=== PATIENT | female | born 1945 | race African-American/Black ===

== ENCOUNTER 2019-09-27 11:10 | Outpatient (CLI) | payer MEDICARE, OTHER, SELFPAY ==
[2019-09-27 11:45] LABS: Hematocrit 33.9 % (37.0-47.0); Hemoglobin 10.9 g/dL (12.0-15.0); Mean Corpuscular HGB Conc 32.2 g/dl (32-36); Mean Corpuscular Hemoglobin 29.7 pg (26-34); Mean Corpuscular Volume 92.4 fl (80-100); Mean Platelet Volume 11.2 fl (7.4-10.4); Platelet Count Result 202 k/mm3 (150-375); Red Blood Count 3.67 M/mm3 (4.2-5.4); Red Cell Distribution Width 12.9 % (11.5-14.5)
[2019-09-27 12:03] LABS: Alanine Aminotransferase 11 U/L (4-35); Albumin Level 4.3 g/dL (3.5-5.1); Alkaline Phosphatase 77 U/L (38-126); Aspartate Amino Transferase 23 U/L (14-36); Bilirubin,Total 0.5 mg/dL (0.2-1.3); Blood Urea Nitrogen 16 mg/dL (7-17); Calcium 9.1 mg/dL (8.4-10.2); Carbon Dioxide 29 mmol/L (22-30); Chloride 105 mmol/L (98-107); Cholesterol 196 mg/dL (0-200); Estimated Glomerular Filt Rate > 60; Glucose 103 mg/dL (65-105); HDL Direct 52 mg/dL; Sodium 135 mmol/L (137-145); Triglycerides 40 mg/dL (<150)
[2019-09-27 12:14] LABS: LDL Cholesterol Direct 96 mg/dL
== END 2019-09-27 11:11 | disposition home or self-care (01) ==
PROVIDERS: PCP Family Medicine; Visit Provider Nurse Practitioner
DX: E03.9 Hypothyroidism, unspecified (principal); I10 Essential (primary) hypertension; E78.5 Hyperlipidemia, unspecified
CPT/HCPCS: 36415; 80053; 80061; 84443; 85027

== ENCOUNTER 2020-02-12 00:12 | Outpatient (CLI) | payer MEDICARE, OTHER, SELFPAY ==
[2020-02-12 19:58] LABS: SARS-CoV-2 RNA PCR Negative
== END 2020-02-12 00:13 | disposition home or self-care (01) ==
LOC: ANHCOVIDDT 00:13
PROVIDERS: PCP Family Medicine; Visit Provider Internal Medicine Gastroenterology
DX: Z01.812 Encounter for preprocedural laboratory examination (principal); Z20.828 Contact with and (suspected) exposure to other viral communicable diseases
CPT/HCPCS: 87635; C9803; U0003

== ENCOUNTER 2020-02-14 03:00 | Day surgery (SDC) | payer MEDICARE, OTHER, SELFPAY ==
[2020-02-09 10:27] VITALS: BMI 43.8
[2020-02-14 10:27] VITALS: BP 115/81; PULSE 43; RESP 16; TEMP 36.4; O2SAT 100
[2020-02-14] MEDS: LACTATED RINGERS 1,000 ML 150 ML IV CONT (10:39)
--- NOTE | 2020-02-14 10:39 | WPDANESEPPF ---
Anes - Initial Pre Proc Eval Procedure: Operation Date: 02/14/20 11:30 Proposed Procedures p Screening Colonoscopy - Flaco Hollingsworth DO Date/Time: 02/14/20 10:39 Surgeon: Flaco Hollingsworth DO Pre Op Diagnosis: family hx colon CA Patient Data Age: 74 Gender: F Height: 5 ft 7 in Weight: 126 kg Last Vital Signs Temp 36.4 C L 02/14/20 10:27 Pulse 43 L 02/14/20 10:27 Resp 16 02/14/20 10:27 BP 115/81 02/14/20 10:27 Pulse Ox 100 02/14/20 10:27 Allergies Allergy/AdvReac Type Severity Reaction Status Date / Time No Known Allergies Allergy Verified 02/09/20 10:31 Home Medications Medication Instructions Recorded Confirmed Type Lactobac. acidophilus-Bifido. 1 tablet PO DAILY #30 tablet 03/31/19 02/09/20 Rx animalis 10 billion cell chewable tablet cholecalciferol (vitamin D3) 25 25 mcg PO DAILY #30 cap 03/31/19 02/09/20 Rx mcg (1,000 unit) capsule prasterone (dhea) 25 mg capsule 25 mg PO DAILY #30 cap 03/31/19 02/09/20 Rx fluticasone propionate 50 1 spray NASAL BID #9.9 ml 05/19/19 02/09/20 Rx mcg/actuation nasal spray,suspension levothyroxine 25 mcg tablet See Rx Instructions .ROUTE 09/27/19 02/09/20 Rx .COMPLEX #90 each lovastatin 20 mg tablet 20 mg PO DAILY #90 tablet 09/27/19 02/09/20 Rx omeprazole 40 mg capsule,delayed 40 mg PO DAILY #90 cap 09/27/19 02/09/20 Rx release lisinopril 10 See Rx Instructions .ROUTE 01/18/20 02/09/20 Rx mg-hydrochlorothiazide 12.5 mg .COMPLEX #90 tablet tablet Patient hx anesthesia problems: none Family hx anesthesia problems: none PMFSH Past Medical History Medical History Adult hypothyroidism Essential (primary) hypertension GERD with esophagitis Other hyperlipidemia Seasonal affective disorder Family History Family History Other Family history of colonic diverticulitis Family history of glaucoma Family history of type 2 diabetes mellitus Social History Social History Years smoked: 5 Smoking status: Former smoker Tobacco type: cigarettes Second hand tobacco smoke exposure: No Smoking end date: 04/12/87 Alcohol intake: never Substance use: never Substance use type: does not use Living arrangements: with family Spiritual care concerns: No Anes - Eval Final PreProcedure Day of Procedure 02/14/20 10:39 Patient weight: morbidly obese Heart: regular rate and rhythm Lungs: clear to auscultation Airway: Mallampati scale class II Neurological: alert and oriented Last oral intake: >/= 8 hours ASA classification: III Emergent: no Anesthetic plan: proceed Anesthesia type and monitoring: general GIVS and standard monitoring Informed Consent: The patient's anesthetic plan and its attendant risks and benefits were discussed with the patient/family/POA. Questions were solicited and answers provided to the satisfaction of the patient/family/POA.
--- NOTE | 2020-02-14 12:15 | PM.IMHP ---
H&P: HPI History of Present Illness Date/Time: 02/14/20 12:15 Chief complaint: family hx colon CA Narrative: Reason for visit colonoscopy. This very pleasant lady seen in consultation at the request of the primary physician. Impression: Patient is here for screening colonoscopy. She has a family history of colon cancer. GERD controlled with medication. HTN. HLD. Hypothyroidism. Recommendation: Colonoscopy. History: this very pleasant lady's being evaluated for family history colon cancer. Her GI review of systems unremarkable at this time. She has a history of reflux disease with takes omeprazole to control her symptoms. The patient is previous had a colonoscopy. She is unsure whether she has had polyps. She has been complaining of sinus drainage. Physical examination: General: very pleasant patient in no acute distress. HEENT: Head was normocephalic sclerae is clear mouth without masses neck was supple. Heart: Rate rhythm regular without S3 or S4. Lungs: CTA. Abdomen: Soft with no guarding or rigidity. Bowel sounds were active. Neurologic: Cranial nerves 2 through 12 intact. No focal defects. No clonus. Musculoskeletal system: Revealed no joint tenderness or swelling no muscle atrophy. Extremities: Reveal no significant edema. Skin: Warm and dry with normal turgor. Mental status: intact. Patient is alert and oriented. Review of Systems Review of Systems: All systems reviewed & are unremarkable except as noted in HPI and below PMFSH Past Medical History Medical History Adult hypothyroidism Essential (primary) hypertension GERD with esophagitis Other hyperlipidemia Seasonal affective disorder Family History Family History Other Family history of colonic diverticulitis Family history of glaucoma Family history of type 2 diabetes mellitus Social History Social History Years smoked: 5 Smoking status: Former smoker Tobacco type: cigarettes Second hand tobacco smoke exposure: No Smoking end date: 04/12/87 Alcohol intake: never Substance use: never Substance use type: does not use Living arrangements: with family Spiritual care concerns: No Meds Home Medications and Allergies Home Medications Medication Instructions Recorded Confirmed Type Lactobac. acidophilus-Bifido. 1 tablet PO DAILY #30 tablet 03/31/19 02/09/20 Rx animalis 10 billion cell chewable tablet cholecalciferol (vitamin D3) 25 25 mcg PO DAILY #30 cap 03/31/19 02/09/20 Rx mcg (1,000 unit) capsule prasterone (dhea) 25 mg capsule 25 mg PO DAILY #30 cap 03/31/19 02/09/20 Rx fluticasone propionate 50 1 spray NASAL BID #9.9 ml 05/19/19 02/09/20 Rx mcg/actuation nasal spray,suspension levothyroxine 25 mcg tablet See Rx Instructions .ROUTE 09/27/19 02/09/20 Rx .COMPLEX #90 each lovastatin 20 mg tablet 20 mg PO DAILY #90 tablet 09/27/19 02/09/20 Rx omeprazole 40 mg capsule,delayed 40 mg PO DAILY #90 cap 09/27/19 02/09/20 Rx release lisinopril 10 See Rx Instructions .ROUTE 01/18/20 02/09/20 Rx mg-hydrochlorothiazide 12.5 mg .COMPLEX #90 tablet tablet Allergies Allergy/AdvReac Type Severity Reaction Status Date / Time No Known Allergies Allergy Verified 02/09/20 10:31 Vital Signs Vital Signs - 24 hr 02/14/20 10:27 Temperature 36.4 C L Pulse Rate 43 L Respiratory Rate 16 Blood Pressure 115/81 Pulse Oximetry 100
[2020-02-14 12:32] VITALS: BP 105/60; PULSE 88; RESP 24; O2SAT 98
[2020-02-14 12:42] VITALS: BP 101/37; PULSE 77; RESP 25; O2SAT 98
[2020-02-14 12:52] VITALS: BP 113/61; PULSE 80; RESP 18; O2SAT 100
== END 2020-02-14 13:08 | disposition home or self-care (01) ==
PROVIDERS: Visit Provider Internal Medicine Gastroenterology
PROC: 0DJD8ZZ Inspection of Lower Intestinal Tract, Via Natural or Artificial Opening Endoscopic (ICD-10-PCS; CPT 45378; principal; 2020-02-14 11:30)
DX: Z12.11 Encounter for screening for malignant neoplasm of colon (principal); K57.30 Diverticulosis of large intestine without perforation or abscess without bleeding; K64.8 Other hemorrhoids; K64.4 Residual hemorrhoidal skin tags; Z80.0 Family history of malignant neoplasm of digestive organs; I10 Essential (primary) hypertension; E03.9 Hypothyroidism, unspecified; E78.5 Hyperlipidemia, unspecified; K21.00 Gastro-esophageal reflux disease with esophagitis, without bleeding; F39 Unspecified mood [affective] disorder; Z87.891 Personal history of nicotine dependence; E66.01 Morbid (severe) obesity due to excess calories; Z68.41 Body mass index [BMI] 40.0-44.9, adult
CPT/HCPCS: G0105; J2704; J7120

== ENCOUNTER 2020-04-17 11:15 | Outpatient (CLI) | payer MEDICARE, OTHER, SELFPAY ==
[2020-04-17 11:50] LABS: Basophils Percent Auto 0.3 % (0.2-1.2); Eosinophils Absolute Auto 0.1 K/mm3 (0-0.3); Eosinophils Percent Auto 1.5 % (0-4.4); Hemoglobin 10.6 g/dL (12.0-15.0); Immature Granulocyte Absolute 0.04 K/mm3 (0.00-0.031); Immature Granulocyte Percent A 0.5 % (0-0.5); Lymphocytes Percent Auto 23.2 % (18.3-44.2); Mean Corpuscular HGB Conc 32.1 g/dl (32-36); Mean Corpuscular Hemoglobin 29.9 pg (26-34); Mean Platelet Volume 10.6 fl (7.4-10.4); Monocytes Absolute Auto 0.5 K/mm3 (0.1-0.6); Monocytes Percent Auto 6.3 % (2.6-8.5); Neutrophils Percent Auto 68.2 % (45.5-73.1); Platelet Count Result 213 k/mm3 (150-375); Red Blood Count 3.55 M/mm3 (4.2-5.4); Red Cell Distribution Width 12.9 % (11.5-14.5); White Blood Count 7.3 K/mm3 (4.5-10.0)
[2020-04-17 12:03] LABS: Alanine Aminotransferase 12 U/L (4-35); Alkaline Phosphatase 76 U/L (38-126); Anion Gap 5 mmol/L (8-16); Aspartate Amino Transferase 24 U/L (14-36); Bilirubin,Total 0.7 mg/dL (0.2-1.3); Blood Urea Nitrogen 14 mg/dL (7-17); Calcium 9.3 mg/dL (8.4-10.2); Carbon Dioxide 30 mmol/L (22-30); Chloride 104 mmol/L (98-107); Cholesterol 194 mg/dL (0-200); Estimated Glomerular Filt Rate > 60; Glucose 102 mg/dL (65-105); HDL Direct 51 mg/dL; Sodium 139 mmol/L (137-145); Triglycerides 44 mg/dL (<150)
[2020-04-17 12:14] LABS: LDL Cholesterol Direct 96 mg/dL
[2020-04-17 12:33] LABS: Total Triiodothyronine (T3) 0.82 NG/ML (0.97-1.69)
[2020-04-17 12:50] LABS: Creatinine Urine 72.4 mg/dL
[2020-04-17 12:54] LABS: MALB Creatinine Ratio 12.3 mg/g (0-30); Microalbumin Urine Random 8.9 mg/L (0-16.7)
[2020-04-17 13:37] LABS: Free T4 Free Thyroxine 1.07 ng/mL (0.78-2.19); Vitamin D 25 Hydroxy 41.4 ng/mL
== END 2020-04-17 11:16 | disposition home or self-care (01) ==
LOC: ANHLAB 11:19
PROVIDERS: PCP Family Medicine; Visit Provider Nurse Practitioner
DX: E03.9 Hypothyroidism, unspecified (principal); I10 Essential (primary) hypertension; E55.9 Vitamin D deficiency, unspecified; R80.9 Proteinuria, unspecified; Z13.6 Encounter for screening for cardiovascular disorders; Z13.0 Encounter for screening for diseases of the blood and blood-forming organs and certain disorders involving the immune mechanism; Z13.220 Encounter for screening for lipoid disorders; Z13.29 Encounter for screening for other suspected endocrine disorder
CPT/HCPCS: 36415; 80053; 80061; 82043; 82306; 84439; 84443; 84480; 85025

== ENCOUNTER 2020-04-23 10:48 | Outpatient (CLI) | payer MEDICARE, OTHER, SELFPAY ==
--- NOTE | ~2020-04-23 | MM_ITS ---
EXAMINATION: MM screening [facility] BI w tiera HISTORY: Screening TECHNIQUE: Craniocaudal and mediolateral oblique 3-D tomosynthesis images were obtained and synthetic 2-D images were generated. CAD analysis was submitted and interpreted. COMPARISON: Comparison to multiple prior studies sequentially, with oldest reviewed study dated 12/2013. BREAST PARENCHYMAL COMPOSITION: There are scattered areas of fibroglandular density. FINDINGS: There are developing indeterminate clustered calcifications in the lower central left breas t in the subareolar location. The right breast is stable without evidence for malignancy. IMPRESSION: 1. Developing clustered indeterminate left breast calcifications. 2. Magnification views are recommended. BI-RADS Category 0: Incomplete: Needs additional imaging evaluation. Reviewed, dictated and finalized at location A. ER SORTING MACHINE OPERATOR
== END 2020-04-23 10:49 | disposition home or self-care (01) ==
LOC: ANHIMG 10:51
PROVIDERS: PCP Family Medicine; Visit Provider Family Medicine
DX: Z12.31 Encounter for screening mammogram for malignant neoplasm of breast (principal); R92.8 Other abnormal and inconclusive findings on diagnostic imaging of breast
CPT/HCPCS: 77063; 77067

== ENCOUNTER 2020-04-26 10:19 | Outpatient (CLI) | payer MEDICARE, OTHER, SELFPAY ==
[2020-04-26 10:52] LABS: Immature Reticulocyte Fraction 14.6 % (3.0-15.9); Reticulocyte Hemoglobin Conten 34.9 pg (28.2-35.7); Reticulocyte Percent 1.44 % (0.7-4.3); Reticulocytes Absolute 0.05 B/L (32.2-175.7)
[2020-04-26 11:12] LABS: Lactate Dehydrogenase 427 U/L (313-618)
[2020-04-26 11:20] LABS: Transferrin 213 mg/dL (206-381)
[2020-04-26 11:31] LABS: Iron 106 ug/dL (37-170)
[2020-04-26 11:35] LABS: Basophils Percent Auto 0.3 % (0.2-1.2); Eosinophils Absolute Auto 0.1 K/mm3 (0-0.3); Eosinophils Percent Auto 1.9 % (0-4.4); Hemoglobin 11.1 g/dL (12.0-15.0); Immature Granulocyte Absolute 0.02 K/mm3 (0.00-0.031); Immature Granulocyte Percent A 0.3 % (0-0.5); Lymphocytes Absolute Auto 2.05 K/mm3 (0.9-3.2); Lymphocytes Percent Auto 30.2 % (18.3-44.2); Mean Corpuscular HGB Conc 31.7 g/dl (32-36); Mean Corpuscular Volume 94.6 fl (80-100); Mean Platelet Volume 11.1 fl (7.4-10.4); Monocytes Absolute Auto 0.4 K/mm3 (0.1-0.6); Neutrophils Absolute Auto 4.2 K/mm3 (1.3-6.7); Neutrophils Percent Auto 61.3 % (45.5-73.1); Platelet Count Result 219 k/mm3 (150-375); Red Cell Distribution Width 12.9 % (11.5-14.5); White Blood Count 6.8 K/mm3 (4.5-10.0)
[2020-04-26 11:39] LABS: Percent Iron Saturation 36 % (20-50)
[2020-04-26 12:18] LABS: Folic Acid 13.2 ng/mL (2.76->20)
== END 2020-04-26 10:20 | disposition home or self-care (01) ==
PROVIDERS: PCP Family Medicine; Visit Provider Nurse Practitioner
DX: D64.9 Anemia, unspecified (principal)
CPT/HCPCS: 36415; 82607; 82728; 82746; 83540; 83550; 83615; 84466; 85025; 85046

== ENCOUNTER 2020-05-31 11:56 | Outpatient (CLI) | payer MEDICARE, OTHER, SELFPAY ==
--- NOTE | ~2020-05-31 | MM_ITS ---
EXAMINATION: MM diagnostic mammo unilat LT HISTORY: Follow-up left breast calcifications TECHNIQUE: Additional 3-D tomosynthesis images of the left breast were performed and synthetic 2-D im ages were generated. CAD analysis was submitted and interpreted. COMPARISON: Comparison to multiple prior studies sequentially, with oldest reviewed study dated 12/2013. BREAST PARENCHYMAL COMPOSITION: Breast composed of scattered areas of fibroglandular density. FINDINGS: There is a developing cluster of indeterminate calcifications lower central aspect of the l eft breast anteriorly. There are no suspicious masses or architectural distortion. IMPRESSION: 1. Clustered indeterminate left breast calcifications, lower central aspect of the left breast. 2. Stereotactic left breast biopsy. BI-RADS category 4, suspicious findings. Reviewed, dictated and finalized at location A. UTATIONAL SCIENTIST
== END 2020-05-31 11:57 | disposition home or self-care (01) ==
PROVIDERS: PCP Family Medicine; Visit Provider Nurse Practitioner
DX: R92.8 Other abnormal and inconclusive findings on diagnostic imaging of breast (principal)
CPT/HCPCS: 77065

== ENCOUNTER 2020-06-11 10:16 | Outpatient (CLI) | payer MEDICARE, OTHER, SELFPAY ==
--- NOTE | ~2020-06-11 | MM_ITS ---
MM stereotactic specimen LT, MM post biopsy diagnostic LT, MM stereotactic bx LT EXAMINATION: MM ster eotactic specimen LT, MM post biopsy diagnostic LT, MM stereotactic bx LT INDICATION: Abnormal calcifications in the left breast. Stereotactic core biopsy is requested evalua te for malignancy.] TECHNIQUE AND FINDINGS: The risks and potential benefits of the procedure were discussed with the patient and written informe d consent was obtained. The patient was placed in the prone position clustered at the table with the left breast in medial lateral compression, and the area of interest was localized and targeted utili zing digital imaging with stereotaxis. After sterile preparation of the skin, 1% lidocaine was utilized for local anesthesia at the skin pun cture site and 1% lidocaine with epinephrine was utilized for deeper local anesthesia/is about the bi opsy site. A 9G AnSyn vacuum assisted biopsy needle was advanced to the level of the calcification o f interest from a lateral approach utilizing stereotactic guidance and a total of 6 tissue core biops ies were obtained. A specimen radiograph demonstrates that the calcifications of interest are included within the tissue cores. A tissue marker clip was then placed at the biopsy site. The needle was removed and hemosta sis was achieved. The patient tolerated the procedure well and there is no evidence of significant i mmediate complication. The patient was given verbal as well as written postprocedural instructions p rior to discharge from the department. Tissue cores were submitted to surgical pathology for histolo gic analysis. A 2-view left unilateral digital mammogram was obtained post procedure and this demonstrates that the tissue marker clip is in expected position. IMPRESSION: 1. Successful stereotactic biopsy of calcifications in the subareolar aspect of the left breast, fol lowed by tissue marker clip placement. Please refer to pathology report for histologic analysis. Reviewed, dictated and finalized at location A. [employer] IMPRESSION: 1. Successful stereotactic biopsy of calcifications in the subareolar aspect o f the left breast, followed by tissue marker clip placement. Please refer to p athology report for histologic analysis. IMPRESSION: 1. Successful stereotactic biopsy of calcifications in the subareolar aspect o f the left breast, followed by tissue marker clip placement. Please refer to p athology report for histologic analysis.
== END 2020-06-11 10:17 | disposition home or self-care (01) ==
PROVIDERS: PCP Family Medicine; Visit Provider Nurse Practitioner
DX: C50.912 Malignant neoplasm of unspecified site of left female breast (principal)
CPT/HCPCS: 19081; 77065; 88305; 88342; A4648

== ENCOUNTER 2020-06-14 13:17 | Outpatient (CLI) | payer MEDICARE, OTHER, SELFPAY | END 2020-06-14 13:18 | disposition home or self-care (01) | LOC: ANHCOVIDVC 13:17 | PROVIDERS: PCP Family Medicine | DX: Z23 Encounter for immunization (principal) | CPT/HCPCS: 0001A; 91300 ==

== ENCOUNTER 2020-07-05 13:16 | Outpatient (CLI) | payer MEDICARE, OTHER, SELFPAY | END 2020-07-05 13:17 | disposition home or self-care (01) | LOC: ANHCOVIDVC 13:16 | PROVIDERS: PCP Family Medicine | DX: Z23 Encounter for immunization (principal) | CPT/HCPCS: 0002A; 91300 ==

== ENCOUNTER → 2020-07-22 03:02 | Outpatient (CLI) | payer MEDICARE, OTHER, SELFPAY ==
[2020-07-22 19:42] LABS: SARS-CoV-2 RNA PCR Negative
== END ==
PROVIDERS: PCP Family Medicine; Visit Provider Surgery
DX: Z01.812 Encounter for preprocedural laboratory examination (principal); Z20.822 Contact with and (suspected) exposure to COVID-19
CPT/HCPCS: C9803; U0003; U0005

== ENCOUNTER 2020-07-22 08:49 | Outpatient (CLI) | payer MEDICARE, OTHER, SELFPAY ==
[2020-07-22 09:31] LABS: Hematocrit 33.9 % (37.0-47.0); Hemoglobin 10.9 g/dL (12.0-15.0)
[2020-07-22 10:00] LABS: Anion Gap 4 mmol/L (8-16); Blood Urea Nitrogen 17 mg/dL (7-17); Calcium 9.3 mg/dL (8.4-10.2); Carbon Dioxide 31 mmol/L (22-30); Chloride 108 mmol/L (98-107); Estimated Glomerular Filt Rate 59; Glucose 104 mg/dL (65-105); Potassium 3.9 mmol/L (3.4-5.0); Sodium 143 mmol/L (137-145)
--- NOTE | 2020-07-22 13:45 | ECG_ITS ---
Measurements Intervals [place] Rate: 85 P: 64 KS: 189 QRS: -6 QRSD: 119 T: 79 QT: 392 QTc: 468 Interpretive Statements SINUS RHYTHM LEFT ATRIAL ENLARGEMENT INCOMPLETE RIGHT BUNDLE BRANCH BLOCK DELAYED PRECORDIAL R/S TRANSITION LEFT VENTRICULAR HYPERTROPHY WITH ST-T CHANGE BASELINE WANDER- V6 BORDERLINE ECG Electronically Signed On 07-22-2020 9:36:57 CDT by Jericho Cueva D.O.
== END 2020-07-22 08:50 | disposition home or self-care (01) ==
LOC: ANHSURGERY 08:54
PROVIDERS: Anesthesiology; PCP Family Medicine; Visit Provider Surgery
DX: D64.9 Anemia, unspecified (principal); I10 Essential (primary) hypertension; Z01.818 Encounter for other preprocedural examination; I45.10 Unspecified right bundle-branch block
CPT/HCPCS: 36415; 80048; 85014; 85018; 93005; C9803; U0003; U0005

== ENCOUNTER 2020-07-25 01:13 | Day surgery (SDC) | payer MEDICARE, OTHER, SELFPAY ==
[2020-07-18 09:18] VITALS: BMI 43.1
[2020-07-25] VITALS (12 sets, daily range): BP systolic 125–147; BP diastolic 63–90; PULSE 85–93; RESP 12–20; TEMP 36.2–36.6; O2SAT 94–100
--- NOTE | ~2020-07-25 | MM_ITS ---
EXAMINATION: MM needle loc LT, MM surgical specimen LT MAMMOGRAPHY SPECIMEN DATE: 07/25/2020 15:55 CDT INDICATION: Left breast DCIS. TECHNIQUE: The procedure for a mammography-guided needle localization was discussed with the patient' s. Risks and benefits were detailed, including risks of bleeding, infection, pain, and nondiagnostic specimen. The patient verbalized understanding and agreed to proceed. The time out was performed to verify the patient's name, date of , and site of procedure. The p atient was placed in left breast compression, and the skin overlying the left breast was prepped in u sual fashion. Utilizing mammography guidance, a needle was advanced into the left breast. Two confi rmatory films were obtained. The patient tolerated procedure without immediate complication. A specimen radiograph was performed. FINDINGS: Two view confirmatory films of the left breast demonstrate a the wire adjacent to the tissu e marker. The tissue marker is contained within the surgical specimen. IMPRESSION: 1. Successful mammography-guided left breast needle localization. Reviewed, dictated and finalized at location A. IMPRESSION: 1. Successful mammography-guided left breast needle localization.
--- NOTE | ~2020-07-25 | NM_ITS ---
NM sentinel node inject only 07/25/2020 15:53 CDT INDICATION: Left breast DCIS TECHNIQUE: 1.05 Millicuries Tc 99m filtered sulfur colloid was injected and 4 aliquots in the anterio r upper outer quadrant of the breast near the areola. No images were obtained. IMPRESSION: 1: Status post left breast sentinel lymph node radiopharmaceutical injection. Reviewed, dictated and finalized at location A.
--- NOTE | 2020-07-25 07:00 | WPDHPUPDATE1 ---
History and Physical Update Update Date/Time: 07/25/20 07:00 History and Physical has been reviewed, including an updated exam of the patient. There are NO changes in the patient's condition. Risks, benefits, and alternatives have been discussed and questions answered. Patient agrees to proceed with procedure.
--- NOTE | 2020-07-25 12:48 | SUR.PREOP ---
1215-PER W/C TO MAMMOGRAPH.
[2020-07-25] MEDS: LACTATED RINGERS 1,000 ML 30 ML IV CONT (13:20)
--- NOTE | 2020-07-25 13:52 | SUR.PREOP ---
1300-RETURNED FROM RADIOLOGY DEPARTMENT.
--- NOTE | 2020-07-25 14:06 | P.PNAN_ITS ---
Anes - Eval Pre Procedure Procedure: Operation Date: 07/25/20 14:00 Proposed Procedures p Left Breast Lumpectomy with Axillary [place] Lymph Node Biopsy, - Roger Clark MD s Left Breast Biopsy with Ultrasound and/or Mammogram Guided Needle Localization - Roger Clark MD Date/Time: 07/25/20 14:06 Pre Op Diagnosis: DCIS left breast Patient Data Age: 74 Gender: F Height: 1.7 m Weight: 125.2 kg Last Vital Signs Temp 36.6 C 07/25/20 11:21 Pulse 85 07/25/20 11:21 Resp 20 07/25/20 11:21 BP 143/74 H 07/25/20 11:21 Pulse Ox 94 07/25/20 11:21 Allergies Allergy/AdvReac Type Severity Reaction Status Date / Time No Known Allergies Allergy Verified 07/25/20 11:19 Home Medications Medication Instructions Recorded Confirmed Type Lactobac. acidophilus-Bifido. 1 tablet PO DAILY #30 tablet 03/31/19 07/25/20 Rx animalis 10 billion cell chewable tablet cholecalciferol (vitamin D3) 25 25 mcg PO DAILY #30 cap 03/31/19 07/25/20 Rx mcg (1,000 unit) capsule prasterone (dhea) 25 mg capsule 25 mg PO DAILY #30 cap 03/31/19 07/25/20 Rx lovastatin 20 mg tablet 20 mg PO DAILY #90 tablet 09/27/19 07/25/20 Rx omeprazole 40 mg capsule,delayed 40 mg PO DAILY #90 cap 09/27/19 07/25/20 Rx release ferrous sulfate 325 mg PO DAILY 07/18/20 07/25/20 History fluticasone propionate [Allergy 1 spray NASAL BID PRN 07/18/20 07/25/20 History Relief (fluticasone)] levothyroxine 25 mcg PO QAM 07/18/20 07/25/20 History lisinopril-hydrochlorothiazide 1 tablet PO QAM 07/18/20 07/25/20 History Patient hx anesthesia problems: none Family hx anesthesia problems: none PMFSH Past Medical History Medical History Adult hypothyroidism Essential (primary) hypertension GERD with esophagitis Other hyperlipidemia Seasonal affective disorder Surgical History Surgical History H/O breast biopsy H/O tubal ligation Family History Family History Mother Diabetes mellitus Sibling Malignant neoplasm of prostate Sibling Heart disease Carcinoma of colon Other Family history of colonic diverticulitis Family history of glaucoma Family history of type 2 diabetes mellitus Social History Social History Smoking packs per day: 0.5 Smoking cigarettes per day: 10.0 Years smoked: 7 Smoking pack-years: 3.50 Smoking status: Former smoker Tobacco type: cigarettes Second hand tobacco smoke exposure: No Smoking end date: 10/10/84 Alcohol intake: former Alcohol use details: FORMER SOCIAL DRINKER Substance use: never Substance use type: does not use Living arrangements: with family Additional living arrangements comments: SISTER Spiritual care concerns: No Exam Day of Procedure 07/25/20 14:06
--- NOTE | 2020-07-25 14:18 | WPDANESEPPF ---
Anes - Initial Pre Proc Eval Procedure: Operation Date: 07/25/20 14:00 Proposed Procedures p Left Breast Lumpectomy with Axillary [place] Lymph Node Biopsy, - Roger Clark MD s Left Breast Biopsy with Ultrasound and/or Mammogram Guided Needle Localization - Roger Clark MD Date/Time: 07/25/20 14:18 Surgeon: Roger Clark MD Pre Op Diagnosis: DCIS left breast Patient Data Age: 74 Gender: F Height: 5 ft 7 in Weight: 125.2 kg Last Vital Signs Temp 97.8 F 07/25/20 11:21 Pulse 85 07/25/20 11:21 Resp 20 07/25/20 11:21 BP 143/74 H 07/25/20 11:21 Pulse Ox 94 07/25/20 11:21 Allergies Allergy/AdvReac Type Severity Reaction Status Date / Time No Known Allergies Allergy Verified 07/25/20 11:19 Home Medications Medication Instructions Recorded Confirmed Type Lactobac. acidophilus-Bifido. 1 tablet PO DAILY #30 tablet 03/31/19 07/25/20 Rx animalis 10 billion cell chewable tablet cholecalciferol (vitamin D3) 25 25 mcg PO DAILY #30 cap 03/31/19 07/25/20 Rx mcg (1,000 unit) capsule prasterone (dhea) 25 mg capsule 25 mg PO DAILY #30 cap 03/31/19 07/25/20 Rx lovastatin 20 mg tablet 20 mg PO DAILY #90 tablet 09/27/19 07/25/20 Rx omeprazole 40 mg capsule,delayed 40 mg PO DAILY #90 cap 09/27/19 07/25/20 Rx release ferrous sulfate 325 mg PO DAILY 07/18/20 07/25/20 History fluticasone propionate [Allergy 1 spray NASAL BID PRN 07/18/20 07/25/20 History Relief (fluticasone)] levothyroxine 25 mcg PO QAM 07/18/20 07/25/20 History lisinopril-hydrochlorothiazide 1 tablet PO QAM 07/18/20 07/25/20 History Patient hx anesthesia problems: none Family hx anesthesia problems: none PMFSH Past Medical History Medical History Adult hypothyroidism Essential (primary) hypertension GERD with esophagitis Other hyperlipidemia Seasonal affective disorder Surgical History Surgical History H/O breast biopsy H/O tubal ligation Family History Family History Mother Diabetes mellitus Sibling Malignant neoplasm of prostate Sibling Heart disease Carcinoma of colon Other Family history of colonic diverticulitis Family history of glaucoma Family history of type 2 diabetes mellitus Social History Social History Smoking packs per day: 0.5 Smoking cigarettes per day: 10.0 Years smoked: 7 Smoking pack-years: 3.50 Smoking status: Former smoker Tobacco type: cigarettes Second hand tobacco smoke exposure: No Smoking end date: 10/10/84 Alcohol intake: former Alcohol use details: FORMER SOCIAL DRINKER Substance use: never Substance use type: does not use Living arrangements: with family Additional living arrangements comments: SISTER Spiritual care concerns: No Anes - Eval Final PreProcedure Day of Procedure 07/25/20 14:18 Patient weight: obese Heart: regular rate and rhythm Lungs: clear to auscultation Airway: Mallampati scale class II Neurological: alert and oriented Last oral intake: >/= 8 hours ASA classification: III Emergent: no Anesthetic plan: proceed Anesthesia type and monitoring: general ETT and standard monitoring Informed Consent: The patient's anesthetic plan and its attendant risks and benefits were discussed with the patient/family/POA. Questions were solicited and answers provided to the satisfaction of the patient/family/POA.
[2020-07-25] MEDS: ceFAZolin 3 GM/D5W 100 ML 100 ML IVPB (14:22)
[2020-07-25] MEDS: BUPIVACAINE/EPINEPHRINE 0.5% 30 ML VIAL INFILTRATE (15:13)
[2020-07-25] MEDS: ISOSULFAN BLUE 1% INJ 5 ML VIAL SUB-Q (15:13)
--- NOTE | 2020-07-25 16:36 | PM.PROC ---
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 Wire localization of the inferior midline DCIS was performed. Also radioisotope injection under the left nipple was performed. She was taken back to the preoperative area. I reviewed her films. She was then taken to the operating room and induced into general anesthesia. The left breast as well as the left axilla was prepped and draped. The left arm was also prepped and draped so that it was sterile and mobile in the operating field. I injected Isosulfan Blue dye under the left nipple. Gentle breast massage was carried out for about 2 minutes. The navigator was used and areas of high isotope emission in the left axilla that would be compatible with location of sentinel nodes was marked on the skin. A hairline axillary incision was also marked on the skin. Incision was made and dissection was carried down through the subcutaneous tissue. Once we dissected into the axillary fat, the navigator was again used and an area of high isotope emission identified. Careful dissection with the cautery as well as blunt dissection was carried out. Clips were used for lymphatic stasis and vascular stasis. Eventually we encountered a dye stained left axillary node that had high isotope emission. As I dissected down onto this area, it was apparent this was actually a clump of lymph nodes, very close together. They were not particularly enlarged but clearly giving off high isotope emission and at least 1 of the known had dye staining. Using blunt and sharp dissection, I dissected these nodes free from the rest of the axillary contents. I placed them on a Ray-Gabrielle sponge and began dissecting the nodes from 1 another. There was actually 5 lymph nodes all together. Three of them had no dye staining and no isotope emission. One had a lot of dye staining but a little isotope emission. Another had little dye staining but high isotope emission. The high isotope emitting node was sent as left axillary sentinel node 1. The dye stained node was sent as left axillary sentinel node 2. The rest of the nodes were sent as additional left axillary nodes. These were sent fresh to pathology. Then using palpation, exploration, and the navigator, I searched for additional left axillary sentinel nodes. No suitable candidates were noted. The wound was then made hemostatic. It was closed in layers with 3 0 Monocryl subcutaneous and subcuticular interrupted suture. This area was quarantined with towels and we turned our attention to the left breast. The proposed incision, which was in the lower outer quadrant just below the nipple, was drawn on the skin. Local anesthetic was infiltrated into the skin and the deeper breast tissues. Incision was made and dissection was carried down through about a cm and a half of breast tissue. I then exposed the wire and pulled the wire through the skin and out the wound. From there dissection was carried down to and around the area where the tumor was judged to reside. A generous lumpectomy was performed around the distal end of the wire. The specimen was kept oriented as it was removed with the wire in place. Different colored sutures were placed on the different margins of the specimen and labeled appropriately for pathology. The specimen was placed on the grid and sent to mammographies. Mammographies of the specimen showed the localizing clip to be in the center of the specimen. The specimen was then sent to the pathologist fresh. The breast wound was then made meticulously hemostatic with the cautery. The wound was closed in layers with interrupted 3 0 Monocryl suture. A running 4 0 Monocryl subcuticular skin suture wa
[2020-07-25] MEDS: ONDANSETRON INJ 4 MG/2 ML VIAL IV PUSH (16:41)
== END 2020-07-25 18:44 | disposition home or self-care (01) ==
PROVIDERS: PCP Family Medicine; Visit Provider Surgery
PROC: (CPT 38525; principal; 2020-07-25 14:00)
PROC: (CPT 19301; 2020-07-25 14:00)
DX: D05.12 Intraductal carcinoma in situ of left breast (principal); I10 Essential (primary) hypertension; E78.5 Hyperlipidemia, unspecified; E03.9 Hypothyroidism, unspecified; K21.9 Gastro-esophageal reflux disease without esophagitis; Z87.891 Personal history of nicotine dependence
CPT/HCPCS: 19301; 38525; 19281; 38792; 76098; 88305; 88307; A9270; A9520; C1713; C1769; J0690; J1100; J2405; J2704; J3010; J7120

== ENCOUNTER 2020-10-03 08:53 | Outpatient (CLI) | payer MEDICARE, OTHER, SELFPAY ==
[2020-10-03 09:13] LABS: Basophils Percent Auto 0.2 % (0.2-1.2); Eosinophils Absolute Auto 0.1 K/mm3 (0-0.3); Eosinophils Percent Auto 1.6 % (0-4.4); Hematocrit 32.7 % (37.0-47.0); Hemoglobin 10.6 g/dL (12.0-15.0); Immature Granulocyte Absolute 0.01 K/mm3 (0.00-0.031); Immature Granulocyte Percent A 0.2 % (0-0.5); Lymphocytes Percent Auto 24.4 % (18.3-44.2); Mean Corpuscular HGB Conc 32.4 g/dl (32-36); Mean Corpuscular Volume 92.6 fl (80-100); Mean Platelet Volume 10.6 fl (7.4-10.4); Monocytes Absolute Auto 0.4 K/mm3 (0.1-0.6); Monocytes Percent Auto 8.8 % (2.6-8.5); Neutrophils Absolute Auto 3.2 K/mm3 (1.3-6.7); Neutrophils Percent Auto 64.8 % (45.5-73.1); Platelet Count Result 176 k/mm3 (150-375); Red Blood Count 3.53 M/mm3 (4.2-5.4); Red Cell Distribution Width 13.1 % (11.5-14.5); White Blood Count 4.9 K/mm3 (4.5-10.0)
[2020-10-03 09:16] LABS: Blood Urea Nitrogen 16 mg/dL (8-26); Carbon Dioxide 25 mmol/L (22-30); Chloride 104 mmol/L (98-109); Estimated Glomerular Filt Rate > 60; Glucose 100 mg/dL (70-105); Potassium 3.9 mmol/L (3.5-4.9); Sodium 142 mmol/L (138-146)
[2020-10-03 11:48] LABS: Alanine Aminotransferase 10 U/L (4-35); Albumin Level 4.1 g/dL (3.5-5.1); Alkaline Phosphatase 71 U/L (38-126); Anion Gap 9 mmol/L (8-16); Aspartate Amino Transferase 22 U/L (14-36); Bilirubin,Total 0.5 mg/dL (0.2-1.3); Blood Urea Nitrogen 17 mg/dL (7-17); Calcium 9.3 mg/dL (8.4-10.2); Carbon Dioxide 25 mmol/L (22-30); Chloride 107 mmol/L (98-107); Estimated Glomerular Filt Rate > 60; Glucose 98 mg/dL (65-105); Sodium 141 mmol/L (137-145)
[2020-10-03 12:06] LABS: Iron 65 ug/dL (37-170)
[2020-10-03 12:16] LABS: Percent Iron Saturation 23 % (20-50)
== END 2020-10-03 08:54 | disposition home or self-care (01) ==
PROVIDERS: PCP Family Medicine; Visit Provider Internal Medicine Hematology & Oncology
DX: D05.12 Intraductal carcinoma in situ of left breast (principal)
CPT/HCPCS: 36415; 80048; 80053; 82607; 82728; 83540; 83550; 85025

== ENCOUNTER 2020-12-20 10:39 | Outpatient (CLI) | payer MEDICARE, OTHER, SELFPAY ==
[2020-12-20 11:13] LABS: Basophils Percent Auto 0.2 % (0.2-1.2); Eosinophils Absolute Auto 0.1 K/mm3 (0-0.3); Eosinophils Percent Auto 1.6 % (0-4.4); Hematocrit 32.6 % (37.0-47.0); Hemoglobin 10.4 g/dL (12.0-15.0); Immature Granulocyte Absolute 0.01 K/mm3 (0.00-0.031); Immature Granulocyte Percent A 0.2 % (0-0.5); Lymphocytes Absolute Auto 1.39 K/mm3 (0.9-3.2); Lymphocytes Percent Auto 27.5 % (18.3-44.2); Mean Corpuscular HGB Conc 31.9 g/dl (32-36); Mean Corpuscular Volume 93.9 fl (80-100); Mean Platelet Volume 11.1 fl (7.4-10.4); Monocytes Absolute Auto 0.3 K/mm3 (0.1-0.6); Monocytes Percent Auto 5.9 % (2.6-8.5); Neutrophils Absolute Auto 3.3 K/mm3 (1.3-6.7); Neutrophils Percent Auto 64.6 % (45.5-73.1); Platelet Count Result 209 k/mm3 (150-375); Red Blood Count 3.47 M/mm3 (4.2-5.4); White Blood Count 5.1 K/mm3 (4.5-10.0)
[2020-12-20 12:26] LABS: Alanine Aminotransferase 14 U/L (4-35); Albumin Level 4.3 g/dL (3.5-5.1); Alkaline Phosphatase 85 U/L (38-126); Anion Gap 5 mmol/L (8-16); Aspartate Amino Transferase 40 U/L (14-36); Bilirubin,Total 0.7 mg/dL (0.2-1.3); Blood Urea Nitrogen 19 mg/dL (7-17); Calcium 9.6 mg/dL (8.4-10.2); Carbon Dioxide 28 mmol/L (22-30); Chloride 108 mmol/L (98-107); Cholesterol 206 mg/dL (0-200); Estimated Glomerular Filt Rate > 60; Glucose 97 mg/dL (65-110); HDL Direct 64 mg/dL; Potassium 3.9 mmol/L (3.4-5.0); Sodium 141 mmol/L (137-145); Triglycerides 45 mg/dL (<150)
[2020-12-20 12:37] LABS: LDL Cholesterol Direct 88 mg/dL
[2020-12-20 13:56] LABS: Creatinine Urine 151.2 mg/dL
[2020-12-20 14:00] LABS: MALB Creatinine Ratio 8.9 mg/g (0-30); Microalbumin Urine Random 13.5 mg/L (0-16.7)
[2020-12-20 15:08] LABS: Free T4 Free Thyroxine 1.21 ng/mL (0.78-2.19); Vitamin D 25 Hydroxy 48.4 ng/mL
[2020-12-23 11:31] LABS: Total Triiodothyronine (T3) 0.91 NG/ML (0.97-1.69)
== END 2020-12-20 10:40 | disposition home or self-care (01) ==
PROVIDERS: PCP Family Medicine; Visit Provider Internal Medicine Hematology & Oncology
DX: K21.9 Gastro-esophageal reflux disease without esophagitis (principal); I10 Essential (primary) hypertension; D64.9 Anemia, unspecified; Z00.00 Encounter for general adult medical examination without abnormal findings; Z51.81 Encounter for therapeutic drug level monitoring; Z79.899 Other long term (current) drug therapy
CPT/HCPCS: 36415; 80053; 80061; 82043; 82306; 84439; 84443; 84480; 85025

== ENCOUNTER 2021-04-14 11:58 | Outpatient (CLI) | payer MEDICARE, OTHER, SELFPAY ==
[2021-04-14 12:22] LABS: Basophils Percent Auto 0.2 % (0.2-1.2); Eosinophils Absolute Auto 0.2 K/mm3 (0-0.3); Eosinophils Percent Auto 2.6 % (0-4.4); Hematocrit 33.9 % (37.0-47.0); Hemoglobin 10.3 g/dL (12.0-15.0); Immature Granulocyte Absolute 0.02 K/mm3 (0.00-0.031); Immature Granulocyte Percent A 0.3 % (0-0.5); Lymphocytes Absolute Auto 1.37 K/mm3 (0.9-3.2); Mean Corpuscular HGB Conc 30.4 g/dl (32-36); Mean Corpuscular Volume 98.8 fl (80-100); Mean Platelet Volume 10.3 fl (7.4-10.4); Monocytes Absolute Auto 0.4 K/mm3 (0.1-0.6); Monocytes Percent Auto 6.6 % (2.6-8.5); Neutrophils Absolute Auto 3.8 K/mm3 (1.3-6.7); Neutrophils Percent Auto 66.3 % (45.5-73.1); Platelet Count Result 226 k/mm3 (150-375); Red Blood Count 3.43 M/mm3 (4.2-5.4); Red Cell Distribution Width 13.3 % (11.5-14.5); White Blood Count 5.7 K/mm3 (4.5-10.0)
[2021-04-14 15:09] LABS: Iron 74 ug/dL (37-170)
[2021-04-14 15:15] LABS: Alanine Aminotransferase 15 U/L (4-35); Albumin Level 4.7 g/dL (3.5-5.1); Alkaline Phosphatase 80 U/L (38-126); Anion Gap 11 mmol/L (8-16); Aspartate Amino Transferase 40 U/L (14-36); Bilirubin,Total 0.6 mg/dL (0.2-1.3); Blood Urea Nitrogen 17 mg/dL (7-17); Calcium 9.6 mg/dL (8.4-10.2); Carbon Dioxide 25 mmol/L (22-30); Chloride 105 mmol/L (98-107); Estimated Glomerular Filt Rate 59; Glucose 116 mg/dL (65-110); Potassium 3.9 mmol/L (3.4-5.0); Sodium 141 mmol/L (137-145)
[2021-04-14 15:19] LABS: Percent Iron Saturation 24 % (20-50)
[2021-04-14 16:18] LABS: Folic Acid 12.4 ng/mL (2.76->20)
== END 2021-04-14 11:59 | disposition home or self-care (01) ==
PROVIDERS: PCP Family Medicine; Visit Provider Internal Medicine Hematology & Oncology
DX: D64.9 Anemia, unspecified (principal)
CPT/HCPCS: 36415; 77062; 77066; 80053; 82607; 82728; 82746; 83540; 83550; 85025; G0279

== ENCOUNTER 2021-04-14 12:26 | Outpatient (CLI) | payer MEDICARE, OTHER, SELFPAY ==
--- NOTE | ~2021-04-14 | MM_ITS ---
EXAMINATION: MM diagnostic [place] BI w tiera HISTORY: Ductal carcinoma in situ of the left breast TECHNIQUE: Craniocaudal, mediolateral, and mediolateral oblique 3-D tomosynthesis images of the breas ts were performed and synthetic 2-D images were generated. CAD analysis was submitted and interpreted . COMPARISON: 05/31/2020, 04/23/2020, 09/23/2017, 06/19/2016 BREAST PARENCHYMAL COMPOSITION: There are scattered areas of fibroglandular density. FINDINGS: Lumpectomy changes are noted in the left breast. There is no evidence of suspicious mass, c alcification, or architectural distortion in either breast to suggest malignancy. There has been no suspicious interval change. IMPRESSION: 1. No mammographic evidence of malignancy. 2. Recommend routine screening mammography in one year. BI-RADS Category 2: Benign finding(s). Reviewed, dictated and finalized at location A. H TANK OPERATOR
== END 2021-04-14 12:27 | disposition home or self-care (01) ==
LOC: ANHIMG 12:27
PROVIDERS: PCP Family Medicine; Visit Provider Internal Medicine Hematology & Oncology
DX: D05.12 Intraductal carcinoma in situ of left breast (principal)
CPT/HCPCS: 77062; 77066; G0279

== ENCOUNTER 2021-05-23 10:47 | Outpatient (CLI) | payer MEDICARE, OTHER, SELFPAY ==
[2021-05-23 12:01] LABS: Eosinophils Absolute Auto 0.1 K/mm3 (0-0.3); Eosinophils Percent Auto 1.3 % (0-4.4); Hematocrit 32.8 % (37.0-47.0); Hemoglobin 10.4 g/dL (12.0-15.0); Immature Granulocyte Absolute 0.01 K/mm3 (0.00-0.031); Immature Granulocyte Percent A 0.2 % (0-0.5); Lymphocytes Absolute Auto 1.16 K/mm3 (0.9-3.2); Mean Corpuscular HGB Conc 31.7 g/dl (32-36); Mean Corpuscular Hemoglobin 30.6 pg (26-34); Mean Corpuscular Volume 96.5 fl (80-100); Mean Platelet Volume 11.7 fl (7.4-10.4); Monocytes Absolute Auto 0.3 K/mm3 (0.1-0.6); Monocytes Percent Auto 5.2 % (2.6-8.5); Neutrophils Percent Auto 72.3 % (45.5-73.1); Platelet Count Result 206 k/mm3 (150-375); Red Cell Distribution Width 13.4 % (11.5-14.5); White Blood Count 5.5 K/mm3 (4.5-10.0)
[2021-05-23 12:13] LABS: Alanine Aminotransferase 15 U/L (4-35); Albumin Level 4.3 g/dL (3.5-5.1); Alkaline Phosphatase 78 U/L (38-126); Anion Gap 6 mmol/L (8-16); Aspartate Amino Transferase 26 U/L (14-36); Bilirubin,Total 0.9 mg/dL (0.2-1.3); Blood Urea Nitrogen 17 mg/dL (7-17); Calcium 9.4 mg/dL (8.4-10.2); Carbon Dioxide 24 mmol/L (22-30); Chloride 109 mmol/L (98-107); Cholesterol 197 mg/dL (0-200); Estimated Glomerular Filt Rate 59; Glucose 105 mg/dL (65-110); HDL Direct 50 mg/dL; Potassium 3.8 mmol/L (3.4-5.0); Sodium 139 mmol/L (137-145); Triglycerides 42 mg/dL (<150)
[2021-05-23 12:28] LABS: LDL Cholesterol Direct 93 mg/dL
[2021-05-23 12:35] LABS: Free T4 Free Thyroxine 1.31 ng/mL (0.78-2.19); Vitamin D 25 Hydroxy 54.3 ng/mL
[2021-05-23 13:37] LABS: Total Triiodothyronine (T3) 0.86 NG/ML (0.97-1.69)
== END 2021-05-23 10:48 | disposition home or self-care (01) ==
PROVIDERS: PCP Family Medicine
DX: D64.9 Anemia, unspecified (principal); I10 Essential (primary) hypertension; E55.9 Vitamin D deficiency, unspecified
CPT/HCPCS: 36415; 80053; 80061; 82306; 84439; 84443; 84480; 85025

== ENCOUNTER 2021-06-02 09:59 | Outpatient (CLI) | payer MEDICARE, OTHER, SELFPAY ==
[2021-06-02 10:31] LABS: Hematocrit 31.3 % (37.0-47.0); Hemoglobin 9.9 g/dL (12.0-15.0); Immature Reticulocyte Fraction 13.3 % (3.0-15.9); Mean Corpuscular HGB Conc 31.6 g/dl (32-36); Mean Corpuscular Hemoglobin 30.6 pg (26-34); Mean Corpuscular Volume 96.6 fl (80-100); Mean Platelet Volume 11.7 fl (7.4-10.4); Platelet Count Result 208 k/mm3 (150-375); Red Blood Count 3.24 M/mm3 (4.2-5.4); Red Cell Distribution Width 13.4 % (11.5-14.5); Reticulocyte Hemoglobin Conten 34.5 pg (28.2-35.7); Reticulocyte Percent 1.68 % (0.7-4.3); Reticulocytes Absolute 0.05 B/L (32.2-175.7); White Blood Count 5.4 K/mm3 (4.5-10.0)
[2021-06-02 10:46] LABS: Lactate Dehydrogenase 544 U/L (313-618)
[2021-06-02 10:54] LABS: Transferrin 237 mg/dL (206-381)
[2021-06-02 10:55] LABS: Iron 65 ug/dL (37-170)
[2021-06-02 11:03] LABS: Band Neutrophils Percent 2 % (0-6); Eosinophils Absolute Manual 0.05 K/mm3 (0.02-0.5); Eosinophils Percent Manual 1 % (0-4); Lymphocytes Absolute Manual 1.08 K/mm3 (1.1-4.5); Neutrophils Absolute Manual 4.26 K/mm3 (1.7-7.2); Neutrophils Percent Manual 77 % (46-73); Platelet Estimate Adequate (Adequate); Total Cells Counted 100
[2021-06-02 11:04] LABS: Hypochromasia 1+ (NORMAL)
[2021-06-02 11:05] LABS: Percent Iron Saturation 22 % (20-50)
[2021-06-02 11:54] LABS: Folic Acid 17.8 ng/mL (2.76->20)
== END 2021-06-02 10:00 | disposition home or self-care (01) ==
PROVIDERS: PCP Family Medicine; Visit Provider Family Medicine
DX: D64.9 Anemia, unspecified (principal); I10 Essential (primary) hypertension; R79.89 Other specified abnormal findings of blood chemistry
CPT/HCPCS: 36415; 82607; 82728; 82746; 83540; 83550; 83615; 84466; 85025; 85046

== ENCOUNTER 2021-06-25 10:57 | Outpatient (CLI) | payer MEDICARE, OTHER, SELFPAY ==
[2021-06-25 11:33] LABS: Hematocrit 30.9 % (37.0-47.0); Immature Reticulocyte Fraction 14.8 % (3.0-15.9); Mean Corpuscular HGB Conc 32.4 g/dl (32-36); Mean Corpuscular Hemoglobin 30.6 pg (26-34); Mean Corpuscular Volume 94.5 fl (80-100); Mean Platelet Volume 11.1 fl (7.4-10.4); Platelet Count Result 199 k/mm3 (150-375); Red Blood Count 3.27 M/mm3 (4.2-5.4); Red Cell Distribution Width 13.2 % (11.5-14.5); Reticulocyte Hemoglobin Conten 33.9 pg (28.2-35.7); Reticulocyte Percent 1.41 % (0.7-4.3); Reticulocytes Absolute 0.05 B/L (32.2-175.7); White Blood Count 5.9 K/mm3 (4.5-10.0)
[2021-06-25 12:11] LABS: Iron 62 ug/dL (37-170)
[2021-06-25 12:20] LABS: Percent Iron Saturation 22 % (20-50); Transferrin 203 mg/dL (206-381)
[2021-06-25 13:17] LABS: Folic Acid 19.4 ng/mL (2.76->20)
== END 2021-06-25 10:58 | disposition home or self-care (01) ==
LOC: ANHLAB 11:05
PROVIDERS: PCP Family Medicine; Visit Provider Family Medicine
DX: D64.9 Anemia, unspecified (principal); R79.9 Abnormal finding of blood chemistry, unspecified; R79.89 Other specified abnormal findings of blood chemistry
CPT/HCPCS: 36415; 82607; 82728; 82746; 83540; 83550; 84466; 85027; 85046

== ENCOUNTER 2021-08-01 14:05 | Outpatient (CLI) | payer MEDICARE, OTHER, SELFPAY ==
--- NOTE | ~2021-08-01 | XR_ITS ---
EXAMINATION: XR chest 2V DATE: 08/01/2021 14:21 INDICATION: Chronic pulmonary edema. TECHNIQUE: Frontal and lateral views of the chest were obtained. COMPARISON: None. FINDINGS: There is no pneumonia, pleural effusion, or pneumothorax. Cardiomegaly is noted. There are surgical clips in left chest wall. IMPRESSION: 1. Cardiomegaly. Reviewed, dictated and finalized at location B. IMPRESSION: 1. Cardiomegaly.
== END 2021-08-01 14:06 | disposition home or self-care (01) ==
LOC: ANHIMG 14:07
PROVIDERS: PCP Family Medicine; Visit Provider Nurse Practitioner Adult Health
DX: J81.1 Chronic pulmonary edema (principal); I51.7 Cardiomegaly
CPT/HCPCS: 71046

== ENCOUNTER 2021-08-11 09:32 | Outpatient (CLI) | payer MEDICARE, OTHER, SELFPAY ==
[2021-08-11 09:47] LABS: Basophils Percent Auto 0.3 % (0.2-1.2); Eosinophils Absolute Auto 0.1 K/mm3 (0-0.3); Eosinophils Percent Auto 1.9 % (0-4.4); Hematocrit 33.3 % (37.0-47.0); Immature Granulocyte Absolute 0.03 K/mm3 (0.00-0.031); Immature Granulocyte Percent A 0.4 % (0-0.5); Lymphocytes Absolute Auto 1.28 K/mm3 (0.9-3.2); Lymphocytes Percent Auto 17.3 % (18.3-44.2); Mean Corpuscular Hemoglobin 29.9 pg (26-34); Mean Corpuscular Volume 99.4 fl (80-100); Mean Platelet Volume 10.8 fl (7.4-10.4); Monocytes Absolute Auto 0.5 K/mm3 (0.1-0.6); Monocytes Percent Auto 6.1 % (2.6-8.5); Neutrophils Absolute Auto 5.5 K/mm3 (1.3-6.7); Platelet Count Result 229 k/mm3 (150-375); Red Blood Count 3.35 M/mm3 (4.2-5.4); Red Cell Distribution Width 14.1 % (11.5-14.5); White Blood Count 7.4 K/mm3 (4.5-10.0)
[2021-08-11 11:08] LABS: Iron 57 ug/dL (37-170)
[2021-08-11 11:14] LABS: Alanine Aminotransferase 16 U/L (4-35); Albumin Level 4.2 g/dL (3.5-5.1); Alkaline Phosphatase 78 U/L (38-126); Anion Gap 8 mmol/L (8-16); Aspartate Amino Transferase 24 U/L (14-36); Bilirubin,Total 0.8 mg/dL (0.2-1.3); Blood Urea Nitrogen 16 mg/dL (7-17); Carbon Dioxide 24 mmol/L (22-30); Chloride 105 mmol/L (98-107); Estimated Glomerular Filt Rate > 60; Glucose 114 mg/dL (65-110); Potassium 3.8 mmol/L (3.4-5.0); Sodium 137 mmol/L (137-145)
[2021-08-11 11:18] LABS: Percent Iron Saturation 19 % (20-50)
[2021-08-11 12:15] LABS: Folic Acid 17.7 ng/mL (2.76->20)
== END 2021-08-11 09:33 | disposition home or self-care (01) ==
LOC: ANHLAB 09:34
PROVIDERS: PCP Family Medicine; Visit Provider Internal Medicine Hematology & Oncology
DX: D64.9 Anemia, unspecified (principal)
CPT/HCPCS: 36415; 80053; 82607; 82728; 82746; 83540; 83550; 85025

== ENCOUNTER 2021-10-07 14:05 | Inpatient (IN) | payer MEDICARE, OTHER, SELFPAY ==
[2021-10-07] VITALS (16 sets, daily range): BP systolic 119–149; BP diastolic 62–109; PULSE 75–89; RESP 17–32; TEMP 36.2–36.9; O2SAT 89–99; BMI 41.5
--- NOTE | ~2021-10-07 | US_ITS ---
EXAMINATION: US renal BI DATE: 10/09/2021 15:43 INDICATION: Acute kidney injury TECHNIQUE: Multiple grayscale and Doppler ultrasound images of the kidneys were obtained. COMPARISON: None. FINDINGS: The right kidney measures 11.0 x 3.5 x 4.9 cm. The left kidney measures 10.0 x 3.7 x 5.6 cm . The kidneys demonstrate normal parenchymal echogenicity. There is no hydronephrosis. The bladder is empty. IMPRESSION: 1. Normal kidneys without hydronephrosis. Reviewed, dictated and finalized at location F.
--- NOTE | ~2021-10-07 | US_ITS ---
EXAMINATION: US venous doppler [facility] DATE: 10/08/2021 11:58 INDICATION: Left lower limb swelling TECHNIQUE: Grayscale ultrasound images without and with compression and Doppler ultrasound images of the left lower extremity veins were obtained. COMPARISON: None. FINDINGS: The visualized portions of left common femoral vein, profunda (deep) femoral vein, femoral vein, popl iteal vein, peroneal veins, posterior tibial veins and greater saphenous vein outflow are patent. IMPRESSION: 1. No deep venous thrombosis in the left lower limb. Reviewed, dictated and finalized at location A.
--- NOTE | ~2021-10-07 | XR_ITS ---
XR chest 2V DATE: 10/07/2021 15:10 INDICATION: Shortness of breath, weakness, hypertension TECHNIQUE: AP and lateral views COMPARISON: 08/01/2021 2 view chest FINDINGS: There is cardiomegaly. Is aortic calcification and mild unfolding. There is pulmonary vascular congestion and redistribution. There are small pleural effusions. Mild pr ominence of the greater fissures suggests subpleural edema. There is mild central and lower lung zone haziness/infiltrate suggesting pulmonary edema. IMPRESSION: Congestive heart failure and pulmonary edema, small pleural effusions Reviewed, dictated and finalized at location B. IMPRESSION: Congestive heart failure and pulmonary edema, small pleural effusio ns
--- NOTE | ~2021-10-07 | CT_ITS ---
EXAMINATION: CTA chest PE protocol DATE: 10/07/2021 16:55 INDICATION: Shortness of breath and cough TECHNIQUE: Computed tomography angiography (CTA) of the chest was performed with 100 mL Omnipaque-350 intravenous contrast timed to evaluate the pulmonary arteries. Coronal maximum intensity projection 3D-reconstructions were created by the technologist. The dose-length product (DLP) was 525.49 mGy-cm. Automated exposure control and iterative reconstruction technique were employed. COMPARISON: None. FINDINGS: There is moderate opacification of the pulmonary arteries. No pulmonary embolus is identifi ed. Cardiomegaly is noted. There is a moderate amount of reflux of contrast into the intrahepatic inf erior vena cava cava. Small pleural effusions are present. There is no pneumothorax. There our patchy airspace opacities throughout the lungs. There is mild thoracic spondylosis. IMPRESSION: 1. Cardiomegaly with mild pulmonary edema. No pulmonary embolus identified. 2. Small pleural effusions. Reviewed, dictated and finalized at location A.
--- NOTE | ~2021-10-07 | US_ITS ---
EXAMINATION: US venous doppler [facility] DATE: 10/07/2021 15:44 INDICATION: Right lower limb pain and swelling TECHNIQUE: Tirado scale images without and with compression and Doppler images of the right lower extre mity veins were obtained. COMPARISON: None FINDINGS: There is thrombosis in the distal popliteal vein as well as the lesser saphenous vein. The posterior tibial and peroneal veins are not well demonstrated. The right common femoral vein, profund a femoral vein, femoral vein, peroneal trunk are patent. IMPRESSION: 1. Venous thrombosis in the distal popliteal vein and lesser saphenous vein. These findings were discussed with Dr. Shanelle Manning MD in the Emergency Department at 1558 hour s on 10/07/2021. Reviewed, dictated and finalized at location A. IMPRESSION: 1. Venous thrombosis in the distal popliteal vein and lesser saphenous vein. These findings were discussed with Dr. Shanelle Manning MD in the Emergency D epartment at 1558 hours on 10/07/2021.
--- NOTE | ~2021-10-07 | US_ITS ---
EXAMINATION: US right upper quadrant DATE: 10/09/2021 15:43 INDICATION: Epigastric pain TECHNIQUE: Multiple grayscale and Doppler ultrasound images of the abdomen were obtained. COMPARISON: None available FINDINGS: The visualized portions of the pancreas are unremarkable. The liver is normal with normal e chogenicity and echotexture. No surface nodularity. Normal hepatopetal flow in the main portal vein. Stones are present in the nondistended gallbladder. No pericholecystic fluid or gallbladder wall thic kening. The normal common bile duct measures 3 mm. There was no sonographic Hatfield sign. IMPRESSION: 1. Cholelithiasis without additional findings of cholecystitis. Reviewed, dictated and finalized at location F.
--- NOTE | 2021-10-07 14:27 | ECG_ITS ---
Measurements Intervals [place] Rate: 84 P: 64 AK: 187 QRS: -4 QRSD: 112 T: 102 QT: 416 QTc: 492 Interpretive Statements SINUS RHYTHM POSSIBLE LEFT ATRIAL ENLARGEMENT [-0.1mV P WAVE IN V1/V2] FREQUENT PVCS IN A PATTERN OF BIGEMINY COMPARED TO THE PRIOR TRACING, THE PVCS ARE NEW. Electronically Signed On 10-07-2021 19:37:16 CDT by Mariaa Berrios M.D.
--- NOTE | 2021-10-07 14:30 | ED.SOB ---
HPI - SOB/Dyspnea General Chief Complaint: Shortness of Breath/Dyspnea Stated Complaint: sob Time Seen by Provider: 10/07/21 14:21 History of Present Illness HPI Narrative: pt here with sob says ok this am and started around 1300 but says has been dealing with sinus infection since august 13 abx and noticed sinus pressure today with this no f/other uri/new n/v/d-has chronic bile stomach issues vomiting chronically at times no new chagnes with this today no other new cp/urine chagnes/travel or sick contacts says noted 3 changes in inhalers since the sinus issues b/c of sob and last one albuterol she doens't like thinks making her legs swell more and has noticed right leg/calf pain for last few weeks hasn't told her doc, no h/o dvt or family history no neuro chagnes/loc Related Data Home Medications Medication Instructions Recorded Confirmed ferrous sulfate 325 mg (65 mg 325 mg PO DAILY 07/18/20 10/07/21 iron) tablet fluticasone propionate 50 1 spray intranasal BID PRN 07/18/20 10/07/21 mcg/actuation nasal Congestion spray,suspension (Allergy Relief (fluticasone)) levothyroxine 25 mcg tablet 25 mcg PO QAM 07/18/20 10/07/21 lisinopril 10 1 tablet PO QAM 07/18/20 10/07/21 mg-hydrochlorothiazide 12.5 mg tablet anastrozole 1 mg tablet 1 mg PO DAILY 11/08/20 10/07/21 Allergies Allergy/AdvReac Type Severity Reaction Status Date / Time No Known Allergies Allergy Verified 10/07/21 10:24 Review of Systems Constitutional: Comments: CONSTITUTIONAL: Denies fever, chills, or sweats. EYES: Denies visual changes, redness, or discharge. ENT: Denies rhinorrhea, congestion, sore throat, or otalgia. CARDIOVASCULAR: Denies chest pain, palpitations, or edema. RESPIRATORY: Denies cough but has sob and leg swelling GASTROINTESTINAL: Denies abdominal pain, nausea, vomiting, or diarrhea. GENITOURINARY: Denies dysuria or hematuria. SKIN: Denies rash or itching. MUSCULOSKELETAL: Denies back pain, joint pain, or myalgia. but right calf pain for last 3 weeks or so NEUROLOGIC: Denies headache, numbness, or weakness. PSYCHIATRIC: Denies anxiety or depression. [facility] Past Medical History Medical History (Updated 10/07/21 @ 16:08 by Shanelle Manning MD) Adult hypothyroidism Epigastric abdominal pain Essential (primary) hypertension GERD with esophagitis Other hyperlipidemia Seasonal affective disorder Surgical History Surgical History H/O breast biopsy H/O tubal ligation Family History Family History Mother Diabetes mellitus Sibling Malignant neoplasm of prostate Sibling Heart disease Carcinoma of colon Other Family history of colonic diverticulitis Family history of glaucoma Family history of type 2 diabetes mellitus Social History Social History Smoking packs per day: 0.5 Smoking cigarettes per day: 10.0 Years smoked: 7 Smoking pack-years: 3.50 Smoking status: Never smoker Tobacco type: cigarettes Second hand tobacco smoke exposure: No Smoking end date: 10/10/84 Alcohol intake: former Alcohol use details: FORMER SOCIAL DRINKER Substance use: never Substance use type: does not use Additional living arrangements comments: SISTER Spiritual care concerns: No Exam Const: Other: APPEARANCE: Well appearing, no pain in distress, well-nourished. Head normocephalic atraumtaic. EYES: PERRLA/EOMI, conjunctivae very clear. NOSE: Normal no drainage EARS:TMS clear Daria Tirado, with good light reflex. THROAT: Pharynx clear, no exudate. NECK: Supple. No adenopathy, no masses. RESPIRATORY: Airway patent, repsirations nonlabored. Clear to auscultation bilaterally, no rales, rhonchi, wheezing but tachypnea noted. CARDIOVASCULAR: Regular rate and rhythm without murmurs rubs or gallops. ABDOMINAL: Soft, nontender, nondis
[2021-10-07] MEDS: IPRATROPIUM BR 0.02% INH SOLN 0.5 MG/2.5 ML VIAL INHALATION (14:46)
[2021-10-07 14:56] LABS: Alveolar/Arterial O2 Gradient 42.4 mmHg; Device ROOM AIR; Fractional Inspired Oxygen 21 %; HCO3 ABG 19.1 mEq/l (22.0-26.0); Modified Allen's Test Pass; Oxygen Content ABG 14.2 %vol (16.0-22.0); Oxygen Saturation ABG 95.5 % (95.0-100.0); Oxyhemoglobin 92.9 % THb (90.0-100.0); PCO2 ABG 28.5 mmHg (35.0-45.0); PO2 ABG 73.2 mmHg (80.0-100.0); PO2 FiO2 Ratio Arterial Blood 3.49 %; Site Drawn RIGHT RADIAL; Total Hemoglobin 10.8 g/dL (12.0-18.0); pH ABG 7.444 (7.350-7.450)
[2021-10-07 14:57] LABS: Basophils Percent Auto 0.1 % (0.2-1.2); Eosinophils Absolute Auto 0.1 K/mm3 (0-0.3); Eosinophils Percent Auto 0.7 % (0-4.4); Hematocrit 31.5 % (37.0-47.0); Hemoglobin 9.7 g/dL (12.0-15.0); Immature Granulocyte Absolute 0.01 K/mm3 (0.00-0.031); Immature Granulocyte Percent A 0.1 % (0-0.5); Lymphocytes Absolute Auto 1.56 K/mm3 (0.9-3.2); Mean Corpuscular HGB Conc 30.8 g/dl (32-36); Mean Corpuscular Hemoglobin 29.9 pg (26-34); Mean Corpuscular Volume 97.2 fl (80-100); Mean Platelet Volume 12.1 fl (7.4-10.4); Monocytes Absolute Auto 0.3 K/mm3 (0.1-0.6); Monocytes Percent Auto 4.7 % (2.6-8.5); Neutrophils Absolute Auto 4.8 K/mm3 (1.3-6.7); Neutrophils Percent Auto 71.4 % (45.5-73.1); Platelet Count Result 200 k/mm3 (150-375); Red Blood Count 3.24 M/mm3 (4.2-5.4); Red Cell Distribution Width 15.6 % (11.5-14.5); White Blood Count 6.8 K/mm3 (4.5-10.0)
[2021-10-07 15:06] LABS: Lactic Acid Reflex 2.2 mmol/L (0.7-2.0)
[2021-10-07 15:10] LABS: INR 1.5; Prothrombin Time 17.7 Seconds (11.1-14.7)
[2021-10-07 15:11] LABS: Alanine Aminotransferase 34 U/L (6-35); Albumin Level 4.1 g/dL (3.5-5.1); Alkaline Phosphatase 98 U/L (38-126); Anion Gap 10 mmol/L (8-16); Aspartate Amino Transferase 43 U/L (14-36); Bilirubin,Total 1.8 mg/dL (0.2-1.3); Blood Urea Nitrogen 29 mg/dL (7-17); CRP 1.7 mg/dL (<1.0); Calcium 8.7 mg/dL (8.4-10.2); Carbon Dioxide 20 mmol/L (22-30); Chloride 108 mmol/L (98-107); Estimated CRCL calculation 47 ml/min; Estimated Glomerular Filt Rate 49; Glucose 159 mg/dL (65-110); Potassium 3.7 mmol/L (3.4-5.0); Sodium 138 mmol/L (137-145)
[2021-10-07 15:16] LABS: NT Pro B Type Natriuretic Pept 15300 pg/mL (5-100)
[2021-10-07 15:25] LABS: Troponin I 0.061 ng/mL (0.000-0.034)
[2021-10-07 15:50] LABS: D Dimer 11.56 ug/mL (<0.48)
[2021-10-07] MEDS: DEXAMETHASONE SOD PHOS INJ 4 MG/ML VIAL IV PUSH (15:50)
[2021-10-07] MEDS: NITROGLYCERIN OINTMENT 1 INCH DOSE TRANSDERM (15:50)
[2021-10-07] MEDS: ASPIRIN 81 MG CHEWABLE TABLET 324 MG PO (15:50)
[2021-10-07] MEDS: ONDANSETRON INJ 4 MG/2 ML VIAL IV PUSH (15:51)
[2021-10-07] MEDS: FUROSEMIDE INJ 100 MG/10 ML VIAL 80 MG IV PUSH (15:51)
[2021-10-07] MEDS: ENOXAPARIN 60 MG/0.6 ML SYRINGE 120 MG SUB-Q (16:04)
[2021-10-07 16:21] LABS: Influenza A QL RT-PCR Negative (Negative); Influenza B QL RT-PCR Negative (Negative); SARS-CoV-2 RNA PCR Negative
[2021-10-07 16:44] LABS: Appearance Urine Clear (Clear); Bilirubin Urine Negative (Negative); Blood Urine Negative (Negative); Color Urine Yellow (Yellow); Glucose Urine UA Negative (Negative); Ketones Urine Negative (Negative); Leukocyte Esterase Ur 1+ LEU/UL (Negative); Nitrate Urine Negative (Negative); Protein Urine 1+ mg/dL (Negative); Urobilinogen Urine 0.2 mg/dL (<2.0); pH Urine 5.5 (5.0-9.0)
[2021-10-07 16:53] LABS: Bacteria Urine Trace /hpf; Mucus Urine Rare /lpf; RBC Urine 0-2 /hpf (0-2); Squamous Epithelial Cell Urine Rare /hpf (Few); WBC Urine 0-3 /hpf
[2021-10-07 16:54] LABS: Add Urine Microscopic? YES
[2021-10-07 17:54] LABS: Reflex Lactic Acid Yes or No Add Lactic
--- NOTE | 2021-10-07 18:28 | ADMGEN ---
This patient, Carlie Bales, was admitted to IMU Room 231-01. Patient/family oriented to hospital policies and general routines including ID bracelet, bed and alarms, visiting hours, pain management, procedures, bathroom and other care routines, personal items, smoking policy, room service/diet, and visiting hours. Information on how to activate the Rapid Response Team has been discussed. Patient/Family are encouraged to report perceived risks to care and to ask questions if they do not understand what they are told or what they should do.
[2021-10-07 19:16] LABS: Lactic Acid 1.1 mmol/L (0.7-2.0)
[2021-10-07 19:35] LABS: Troponin I 0.067 ng/mL (0.000-0.034)
[2021-10-08] VITALS (15 sets, daily range): BP systolic 90–129; BP diastolic 53–70; PULSE 66–82; RESP 16–20; TEMP 36.1–36.7; O2SAT 96–100; BMI 41.5
--- NOTE | 2021-10-08 | ECHO_ITS ---
Patient Info Name: Carlie Bales Age: 75 years : 1945 Gender: Female Ht: 67 in Wt: 265 lbs BSA: 2.44 m2 HR: 78 bpm BP: 121 / 69 mmHg Heart Rhythm: Sinus Rhythm Technical Quality: Good Exam Date: 10/08/2021 10:53 AM Exam Location: [facility] Pulmonary Exam Room: 231 Patient Status: Inpatient Admit Date: 10/07/2021 Staff Ordering Physician: Florentin Mg MD Hydrometeorology Teacher: Lucille Bess RDCS Attending Provider: Comfort Bedoya DO Exam Type: CA echo doppler color flow Study Info Indications - chf htn hx/o breast ca radiation Complete two-dimensional, color flow and Doppler transthoracic echocardiogram is performed. Summary 1. Complete two-dimensional, color flow and Doppler transthoracic echocardiogram is performed. 2. The left ventricle is moderately enlarged with normal wall thickness. There was severe global hypokinesis with akinesis of the inferoseptal wall. Estimated ejection fraction visually is 15-20%, measured 22%. Diastolic dysfunction is present. 3. Global longitudinal strain was significantly abnormal at -9%, consistent with systolic dysfunction. There was sparing of the apex, pattern that can occur with cardiac amyloidosis. 4. Left atrial chamber dimension is severely enlarged. 5. Right atrial chamber dimension is moderately enlarged. 6. There is moderate mitral valve regurgitation. 7. There is mild tricuspid valve regurgitation. 8. Moderate pulmonary hypertension, estimated pulmonary arterial systolic pressure is 57 mmHg. 9. Dilated inferior vena cava with <50% collapse upon inspiration consistent with significantly elevated right atrial pressure, 20 mmHg. 10. Normal sinus rhythm. Left Ventricle Left ventricular chamber dimension is moderately enlarged. Left ventricular systolic function is normal, estimated at 15-20%. There is no increased left ventricular wall thickness. Left ventricular septal wall motion is normal. The left ventricular diastolic function is grade II diastolic dysfunction. Right Ventricle Right ventricular chamber dimension is normal. Right ventricular systolic function is normal. Left Atria Left atrial chamber dimension is severely enlarged. Right Atria Right atrial chamber dimension is moderately enlarged. Aortic Valve The aortic valve is trileaflet. There is moderate aortic valve sclerosis. There is no aortic valve stenosis. There is trace aortic valve regurgitation. Pulmonic Valve The pulmonic valve is normal. There is no pulmonic valve stenosis. There is no pulmonic regurgitation. Mitral Valve The mitral valve has thickened leaflets. There is no mitral valve stenosis. There is moderate mitral valve regurgitation. Tricuspid Valve The tricuspid valve leaflets are normal. There is no significant tricuspid valve stenosis. There is mild tricuspid valve regurgitation. Moderate pulmonary hypertension, estimated pulmonary arterial systolic pressure is 57 mmHg. Pericardium/Pleural The pericardium appears normal. There is no pericardial effusion. Inferior Vena Cava Dilated inferior vena cava with <50% collapse upon inspiration consistent with significantly elevated right atrial pressure, 20 mmHg. Aorta The aortic root size at the sinus of Valsalva is normal. The prox ascending aorta size is normal. Left Ventricular Outflow Tract Name Value Normal
[2021-10-08] MEDS: ENOXAPARIN 120 MG/0.8 ML SYRINGE SUB-Q (07:17)
--- NOTE | 2021-10-08 08:35 | PM.IMHP ---
H&P: HPI History of Present Illness Date/Time: 10/08/21 08:35 Chief Complaint: Shortness of breath Narrative: 75yo female with hx of HTN and breast CA here for shortness of breath. Patient has chronic allergy symptoms but worsened over the past month. She was diagnosed with a sinus infection and was given 4 different antibiotic regimens. No fever or chills but did have facial pressure and postnasal drainage. She also was wheezing and states that she was diagnosed with asthma. She was given inhaler, Flonase p.r.n. and prednisone for few days. She was having cough productive yellow sputum but that improved and now just a dry cough. She did have some taste changes but was tested negative for COVID. She has received her COVID vaccine x2 and booster x2 with the last vaccine a few weeks ago. She has been having nausea but this is more chronic. She is on omeprazole chronically but was given Pepcid in June. She stop the Pepcid 2 weeks ago because of the nausea was worsening and this has helped. She denies any diarrhea but only has a bowel movement 1 to 2 times a week. No melena or hematochezia. Last colonoscopy in February 2020 showing internal hemoorhoids. Appetite is usually worse in the morning but does improve throughout the day. She has lost about 40 lb over few years. She has been watching her oral intake. She has been having dysphagia symptoms with liquids. She has a history of left grade 2 ductal breast carcinoma insight to that was ER/WV positive. Negative sentinel lymph node biopsy. She underwent lumpectomy and breast radiation in August and September of 2020. More recently over the past 1-2 weeks patient has noted increasing leg edema. She does have chronic lymphedema. She has had lack of energy. She has had increasing shortness of breath. She does have an adjustable bed and noted that she has had to increase the head of the bed. She denies any partial nocturnal dyspnea. She felt worse yesterday and presented to the emergency room for evaluation. In the emergency room, her vital signs were stable. She was 96% on room air. Chest x-ray showed cardiomegaly, pulmonary edema and small pleural effusions. Lactic acid was 2.2 but normal on repeat. ABG 7.4 08/07/2072 on room air. Creatinine 1.3. D-dimer was 11.5. CTA of the chest was negative for PE but again showed cardiomegaly with mild pulmonary edema and small pleural effusions. Right Lower extremity venous Doppler showed venous thrombosis in the distal popliteal vein and lesser saphenous vein. COVID and flu swabs were negative. She was given dexamethasone, neb treatments, aspirin, Lasix IV, nitropaste and therapeutic Lovenox. She was admitted further care to the IMU on Lovenox. She feels better today. 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 s/p lumpectomy with close but negative margins (closest 0.1 cm from superior margin). Had a negative sentinel lymph node biopsy. Completed a course of adjuvant left breast irradiation b/w 09/04/2020 and 10/02/2020 Essential (primary) hypertension GERD with esophagitis And hiatal hernia Lymphedema Other hyperlipidemia Seasonal affective disorder Seasonal allergies Surgical History Surgical History H/O breast biopsy H/O tubal ligation Family History Family History Mother Diabetes mellitus Sibling Malignant neoplasm of prostate Sibling Heart disease Carcinoma of colon Other Family history of colonic diverticulitis Family hist
[2021-10-08 10:10] LABS: Basophils Percent Auto 0.1 % (0.2-1.2); Hematocrit 29.1 % (37.0-47.0); Hemoglobin 8.9 g/dL (12.0-15.0); Immature Granulocyte Absolute 0.03 K/mm3 (0.00-0.031); Immature Granulocyte Percent A 0.4 % (0-0.5); Lymphocytes Absolute Auto 1.09 K/mm3 (0.9-3.2); Lymphocytes Percent Auto 15.9 % (18.3-44.2); Mean Corpuscular HGB Conc 30.6 g/dl (32-36); Mean Corpuscular Hemoglobin 30.2 pg (26-34); Mean Corpuscular Volume 98.6 fl (80-100); Mean Platelet Volume 11.5 fl (7.4-10.4); Monocytes Absolute Auto 0.4 K/mm3 (0.1-0.6); Monocytes Percent Auto 5.5 % (2.6-8.5); Neutrophils Absolute Auto 5.4 K/mm3 (1.3-6.7); Neutrophils Percent Auto 78.1 % (45.5-73.1); Platelet Count Result 191 k/mm3 (150-375); Red Blood Count 2.95 M/mm3 (4.2-5.4); Red Cell Distribution Width 15.7 % (11.5-14.5); White Blood Count 6.9 K/mm3 (4.5-10.0)
[2021-10-08] MEDS: LEVOTHYROXINE SODIUM 25 MCG TABLET PO (10:14)
[2021-10-08] MEDS: PANTOPRAZOLE 40 MG TABLET PO ×2 (10:14→20:52)
[2021-10-08] MEDS: CHOLECALCIFEROL 1,000 UNITS TABLET 1000 UNITS PO (10:15)
[2021-10-08 10:23] LABS: Creatine Kinase 71 U/L (30-135); Lipase 84 U/L (23-300)
[2021-10-08 10:25] LABS: Alanine Aminotransferase 35 U/L (6-35); Albumin Level 3.9 g/dL (3.5-5.1); Alkaline Phosphatase 92 U/L (38-126); Anion Gap 12 mmol/L (8-16); Aspartate Amino Transferase 35 U/L (14-36); Bilirubin Indirect 0.8 mg/dL (0-1.1); Bilirubin,Total 0.8 mg/dL (0.2-1.3); Blood Urea Nitrogen 33 mg/dL (7-17); Calcium 8.5 mg/dL (8.4-10.2); Carbon Dioxide 22 mmol/L (22-30); Chloride 105 mmol/L (98-107); Estimated CRCL calculation 38 ml/min; Estimated Glomerular Filt Rate 38; Glucose 124 mg/dL (65-110); Magnesium 1.9 mg/dL (1.6-2.3); Potassium 3.9 mmol/L (3.4-5.0); Sodium 139 mmol/L (137-145)
[2021-10-08 10:37] LABS: Troponin I 0.053 ng/mL (0.000-0.034)
--- NOTE | 2021-10-08 11:31 | PM.CNCAR ---
Assessment and Plan Assessment and plan (1) Acute combined systolic and diastolic congestive heart failure: Code(s): I50.41 - Acute combined systolic (congestive) and diastolic (congestive) heart failure Status: Acute Assessment and Plan: Patient found to have new onset of systolic and diastolic heart failure. Cardiomyopathy with ejection fraction of about 20% Etiology unclear, probably a dilated cardiomyopathy. Perhaps related to radiation therapy. Consider amyloidosis. Rule out underlying CAD, although unlikely. Further evaluation as an outpatient. Add beta-cecilia, spironolactone When renal function is stable, add Entresto and Jardiance/Farxiga Will discuss Life Vest tomorrow If renal function continues to decline, we can start dobutamine and try to diurese further. (2) Elevated troponin: Code(s): R77.8 - Other specified abnormalities of plasma proteins Status: Acute Assessment and Plan: Elevated troponin but flat curve, secondary to CHF. No evidence of non-STEMI or ACS. (3) Essential (primary) hypertension: Code(s): I10 - Essential (primary) hypertension Status: Chronic Assessment and Plan: Blood pressure has been well controlled (4) Acute kidney injury: Code(s): N17.9 - Acute kidney failure, unspecified Status: Acute Assessment and Plan: Renal function has declined with IV diuretics; Lasix on hold now. (5) DVT (deep venous thrombosis): Code(s): I82.409 - Acute embolism and thrombosis of unspecified deep veins of unspecified lower extremity Status: Acute Assessment and Plan: Right lower extremity DVT, on Xarelto now. (6) Chronic acquired lymphedema: Code(s): I89.0 - Lymphedema, not elsewhere classified Status: Acute Assessment and Plan: Chronic problem (7) History of breast cancer: Code(s): Z85.3 - Personal history of malignant neoplasm of breast Status: Acute Assessment and Plan: Treated with lumpectomy and radiation therapy. History of Present Illness History of Present Illness Consult date/time: 10/08/21 11:31 Reason For Visit: NSTEMI,CHF NEW ONSET,RIGHT DVT Narrative: Carlie Bales is a 75 year old female whom I was asked to see at the request of Dr. Sheela Manning for my advice and opinion regarding her elevated troponins and new onset CHF, in consultation. The patient had noted increasing wheezing and shortness of breath as well as cough over the last few weeks. She had increasing edema superimposed on her chronic lymphedema. Some orthopnea. No chest pain or palpitations. The patient came to the emergency room and was diagnosed with new onset of CHF. Her troponins were: 0.061, [id number]. Her proBNP was 15,000. Chest x-ray showed CHF. She has been started on IV and is feeling better, though she states her lower extremity swelling is still worse than usual. The patient had left-sided breast cancer treated in 2020 with lumpectomy and radiation therapy. Blood pressure has generally been well controlled. No history of any heart disease. Review of Systems Constitutional: Constitutional: Denies fever(s) Comments: Has lost about 30 lb over the last few years ENT: Denies epistaxis Cardiovascular: Cardiovascular: Denies chest pain, Reports pedal edema, Reports leg edema, Denies lightheadedness, Denies palpitations and Reports dyspnea Respiratory: Respiratory: Reports chest congestion, Reports cough, Reports dyspnea, Reports dyspnea on exertion and Reports wheezing Gastrointestinal: Gastrointestinal: Denies abdominal pain, Denies hematochezia and Reports heartburn Musculoskeletal: Musculoskeletal: Reports no additional musculoskeletal complaints Integumentary/Breasts: Skin/Breast: Reports system reviewed and no additional complaints, except as docu Neurologic: Reports system reviewed and no additional complaints, except as documented, Denies beh
[2021-10-08] MEDS: LOVASTATIN 20 MG TABLET PO (18:04)
[2021-10-08] MEDS: APIXABAN 5 MG TABLET 10 MG PO (20:52)
[2021-10-08] MEDS: carvediloL 3.125 MG TABLET PO (20:54)
[2021-10-09] VITALS (16 sets, daily range): BP systolic 94–116; BP diastolic 54–61; PULSE 58–136; RESP 16–20; TEMP 36–36.6; O2SAT 96–100
[2021-10-09 06:30] LABS: Hematocrit 29.2 % (37.0-47.0); Hemoglobin 8.9 g/dL (12.0-15.0); Mean Corpuscular HGB Conc 30.5 g/dl (32-36); Mean Corpuscular Hemoglobin 30.3 pg (26-34); Mean Corpuscular Volume 99.3 fl (80-100); Mean Platelet Volume 11.8 fl (7.4-10.4); Platelet Count Result 185 k/mm3 (150-375); Red Blood Count 2.94 M/mm3 (4.2-5.4); Red Cell Distribution Width 15.6 % (11.5-14.5); White Blood Count 5.5 K/mm3 (4.5-10.0)
[2021-10-09 06:37] LABS: Albumin Level 3.7 g/dL (3.5-5.1); Anion Gap 8 mmol/L (8-16); Blood Urea Nitrogen 32 mg/dL (7-17); Calcium 8.2 mg/dL (8.4-10.2); Carbon Dioxide 24 mmol/L (22-30); Chloride 105 mmol/L (98-107); Estimated CRCL calculation 43 ml/min; Estimated Glomerular Filt Rate 45; Glucose 98 mg/dL (65-110); Magnesium 2.1 mg/dL (1.6-2.3); Potassium 3.5 mmol/L (3.4-5.0); Sodium 137 mmol/L (137-145)
[2021-10-09] MEDS: FERROUS SULFATE 324 MG TABLET PO (08:55)
[2021-10-09] MEDS: carvediloL 3.125 MG TABLET PO ×2 (08:55→20:33)
[2021-10-09] MEDS: APIXABAN 5 MG TABLET 10 MG PO ×2 (08:55→20:32)
[2021-10-09] MEDS: LEVOTHYROXINE SODIUM 25 MCG TABLET PO (08:55)
[2021-10-09] MEDS: SPIRONOLACTONE 25 MG TABLET PO (08:55)
[2021-10-09] MEDS: CHOLECALCIFEROL 1,000 UNITS TABLET 1000 UNITS PO (08:55)
[2021-10-09] MEDS: PANTOPRAZOLE 40 MG TABLET PO ×2 (09:24→20:32)
[2021-10-09] MEDS: ACIDOPHILUS/BULGARICUS CHEWABLE TABLET 1 TABLET PO (09:24)
--- NOTE | 2021-10-09 10:33 | PM.PNCARD ---
Progress Note: A&P Assessment and Plan (1) Acute combined systolic and diastolic congestive heart failure: Code(s): I50.41 - Acute combined systolic (congestive) and diastolic (congestive) heart failure <ASHLEE Castellano - Last Filed: 10/09/21 16:13> Status: Acute <ASHLEE Castellano - Last Filed: 10/09/21 16:13> Assessment and Plan: Patient found to have new onset of systolic and diastolic heart failure. Cardiomyopathy with ejection fraction of about 20% Etiology unclear, probably a dilated cardiomyopathy. Perhaps related to radiation therapy. Consider amyloidosis. Rule out underlying CAD, although unlikely. Further evaluation as an outpatient. Guideline directed therapy with coreg, spironolactone Will add Entresto and SGLT2 inhibitor when renal function stabilizes LifeVest <ASHLEE Castellano - Last Filed: 10/09/21 16:13> (2) Elevated troponin: Code(s): R77.8 - Other specified abnormalities of plasma proteins <ASHLEE Castellano - Last Filed: 10/09/21 16:13> Status: Acute <ASHLEE Castellano - Last Filed: 10/09/21 16:13> Assessment and Plan: Elevated troponin but flat curve, secondary to CHF. No evidence of non-STEMI or ACS. <ASHLEE Castellano - Last Filed: 10/09/21 16:13> (3) Essential (primary) hypertension: Code(s): I10 - Essential (primary) hypertension <ASHLEE Castellano - Last Filed: 10/09/21 16:13> Status: Chronic <ASHLEE Castellano - Last Filed: 10/09/21 16:13> Assessment and Plan: Blood pressure has been well controlled <ASHLEE Castellano - Last Filed: 10/09/21 16:13> (4) Acute kidney injury: Code(s): N17.9 - Acute kidney failure, unspecified <ASHLEE Castellano - Last Filed: 10/09/21 16:13> Status: Acute <ASHLEE Castellano - Last Filed: 10/09/21 16:13> Assessment and Plan: Renal function has declined with IV diuretics; Lasix on hold now. <ASHLEE Castellano - Last Filed: 10/09/21 16:13> (5) DVT (deep venous thrombosis): Code(s): I82.409 - Acute embolism and thrombosis of unspecified deep veins of unspecified lower extremity <ASHLEE Castellano - Last Filed: 10/09/21 16:13> Status: Acute <ASHLEE Castellano - Last Filed: 10/09/21 16:13> Assessment and Plan: Right lower extremity DVT, on Xarelto now. <ASHLEE Castellano - Last Filed: 10/09/21 16:13> (6) Chronic acquired lymphedema: Code(s): I89.0 - Lymphedema, not elsewhere classified <ASHLEE Castellano - Last Filed: 10/09/21 16:13> Status: Acute <ASHLEE Castellano - Last Filed: 10/09/21 16:13> Assessment and Plan: Chronic problem <ASHLEE Castellano - Last Filed: 10/09/21 16:13> (7) History of breast cancer: Code(s): Z85.3 - Personal history of malignant neoplasm of breast <ASHLEE Castellano - Last Filed: 10/09/21 16:13> Status: Acute <ASHLEE Castellano - Last Filed: 10/09/21 16:13> Assessment and Plan: Treated with lumpectomy and radiation therapy. <ASHLEE Castellano - Last Filed: 10/09/21 16:13> Assessment and Plan: 10/09/2021 addendum: Agree with Maria Luz Chow's, ANP, assessment and plan. Patient admitted with new onset of heart failure, new cardiomyopathy, and DVT. She was found to have AFib RVR today. She is minimally symptomatic but occasionally feels some fluttering at home. We had planned a cardioversion today, and she converted to sinus rhythm prior to starting the amiodarone drip. Still has some CRESPO. While she always has lymphedema, normally she does not have any pedal edema which is persistent. I's and O's yesterday were: 1500 in, 2400 out Physical exam: Vital signs: O2 sat 99%, systolic BP 90-116 mmHg, heart rate 59-63 General: Sitting in bed, no distress SHEENT: Extraocular muscles intact Cardiac: Regular rate and rhythm, no murmurs or ga
--- NOTE | 2021-10-09 10:55 | PCSTNOTE ---
Please refer to the Bedside Swallow Evaluation in the EMR. Please note, silent aspiration cannot be ruled out at bedside.
--- NOTE | 2021-10-09 11:05 | PM.IMPN ---
Progress Note: A&P Assessment and Plan (1) Paroxysmal atrial fibrillation: Code(s): I48.0 - Paroxysmal atrial fibrillation Status: Acute Assessment and Plan: Patient developed AFib with RVR this morning. Cardiology made aware and she was started on amiodarone. Will check TSH. Echocardiogram as mentioned below. By history, sounds as if she is in an out of atrial fibrillation in the past but not verified. Currently on Eliquis which will continue. She is on Coreg at low dose. Consider advancing this. He has converted to normal sinus rhythm. Continue to monitor on telemetry. Continue amiodarone (2) Acute exacerbation of CHF (congestive heart failure): Code(s): I50.9 - Heart failure, unspecified Status: Acute Assessment and Plan: Patient presents with increasing shortness of breath and orthopnea. She is also having increasing pedal edema overlying her chronic lymphedema. Chest x-ray showing pulmonary edema with cardiomegaly. BNP 15K. Signs and symptoms consistent with acute CHF. Improvement with 1 dose of Lasix. We held Lasix given the elevated Creatinine. Echo showing severe global HK with AK of the inferoseptal wall and EF 15-20%. Diastolic dysfunction grade II present. [place] is spared so consider amyloidosis. She has biatrial enlargement, moderate MR and moderated pulmonary HTN. Consider also ischemic disease and/or intermittent uncontrolled AFib causing her LV dysfunction. Cardiology consulted and appreciate their input. CHF teaching. Daily weights. Continue intermittent Lasix dosing. Continue Coreg, Aldactone. Lisinopril on hold so consider adding Entresto. Add Jardiance. (3) Renal insufficiency: Code(s): N28.9 - Disorder of kidney and ureter, unspecified Status: Acute Assessment and Plan: Baseline creatinine is 0.9-1.1. Creatinine on admission was 1.3. She received Lasix IV 80 mg in the ED. Creatinine did climb to 1.6 felt to be acute kidney injury. This could be related to poor cardiac contractility leading to poor renal perfusion related to decreased fluid volume. She was on lisinopril/HCTZ but this has been held. Lasix was not repeated. Echo shows concerns for possibly amyloidosis which can affect the kidney as well. Clinical exam is improved. Creatinine has trended downward. Will check renal ultrasound. Nephrology consult. (4) DVT (deep venous thrombosis): Code(s): I82.409 - Acute embolism and thrombosis of unspecified deep veins of unspecified lower extremity Status: Acute Assessment and Plan: Patient right lower extremity venous Doppler showing below the knee DVT. D-dimer was markedly elevated at 11.5. CTA of the chest did not reveal any PE. DVT possibly related to anastrozole. Left lower extremity venous Doppler negative for DVT. No radiographic evidence of recurrence of her breast cancer. Continue Eliquis. (5) Elevated troponin: Code(s): R77.8 - Other specified abnormalities of plasma proteins Status: Acute Assessment and Plan: Troponin elevated on admission. EKG showing bigeminy with lateral ST changes but appears to be similar to EKG from July 2020. Most likely related CHF. Doubt ACS. (6) Lymphedema: Code(s): I89.0 - Lymphedema, not elsewhere classified Status: Acute Assessment and Plan: Patient with chronic lymphedema. She was treated with lasix IV 80mg once in the ED. We held Lasix yesterday due to bump in Cr. Continue Lasix intermittently as BP and renal function tolerate. Defer to primary care doctor for further treatment such as lymphedema clinic. (7) Essential (primary) hypertension: Code(s): I10 - Essential (primary) hypertension Status: Chronic Assessment and Plan: Patient's blood pressures has been well controlled since admission and even soft at times. Given her mildly elevated renal function, we have held her lisinopril/HCTZ at this time. Contin
[2021-10-09] MEDS: AMIODARONE 150 MG/D5W 100 ML 150 MG/100 ML BAG 600 MG IV CONT (11:23)
[2021-10-09] MEDS: AMIODARONE 360 MG/D5W 200 ML 360 MG/200 ML BAG 33.33 MG IV CONT (11:24)
--- NOTE | 2021-10-09 12:59 | PM.CNNEP ---
Assessment and Plan Assessment and plan (1) Acute kidney injury: Code(s): N17.9 - Acute kidney failure, unspecified Status: Acute Assessment and Plan: presumably secondary to IV diuresis however, suspect she probably has an element of cardiorenal syndrome (chronic prerenal azotemia due to depressed EF worsened by need for diuretics) recent issues with Afib may be partly to blame as well assess for proteinuria and check SPEP and UPEP (given concerns for possible amyloid) check renal ultrasound follow repeat labs and UOP (2) Acute combined systolic and diastolic congestive heart failure: Code(s): I50.41 - Acute combined systolic (congestive) and diastolic (congestive) heart failure Status: Acute Assessment and Plan: noted new onset systolic and diastolic heart failure EF of 20% etiology not clear Cardiology following and recommendations noted (3) Essential (primary) hypertension: Code(s): I10 - Essential (primary) hypertension Status: Chronic Assessment and Plan: reasonable control at this time follow trend of hemodynamics (4) Chronic acquired lymphedema: Code(s): I89.0 - Lymphedema, not elsewhere classified Status: Acute Assessment and Plan: chronic problem/issues apparently worsened by CHF Will continue to follow History of Present Illness Reason for Consult Consult date: 10/09/21 Reason for consult: acute renal failure Requesting physician: Florentin Mg MD Chief Complaint Chief complaint: NSTEMI,CHF NEW ONSET,RIGHT DVT History of Present Illness Narrative: The patient is a 75-year-old female with a past medical history as outlined below who presented to [facility] Emergency room with complaints of shortness of breath. The patient reports that last few weeks she has been having issues and problems with increasing sinus drainage, postnasal drainage, and facial pressure. She apparently was diagnosed with a sinus infection and has been described at least 4 different antibiotic regimens without any significant resolution in her symptoms. She also reports some on and off wheezing and was subsequently diagnosed with asthma and given inhaler as well as Flonase and a short course of steroids as well. However, more recently, in the last 1-2 weeks, she has noted increasing lower extremity edema. She of course has chronic lymphedema at baseline but this appears to be worse than usual. Associated symptoms included fatigue and lack of energy, increasing shortness of breath both at rest as well as with activity, and orthopnea. Given the persistence of the symptoms in general, she presented the ER for further evaluation Workup and evaluation emergency room demonstrated the patient to be hemodynamically stable and despite her shortness of breath, she had oxygen saturations of 96% on room air. Routine blood test demonstrated an elevated D-dimer, mild renal insufficiency with a creatinine of 1.3, and mild lactic acidosis with a reading of 2.2 but then normalized on repeat testing. Her chest x-ray showed cardiomegaly, pulmonary edema, and small pleural effusions. Subsequently, a CT of her chest was done which was negative for pulmonary embolism but once again confirmed the mild pulmonary edema, small pleural effusions, and cardiomegaly COVID swabs were negative. She was given a combination of dexamethasone, nebulizer treatment, aspirin, and IV Lasix on the presumption of a CHF exacerbation and she was subsequent admitted the hospital for further evaluation. Since her admission, she has been seen by Cardiology and an echocardiogram demonstrates quite severe evidence of both systolic as well as diastolic dysfunction. It was recommended that she be started on more aggressive IV diuretic therapy and if she fails to diurese with just diuretics alone, there was recommendation for possible use of IV dobutamine in conjunction with diur
[2021-10-09] MEDS: AMIODARONE 360 MG/D5W 200 ML 360 MG/200 ML BAG 16.67 MG IV CONT (16:48)
[2021-10-09] MEDS: LOVASTATIN 20 MG TABLET PO (16:49)
[2021-10-09] MEDS: PROMETHAZINE HCL 25 MG TABLET BY MOUTH (16:50)
[2021-10-09 21:12] LABS: Creatinine Urine 320.3 mg/dL; Total Protein Urine Random 26 mg/dL; Ur Ttl Prot Creatinine Ratio 0.08 mg/mg (0-0.20)
[2021-10-10] VITALS (17 sets, daily range): BP systolic 91–123; BP diastolic 43–69; PULSE 56–69; RESP 16–24; TEMP 36–36.8; O2SAT 95–100
[2021-10-10 00:20] LABS: Eosinophil Urine None Seen % (None Seen)
[2021-10-10 05:07] LABS: Hematocrit 29.3 % (37.0-47.0); Hemoglobin 8.9 g/dL (12.0-15.0); Mean Corpuscular HGB Conc 30.4 g/dl (32-36); Mean Corpuscular Hemoglobin 30.1 pg (26-34); Platelet Count Result 171 k/mm3 (150-375); Red Blood Count 2.96 M/mm3 (4.2-5.4); Red Cell Distribution Width 15.8 % (11.5-14.5); White Blood Count 5.7 K/mm3 (4.5-10.0)
[2021-10-10 05:16] LABS: Albumin Level 3.5 g/dL (3.5-5.1); Anion Gap 8 mmol/L (8-16); Blood Urea Nitrogen 36 mg/dL (7-17); Calcium 8.3 mg/dL (8.4-10.2); Carbon Dioxide 23 mmol/L (22-30); Chloride 105 mmol/L (98-107); Creatine Kinase 49 U/L (30-135); Estimated CRCL calculation 34 ml/min; Estimated Glomerular Filt Rate 33; Glucose 100 mg/dL (65-110); Phosphorus 4.3 mg/dL (2.5-4.5); Potassium 3.5 mmol/L (3.4-5.0); Sodium 136 mmol/L (137-145)
[2021-10-10 07:54] LABS: Free T4 Free Thyroxine Reflex 1.78 ng/dL (0.78-2.19)
[2021-10-10 08:26] LABS: Total Triiodothyronine (T3) 0.77 NG/ML (0.97-1.69)
[2021-10-10] MEDS: CHOLECALCIFEROL 1,000 UNITS TABLET 1000 UNITS PO (08:42)
[2021-10-10] MEDS: PANTOPRAZOLE 40 MG TABLET PO ×2 (08:42→20:19)
[2021-10-10] MEDS: FERROUS SULFATE 324 MG TABLET PO (08:42)
[2021-10-10] MEDS: EMPAGLIFLOZIN 10 MG TABLET PO (08:42)
[2021-10-10] MEDS: LEVOTHYROXINE SODIUM 25 MCG TABLET PO (08:42)
[2021-10-10] MEDS: carvediloL 3.125 MG TABLET PO (08:42)
[2021-10-10] MEDS: ACIDOPHILUS/BULGARICUS CHEWABLE TABLET 1 TABLET PO (08:42)
[2021-10-10] MEDS: APIXABAN 5 MG TABLET 10 MG PO ×2 (08:43→20:20)
--- NOTE | 2021-10-10 08:57 | PM.PNCARD ---
Progress Note: A&P Assessment and Plan (1) Acute combined systolic and diastolic congestive heart failure: Code(s): I50.41 - Acute combined systolic (congestive) and diastolic (congestive) heart failure Status: Acute Assessment and Plan: Patient found to have new onset of systolic and diastolic heart failure. Cardiomyopathy with ejection fraction of about 20% Etiology unclear, probably a dilated cardiomyopathy. Perhaps related to radiation therapy. Consider amyloidosis. Rule out underlying CAD, although unlikely. Further evaluation as an outpatient. Guideline directed therapy as able with BP and renal function. Spironolactone has been held because of worsening renal function. Continue coreg, increase dose to 6.25mg b.i.d (has had some AF with RVR and currently having frequent PVC's). Will add Entresto and SGLT2 inhibitor when renal function stabilizes LifeVest has been ordered. (2) Elevated troponin: Code(s): R77.8 - Other specified abnormalities of plasma proteins Status: Acute Assessment and Plan: Elevated troponin but flat curve, secondary to CHF. No evidence of non-STEMI or ACS. (3) Essential (primary) hypertension: Code(s): I10 - Essential (primary) hypertension Status: Chronic Assessment and Plan: Blood pressure has been well controlled (4) Acute kidney injury: Code(s): N17.9 - Acute kidney failure, unspecified Status: Acute Assessment and Plan: Renal function has declined with IV diuretics; Lasix on hold now. (5) DVT (deep venous thrombosis): Code(s): I82.409 - Acute embolism and thrombosis of unspecified deep veins of unspecified lower extremity Status: Acute Assessment and Plan: Right lower extremity DVT, on Eliquis now. (6) Chronic acquired lymphedema: Code(s): I89.0 - Lymphedema, not elsewhere classified Status: Acute Assessment and Plan: Chronic problem. PT c/s for outpatient lymphedema wraps placed. (7) History of breast cancer: Code(s): Z85.3 - Personal history of malignant neoplasm of breast Status: Acute Assessment and Plan: Treated with lumpectomy and radiation therapy. Plan 10/09/2021 addendum: Agree with Maria Luz Chow's, ANP, assessment and plan. Patient admitted with new onset of heart failure, new cardiomyopathy, and DVT. She was found to have AFib RVR today. She is minimally symptomatic but occasionally feels some fluttering at home. We had planned a cardioversion today, and she converted to sinus rhythm prior to starting the amiodarone drip. Still has some CRESPO. While she always has lymphedema, normally she does not have any pedal edema which is persistent. I's and O's yesterday were: 1500 in, 2400 out Physical exam: Vital signs: O2 sat 99%, systolic BP 90-116 mmHg, heart rate 59-63 General: Sitting in bed, no distress SHEENT: Extraocular muscles intact Cardiac: Regular rate and rhythm, no murmurs or gallops Lungs: Clear to auscultation, no respiratory distress Abdomen: Soft and nontender Extremities: Significant lymphedema with mild to moderate pedal edema. Skin: No lesions noted. Musculoskeletal: No chest wall tenderness Neurologic: Alert and oriented, moved all extremities Psychiatric: Normal affect Labs reviewed Impression: Acute systolic/diastolic heart failure/new cardiomyopathy of unclear etiology. Diuresed some yesterday but for diuretic is now on hold. Tolerating carvedilol and spironolactone. Hope to resume diuretics tomorrow Paroxysmal atrial fibrillation, anticoagulated with Eliquis and now on IV amiodarone. Probably change to p.o. amiodarone tomorrow. Acute kidney injury: Improving, followed by Dr. Regis Berrios MD Subjective Date/time seen: 10/10/21 08:57 Cardiology follow up for CHF, PAF Feeling better today. Difficult to tell if swelling is any better because of her lymphedema. She's still reporti
--- NOTE | 2021-10-10 11:20 | PM.PNNEP ---
Progress Note: A&P Assessment and Plan (1) Acute kidney injury: Code(s): N17.9 - Acute kidney failure, unspecified Status: Acute Assessment and Plan: presumably secondary to IV diuresis however, suspect she probably has an element of cardiorenal syndrome (chronic prerenal azotemia due to depressed EF worsened by need for diuretics) recent issues with Afib may be partly to blame as well evaluation to date: minimal proteinuria renal ultrasound without any acute issues CPK okay urine eosinophils pending SPEP/UPEP pending (given concerns for possible amyloid) follow repeat labs and UOP (2) Acute combined systolic and diastolic congestive heart failure: Code(s): I50.41 - Acute combined systolic (congestive) and diastolic (congestive) heart failure Status: Acute Assessment and Plan: noted new onset systolic and diastolic heart failure EF of 20% etiology not clear Cardiology following and recommendations noted benefit to use of dobutamine to improve renal function and facilitate further diuresis(?) -- will defer this decision to Cardiology (3) Essential (primary) hypertension: Code(s): I10 - Essential (primary) hypertension Status: Chronic Assessment and Plan: reasonable control at this time follow trend of hemodynamics (4) Chronic acquired lymphedema: Code(s): I89.0 - Lymphedema, not elsewhere classified Status: Acute Assessment and Plan: chronic problem/issues apparently worsened by CHF Will continue to follow Subjective Date/time seen: 10/10/21 11:20 She states that she seems to be feeling a bit better today but still reports some mild SUJIT; renal function a bit worse in spite of holding diuretic therapy but reasonably urine output; no other acute issues/events overnight or earlier this morning. Exam Narrative: General: WD/WN male/female in NAD Heart: normal S1 and S2; no rub Lungs: clear to auscultation; decreased at bases Abdomen: soft, nontender, nondistended, positive bowel sounds Extremities: no cyanosis or clubbing; 2 - 3+ edema (chronic lymphedema) Skin: warm and dry Objective Data Vital Signs Vital Signs: Vital Signs Temp Pulse Resp BP Pulse Ox O2 Del Method 10/10/21 10:00 60 10/10/21 08:00 60 10/10/21 08:00 Room Air 10/10/21 08:00 36.3 C L 62 18 119/65 100 10/10/21 05:51 60 10/10/21 04:00 Room Air 10/10/21 04:00 36.5 C 60 24 H 98/67 L 100 10/10/21 04:00 56 L 10/10/21 02:00 56 L 10/10/21 00:00 59 L 10/10/21 00:32 58 L 10/10/21 00:00 Room Air 10/10/21 00:00 36.8 C 57 L 24 H 91/43 L 95 10/09/21 22:15 97 Room Air 10/09/21 21:48 63 10/09/21 20:00 70 10/09/21 20:00 36.6 C 61 18 106/60 100 10/09/21 20:00 Room Air 10/09/21 20:33 66 10/09/21 18:00 64 Intake/Output Intake/Output: Intake & Output 10/07/21 10/08/21 10/09/21 10/10/21 23:59 23:59 23:59 23:59 Intake Total 240 1470 1380 240 Output Total 300 2400 950 325 Balance -60 -930 430 -85 Meds/Results Medications: Active Medications Generic Name Dose Route Start Last Admin Trade Name Skinnyq PRN Reason Stop Dose Admin Apixaban 10 mg 10/08/21 21:00 10/10/21 08:43 Apixaban 5 Mg Tablet PO 10/15/21 09:01 10 mg Q12HR LISSY Administration Apixaban 5 mg 10/15/21 21:00 Apixaban 5 Mg Tablet PO Q12HR LISSY Carvedilol 6.25 mg 10/10/21 21:00 Carvedilol 6.25 Mg Tablet PO Q12HR LISSY Ferrous Sulfate 324 mg 10/09/21 09:00 10/10/21 08:42 Ferrous Sulfate 324 Mg Tablet PO 324 mg DAILY LISSY Administration Lactobacillus Acidophilus 1 tablet 10/09/21 09:00 10/10/21 08:42 Acidophilus/Bulgaricus Chewable Tablet PO 11/08/21 08:59 1 tablet DAILY LISSY Administration Levothyroxine Sodium 25 mcg 10/08/21 09:20 10/10/21 08:42 Levothyroxine Sodium 25 Mcg Table
--- NOTE | 2021-10-10 11:33 | PM.IMPN ---
Progress Note: A&P Assessment and Plan (1) Paroxysmal atrial fibrillation: Code(s): I48.0 - Paroxysmal atrial fibrillation Status: Acute Assessment and Plan: Patient developed AFib with RVR on the morning of 10/09/2021. Cardiology made aware and she was started on amiodarone; she converted to normal sinus rhythm. TSH 6.9 but free T4 is normal. Echo as mentioned below. By history, sounds as if she has paroxysmal atrial fibrillation. [id number] score 4. Currently on Eliquis which will continue. She is on Coreg at low dose and dose advanced. She has converted to normal sinus rhythm. Continue to monitor on telemetry. Amiodarone stopped (2) Acute exacerbation of CHF (congestive heart failure): Code(s): I50.9 - Heart failure, unspecified Status: Acute Assessment and Plan: Patient presents with increasing shortness of breath and orthopnea. She is also having increasing pedal edema overlying her chronic lymphedema. Chest x-ray showing pulmonary edema with cardiomegaly. BNP 15K. Signs and symptoms consistent with acute systolic and diastolic CHF. Improvement with 1 dose of Lasix. We held Lasix given the elevated Creatinine. Echo showing severe global HK with AK of the inferoseptal wall and EF 15-20%. Diastolic dysfunction grade II present. [place] is spared so consider amyloidosis. She has biatrial enlargement, moderate MR and moderated pulmonary HTN. Consider also ischemic disease and/or intermittent uncontrolled AFib causing her LV dysfunction. Cardiology consulted and appreciate their input. CHF teaching. Daily weights. Continue intermittent Lasix dosing. Continue Coreg but hold Aldactone, Lisinopril and Jardiance due to rising Cr. (3) Renal insufficiency: Code(s): N28.9 - Disorder of kidney and ureter, unspecified Status: Acute Assessment and Plan: Baseline creatinine is 0.9-1.1. Creatinine on admission was 1.3. She received Lasix IV 80 mg in the ED. Creatinine did climb to 1.8 felt to be acute kidney injury. This could be related to poor cardiac contractility leading to poor renal perfusion from decreased fluid volume. She was on lisinopril/HCTZ but this has been held. Lasix was not repeated. Echo shows concerns for possibly amyloidosis which can affect the kidney as well. Clinical exam is improved. Creatinine worse today. Possibly related to soft blood pressures yesterday. Renal US normal. Nephrology following appreciate their input. (4) DVT (deep venous thrombosis): Code(s): I82.409 - Acute embolism and thrombosis of unspecified deep veins of unspecified lower extremity Status: Acute Assessment and Plan: Patient right lower extremity venous Doppler showing below the knee DVT. D-dimer was markedly elevated at 11.5. CTA of the chest did not reveal any PE. DVT possibly related to anastrozole. Left lower extremity venous Doppler negative for DVT. No radiographic evidence of recurrence of her breast cancer. Continue Eliquis. (5) Elevated troponin: Code(s): R77.8 - Other specified abnormalities of plasma proteins Status: Acute Assessment and Plan: Troponin elevated on admission. EKG showing bigeminy with lateral ST changes but appears to be similar to EKG from July 2020. Most likely related CHF. Doubt ACS. (6) Lymphedema: Code(s): I89.0 - Lymphedema, not elsewhere classified Status: Acute Assessment and Plan: Patient with chronic lymphedema. She was treated with lasix IV 80mg once in the ED. We held Lasix due to increase in Cr. Continue Lasix intermittently as BP and renal function tolerate. Defer to primary care doctor for further treatment such as lymphedema clinic. (7) Essential (primary) hypertension: Code(s): I10 - Essential (primary) hypertension Status: Chronic Assessment and Plan: Patient's blood pressures has been well controlled since admission and even soft at times.
--- NOTE | 2021-10-10 11:38 | PCRCNOTE ---
HOME CPAP UNIT SET UP WITH [facility]. PHONE NUMBER [phone].
[2021-10-10] MEDS: LOVASTATIN 20 MG TABLET PO (17:09)
[2021-10-10] MEDS: carvediloL 6.25 MG TABLET PO (20:19)
[2021-10-11] VITALS (17 sets, daily range): BP systolic 90–115; BP diastolic 45–79; PULSE 50–100; RESP 12–20; TEMP 36.2–36.9; O2SAT 95–100
--- NOTE | 2021-10-11 01:05 | PCRCNOTE ---
Patient refused use of hospital cpap unit. Patient states she partially breathes through her mouth at night, but is too claustrophobic to use a full face mask. Oximetry study not accomplished due to patient refusing pap unit.
[2021-10-11 05:56] LABS: Hematocrit 27.7 % (37.0-47.0); Hemoglobin 8.6 g/dL (12.0-15.0); Mean Corpuscular Hemoglobin 30.2 pg (26-34); Mean Corpuscular Volume 97.2 fl (80-100); Mean Platelet Volume 11.6 fl (7.4-10.4); Platelet Count Result 173 k/mm3 (150-375); Red Blood Count 2.85 M/mm3 (4.2-5.4); Red Cell Distribution Width 15.7 % (11.5-14.5); White Blood Count 4.8 K/mm3 (4.5-10.0)
[2021-10-11 06:07] LABS: Albumin Level 3.5 g/dL (3.5-5.1); Anion Gap 5 mmol/L (8-16); Blood Urea Nitrogen 35 mg/dL (7-17); Calcium 8.3 mg/dL (8.4-10.2); Carbon Dioxide 25 mmol/L (22-30); Chloride 107 mmol/L (98-107); Estimated CRCL calculation 41 ml/min; Estimated Glomerular Filt Rate 41; Glucose 94 mg/dL (65-110); Phosphorus 4.5 mg/dL (2.5-4.5); Potassium 3.6 mmol/L (3.4-5.0); Sodium 137 mmol/L (137-145)
[2021-10-11] MEDS: PANTOPRAZOLE 40 MG TABLET PO ×2 (08:38→20:46)
[2021-10-11] MEDS: ACIDOPHILUS/BULGARICUS CHEWABLE TABLET 1 TABLET PO (08:39)
[2021-10-11] MEDS: APIXABAN 5 MG TABLET 10 MG PO ×2 (08:39→20:45)
[2021-10-11] MEDS: CHOLECALCIFEROL 1,000 UNITS TABLET 1000 UNITS PO (08:39)
[2021-10-11] MEDS: LEVOTHYROXINE SODIUM 25 MCG TABLET PO (08:39)
[2021-10-11] MEDS: FERROUS SULFATE 324 MG TABLET PO (08:39)
[2021-10-11] MEDS: carvediloL 6.25 MG TABLET PO ×2 (08:39→20:46)
--- NOTE | 2021-10-11 10:15 | PM.PNNEP ---
Progress Note: A&P Assessment and Plan (1) Acute kidney injury: Code(s): N17.9 - Acute kidney failure, unspecified Status: Acute Assessment and Plan: presumably secondary to IV diuresis however, suspect she probably has an element of cardiorenal syndrome (chronic prerenal azotemia due to depressed EF worsened by need for diuretics) recent issues with Afib may be partly to blame as well evaluation to date: minimal proteinuria renal ultrasound without any acute issues CPK okay urine eosinophils negative SPEP/UPEP pending (given concerns for possible amyloid) follow repeat labs and UOP (2) Acute combined systolic and diastolic congestive heart failure: Code(s): I50.41 - Acute combined systolic (congestive) and diastolic (congestive) heart failure Status: Acute Assessment and Plan: noted new onset systolic and diastolic heart failure EF of 20% etiology not clear Cardiology following and recommendations noted benefit to use of dobutamine to improve renal function and facilitate further diuresis(?) -- will defer this decision to Cardiology (3) Essential (primary) hypertension: Code(s): I10 - Essential (primary) hypertension Status: Chronic Assessment and Plan: reasonable control at this time follow trend of hemodynamics (4) Chronic acquired lymphedema: Code(s): I89.0 - Lymphedema, not elsewhere classified Status: Acute Assessment and Plan: chronic problem/issues apparently worsened by CHF Will continue to follow Subjective Date/time seen: 10/11/21 10:15 Reports improvement in shortness of breath as well as some improvement in lower extremity edema; no apparent distress at this time; sitting up on couch watching TV at the time of my visit; reasonable urine output and improvement in renal function with holding diuretics; no issues/events overnight or earlier this AM. Exam Narrative: General: WD/WN AA female in NAD Heart: normal S1 and S2; no rub Lungs: clear to auscultation; decreased at bases Abdomen: soft, nontender, nondistended, positive bowel sounds Extremities: no cyanosis or clubbing; 2 - 3+ edema (chronic lymphedema) Skin: warm and intact Objective Data Vital Signs Vital Signs: Vital Signs Temp Pulse Resp BP Pulse Ox O2 Del Method 10/11/21 10:00 64 10/11/21 08:00 Room Air 10/11/21 08:00 60 10/11/21 08:00 36.3 C L 65 20 110/76 100 10/11/21 05:50 60 10/11/21 04:00 Room Air 10/11/21 04:00 36.2 C L 70 18 115/52 L 99 10/11/21 04:00 60 10/11/21 02:00 61 10/10/21 23:45 66 96 Room Air 10/11/21 00:00 65 10/11/21 00:00 Room Air 10/10/21 23:42 36.6 C 65 20 103/62 96 10/10/21 22:00 69 10/10/21 20:00 64 10/10/21 20:00 Room Air 10/10/21 20:19 65 10/10/21 19:12 36.1 C L 66 20 104/63 100 10/10/21 18:00 66 10/10/21 16:00 68 10/10/21 16:00 36.2 C L 64 16 123/69 100 10/10/21 16:00 Room Air 10/10/21 14:00 62 Intake/Output Intake/Output: Intake & Output 10/08/21 10/09/21 10/10/21 10/11/21 23:59 23:59 23:59 23:59 Intake Total 1470 1380 1380 920 Output Total 2400 950 2825 2350 Balance -930 430 -6222 -6840 Meds/Results Medications: Active Medications Generic Name Dose Route Start Last Admin Trade Name Tosha PRN Reason Stop Dose Admin Apixaban 10 mg 10/08/21 21:00 10/11/21 08:39 Apixaban 5 Mg Tablet PO 10/15/21 09:01 10 mg Q12HR LISSY Administration Apixaban 5 mg 10/15/21 21:00 Apixaban 5 Mg Tablet PO Q12HR LISSY Carvedilol 6.25 mg 10/10/21 21:00 10/11/21 08:39 Carvedilol 6.25 Mg Tablet PO 6.25 mg Q12HR LISSY Administration Ferrous Sulfate 324 mg 10/09/21 09:00 10/11/21 08:39 Ferrous Sulfate 324 Mg Tablet PO 324 mg DAILY LISSY Administration Furosemide 40 mg 10/11/21 17:00 Furosemide In
--- NOTE | 2021-10-11 10:15 | P.PNNP_ITS ---
Progress Note: A&P Assessment and Plan (1) Acute kidney injury: Code(s): N17.9 - Acute kidney failure, unspecified Status: Acute Assessment and Plan: * presumably secondary to IV diuresis * however, suspect she probably has an element of cardiorenal syndrome (chronic prerenal azotemia due to depressed EF worsened by need for diuretics) * recent issues with Afib may be partly to blame as well * evaluation to date: * minimal proteinuria * renal ultrasound without any acute issues * CPK okay * urine eosinophils negative * SPEP/UPEP pending (given concerns for possible amyloid) * follow repeat labs and UOP (2) Acute combined systolic and diastolic congestive heart failure: Code(s): I50.41 - Acute combined systolic (congestive) and diastolic (congestive) heart failure Status: Acute Assessment and Plan: * noted new onset systolic and diastolic heart failure * EF of 20% * etiology not clear * Cardiology following and recommendations noted * benefit to use of dobutamine to improve renal function and facilitate further diuresis(?) -- will defer this decision to Cardiology (3) Essential (primary) hypertension: Code(s): I10 - Essential (primary) hypertension Status: Chronic Assessment and Plan: * reasonable control at this time * follow trend of hemodynamics (4) Chronic acquired lymphedema: Code(s): I89.0 - Lymphedema, not elsewhere classified Status: Acute Assessment and Plan: * chronic problem/issues * apparently worsened by CHF Will continue to follow Subjective Date/time seen: 10/11/21 10:15 Reports improvement in shortness of breath as well as some improvement in lower extremity edema; no apparent distress at this time; sitting up on couch watching TV at the time of my visit; reasonable urine output and improvement in renal function with holding diuretics; no issues/events overnight or earlier this AM. Exam Narrative: General: WD/WN AA female in NAD Heart: normal S1 and S2; no rub Lungs: clear to auscultation; decreased at bases Abdomen: soft, nontender, nondistended, positive bowel sounds Extremities: no cyanosis or clubbing; 2 - 3+ edema (chronic lymphedema) Skin: warm and intact Objective Data Vital Signs Vital Signs: Vital Signs Temp Pulse Resp BP Pulse Ox O2 Del Method 10/11/21 10:00 64 10/11/21 08:00 Room Air 10/11/21 08:00 60 10/11/21 08:00 36.3 C L 65 20 110/76 100 10/11/21 05:50 60 10/11/21 04:00 Room Air 10/11/21 04:00 36.2 C L 70 18 115/52 L 99 10/11/21 04:00 60 10/11/21 02:00 61 10/10/21 23:45 66 96 Room Air 10/11/21 00:00 65 10/11/21 00:00 Room Air 10/10/21 23:42 36.6 C 65 20 103/62 96 10/10/21 22:00 69 10/10/21 20:00 64 10/10/21 20:00 Room Air 10/10/21 20:19 65 10/10/21 19:12 36.1 C L 66 20 104/63 100 10/10/21 18:00 66 10/10/21 16:00 68 10/10/21 16:00 36.2 C L 64 16 123/69 100 10/10/21 16:00 Room Air 10/10/21 14:00 62 Intake/Output Intake/Output:
--- NOTE | 2021-10-11 11:33 | PM.PNCARD ---
Progress Note: A&P Assessment and Plan (1) Acute combined systolic and diastolic congestive heart failure: Code(s): I50.41 - Acute combined systolic (congestive) and diastolic (congestive) heart failure Status: Acute Assessment and Plan: noted new onset systolic and diastolic heart failure EF of 20% etiology not clear lasix 40 mg IV BID (2) Acute kidney injury: Code(s): N17.9 - Acute kidney failure, unspecified Status: Acute Assessment and Plan: presumably secondary to IV diuresis however, suspect she probably has an element of cardiorenal syndrome (chronic prerenal azotemia due to depressed EF worsened by need for diuretics) Stable creatinine Restart diuretic and f/u renal function (3) Essential (primary) hypertension: Code(s): I10 - Essential (primary) hypertension Status: Chronic Assessment and Plan: reasonable control at this time follow trend of hemodynamics (4) Chronic acquired lymphedema: Code(s): I89.0 - Lymphedema, not elsewhere classified Status: Acute Assessment and Plan: chronic problem/issues apparently worsened by CHF Will continue to follow Subjective Date/time seen: 10/11/21 11:33 No acute events SOB is improving Tele: SR with PVC and NSVT Review of Systems Review of Systems: negative except for stated above in subjective findings Exam Narrative: General: WD/WN male/female in NAD Heart: normal S1 and S2; no rub Lungs: clear to auscultation; decreased at bases Abdomen: soft, nontender, nondistended, positive bowel sounds Extremities: no cyanosis or clubbing; 2 - 3+ edema (chronic lymphedema) Skin: warm and dry neck: +ve JVD Objective Data Vital Signs Vital Signs: Vital Signs - 24 hr 10/10/21 12:00 10/10/21 12:00 10/10/21 12:00 Temperature 36.0 C L Pulse Rate 58 L 61 Respiratory Rate 16 Blood Pressure 104/66 Pulse Oximetry 100 Oxygen Delivery Room Air 10/10/21 14:00 10/10/21 16:00 10/10/21 16:00 Temperature 36.2 C L Pulse Rate 62 64 Respiratory Rate 16 Blood Pressure 123/69 Pulse Oximetry 100 Oxygen Delivery Room Air 10/10/21 16:00 10/10/21 18:00 10/10/21 19:12 Temperature 36.1 C L Pulse Rate 68 66 66 Respiratory Rate 20 Blood Pressure 104/63 Pulse Oximetry 100 Oxygen Delivery 10/10/21 20:19 10/10/21 20:00 10/10/21 20:00 Temperature Pulse Rate 65 64 Respiratory Rate Blood Pressure Pulse Oximetry Oxygen Delivery Room Air 10/10/21 22:00 10/10/21 23:42 10/11/21 00:00 Temperature 36.6 C Pulse Rate 69 65 Respiratory Rate 20 Blood Pressure 103/62 Pulse Oximetry 96 Oxygen Delivery Room Air 10/11/21 00:00 10/10/21 23:45 10/11/21 02:00 Temperature Pulse Rate 65 66 61 Respiratory Rate Blood Pressure Pulse Oximetry 96 Oxygen Delivery Room Air 10/11/21 04:00 10/11/21 04:00 10/11/21 04:00 Temperature 36.2 C L Pulse Rate 60 70 Respiratory Rate 18 Blood Pressure 115/52 L Pulse Oximetry 99 Oxygen Delivery Room Air 10/11/21 05:50 10/11/21 08:00 10/11/21 08:00 Temperature 36.3 C L Pulse Rate 60 65 60 Respiratory Rate 20 Blood Pressure 110/76 Pulse Oximetry 100 Oxygen Delivery 10/11/21 08:00 10/11/21 10:00 Temperature Pulse Rate 64 Respiratory Rate Blood Pressure Pulse Oximetry Oxygen Delivery Room Air Intake/Output Intake/Output: Intake & Output 10/08/21 10/09/21 10/10/21 10/11/21 23:59 23:59 23:59 23:59 Intake Total 1470 1380 1380 800 Output Total 2400 950 2825 1900 Balance -930 430 -2275 -1100 Meds/Results Medications: Active Medications Generic Name Dose Route Start Last Admin Trade Name Tosha PRN Reason Stop Dose Admin Apixaban 10 mg 10/08/21 21:00 10/11/21 08:39 Apixaban 5 Mg Tablet PO 10/15/21 09:01 10 mg Q12HR LISSY Administration Apixaban 5 mg 10/15/21 21:00 Apixaban 5 Mg Tablet
--- NOTE | 2021-10-11 13:03 | PCPTNOTE ---
RN made aware of doctor needing to write an outpatient order for lymphedema therapy vs acute care PT evaluation.
[2021-10-11] MEDS: FUROSEMIDE INJ 40 MG/4 ML VIAL IV PUSH (17:31)
[2021-10-11] MEDS: LOVASTATIN 20 MG TABLET PO (17:31)
--- NOTE | 2021-10-11 18:10 | PM.IMPN ---
Progress Note: A&P Assessment and Plan (1) Paroxysmal atrial fibrillation: Code(s): I48.0 - Paroxysmal atrial fibrillation Status: Acute Assessment and Plan: Patient developed AFib with RVR on the morning of 10/09/2021. Cardiology made aware and she was started on amiodarone; she converted to normal sinus rhythm. TSH 6.9 but free T4 is normal. CTA chest 10/07 was negative for DVT. Echo as mentioned below. By history, sounds as if she has paroxysmal atrial fibrillation. [id number] score 4. Currently on Eliquis for DVT which will continue. She is on Coreg. She has converted to normal sinus rhythm. Continue to monitor on telemetry. (2) Acute exacerbation of CHF (congestive heart failure): Code(s): I50.9 - Heart failure, unspecified Status: Acute Assessment and Plan: Patient presents with increasing shortness of breath and orthopnea. She is also having increasing pedal edema overlying her chronic lymphedema. Chest x-ray showing pulmonary edema with cardiomegaly. BNP 15K. Signs and symptoms consistent with acute systolic and diastolic CHF. Improvement with 1 dose of Lasix. We held Lasix given the elevated Creatinine. Echo showing severe global HK with AK of the inferoseptal wall and EF 15-20%. Diastolic dysfunction grade II present. [place] is spared so consider amyloidosis. She has biatrial enlargement, moderate MR and moderated pulmonary HTN. Consider also ischemic disease and/or intermittent uncontrolled AFib causing her LV dysfunction. Cardiology consulted and appreciate their input. CHF teaching. Daily weights. Cr better so IV Lasix resumed. Continue Coreg. Will continue to hold Aldactone, Lisinopril and Jardiance for now. (3) Renal insufficiency: Code(s): N28.9 - Disorder of kidney and ureter, unspecified Status: Acute Assessment and Plan: Baseline creatinine is 0.9-1.1. Creatinine on admission was 1.3. She received Lasix IV 80 mg in the ED. Creatinine did climb to 1.8 felt to be acute kidney injury. This could be related to poor cardiac contractility leading to poor renal perfusion from decreased fluid volume. She was on lisinopril/HCTZ but this has been stopped. Echo shows concerns for possibly amyloidosis which can affect the kidney as well. Clinical exam is improved. Creatinine better today. Renal US normal. Nephrology following appreciate their input. Lasix IV resumed so monitor closely. (4) DVT (deep venous thrombosis): Code(s): I82.409 - Acute embolism and thrombosis of unspecified deep veins of unspecified lower extremity Status: Acute Assessment and Plan: Patient right lower extremity venous Doppler showing right popliteal and lesser saphenous DVT. D-dimer was markedly elevated at 11.5. CTA of the chest did not reveal any PE. DVT possibly related to anastrozole. Left lower extremity venous Doppler negative for DVT. No radiographic evidence of recurrence of her breast cancer. Continue Eliquis. (5) Elevated troponin: Code(s): R77.8 - Other specified abnormalities of plasma proteins Status: Acute Assessment and Plan: Troponin elevated on admission. EKG showing bigeminy with lateral ST changes but appears to be similar to EKG from July 2020. Most likely related CHF. Doubt ACS. Cardiology following (6) Lymphedema: Code(s): I89.0 - Lymphedema, not elsewhere classified Status: Acute Assessment and Plan: Patient with chronic lymphedema. She was treated with lasix IV 80mg once in the ED. We held Lasix due to increase in Cr. Lasix IV resumed. Defer to primary care doctor for further treatment such as lymphedema clinic. (7) Essential (primary) hypertension: Code(s): I10 - Essential (primary) hypertension Status: Chronic Assessment and Plan: Patient's blood pressures has been well controlled since admission and even soft at times. Continue to monitor. Adjust medications as above.
[2021-10-12] VITALS (16 sets, daily range): BP systolic 96–127; BP diastolic 48–64; PULSE 61–95; RESP 18–20; TEMP 36.3–36.8; O2SAT 95–100
[2021-10-12 05:09] LABS: Hematocrit 28.3 % (37.0-47.0); Hemoglobin 8.8 g/dL (12.0-15.0); Mean Corpuscular HGB Conc 31.1 g/dl (32-36); Mean Corpuscular Hemoglobin 30.3 pg (26-34); Mean Corpuscular Volume 97.6 fl (80-100); Mean Platelet Volume 11.5 fl (7.4-10.4); Platelet Count Result 183 k/mm3 (150-375); Red Cell Distribution Width 15.7 % (11.5-14.5); White Blood Count 5.3 K/mm3 (4.5-10.0)
[2021-10-12 05:18] LABS: Albumin Level 3.4 g/dL (3.5-5.1); Anion Gap 5 mmol/L (8-16); Blood Urea Nitrogen 33 mg/dL (7-17); Calcium 8.2 mg/dL (8.4-10.2); Carbon Dioxide 26 mmol/L (22-30); Chloride 105 mmol/L (98-107); Estimated CRCL calculation 44 ml/min; Estimated Glomerular Filt Rate 45; Glucose 103 mg/dL (65-110); Magnesium 2.2 mg/dL (1.6-2.3); Phosphorus 4.4 mg/dL (2.5-4.5); Potassium 3.7 mmol/L (3.4-5.0); Sodium 136 mmol/L (137-145)
[2021-10-12] MEDS: APIXABAN 5 MG TABLET 10 MG PO ×2 (08:33→21:03)
[2021-10-12] MEDS: PANTOPRAZOLE 40 MG TABLET PO ×2 (08:33→21:04)
[2021-10-12] MEDS: ACIDOPHILUS/BULGARICUS CHEWABLE TABLET 1 TABLET PO (08:33)
[2021-10-12] MEDS: carvediloL 6.25 MG TABLET PO ×2 (08:33→21:04)
[2021-10-12] MEDS: FUROSEMIDE INJ 40 MG/4 ML VIAL IV PUSH ×2 (08:33→16:39)
[2021-10-12] MEDS: LEVOTHYROXINE SODIUM 25 MCG TABLET PO (08:34)
[2021-10-12] MEDS: FERROUS SULFATE 324 MG TABLET PO (08:34)
[2021-10-12] MEDS: CHOLECALCIFEROL 1,000 UNITS TABLET 1000 UNITS PO (08:34)
--- NOTE | 2021-10-12 10:49 | PM.IMPN ---
Progress Note: A&P Assessment and Plan (1) Paroxysmal atrial fibrillation: Code(s): I48.0 - Paroxysmal atrial fibrillation Status: Acute Assessment and Plan: Patient developed AFib with RVR on the morning of 10/09/2021. Cardiology made aware and she was started on amiodarone; she converted to normal sinus rhythm. TSH 6.9 but free T4 is normal. CTA chest 10/07 was negative for PE. Echo as mentioned below. By history, sounds as if she has paroxysmal atrial fibrillation. [id number] score 4. Currently on Eliquis for DVT which will continue. She is on Coreg. She has converted to normal sinus rhythm and maintaining this. 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 Mag level 2.2 but potassium 3.7. Continue to monitor on telemetry. Replace potassium. (2) Acute exacerbation of CHF (congestive heart failure): Code(s): I50.9 - Heart failure, unspecified Status: Acute Assessment and Plan: Patient presents with increasing shortness of breath and orthopnea. She is also having increasing pedal edema overlying her chronic lymphedema. Chest x-ray showing pulmonary edema with cardiomegaly. BNP 15K. Signs and symptoms consistent with acute systolic and diastolic CHF. Improvement with 1 dose of Lasix. We initially held Lasix given the elevated Creatinine. Echo showing severe global HK with AK of the inferoseptal wall and EF 15-20%. Diastolic dysfunction grade II present. [place] is spared so consider amyloidosis. She has biatrial enlargement, moderate MR and moderated pulmonary HTN. Consider ischemic disease and/or intermittent uncontrolled AFib causing her LV dysfunction. Cardiology consulted and appreciate their input. CHF teaching. Daily weights. Cr better so IV Lasix resumed yesterday with excellent UOP. Creatinine remaining stable. Continue Coreg. Will continue to hold Aldactone, Lisinopril and Jardiance for now. (3) Renal insufficiency: Code(s): N28.9 - Disorder of kidney and ureter, unspecified Status: Acute Assessment and Plan: Baseline creatinine is 0.9-1.1. Creatinine on admission was 1.3. She received Lasix IV 80 mg in the ED. Creatinine did climb to 1.8 felt to be acute kidney injury. This could be related to poor cardiac contractility leading to poor renal perfusion from decreased fluid volume. She was on lisinopril/HCTZ but this has been stopped. Echo shows concerns for possibly amyloidosis which can affect the kidney as well. Renal US normal. Nephrology following appreciate their input. Creatinine better so Lasix IV resumed. Creatinine remaining stable; continue to monitor closely. (4) DVT (deep venous thrombosis): Code(s): I82.409 - Acute embolism and thrombosis of unspecified deep veins of unspecified lower extremity Status: Acute Assessment and Plan: Patient right lower extremity venous Doppler showing right popliteal and lesser saphenous DVT. D-dimer was markedly elevated at 11.5. CTA of the chest did not reveal any PE. DVT possibly related to anastrozole. Left lower extremity venous Doppler negative for DVT. No radiographic evidence of recurrence of her breast cancer. Continue Eliquis. (5) Elevated troponin: Code(s): R77.8 - Other specified abnormalities of plasma proteins Status: Acute Assessment and Plan: Troponin elevated on admission. EKG showing bigeminy with lateral ST changes but appears to be similar to EKG from July 2020. Most likely elevated Trop related CHF. Doubt ACS. Cardiology following (6) Lymphedema: Code(s): I89.0 - Lymphedema, not elsewhere classified Status: Acute Assessment and Plan: Patient with chronic lymphedema. She was treated with lasix IV 80mg once in the ED. We held Lasix due to increase in Cr but able to resume IV Lasix now. Defer to primary care doctor for further treatment such as lymphedema clinic. This was discussed and encouraged patient to discuss with her doctor. (
--- NOTE | 2021-10-12 11:16 | P.PNNP_ITS ---
Progress Note: A&P Assessment and Plan (1) Acute kidney injury: Code(s): N17.9 - Acute kidney failure, unspecified Status: Acute Assessment and Plan: * presumably secondary to IV diuresis * however, suspect she probably has an element of cardiorenal syndrome (chronic prerenal azotemia due to depressed EF worsened by need for diuretics) * recent issues with Afib may be partly to blame as well * evaluation to date: * minimal proteinuria * renal ultrasound without any acute issues * CPK okay * urine eosinophils negative * SPEP/UPEP pending (given concerns for possible amyloid) * follow repeat labs and UOP (2) Acute combined systolic and diastolic congestive heart failure: Code(s): I50.41 - Acute combined systolic (congestive) and diastolic (congestive) heart failure Status: Acute Assessment and Plan: * noted new onset systolic and diastolic heart failure * EF of 20% * etiology not clear * Cardiology following and recommendations noted * benefit to use of dobutamine to improve renal function and facilitate further diuresis(?) -- will defer this decision to Cardiology (3) Essential (primary) hypertension: Code(s): I10 - Essential (primary) hypertension Status: Chronic Assessment and Plan: * reasonable control at this time * follow trend of hemodynamics (4) Chronic acquired lymphedema: Code(s): I89.0 - Lymphedema, not elsewhere classified Status: Acute Assessment and Plan: * chronic problem/issues * apparently worsened by CHF Will continue to follow Subjective Date/time seen: 10/12/21 11:16 Resumed on IV lasix yesterday with better urine output in the last 24 hours; overall, breathing is better but she still notes some exertional shortness of breath; furthermore, she still does not feel like her usual self as of yet; no events overnight or earlier this AM. Exam Narrative: General: WD/WN AA female in NAD Heart: normal S1 and S2; no rub Lungs: clear to auscultation; decreased at bases Abdomen: soft, nontender, nondistended, positive bowel sounds Extremities: no cyanosis or clubbing; 2+ edema (chronic lymphedema) Skin: no rash Objective Data Vital Signs Vital Signs: Vital Signs Temp Pulse Resp BP Pulse Ox O2 Del Method O2 Flow Rate 10/12/21 10:00 65 10/12/21 08:00 62 10/12/21 08:33 61 10/12/21 08:00 Room Air 10/12/21 08:00 36.8 C 95 18 127/63 98 10/12/21 06:00 61 10/11/21 22:20 97 Room Air 10/12/21 04:00 62 10/12/21 02:00 62 10/12/21 05:00 36.3 C L 61 20 109/48 L 98 10/12/21 04:00 98 Nasal Cannula 2 10/12/21 00:00 63 10/11/21 22:00 62 10/11/21 20:00 73 10/11/21 22:36 100 Nasal Cannula 2 10/11/21 22:33 36.3 C L 66 18 96/79 L 100 10/11/21 20:00 Room Air 10/11/21 20:00 36.9 C 100 18 113/63 97 10/11/21 20:46 69 10/11/21 18:00 69 Intake/Output Intake/Output: Intake & Output 10/09/21 10/10/21 10/11/21 10/12/21 23:59 23:59 23:59 23:59 Intake Total 1380 1380
--- NOTE | 2021-10-12 11:16 | PM.PNNEP ---
Progress Note: A&P Assessment and Plan (1) Acute kidney injury: Code(s): N17.9 - Acute kidney failure, unspecified Status: Acute Assessment and Plan: presumably secondary to IV diuresis however, suspect she probably has an element of cardiorenal syndrome (chronic prerenal azotemia due to depressed EF worsened by need for diuretics) recent issues with Afib may be partly to blame as well evaluation to date: minimal proteinuria renal ultrasound without any acute issues CPK okay urine eosinophils negative SPEP/UPEP pending (given concerns for possible amyloid) follow repeat labs and UOP (2) Acute combined systolic and diastolic congestive heart failure: Code(s): I50.41 - Acute combined systolic (congestive) and diastolic (congestive) heart failure Status: Acute Assessment and Plan: noted new onset systolic and diastolic heart failure EF of 20% etiology not clear Cardiology following and recommendations noted benefit to use of dobutamine to improve renal function and facilitate further diuresis(?) -- will defer this decision to Cardiology (3) Essential (primary) hypertension: Code(s): I10 - Essential (primary) hypertension Status: Chronic Assessment and Plan: reasonable control at this time follow trend of hemodynamics (4) Chronic acquired lymphedema: Code(s): I89.0 - Lymphedema, not elsewhere classified Status: Acute Assessment and Plan: chronic problem/issues apparently worsened by CHF Will continue to follow Subjective Date/time seen: 10/12/21 11:16 Resumed on IV lasix yesterday with better urine output in the last 24 hours; overall, breathing is better but she still notes some exertional shortness of breath; furthermore, she still does not feel like her usual self as of yet; no events overnight or earlier this AM. Exam Narrative: General: WD/WN AA female in NAD Heart: normal S1 and S2; no rub Lungs: clear to auscultation; decreased at bases Abdomen: soft, nontender, nondistended, positive bowel sounds Extremities: no cyanosis or clubbing; 2+ edema (chronic lymphedema) Skin: no rash Objective Data Vital Signs Vital Signs: Vital Signs Temp Pulse Resp BP Pulse Ox O2 Del Method O2 Flow Rate 10/12/21 10:00 65 10/12/21 08:00 62 10/12/21 08:33 61 10/12/21 08:00 Room Air 10/12/21 08:00 36.8 C 95 18 127/63 98 10/12/21 06:00 61 10/11/21 22:20 97 Room Air 10/12/21 04:00 62 10/12/21 02:00 62 10/12/21 05:00 36.3 C L 61 20 109/48 L 98 10/12/21 04:00 98 Nasal Cannula 2 10/12/21 00:00 63 10/11/21 22:00 62 10/11/21 20:00 73 10/11/21 22:36 100 Nasal Cannula 2 10/11/21 22:33 36.3 C L 66 18 96/79 L 100 10/11/21 20:00 Room Air 10/11/21 20:00 36.9 C 100 18 113/63 97 10/11/21 20:46 69 10/11/21 18:00 69 Intake/Output Intake/Output: Intake & Output 10/09/21 10/10/21 10/11/21 10/12/21 23:59 23:59 23:59 23:59 Intake Total 1380 1380 1550 830 Output Total 950 2825 5050 3450 Balance 172 -7641 -6060 -2436 Meds/Results Medications: Active Medications Generic Name Dose Route Start Last Admin Trade Name Tosha PRN Reason Stop Dose Admin Anastrozole 1 mg 10/12/21 09:00 Anastrozole (*Chemo) 1 Mg Tablet PO 11/11/21 08:59 DAILY LISSY Apixaban 10 mg 10/08/21 21:00 10/12/21 08:33 Apixaban 5 Mg Tablet PO 10/15/21 09:01 10 mg Q12HR LISSY Administration Apixaban 5 mg 10/15/21 21:00 Apixaban 5 Mg Tablet PO Q12HR ILSSY Carvedilol 6.25 mg 10/10/21 21:00 10/12/21 08:33 Carvedilol 6.25 Mg Tablet PO 6.25 mg Q12HR LISSY Administration Ferrous Sulfate 324 mg 10/09/21 09:00 10/12/21 08:34 Ferrous Sulfate 324 Mg Tablet PO 324 mg DAILY LISSY Administration Furosemide 40 mg 10/11/21 17:00 10/12/21 08:33 Fur
--- NOTE | 2021-10-12 12:05 | PM.PNCARD ---
Progress Note: A&P Assessment and Plan (1) Acute combined systolic and diastolic congestive heart failure: Code(s): I50.41 - Acute combined systolic (congestive) and diastolic (congestive) heart failure Status: Acute Assessment and Plan: noted new onset systolic and diastolic heart failure EF of 20% etiology not clear Cont Lasix 40 mg IV BID (2) Acute kidney injury: Code(s): N17.9 - Acute kidney failure, unspecified Status: Acute Assessment and Plan: presumably secondary to IV diuresis however, suspect she probably has an element of cardiorenal syndrome (chronic prerenal azotemia due to depressed EF worsened by need for diuretics) Stable creatinine Cont diuretic and f/u renal function (3) Essential (primary) hypertension: Code(s): I10 - Essential (primary) hypertension Status: Chronic Assessment and Plan: reasonable control at this time follow trend of hemodynamics (4) Chronic acquired lymphedema: Code(s): I89.0 - Lymphedema, not elsewhere classified Status: Acute Assessment and Plan: chronic problem/issues apparently worsened by CHF Will continue to follow Subjective Date/time seen: 10/12/21 12:05 no acute events overnight Tele: SR Review of Systems Review of Systems: Review of system is negative except for stated in subjective Exam Const: General: comfortable and no acute distress Other: Able to lie flat HENMT: General nose exam: Normal nares present and no epistaxis Mouth: Yes moist mucous membranes Eyes: Sclera: sclerae normal Pupils: Equal, round and reactive pupils present Neck: Neck: supple and no JVD Carotids: no bruits Resp: Auscultation: clear to auscultation bilaterally and lung sounds not diminished Other: No chest wall tenderness Cardio: Rate: regular rate Rhythm: regular rhythm Heart sounds: no gallops, no murmurs and no rubs GI: GI Palp: Yes Soft to palpation and No Tenderness to palpation present (GI) Auscultation: normal bowel sounds Skin: General skin exam: normal color, rashes and/or lesions noted and no erythema Other: Warm Neuro: Cranial nerves: Yes Equal, round and reactive pupils present Speech: normal speech Other: No obvious focal deficit or facial asymmetry Extrem: General: edema (Bilateral +ve) Other: Normal capillary refills Intact distal pulses. Objective Data Vital Signs Vital Signs: Vital Signs - 24 hr 10/11/21 14:00 10/11/21 16:00 10/11/21 16:00 Temperature 36.8 C Pulse Rate 64 76 64 Respiratory Rate 12 Blood Pressure 107/59 L Pulse Oximetry 95 Oxygen Delivery Oxygen Flow Rate 10/11/21 18:00 10/11/21 16:00 10/11/21 20:46 Temperature Pulse Rate 69 69 Respiratory Rate Blood Pressure Pulse Oximetry Oxygen Delivery Room Air Oxygen Flow Rate 10/11/21 20:00 10/11/21 20:00 10/11/21 22:33 Temperature 36.9 C 36.3 C L Pulse Rate 100 66 Respiratory Rate 18 18 Blood Pressure 113/63 96/79 L Pulse Oximetry 97 100 Oxygen Delivery Room Air Oxygen Flow Rate 10/11/21 22:36 10/11/21 20:00 10/11/21 22:00 Temperature Pulse Rate 73 62 Respiratory Rate Blood Pressure Pulse Oximetry 100 Oxygen Delivery Nasal Cannula Oxygen Flow Rate 2 10/12/21 00:00 10/12/21 04:00 10/12/21 05:00 Temperature 36.3 C L Pulse Rate 63 61 Respiratory Rate 20 Blood Pressure 109/48 L Pulse Oximetry 98 98 Oxygen Delivery Nasal Cannula Oxygen Flow Rate 2 10/12/21 02:00 10/12/21 04:00 10/11/21 22:20 Temperature Pulse Rate 62 62 Respiratory Rate Blood Pressure Pulse Oximetry 97 Oxygen Delivery Room Air Oxygen Flow Rate 10/12/21 06:00 10/12/21 08:00 10/12/21 08:00 Temperature 36.8 C Pulse Rate 61 95 Respiratory Rate 18 Blood Pressure 127/63 Pulse Oximetry 98 Oxygen Delivery Room Air Oxygen Flow Rate 10/12/21 08:33 10/12/21 08:00
[2021-10-12] MEDS: POTASSIUM CHLORIDE 20 MEQ TABLET 40 MEQ PO (14:17)
[2021-10-12] MEDS: LOVASTATIN 20 MG TABLET PO (16:39)
[2021-10-13] VITALS (19 sets, daily range): BP systolic 92–125; BP diastolic 44–62; PULSE 57–82; RESP 16–20; TEMP 36.4–36.9; O2SAT 95–100
[2021-10-13 06:25] LABS: Anion Gap 5 mmol/L (8-16); Blood Urea Nitrogen 29 mg/dL (7-17); Calcium 8.1 mg/dL (8.4-10.2); Carbon Dioxide 29 mmol/L (22-30); Chloride 105 mmol/L (98-107); Estimated CRCL calculation 48 ml/min; Estimated Glomerular Filt Rate 49; Glucose 92 mg/dL (65-110); Potassium 3.6 mmol/L (3.4-5.0); Sodium 139 mmol/L (137-145)
[2021-10-13] MEDS: POTASSIUM CHLORIDE 20 MEQ TABLET 40 MEQ PO (09:40)
[2021-10-13] MEDS: PANTOPRAZOLE 40 MG TABLET PO ×2 (09:41→20:31)
[2021-10-13] MEDS: ACIDOPHILUS/BULGARICUS CHEWABLE TABLET 1 TABLET PO (09:41)
[2021-10-13] MEDS: FUROSEMIDE INJ 40 MG/4 ML VIAL IV PUSH ×2 (09:41→16:15)
[2021-10-13] MEDS: LEVOTHYROXINE SODIUM 25 MCG TABLET PO (09:41)
[2021-10-13] MEDS: FERROUS SULFATE 324 MG TABLET PO (09:41)
[2021-10-13] MEDS: APIXABAN 5 MG TABLET 10 MG PO ×2 (09:41→20:31)
[2021-10-13] MEDS: CHOLECALCIFEROL 1,000 UNITS TABLET 1000 UNITS PO (09:41)
[2021-10-13] MEDS: carvediloL 6.25 MG TABLET PO ×2 (09:41→20:32)
--- NOTE | 2021-10-13 11:21 | P.PNNP_ITS ---
Progress Note: A&P Assessment and Plan (1) Acute kidney injury: Code(s): N17.9 - Acute kidney failure, unspecified Status: Acute Assessment and Plan: * Acute kidney injury. * evaluation to date: * minimal proteinuria * renal ultrasound without any acute issues * CPK okay * urine eosinophils negative * SPEP/UPEP pending (given concerns for possible amyloid) * Most likely due to pre renal azotemia due to diuretics. * This improved off diuretics. * Now she is back on the and creatinine level is stable. * Discharge is up to Cardiology and hospitalists. (2) Acute combined systolic and diastolic congestive heart failure: Code(s): I50.41 - Acute combined systolic (congestive) and diastolic (congestive) heart failure Status: Acute Assessment and Plan: * noted new onset systolic and diastolic heart failure * EF of 20% * etiology not clear * Cardiology following and recommendations noted * Creatinine improved without the use of dobutamine. (3) Essential (primary) hypertension: Code(s): I10 - Essential (primary) hypertension Status: Chronic Assessment and Plan: * Systolic running 96-112. * She is on carvedilol mostly for the heart, which happens to be controlling the blood pressure. (4) Chronic acquired lymphedema: Code(s): I89.0 - Lymphedema, not elsewhere classified Status: Acute Assessment and Plan: * chronic problem/issues * apparently worsened by CHF * This seems to be improved. * Subjective Date/time seen: 10/13/21 11:21 Interval history: Carlie is feeling better. Swelling is about gone and breathing is fine. Sitting up at the side of the bed. Exam Narrative: General: WD/WN AA female in NAD Heart: normal S1 and S2; no rub or gallop Lungs: clear to auscultation; decreased at bases Abdomen: soft, nontender, nondistended, positive bowel sounds Extremities: no cyanosis or clubbing; 1-2+ edema (chronic lymphedema) Skin: no rash or subQ nodules Objective Data Vital Signs Vital Signs: Vital Signs - 24 hr 10/12/21 12:00 10/12/21 12:00 10/12/21 12:00 Temperature 36.7 C Pulse Rate 61 61 62 Respiratory Rate 18 18 Blood Pressure 111/64 Pulse Oximetry 95 95 Oxygen Delivery Room Air 10/12/21 14:00 10/12/21 14:00 10/12/21 16:00 Temperature 36.3 C L Pulse Rate 65 62 Respiratory Rate 20 Blood Pressure 108/54 L Pulse Oximetry 99 99 Oxygen Delivery Room Air 10/12/21 16:00 10/12/21 16:00 10/12/21 18:00 Temperature Pulse Rate 62 64 64 Respiratory Rate 20 Blood Pressure Pulse Oximetry 99 Oxygen Delivery Room Air 10/12/21 20:00 10/12/21 20:00 10/12/21 21:02 Temperature 36.7 C Pulse Rate 68 Respiratory Rate 18 Blood Pressure 96/57 L 113/64 Pulse Oximetry 100 Oxygen Delivery Room Air 10/12/21 21:04 10/12/21 20:00 10/12/21 21:56 Temperature Pulse Rate 70 69 74 Respiratory Rate Blood Pressure Pulse Oximetry Oxygen Delivery
--- NOTE | 2021-10-13 11:21 | PM.PNNEP ---
Progress Note: A&P Assessment and Plan (1) Acute kidney injury: Code(s): N17.9 - Acute kidney failure, unspecified Status: Acute Assessment and Plan: Acute kidney injury. evaluation to date: minimal proteinuria renal ultrasound without any acute issues CPK okay urine eosinophils negative SPEP/UPEP pending (given concerns for possible amyloid) Most likely due to pre renal azotemia due to diuretics. This improved off diuretics. Now she is back on the and creatinine level is stable. Discharge is up to Cardiology and hospitalists. (2) Acute combined systolic and diastolic congestive heart failure: Code(s): I50.41 - Acute combined systolic (congestive) and diastolic (congestive) heart failure Status: Acute Assessment and Plan: noted new onset systolic and diastolic heart failure EF of 20% etiology not clear Cardiology following and recommendations noted Creatinine improved without the use of dobutamine. (3) Essential (primary) hypertension: Code(s): I10 - Essential (primary) hypertension Status: Chronic Assessment and Plan: Systolic running 96-112. She is on carvedilol mostly for the heart, which happens to be controlling the blood pressure. (4) Chronic acquired lymphedema: Code(s): I89.0 - Lymphedema, not elsewhere classified Status: Acute Assessment and Plan: chronic problem/issues apparently worsened by CHF This seems to be improved. Subjective Date/time seen: 10/13/21 11:21 Interval history: Carlie is feeling better. Swelling is about gone and breathing is fine. Sitting up at the side of the bed. Exam Narrative: General: WD/WN AA female in NAD Heart: normal S1 and S2; no rub or gallop Lungs: clear to auscultation; decreased at bases Abdomen: soft, nontender, nondistended, positive bowel sounds Extremities: no cyanosis or clubbing; 1-2+ edema (chronic lymphedema) Skin: no rash or subQ nodules Objective Data Vital Signs Vital Signs: Vital Signs - 24 hr 10/12/21 12:00 10/12/21 12:00 10/12/21 12:00 Temperature 36.7 C Pulse Rate 61 61 62 Respiratory Rate 18 18 Blood Pressure 111/64 Pulse Oximetry 95 95 Oxygen Delivery Room Air 10/12/21 14:00 10/12/21 14:00 10/12/21 16:00 Temperature 36.3 C L Pulse Rate 65 62 Respiratory Rate 20 Blood Pressure 108/54 L Pulse Oximetry 99 99 Oxygen Delivery Room Air 10/12/21 16:00 10/12/21 16:00 10/12/21 18:00 Temperature Pulse Rate 62 64 64 Respiratory Rate 20 Blood Pressure Pulse Oximetry 99 Oxygen Delivery Room Air 10/12/21 20:00 10/12/21 20:00 10/12/21 21:02 Temperature 36.7 C Pulse Rate 68 Respiratory Rate 18 Blood Pressure 96/57 L 113/64 Pulse Oximetry 100 Oxygen Delivery Room Air 10/12/21 21:04 10/12/21 20:00 10/12/21 21:56 Temperature Pulse Rate 70 69 74 Respiratory Rate Blood Pressure Pulse Oximetry Oxygen Delivery 10/12/21 23:53 10/13/21 00:00 10/13/21 00:00 Temperature 36.8 C Pulse Rate 67 67 Respiratory Rate 18 Blood Pressure 111/53 L Pulse Oximetry 100 Oxygen Delivery Room Air 10/13/21 02:00 10/13/21 04:00 10/13/21 04:00 Temperature 36.8 C Pulse Rate 62 70 Respiratory Rate 16 Blood Pressure 102/48 L Pulse Oximetry 100 Oxygen Delivery Room Air 10/13/21 04:00 10/13/21 06:00 10/13/21 08:00 Temperature 36.9 C Pulse Rate 63 66 62 Respiratory Rate 18 Blood Pressure 112/53 L Pulse Oximetry 98 Oxygen Delivery 10/13/21 09:41 10/13/21 08:00 10/13/21 08:00 Temperature Pulse Rate 68 66 Respiratory Rate Blood Pressure Pulse Oximetry Oxygen Delivery Room Air 10/13/21 10:00 Temperature Pulse Rate 64 Respiratory Rate Blood Pressure Pulse Oximetry Oxygen Delivery Intake/Output Intake/Output: Intake & Output 10/10/21 10/11/21 10/12/21 10/13/21 23:59 23:59 23:59 23:5
--- NOTE | 2021-10-13 15:10 | PM.IMPN ---
Progress Note: A&P Assessment and Plan (1) Paroxysmal atrial fibrillation: Code(s): I48.0 - Paroxysmal atrial fibrillation Status: Acute Assessment and Plan: Patient developed AFib with RVR on the morning of 10/09/2021. Cardiology made aware and she was started on amiodarone; she converted to normal sinus rhythm. TSH 6.9 but free T4 is normal. CTA chest 10/07 was negative for PE. Echo as mentioned below. By history, sounds as if she has paroxysmal atrial fibrillation. [id number] score 4. Currently on Eliquis for DVT which will continue. She is on Coreg. She is maintaining NSR. 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 Mag level 2.0 but potassium 3.6. Extra potassium today. Continue to monitor on telemetry. (2) Acute exacerbation of CHF (congestive heart failure): Code(s): I50.9 - Heart failure, unspecified Status: Acute Assessment and Plan: Patient presents with increasing shortness of breath and orthopnea. She is also having increasing pedal edema overlying her chronic lymphedema. Chest x-ray showing pulmonary edema with cardiomegaly. BNP 15K. Signs and symptoms consistent with acute systolic and diastolic CHF. Improvement with 1 dose of Lasix. We initially held Lasix given the elevated Creatinine. Echo showing severe global HK with AK of the inferoseptal wall and EF 15-20%. Diastolic dysfunction grade II present. [place] is spared so consider amyloidosis. She has biatrial enlargement, moderate MR and moderate pulmonary HTN. Consider ischemic disease and/or intermittent uncontrolled AFib causing her LV dysfunction. Cardiology consulted and appreciate their input. CHF teaching. Daily weights. Cr better so IV Lasix resumed with excellent UOP. Cumulative I/O -9.7L. Creatinine remaining stable with diuresis. Continue Coreg. Will continue to hold Aldactone, Lisinopril and Jardiance for now. She has been fitted with LifeVest. Change to oral Lasix in the morning with plans for discharge tomorrow. (3) Renal insufficiency: Code(s): N28.9 - Disorder of kidney and ureter, unspecified Status: Acute Assessment and Plan: Baseline creatinine is 0.9-1.1. Creatinine on admission was 1.3. She received Lasix IV 80 mg in the ED. Creatinine did climb to 1.8 consistent with acute kidney injury. This could be cardiorenal related to poor cardiac contractility leading to poor renal perfusion from decreased fluid volume or from the contrast from the CTA. She was on lisinopril/HCTZ but this has been stopped. Echo shows concerns for possibly amyloidosis which can affect the kidney as well. Renal US normal. Nephrology following and appreciate their input. Creatinine better so Lasix IV resumed. Creatinine remaining stable; continue to monitor closely. (4) DVT (deep venous thrombosis): Code(s): I82.409 - Acute embolism and thrombosis of unspecified deep veins of unspecified lower extremity Status: Acute Assessment and Plan: Patient right lower extremity venous Doppler showing right popliteal and lesser saphenous DVT. D-dimer was markedly elevated at 11.5. CTA of the chest did not reveal any PE. DVT possibly related to anastrozole. Left lower extremity venous Doppler negative for DVT. No radiographic evidence of recurrence of her breast cancer. Continue Eliquis. (5) Elevated troponin: Code(s): R77.8 - Other specified abnormalities of plasma proteins Status: Acute Assessment and Plan: Troponin elevated on admission. EKG showing bigeminy with lateral ST changes but appears to be similar to EKG from July 2020. Most likely elevated Trop related CHF. Doubt ACS. Cardiology following (6) Lymphedema: Code(s): I89.0 - Lymphedema, not elsewhere classified Status: Acute Assessment and Plan: Patient with chronic lymphedema. She was treated with Lasix with good results. Defer to primary care doctor for further treatment such as lymphedema clinic.
--- NOTE | 2021-10-13 15:52 | PM.PNCARD ---
Progress Note: A&P Assessment and Plan (1) Acute combined systolic and diastolic congestive heart failure: Code(s): I50.41 - Acute combined systolic (congestive) and diastolic (congestive) heart failure Status: Acute Plan Acute on chronic systolic heart failure Paroxysmal AF HTN controlled Lymphedema DVT Plan: Cont lasix 40 mg IV BID F/U renal panel I/O Cont coreg Cont Apixaban Resume ACEI Subjective Date/time seen: 10/13/21 15:52 Feels better with no chest pain or SOB Tele: SR and PVCs Review of Systems Review of Systems: All systems reviewed & are unremarkable except as noted in HPI and below Exam Const: General: comfortable and no acute distress Other: Able to lie flat Neck: Neck: supple and no JVD Carotids: no bruits Resp: Auscultation: clear to auscultation bilaterally and lung sounds not diminished Other: No chest wall tenderness Cardio: Rate: regular rate Rhythm: regular rhythm Heart sounds: no gallops, no murmurs and no rubs GI: GI Palp: Yes Soft to palpation and No Tenderness to palpation present (GI) Auscultation: normal bowel sounds Extrem: General: edema (Bilateral +ve) Other: Normal capillary refills Intact distal pulses. Objective Data Vital Signs Vital Signs: Vital Signs - 24 hr 10/12/21 16:00 10/12/21 16:00 10/12/21 16:00 Temperature 36.3 C L Pulse Rate 62 62 64 Respiratory Rate 20 20 Blood Pressure 108/54 L Pulse Oximetry 99 99 Oxygen Delivery Room Air 10/12/21 18:00 10/12/21 20:00 10/12/21 20:00 Temperature 36.7 C Pulse Rate 64 68 Respiratory Rate 18 Blood Pressure 96/57 L Pulse Oximetry 100 Oxygen Delivery Room Air 10/12/21 21:02 10/12/21 21:04 10/12/21 20:00 Temperature Pulse Rate 70 69 Respiratory Rate Blood Pressure 113/64 Pulse Oximetry Oxygen Delivery 10/12/21 21:56 10/12/21 23:53 10/13/21 00:00 Temperature Pulse Rate 74 67 Respiratory Rate Blood Pressure Pulse Oximetry Oxygen Delivery Room Air 10/13/21 00:00 10/13/21 02:00 10/13/21 04:00 Temperature 36.8 C 36.8 C Pulse Rate 67 62 70 Respiratory Rate 18 16 Blood Pressure 111/53 L 102/48 L Pulse Oximetry 100 100 Oxygen Delivery 10/13/21 04:00 10/13/21 04:00 10/13/21 06:00 Temperature Pulse Rate 63 66 Respiratory Rate Blood Pressure Pulse Oximetry Oxygen Delivery Room Air 10/13/21 08:00 10/13/21 09:41 10/13/21 08:00 Temperature 36.9 C Pulse Rate 62 68 66 Respiratory Rate 18 Blood Pressure 112/53 L Pulse Oximetry 98 Oxygen Delivery 10/13/21 08:00 10/13/21 10:00 10/13/21 11:47 Temperature 36.4 C L Pulse Rate 64 57 L Respiratory Rate 16 Blood Pressure 92/46 L Pulse Oximetry 96 Oxygen Delivery Room Air 10/13/21 12:00 10/13/21 12:00 10/13/21 14:00 Temperature Pulse Rate 57 L 63 67 Respiratory Rate 16 Blood Pressure Pulse Oximetry 96 Oxygen Delivery Room Air 10/13/21 11:43 Temperature Pulse Rate Respiratory Rate Blood Pressure Pulse Oximetry 95 Oxygen Delivery Room Air Intake/Output Intake/Output: Intake & Output 10/10/21 10/11/21 10/12/21 10/13/21 23:59 23:59 23:59 23:59 Intake Total 1380 1550 1180 880 Output Total [address] [place] [id number] [phone] -3070 -1120 Meds/Results Medications: Active Medications Generic Name Dose Route Start Last Admin Trade Name Tosha PRN Reason Stop Dose Admin Apixaban 10 mg 10/08/21 21:00 10/13/21 09:41 Apixaban 5 Mg Tablet PO 10/15/21 09:01 10 mg Q12HR LISSY Administration Apixaban 5 mg 10/15/21 21:00 Apixaban 5 Mg Tablet PO Q12HR LISSY Carvedilol 6.25 mg 10/10/21 21:00 10/13/21 09:41 Carvedilol 6.25 Mg Tablet PO 6.25 mg Q12HR LISSY Administration Ferrous Sulfate 324 mg 10/09/21 09:00 10/13/21 09:41 Ferrous Sulfate 324 Mg Tablet PO 324 mg DAILY LISSY Administration Furosemide 40 mg 10/11/21 17:00 10/13/21
[2021-10-13] MEDS: LOVASTATIN 20 MG TABLET PO (16:15)
[2021-10-14] VITALS (19 sets, daily range): BP systolic 98–132; BP diastolic 47–65; PULSE 61–75; RESP 16–20; TEMP 36.2–36.6; O2SAT 95–100
[2021-10-14 05:42] LABS: Albumin Level 3.4 g/dL (3.5-5.1); Anion Gap 4 mmol/L (8-16); Blood Urea Nitrogen 27 mg/dL (7-17); Calcium 8.3 mg/dL (8.4-10.2); Carbon Dioxide 30 mmol/L (22-30); Chloride 104 mmol/L (98-107); Estimated CRCL calculation 52 ml/min; Estimated Glomerular Filt Rate 53; Glucose 96 mg/dL (65-110); Potassium 3.8 mmol/L (3.4-5.0); Sodium 138 mmol/L (137-145)
[2021-10-14] MEDS: FUROSEMIDE INJ 40 MG/4 ML VIAL IV PUSH (08:45)
[2021-10-14] MEDS: ACIDOPHILUS/BULGARICUS CHEWABLE TABLET 1 TABLET PO (08:46)
[2021-10-14] MEDS: PANTOPRAZOLE 40 MG TABLET PO ×2 (08:46→20:26)
[2021-10-14] MEDS: APIXABAN 5 MG TABLET 10 MG PO ×2 (08:46→20:25)
[2021-10-14] MEDS: CHOLECALCIFEROL 1,000 UNITS TABLET 1000 UNITS PO (08:46)
[2021-10-14] MEDS: FERROUS SULFATE 324 MG TABLET PO (08:46)
[2021-10-14] MEDS: carvediloL 6.25 MG TABLET PO ×2 (08:46→20:26)
[2021-10-14] MEDS: LEVOTHYROXINE SODIUM 25 MCG TABLET PO (08:46)
--- NOTE | 2021-10-14 09:31 | PM.PNCARD ---
Progress Note: A&P Assessment and Plan (1) Acute combined systolic and diastolic congestive heart failure: Code(s): I50.41 - Acute combined systolic (congestive) and diastolic (congestive) heart failure Status: Acute Assessment and Plan: Patient found to have new onset of systolic and diastolic heart failure. Cardiomyopathy with ejection fraction of about 20% Etiology unclear, probably a dilated cardiomyopathy. Perhaps related to radiation therapy. Consider amyloidosis. Rule out underlying CAD, although unlikely. Further evaluation as an outpatient. Guideline directed therapy as able with BP and renal function. Restart spironolactone Continue coreg Will add Entresto and SGLT2 inhibitor today LifeVest in place From a cardiac standpoint she would be okay for discharge tomorrow if BP remains stable after introducing new HF meds. (2) Elevated troponin: Code(s): R77.8 - Other specified abnormalities of plasma proteins Status: Acute Assessment and Plan: Elevated troponin but flat curve, secondary to CHF. No evidence of non-STEMI or ACS. (3) Essential (primary) hypertension: Code(s): I10 - Essential (primary) hypertension Status: Chronic Assessment and Plan: Blood pressure has been well controlled (4) Acute kidney injury: Code(s): N17.9 - Acute kidney failure, unspecified Status: Acute Assessment and Plan: Renal function declined with IV diuresis. On p.o. furosemide now. (5) DVT (deep venous thrombosis): Code(s): I82.409 - Acute embolism and thrombosis of unspecified deep veins of unspecified lower extremity Status: Acute Assessment and Plan: Right lower extremity DVT, on Eliquis now. (6) Chronic acquired lymphedema: Code(s): I89.0 - Lymphedema, not elsewhere classified Status: Acute Assessment and Plan: Chronic problem. PT c/s for outpatient lymphedema wraps placed. (7) History of breast cancer: Code(s): Z85.3 - Personal history of malignant neoplasm of breast Status: Acute Assessment and Plan: Treated with lumpectomy and radiation therapy. Subjective Date/time seen: 10/14/21 09:31 Feels well today. Wondering when she can go home. Denies any shortness of breath, palpitations, chest pain. Review of Systems Review of Systems: All systems reviewed & are unremarkable except as noted in HPI and below Constitutional: Constitutional: Denies fever(s) ENT: Denies epistaxis Cardiovascular: Cardiovascular: Denies chest pain, Reports pedal edema, Reports leg edema, Denies lightheadedness, Denies palpitations, Reports dyspnea and Reports dyspnea on exertion Respiratory: Respiratory: Reports chest congestion, Reports cough, Reports dyspnea, Reports dyspnea on exertion and Reports wheezing Gastrointestinal: Gastrointestinal: Denies abdominal pain, Denies hematochezia and Reports heartburn Musculoskeletal: Musculoskeletal: Reports no additional musculoskeletal complaints Integumentary/Breasts: Skin/Breast: Reports system reviewed and no additional complaints, except as docu Neurologic: Reports system reviewed and no additional complaints, except as documented, Denies behavioral changes and Denies confusion Psychiatric: Psychiatric: Denies behavioral changes and Denies confusion Endocrine: Endocrine: Denies palpitations Allergic/Immunologic: Allergic/Immunologic: Reports wheezing Exam Const: General: cooperative, healthy appearing and comfortable; No confusion Orientation/consciousness: oriented to person, patient oriented x3 and No confusion HENMT: Mouth: Yes moist mucous membranes Eyes: EOM: EOMs intact bilaterally Neck: Neck: no JVD Thyroid: thyroid normal Carotids: no bruits Resp: Effort & Inspection: normal respiratory effort Auscultation: clear to auscultation bilaterally and crackles Cardio: Rate: regular rate Rhythm: regular rhythm Heart
[2021-10-14 09:49] LABS: Magnesium 1.9 mg/dL (1.6-2.3)
--- NOTE | 2021-10-14 11:47 | P.PNNP_ITS ---
Progress Note: A&P Assessment and Plan (1) Acute kidney injury: Code(s): N17.9 - Acute kidney failure, unspecified Status: Acute Assessment and Plan: * Acute kidney injury. * evaluation to date: * minimal proteinuria * renal ultrasound without any acute issues * CPK okay * urine eosinophils negative * SPEP/UPEP pending (given concerns for possible amyloid) * Most likely due to pre renal azotemia due to diuretics. * she is back on diuretics and her creatinine seems to be stable. She made a lot of urine yesterday. (2) Acute combined systolic and diastolic congestive heart failure: Code(s): I50.41 - Acute combined systolic (congestive) and diastolic (congestive) heart failure Status: Acute Assessment and Plan: * noted new onset systolic and diastolic heart failure * EF of 20% * Cardiology on the case. * Continue diuretics as tolerated by her creatinine. (3) Essential (primary) hypertension: Code(s): I10 - Essential (primary) hypertension Status: Chronic Assessment and Plan: * Systolic running 92-125. * She is on carvedilol mostly for the heart, which happens to be controlling the blood pressure. (4) Chronic acquired lymphedema: Code(s): I89.0 - Lymphedema, not elsewhere classified Status: Acute Assessment and Plan: * chronic problem/issues * apparently worsened by CHF * This seems to be improved. * Subjective Date/time seen: 10/14/21 11:47 Interval history: Carlie is feeling better. No shortness of breath. Edema is present but almost gone Sitting up in a couch beside her bed. Exam Narrative: General: WD/WN AA female in NAD Heart: normal S1 and S2; no rub Lungs: clear to auscultation; decreased at bases Abdomen: soft, nontender, nondistended, positive bowel sounds Extremities: no cyanosis or clubbing; 1+ edema (chronic lymphedema) Skin: no rash Objective Data Vital Signs Vital Signs: Vital Signs - 24 hr 10/13/21 12:00 10/13/21 12:00 10/13/21 14:00 Temperature Pulse Rate 57 L 63 67 Respiratory Rate 16 Blood Pressure Pulse Oximetry 96 Oxygen Delivery Room Air 10/13/21 16:00 10/13/21 16:12 10/13/21 16:00 Temperature 36.6 C Pulse Rate 82 82 68 Respiratory Rate 18 18 Blood Pressure 96/44 L Pulse Oximetry 100 100 Oxygen Delivery Room Air 10/13/21 18:00 10/13/21 20:32 10/13/21 20:00 Temperature 36.6 C Pulse Rate 71 69 70 Respiratory Rate 20 Blood Pressure 125/52 L Pulse Oximetry 100 Oxygen Delivery 10/13/21 20:00 10/13/21 20:00 10/13/21 22:00 Temperature Pulse Rate 69 70 67 Respiratory Rate 20 Blood Pressure Pulse Oximetry 100 Oxygen Delivery Room Air 10/13/21 23:08 10/13/21 23:05 10/14/21 00:00 Temperature 36.6 C Pulse Rate 78 68 Respiratory Rate 18 Blood Pressure 113/62 Pulse Oximetry 99 95 Oxygen Delivery Room Air 10/14/21 00:00 10/14/21 02:00
--- NOTE | 2021-10-14 11:47 | PM.PNNEP ---
Progress Note: A&P Assessment and Plan (1) Acute kidney injury: Code(s): N17.9 - Acute kidney failure, unspecified Status: Acute Assessment and Plan: Acute kidney injury. evaluation to date: minimal proteinuria renal ultrasound without any acute issues CPK okay urine eosinophils negative SPEP/UPEP pending (given concerns for possible amyloid) Most likely due to pre renal azotemia due to diuretics. she is back on diuretics and her creatinine seems to be stable. She made a lot of urine yesterday. (2) Acute combined systolic and diastolic congestive heart failure: Code(s): I50.41 - Acute combined systolic (congestive) and diastolic (congestive) heart failure Status: Acute Assessment and Plan: noted new onset systolic and diastolic heart failure EF of 20% Cardiology on the case. Continue diuretics as tolerated by her creatinine. (3) Essential (primary) hypertension: Code(s): I10 - Essential (primary) hypertension Status: Chronic Assessment and Plan: Systolic running 92-125. She is on carvedilol mostly for the heart, which happens to be controlling the blood pressure. (4) Chronic acquired lymphedema: Code(s): I89.0 - Lymphedema, not elsewhere classified Status: Acute Assessment and Plan: chronic problem/issues apparently worsened by CHF This seems to be improved. Subjective Date/time seen: 10/14/21 11:47 Interval history: Carlie is feeling better. No shortness of breath. Edema is present but almost gone Sitting up in a couch beside her bed. Exam Narrative: General: WD/WN AA female in NAD Heart: normal S1 and S2; no rub Lungs: clear to auscultation; decreased at bases Abdomen: soft, nontender, nondistended, positive bowel sounds Extremities: no cyanosis or clubbing; 1+ edema (chronic lymphedema) Skin: no rash Objective Data Vital Signs Vital Signs: Vital Signs - 24 hr 10/13/21 12:00 10/13/21 12:00 10/13/21 14:00 Temperature Pulse Rate 57 L 63 67 Respiratory Rate 16 Blood Pressure Pulse Oximetry 96 Oxygen Delivery Room Air 10/13/21 16:00 10/13/21 16:12 10/13/21 16:00 Temperature 36.6 C Pulse Rate 82 82 68 Respiratory Rate 18 18 Blood Pressure 96/44 L Pulse Oximetry 100 100 Oxygen Delivery Room Air 10/13/21 18:00 10/13/21 20:32 10/13/21 20:00 Temperature 36.6 C Pulse Rate 71 69 70 Respiratory Rate 20 Blood Pressure 125/52 L Pulse Oximetry 100 Oxygen Delivery 10/13/21 20:00 10/13/21 20:00 10/13/21 22:00 Temperature Pulse Rate 69 70 67 Respiratory Rate 20 Blood Pressure Pulse Oximetry 100 Oxygen Delivery Room Air 10/13/21 23:08 10/13/21 23:05 10/14/21 00:00 Temperature 36.6 C Pulse Rate 78 68 Respiratory Rate 18 Blood Pressure 113/62 Pulse Oximetry 99 95 Oxygen Delivery Room Air 10/14/21 00:00 10/14/21 02:00 10/14/21 03:46 Temperature 36.6 C Pulse Rate 68 63 67 Respiratory Rate 18 18 Blood Pressure 109/47 L Pulse Oximetry 99 99 Oxygen Delivery Room Air 10/14/21 04:00 10/14/21 04:00 10/14/21 06:00 Temperature Pulse Rate 66 66 73 Respiratory Rate 18 Blood Pressure Pulse Oximetry 99 Oxygen Delivery Room Air 10/14/21 08:00 10/14/21 08:46 10/14/21 08:00 Temperature 36.3 C L Pulse Rate 65 66 67 Respiratory Rate 16 Blood Pressure 103/57 L Pulse Oximetry 100 Oxygen Delivery 10/14/21 10:00 10/14/21 08:45 Temperature Pulse Rate 73 Respiratory Rate Blood Pressure Pulse Oximetry Oxygen Delivery Room Air Intake/Output Intake/Output: Intake & Output 10/11/21 10/12/21 10/13/21 10/14/21 23:59 23:59 23:59 23:59 Intake Total 1550 1180 1630 250 Output Total 5050 4250 2900 [facility]3500 -3070 -1270 250 Meds/Results Medications: Active Medications Generic Name Dose Route Start Last Admin Trade Name Freq PRN Laly
[2021-10-14 14:42] LABS: Kappa\\Lambda Light Chains 8.62 (0.26-1.65); Lambda Light Chain 15.1 mg/L (5.7-26.3)
[2021-10-14 14:57] LABS: Chloride Rand Ur <20 mmol/L (32-290); Creatinine Random Urine 266 mg/dL (20-275)
--- NOTE | 2021-10-14 16:22 | PM.IMPN ---
Progress Note: A&P Assessment and Plan (1) Paroxysmal atrial fibrillation: Code(s): I48.0 - Paroxysmal atrial fibrillation Status: Acute Assessment and Plan: Patient developed AFib with RVR on the morning of 10/09/2021. Cardiology made aware and she was started on amiodarone; she converted to normal sinus rhythm. TSH 6.9 but free T4 is normal. CTA chest 10/07 was negative for PE. Echo as mentioned below. By history, sounds as if she has paroxysmal atrial fibrillation. [id number] score 4. Currently on Eliquis for DVT which will continue. She is on Coreg. She is maintaining NSR. 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 Mag level 2.0 but potassium 3.6. Extra potassium today. Continue to monitor on telemetry. 10/14: Appreciate cardiology consultation, continue Eliquis and Coreg, remains in normal sinus rhythm, started on Jardiance and spironolactone (2) Acute exacerbation of CHF (congestive heart failure): Code(s): I50.9 - Heart failure, unspecified Status: Acute Assessment and Plan: Patient presents with increasing shortness of breath and orthopnea. She is also having increasing pedal edema overlying her chronic lymphedema. Chest x-ray showing pulmonary edema with cardiomegaly. BNP 15K. Signs and symptoms consistent with acute systolic and diastolic CHF. Improvement with 1 dose of Lasix. We initially held Lasix given the elevated Creatinine. Echo showing severe global HK with AK of the inferoseptal wall and EF 15-20%. Diastolic dysfunction grade II present. [place] is spared so consider amyloidosis. She has biatrial enlargement, moderate MR and moderate pulmonary HTN. Consider ischemic disease and/or intermittent uncontrolled AFib causing her LV dysfunction. Cardiology consulted and appreciate their input. CHF teaching. Daily weights. Cr better so IV Lasix resumed with excellent UOP. Cumulative I/O -9.7L. Creatinine remaining stable with diuresis. Continue Coreg. Will continue to hold Aldactone, Lisinopril and Jardiance for now. She has been fitted with LifeVest. Change to oral Lasix in the morning with plans for discharge tomorrow. 10/14: Cardiology would like to monitor patient 1 more day to confirm blood pressure stabilization on new heart medications, anticipate discharge tomorrow on oral Lasix (3) Renal insufficiency: Code(s): N28.9 - Disorder of kidney and ureter, unspecified Status: Acute Assessment and Plan: Baseline creatinine is 0.9-1.1. Creatinine on admission was 1.3. She received Lasix IV 80 mg in the ED. Creatinine did climb to 1.8 consistent with acute kidney injury. This could be cardiorenal related to poor cardiac contractility leading to poor renal perfusion from decreased fluid volume or from the contrast from the CTA. She was on lisinopril/HCTZ but this has been stopped. Echo shows concerns for possibly amyloidosis which can affect the kidney as well. Renal US normal. Nephrology following and appreciate their input. Creatinine better so Lasix IV resumed. Creatinine remaining stable; continue to monitor closely. 10/14: SPEP/UPEP pending, creatinine stable on diuresis, further workup for amyloidosis to be done outpatient (4) DVT (deep venous thrombosis): Code(s): I82.409 - Acute embolism and thrombosis of unspecified deep veins of unspecified lower extremity Status: Acute Assessment and Plan: Patient right lower extremity venous Doppler showing right popliteal and lesser saphenous DVT. D-dimer was markedly elevated at 11.5. CTA of the chest did not reveal any PE. DVT possibly related to anastrozole. Left lower extremity venous Doppler negative for DVT. No radiographic evidence of recurrence of her breast cancer. Continue Eliquis. (5) Elevated troponin: Code(s): R77.8 - Other specified abnormalities of plasma proteins Status: Acute Assessment and Plan: Troponin elevated on admission. EKG showing bigeminy with later
[2021-10-14] MEDS: FUROSEMIDE 40 MG TABLET PO (17:03)
[2021-10-14] MEDS: LOVASTATIN 20 MG TABLET PO (17:03)
[2021-10-14 17:50] LABS: Hematocrit 31.6 % (37.0-47.0); Hemoglobin 9.9 g/dL (12.0-15.0); Mean Corpuscular HGB Conc 31.3 g/dl (32-36); Mean Corpuscular Hemoglobin 30.8 pg (26-34); Mean Corpuscular Volume 98.4 fl (80-100); Mean Platelet Volume 11.1 fl (7.4-10.4); Platelet Count Result 220 k/mm3 (150-375); Red Blood Count 3.21 M/mm3 (4.2-5.4); Red Cell Distribution Width 15.4 % (11.5-14.5); White Blood Count 5.6 K/mm3 (4.5-10.0)
[2021-10-14 18:05] LABS: Anion Gap 5 mmol/L (8-16); Blood Urea Nitrogen 26 mg/dL (7-17); Calcium 8.6 mg/dL (8.4-10.2); Carbon Dioxide 31 mmol/L (22-30); Chloride 100 mmol/L (98-107); Estimated CRCL calculation 48 ml/min; Estimated Glomerular Filt Rate 49; Glucose 104 mg/dL (65-110); Potassium 3.9 mmol/L (3.4-5.0); Sodium 136 mmol/L (137-145)
[2021-10-15] VITALS (10 sets, daily range): BP systolic 109–114; BP diastolic 43–59; PULSE 60–71; RESP 16–20; TEMP 36.2–36.6; O2SAT 99–100
[2021-10-15 05:45] LABS: Hematocrit 31.5 % (37.0-47.0); Hemoglobin 9.9 g/dL (12.0-15.0); Mean Corpuscular HGB Conc 31.4 g/dl (32-36); Mean Corpuscular Hemoglobin 30.5 pg (26-34); Mean Corpuscular Volume 96.9 fl (80-100); Mean Platelet Volume 10.2 fl (7.4-10.4); Platelet Count Result 207 k/mm3 (150-375); Red Blood Count 3.25 M/mm3 (4.2-5.4); Red Cell Distribution Width 15.2 % (11.5-14.5); White Blood Count 5.4 K/mm3 (4.5-10.0)
[2021-10-15 05:50] LABS: Albumin Level 3.8 g/dL (3.5-5.1); Anion Gap 5 mmol/L (8-16); Blood Urea Nitrogen 26 mg/dL (7-17); Calcium 8.7 mg/dL (8.4-10.2); Carbon Dioxide 31 mmol/L (22-30); Chloride 102 mmol/L (98-107); Estimated CRCL calculation 52 ml/min; Estimated Glomerular Filt Rate 53; Glucose 108 mg/dL (65-110); Phosphorus 4.2 mg/dL (2.5-4.5); Potassium 3.8 mmol/L (3.4-5.0); Sodium 138 mmol/L (137-145)
[2021-10-15 09:53] LABS: Albumin 3.5 g/dL (3.8-4.8); Alpha 1 Globulin 0.3 g/dL (0.2-0.3); Alpha 2 Globulin 0.6 g/dL (0.5-0.9); Beta 1 Globulin 0.4 g/dL (0.4-0.6); Gamma Globulin 1.7 g/dL (0.8-1.7); Protein, Total 6.7 g/dL (6.1-8.1)
[2021-10-15] MEDS: EMPAGLIFLOZIN 10 MG TABLET PO (09:55)
[2021-10-15] MEDS: CHOLECALCIFEROL 1,000 UNITS TABLET 1000 UNITS PO (09:55)
[2021-10-15] MEDS: ACIDOPHILUS/BULGARICUS CHEWABLE TABLET 1 TABLET PO (09:55)
[2021-10-15] MEDS: FERROUS SULFATE 324 MG TABLET PO (09:55)
[2021-10-15] MEDS: PANTOPRAZOLE 40 MG TABLET PO (09:55)
[2021-10-15] MEDS: APIXABAN 5 MG TABLET 10 MG PO (09:55)
[2021-10-15] MEDS: FUROSEMIDE 40 MG TABLET PO ×2 (09:56→16:56)
[2021-10-15] MEDS: lisinopriL 5 MG TABLET PO (09:56)
[2021-10-15] MEDS: LEVOTHYROXINE SODIUM 25 MCG TABLET PO (09:56)
[2021-10-15] MEDS: SPIRONOLACTONE 25 MG TABLET PO (09:56)
[2021-10-15] MEDS: carvediloL 6.25 MG TABLET PO (09:57)
--- NOTE | 2021-10-15 14:06 | PM.DS ---
DS: Admitting Diagnosis Discharge Date 10/15/21 Admitting Diagnosis Shortness of breath DS: Discharge Diagnosis Discharge Diagnosis (1) Paroxysmal atrial fibrillation: Code(s): I48.0 - Paroxysmal atrial fibrillation Status: Acute Assessment and Plan: Patient developed AFib with RVR on the morning of 10/09/2021. Cardiology made aware and she was started on amiodarone; she converted to normal sinus rhythm. TSH 6.9 but free T4 is normal. CTA chest 10/07 was negative for PE. Echo as mentioned below. By history, sounds as if she has paroxysmal atrial fibrillation. [id number] score 4. Currently on Eliquis for DVT which will continue. She is on Coreg. She is maintaining NSR. 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 Appreciate cardiology consultation. (2) Acute exacerbation of CHF (congestive heart failure): Code(s): I50.9 - Heart failure, unspecified Status: Acute Assessment and Plan: Patient presents with increasing shortness of breath and orthopnea. She is also having increasing pedal edema overlying her chronic lymphedema. Chest x-ray showing pulmonary edema with cardiomegaly. BNP 15K. Signs and symptoms consistent with acute systolic and diastolic CHF. Improvement with 1 dose of Lasix. We initially held Lasix given the elevated Creatinine. Echo showing severe global HK with AK of the inferoseptal wall and EF 15-20%. Diastolic dysfunction grade II present. [place] is spared so consider amyloidosis. She has biatrial enlargement, moderate MR and moderate pulmonary HTN. Consider ischemic disease and/or intermittent uncontrolled AFib causing her LV dysfunction. Cardiology consulted and appreciate their input. CHF teaching. Daily weights. She was fitted for a LigeVest. Cr better so IV Lasix resumed with excellent UOP. Cumulative I/O -9.5L. Creatinine remaining stable with diuresis. Medications adjusted. Home with LifeVest. (3) Renal insufficiency: Code(s): N28.9 - Disorder of kidney and ureter, unspecified Status: Acute Assessment and Plan: Baseline creatinine is 0.9-1.1. Creatinine on admission was 1.3. She received Lasix IV 80 mg in the ED. Creatinine did climb to 1.8 consistent with acute kidney injury. This could be cardiorenal related to poor cardiac contractility leading to poor renal perfusion from decreased fluid volume or from the contrast from the CTA. She was on lisinopril/HCTZ but this has been stopped. Echo shows concerns for possibly amyloidosis which can affect the kidney as well. Renal US normal. Nephrology following and appreciate their input. Creatinine better so Lasix IV resumed. Creatinine remaining stable. Free kappa level elevated. Small M spike noted. Appreciate Nephrology input. (4) DVT (deep venous thrombosis): Code(s): I82.409 - Acute embolism and thrombosis of unspecified deep veins of unspecified lower extremity Status: Acute Assessment and Plan: Patient right lower extremity venous Doppler showing right popliteal and lesser saphenous DVT. D-dimer was markedly elevated at 11.5. CTA of the chest did not reveal any PE. DVT possibly related to anastrozole. Left lower extremity venous Doppler negative for DVT. No radiographic evidence of recurrence of her breast cancer. Treated with Eliquis. (5) Elevated troponin: Code(s): R77.8 - Other specified abnormalities of plasma proteins Status: Acute Assessment and Plan: Troponin elevated on admission. EKG showing bigeminy with lateral ST changes but appears to be similar to EKG from July 2020. Most likely elevated Trop related CHF. Doubt ACS. Cardiology following (6) Lymphedema: Code(s): I89.0 - Lymphedema, not elsewhere classified Status: Acute Assessment and Plan: Patient with chronic lymphedema. She was treated with Lasix with good results. Defer to primary care doctor for further treatment such as lymphedema clinic. This was discuss
--- NOTE | 2021-10-15 15:11 | PCRCNOTE ---
WILL ARRANGE NOCTURNAL O2 WITH [facility], SHE CURRENTLY HAS A CPAP UNIT WITH THEM.
--- NOTE | 2021-10-15 16:32 | PM.PNNEP ---
Subjective Date/time seen: 10/15/21 16:32 Objective Data Vital Signs Vital Signs: Vital Signs - 24 hr 10/14/21 18:00 10/14/21 19:16 10/14/21 20:26 Temperature 36.4 C Pulse Rate 71 69 75 Respiratory Rate 20 Blood Pressure 132/57 L Pulse Oximetry 100 Oxygen Delivery 10/14/21 20:00 10/14/21 20:00 10/14/21 22:46 Temperature Pulse Rate 75 72 Respiratory Rate 20 Blood Pressure Pulse Oximetry 100 96 Oxygen Delivery Room Air Room Air 10/14/21 22:52 10/14/21 22:00 10/15/21 00:00 Temperature 36.6 C Pulse Rate 75 73 68 Respiratory Rate 20 Blood Pressure 127/61 Pulse Oximetry 99 Oxygen Delivery 10/15/21 00:00 10/15/21 02:00 10/15/21 04:00 Temperature Pulse Rate 68 66 66 Respiratory Rate 20 Blood Pressure Pulse Oximetry 99 Oxygen Delivery Room Air 10/15/21 04:00 10/15/21 04:00 10/15/21 06:00 Temperature 36.6 C Pulse Rate 66 66 67 Respiratory Rate 20 18 Blood Pressure 112/55 L Pulse Oximetry 99 99 Oxygen Delivery Room Air 10/15/21 08:00 10/15/21 08:00 10/15/21 09:57 Temperature 36.2 C L Pulse Rate 64 60 71 Respiratory Rate 16 Blood Pressure 114/59 L Pulse Oximetry 99 Oxygen Delivery 10/15/21 08:00 10/15/21 10:00 10/15/21 11:59 Temperature 36.2 C L Pulse Rate 71 67 68 Respiratory Rate 16 18 Blood Pressure 109/43 L Pulse Oximetry 99 100 Oxygen Delivery Room Air 10/15/21 12:00 10/15/21 12:00 10/15/21 14:00 Temperature Pulse Rate 70 68 67 Respiratory Rate 16 Blood Pressure Pulse Oximetry 100 Oxygen Delivery Room Air Intake/Output Intake/Output: Intake & Output 10/12/21 10/13/21 10/14/21 10/15/21 23:59 23:59 23:59 23:59 Intake Total 1180 1630 1330 960 Output Total 4250 2900 1400 1000 Balance -3070 -1270 -70 -40 Meds/Results Medications: Active Medications Generic Name Dose Route Start Last Admin Trade Name Freq PRN Reason Stop Dose Admin Apixaban 5 mg 10/15/21 21:00 Apixaban 5 Mg Tablet PO Q12HR LISSY Carvedilol 6.25 mg 10/10/21 21:00 10/15/21 09:57 Carvedilol 6.25 Mg Tablet PO 6.25 mg Q12HR LISSY Administration Empagliflozin 10 mg 10/15/21 09:00 10/15/21 09:55 Empagliflozin 10 Mg Tablet PO 10 mg DAILY LISSY Administration Ferrous Sulfate 324 mg 10/09/21 09:00 10/15/21 09:55 Ferrous Sulfate 324 Mg Tablet PO 324 mg DAILY LISSY Administration Furosemide 40 mg 10/14/21 17:00 10/15/21 09:56 Furosemide 40 Mg Tablet PO 40 mg BID LISSY Administration Lactobacillus Acidophilus 1 tablet 10/09/21 09:00 10/15/21 09:55 Acidophilus/Bulgaricus Chewable Tablet PO 11/08/21 08:59 1 tablet DAILY LISSY Administration Levothyroxine Sodium 25 mcg 10/08/21 09:20 10/15/21 09:56 Levothyroxine Sodium 25 Mcg Tablet PO 25 mcg QAM LISSY Administration Lisinopril 5 mg 10/15/21 09:00 10/15/21 09:56 Lisinopril 5 Mg Tablet PO 5 mg QAM LISSY Administration Lovastatin 20 mg 10/08/21 18:00 10/14/21 17:03 Lovastatin 20 Mg Tablet PO 20 mg QPM LISSY Administration Magnesium Hydroxide 30 ml 10/12/21 16:13 Magnesium Hydroxide Susp 30 Ml Udc PO DAILY PRN Constipation Pantoprazole Sodium 40 mg 10/08/21 09:30 10/15/21 09:55 Pantoprazole 40 Mg Tablet PO 40 mg Q12HR LISSY Administration Perflutren Lipid Microsphere 0 ml 10/08/21 09:09 Perflutren Lipid Microspheres 1.5 Ml Vial Diluted To 10 Ml Total Volume IV PUSH ONCE PRN adequate visualization Protocol Promethazine HCl 25 mg 10/09/21 15:40 10/09/21 16:50 Promethazine Hcl 25 Mg Tablet BY MOUTH 25 mg Q6HR PRN Administration Nausea Spironolactone 25 mg 10/15/21 09:00 10/15/21 09:56 Spironolactone 25 Mg Tablet PO 25 mg QAM [facility] Administration Vitamin D 1,000 units 10/08/21 10:00 10/15/21 09:55 Cholecalciferol 1,000 Units Tablet PO 1,000 units DAILY LISSY Administration Radiology Results:
[2021-10-15] MEDS: LOVASTATIN 20 MG TABLET PO (16:56)
[2021-10-16 02:47] LABS: Total Protein/Creatinine Ratio 169 mg/g creat (21-161)
--- NOTE | 2021-10-18 07:37 | PC.NURSE ---
SIF- M spike os too small to quantitate. [facility] has no abn. peaks. Dr. Mg aware of findings.
--- NOTE | 2021-10-28 10:17 | PC.NURSE ---
SIF shows no abn bands. Dr. Haritha luciano.
== END 2021-10-15 17:24 | disposition home or self-care (01) | DRG 291 ==
LOC: ANHED 15:46 → ANHIMU 19:05
PROVIDERS: Internal Medicine Nephrology; Nurse Practitioner; Admitting Provider Student in an Organized Health Care Education/Training Program; Emergency Provider Emergency Medicine; PCP Family Medicine; Visit Provider Internal Medicine
DX: I13.0 Hypertensive heart and chronic kidney disease with heart failure and stage 1 through stage 4 chronic kidney disease, or unspecified chronic kidney disease (principal); I50.41 Acute combined systolic (congestive) and diastolic (congestive) heart failure; I82.431 Acute embolism and thrombosis of right popliteal vein; I82.811 Embolism and thrombosis of superficial veins of right lower extremity; N17.9 Acute kidney failure, unspecified; Z68.41 Body mass index [BMI] 40.0-44.9, adult; T50.2X5A Adverse effect of carbonic-anhydrase inhibitors, benzothiadiazides and other diuretics, initial encounter; I42.0 Dilated cardiomyopathy; N18.9 Chronic kidney disease, unspecified; D63.1 Anemia in chronic kidney disease; I48.0 Paroxysmal atrial fibrillation; R13.10 Dysphagia, unspecified; J45.909 Unspecified asthma, uncomplicated; I89.0 Lymphedema, not elsewhere classified; E78.49 Other hyperlipidemia; R10.13 Epigastric pain; E66.9 Obesity, unspecified; Z20.822 Contact with and (suspected) exposure to COVID-19; Z85.3 Personal history of malignant neoplasm of breast; Z87.891 Personal history of nicotine dependence
CPT/HCPCS: 36415; 36600; 71046; 71275; 76705; 76775; 80048; 80053; 80069; 81001; 82436; 82550; 82570; 82805; 83605; 83690; 83735; 83880; 83883; 84155; 84156; 84165; 84166; 84439; 84443; 84480; 84484; 85025; 85027; 85380; 85610; 85730; 85999; 86140; 86334; 87040; 87502; 92610; 93005; 93306; 93971; 94640; 94762; 96372; 96374; 96375; 99291; A9270; C9803; J0282; J1100; J1650; J1940; J2405; Q9967; U0003; U0005

== ENCOUNTER 2021-10-21 10:09 | Outpatient (CLI) | payer MEDICARE, OTHER, SELFPAY ==
[2021-10-21 10:24] LABS: Hematocrit 31.6 % (37.0-47.0); Hemoglobin 10.1 g/dL (12.0-15.0); Mean Corpuscular Hemoglobin 31.1 pg (26-34); Mean Corpuscular Volume 97.2 fl (80-100); Mean Platelet Volume 10.5 fl (7.4-10.4); Platelet Count Result 211 k/mm3 (150-375); Red Blood Count 3.25 M/mm3 (4.2-5.4); Red Cell Distribution Width 14.4 % (11.5-14.5); White Blood Count 6.1 K/mm3 (4.5-10.0)
[2021-10-21 10:36] LABS: Alanine Aminotransferase 16 U/L (6-35); Albumin Level 4.2 g/dL (3.5-5.1); Alkaline Phosphatase 62 U/L (38-126); Amylase 62 U/L (30-110); Anion Gap 5 mmol/L (8-16); Aspartate Amino Transferase 25 U/L (14-36); Bilirubin,Total 0.5 mg/dL (0.2-1.3); Blood Urea Nitrogen 21 mg/dL (7-17); Calcium 8.9 mg/dL (8.4-10.2); Carbon Dioxide 30 mmol/L (22-30); Chloride 103 mmol/L (98-107); Estimated Glomerular Filt Rate 53; Glucose 119 mg/dL (65-110); Lipase 59 U/L (23-300); Potassium 3.8 mmol/L (3.4-5.0); Sodium 138 mmol/L (137-145)
== END 2021-10-21 10:10 | disposition home or self-care (01) ==
PROVIDERS: PCP Family Medicine; Referring Provider Internal Medicine; Visit Provider Nurse Practitioner Family
DX: R10.13 Epigastric pain (principal); R19.7 Diarrhea, unspecified
CPT/HCPCS: 36415; 80053; 82150; 83690; 85027

== ENCOUNTER 2021-12-16 11:45 | Outpatient (CLI) | payer MEDICARE, OTHER, SELFPAY ==
[2021-12-16 12:35] LABS: Albumin Level 4.6 g/dL (3.5-5.1); Anion Gap 15 mmol/L (8-16); Blood Urea Nitrogen 35 mg/dL (7-17); Calcium 9.5 mg/dL (8.4-10.2); Carbon Dioxide 28 mmol/L (22-30); Chloride 97 mmol/L (98-107); Estimated Glomerular Filt Rate 41; Glucose 107 mg/dL (65-110); Phosphorus 4.8 mg/dL (2.5-4.5); Potassium 4.4 mmol/L (3.4-5.0); Sodium 140 mmol/L (137-145)
== END 2021-12-16 11:46 | disposition home or self-care (01) ==
LOC: ANHLAB 11:59
PROVIDERS: PCP Family Medicine; Visit Provider Internal Medicine Nephrology
DX: N18.31 Chronic kidney disease, stage 3a (principal)
CPT/HCPCS: 36415; 80069

== ENCOUNTER 2021-12-31 12:35 | Outpatient (CLI) | payer MEDICARE, OTHER, SELFPAY ==
[2021-12-31 13:41] LABS: Albumin Level 4.5 g/dL (3.5-5.1); Anion Gap 13 mmol/L (8-16); Blood Urea Nitrogen 43 mg/dL (7-17); Calcium 9.4 mg/dL (8.4-10.2); Carbon Dioxide 27 mmol/L (22-30); Chloride 101 mmol/L (98-107); Estimated Glomerular Filt Rate 38; Glucose 95 mg/dL (65-110); Phosphorus 5.4 mg/dL (2.5-4.5); Potassium 4.4 mmol/L (3.4-5.0); Sodium 141 mmol/L (137-145)
[2021-12-31 13:53] LABS: Parathyroid Intact 63.6 pg/mL (7.5-53.5)
[2021-12-31 14:04] LABS: Creatinine Urine 42.3 mg/dL; Total Protein Urine Random 8 mg/dL; Ur Ttl Prot Creatinine Ratio 0.19 mg/mg (0-0.20)
[2021-12-31 14:32] LABS: Vitamin D 25 Hydroxy 74.5 ng/mL
== END 2021-12-31 12:36 | disposition home or self-care (01) ==
PROVIDERS: PCP Family Medicine; Visit Provider Internal Medicine Nephrology
DX: N18.31 Chronic kidney disease, stage 3a (principal); E55.9 Vitamin D deficiency, unspecified; N25.81 Secondary hyperparathyroidism of renal origin
CPT/HCPCS: 36415; 80069; 82306; 82570; 83970; 84156

== ENCOUNTER 2022-01-14 13:37 | Outpatient (CLI) | payer MEDICARE, OTHER, SELFPAY ==
--- NOTE | ~2022-01-14 | DEXA_ITS ---
Bone Density Report Name: ADAMS GALLO Age: 76 Sex: Female Ethnicity: Black Date of : 1945 Indication: postmenopausal; screening for osteoporosis; height loss; cancer; Referring Provider: SALENA JORDAN Study: Bone densitometry was performed. Exam Date: January 14, 2022 Accession number: [id number] Bone Density: Region BMD T-score Z-score Classification AP Spine(L1-L4) 1.126 0.7 2.4 Normal Femoral Neck (Left) 1.039 1.7 2.2 Normal Total Hip (Left) 1.140 1.6 1.9 Normal Femoral Neck (Right) 0.971 1.1 1.7 Normal Total Hip (Right) 1.096 1.3 1.7 Normal Total Hip Mean 1.118 1.5 1.8 Normal World Health Organization criteria for BMD impression classify patients as: Normal (T-score at or above -1.0), Osteopenia (T-score between -1.0 and -2.5), or Osteoporosis (T-score at or below -2.5). 10-year Fracture Risk: FRAX not reported because: All T-scores for Spine Total, Hip Total, Femoral Neck at or above -1.0 Previous Exams: Region Exam Age BMD T-score BMD Change BMD Change Date g/cm2 vs Baseline vs Previous Total Hip(Left) 01/14/2022 76 1.140 1.6 -0.007 (-0.6%) -0.007 (-0.6%) 07/03/2014 68 1.147 1.7 Total Hip(Right) 01/14/2022 76 1.096 1.3 -0.051 (-4.5%) -0.051 (-4.5%) 07/03/2014 68 1.148 1.7 *Denotes significance at 95% confidence level, LSC for Total Hip = 0.027 g/cm2 Clinical Information Provided by Patient: Has used the following medications: Vitamin D Has the following medical conditions: Cancer Patient maximum height was 67 Menopause Age: 55 Onset of menses at age 14 Number of children 0 Impression: The patient has normal bone mass. The BMD for the Total Hip(Right) decreased, changing by -4.5% since the last DXA exam. Discussion: LOW RISK OF FRACTURE; BONE DENSITY IS WELL ABOVE THE MINIMUM DESIRABLE LEVEL AND ABOVE AVERAGE FOR AGE AND SEX AT ALL SKELETAL SITES TESTED. This person's bone density is above expected limits for age and sex. This is rarely clinically significant, but should be pursued if there are significant musculoskeletal complaints. The patient should follow a healthful lifestyle (good nutrition with adequate calcium and vitamin D, and appropriate weight-bearing exercise). Follow-Up: Consider repeating this study in 3 to 4 years to reassess this patient's status, or sooner if there is some new clinical indication. Reported by: [facility] on 01/15/2022 3:43:00 PM. Reviewe
== END 2022-01-14 13:38 | disposition home or self-care (01) ==
PROVIDERS: PCP Family Medicine; Visit Provider Internal Medicine Hematology & Oncology
DX: Z78.0 Asymptomatic menopausal state (principal); M85.89 Other specified disorders of bone density and structure, multiple sites
CPT/HCPCS: 77080

== ENCOUNTER 2022-01-19 12:15 | Outpatient (CLI) | payer MEDICARE, OTHER, SELFPAY ==
[2022-01-19 12:43] LABS: Basophils Percent Auto 0.2 % (0.2-1.2); Eosinophils Absolute Auto 0.1 K/mm3 (0-0.3); Eosinophils Percent Auto 1.7 % (0-4.4); Hematocrit 33.8 % (37.0-47.0); Hemoglobin 10.6 g/dL (12.0-15.0); Immature Granulocyte Absolute 0.01 K/mm3 (0.00-0.031); Immature Granulocyte Percent A 0.2 % (0-0.5); Lymphocytes Absolute Auto 1.13 K/mm3 (0.9-3.2); Lymphocytes Percent Auto 20.9 % (18.3-44.2); Mean Corpuscular HGB Conc 31.4 g/dl (32-36); Mean Corpuscular Hemoglobin 30.1 pg (26-34); Mean Platelet Volume 10.8 fl (7.4-10.4); Monocytes Absolute Auto 0.3 K/mm3 (0.1-0.6); Monocytes Percent Auto 6.3 % (2.6-8.5); Neutrophils Absolute Auto 3.8 K/mm3 (1.3-6.7); Neutrophils Percent Auto 70.7 % (45.5-73.1); Platelet Count Result 199 k/mm3 (150-375); Red Blood Count 3.52 M/mm3 (4.2-5.4); Red Cell Distribution Width 13.2 % (11.5-14.5); White Blood Count 5.4 K/mm3 (4.5-10.0)
[2022-01-19 15:21] LABS: Iron 104 ug/dL (37-170)
[2022-01-19 15:23] LABS: Alanine Aminotransferase 20 U/L (6-35); Albumin Level 4.7 g/dL (3.5-5.1); Alkaline Phosphatase 86 U/L (38-126); Anion Gap 11 mmol/L (8-16); Aspartate Amino Transferase 31 U/L (14-36); Bilirubin,Total 0.6 mg/dL (0.2-1.3); Blood Urea Nitrogen 39 mg/dL (7-17); Calcium 9.6 mg/dL (8.4-10.2); Carbon Dioxide 27 mmol/L (22-30); Chloride 103 mmol/L (98-107); Estimated Glomerular Filt Rate 36; Glucose 88 mg/dL (65-110); Potassium 4.4 mmol/L (3.4-5.0); Sodium 141 mmol/L (137-145)
[2022-01-19 15:30] LABS: Percent Iron Saturation 36 % (20-50)
[2022-01-19 16:33] LABS: Folic Acid > 20.0 ng/mL (2.76->20)
== END 2022-01-19 12:16 | disposition home or self-care (01) ==
LOC: ANHLAB 12:19
PROVIDERS: PCP Family Medicine; Visit Provider Internal Medicine Hematology & Oncology
DX: D64.9 Anemia, unspecified (principal)
CPT/HCPCS: 36415; 80053; 82607; 82728; 82746; 83540; 83550; 84443; 85025

== ENCOUNTER 2022-01-26 12:34 | Outpatient (CLI) | payer MEDICARE, OTHER, SELFPAY ==
--- NOTE | ~2022-01-26 | US_ITS ---
EXAMINATION: US venous doppler LE RT DATE: 01/26/2022 13:06 INDICATION: Acute deep venous anastomosis in the right lower limb. Patient currently anticoagulated. TECHNIQUE: Grayscale ultrasound images without and with compression and Doppler ultrasound images of the right lower extremity veins were obtained. COMPARISON: 10/07/2021 FINDINGS: The visualized portions of right common femoral vein, profunda (deep) femoral vein, femoral vein, pop liteal vein, peroneal trunk, posterior tibial veins, peroneal veins, gastrocnemius vein, lesser saphe nous vein and greater saphenous vein outflow are patent. No residual thrombus appreciated in the righ t popliteal and lesser saphenous veins. IMPRESSION: 1. No deep venous thrombosis in the right lower limb. Reviewed, dictated and finalized at location A.
== END 2022-01-26 12:35 | disposition home or self-care (01) ==
PROVIDERS: PCP Family Medicine; Visit Provider Internal Medicine Hematology & Oncology
DX: I82.4Y1 Acute embolism and thrombosis of unspecified deep veins of right proximal lower extremity (principal)
CPT/HCPCS: 93971

== ENCOUNTER 2022-02-10 07:54 | Outpatient (CLI) | payer MEDICARE, OTHER, SELFPAY ==
--- NOTE | 2022-03-13 10:06 | WPDSLEEPSTUD ---
Sleep Study Date of Study: 02/10/22 Ordering Provider: Richie Desai, MANAGER SITE Interpreting Physician: Ivonne Harkins MD Sleep Study Type: Split Polysomnogram Height: 1.7 m Weight: 114.759 kg Body Mass Index: 39.6 Neck Circumference (inches): 13 Girard: 6 Reason for Sleep Study Loud snoring, heart failure * 10/08/2021 echo: Left ventricle is moderately enlarged with normal wall thickness. There was severe global hypokinesis with akinesis of the inferoseptal wall. Estimated ejection fraction visually is 15-20%, measured 22%.? Diastolic dysfunction is present. Sleep History Carlie Bales is a 76-year-old woman with a history of frequent loud snoring. She has paroxysmal atrial fibrillation, hypertension, shortness of breath and GERD. She was admitted to [facility] October 07 for atrial fibrillation with rapid ventricular response. She wakes during the night to use the bathroom. There is a family history of sleep issues, her sister has difficulty with sleep. The patient occasionally awakens from sleep feeling short of breath. She occasionally awakens at night with heartburn, belching or coughing. She has difficulty sleeping with a cold. She occasionally wakes up gasping for breath at night. She does not sweat excessively at night. She occasionally notices her heart pounding or beating irregularly at night. She occasionally falls asleep during the day, never involuntarily or while driving. She does not have loss of muscle tone with strong emotion. She does not have daytime difficulties due to excessive sleepiness. She does not feel paralyzed on waking or falling asleep. She does not have vivid dreamlike scenes upon awakening or falling asleep. She does not feel afraid to go to sleep. She does not have nightmares. She rarely remembers her dreams. She occasionally has racing thoughts. She rarely feels sad, depressed or anxious. She occasionally has muscular tension. She does not notice parts of her body jerking and she does not kick at night. She occasionally has crawling and aching feelings in her legs. She occasionally has leg pain during the night. She denies morning jaw pain. She does not grind her teeth during sleep. She occasionally is bothered by pain during the day. She rarely is awakened by pain at night. She occasionally wakes up feeling stiff in the morning with sore achy muscles and pain in the neck and spine. She has fatigue and palpitations. Normal bedtime is 10:00 p.m., falling asleep within 30 minutes, waking 1-2 times at night to urinate. She is usually able to return to sleep within 30 minutes but sometimes it takes longer. She sometimes reads while she is awake at night. Her normal wake time is 8:00 a.m.. On the weekends, bedtime is 11:00 p.m. and wake time is 9:00 a.m.. She estimates getting 6-8 hours of sleep at night. She sometimes takes naps in the afternoon or evening. A short nap lasting 10 or 15 minutes is not refreshing. She usually awakens feeling refreshed. She feels better in the morning compared to other times of the day. Habits: Former smoker. No caffeine, alcohol or recreational drugs. 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 s/p lumpectomy with close but negative margins (closest 0.1 cm from superior margin). Had a negative sentinel lymph node biopsy. Completed a course of adjuvant left breast irradiation b/w 09/04/2020 and 10/02/2020 Cholelithiases Essential (primary) hypertension GERD with esophagitis And hiatal hernia Lymphedema Other hyperlipidemia Seasonal affective disorder Seasonal allergies Surgical History Surgical History H/O breast
[2022-03-13 12:18] VITALS: BMI 39.6
== END 2022-02-11 06:29 | disposition home or self-care (01) ==
LOC: ANHCSM 07:58
PROVIDERS: PCP Family Medicine; Visit Provider Nurse Practitioner Adult Health
DX: G47.30 Sleep apnea, unspecified (principal); G47.33 Obstructive sleep apnea (adult) (pediatric)
CPT/HCPCS: 95811

== ENCOUNTER 2022-02-15 09:52 | Emergency (ER) | payer MEDICARE, OTHER, SELFPAY ==
--- NOTE | 2022-02-15 09:55 | ED.URI ---
HPI - URI/Sore Throat General Chief Complaint: Upper Respiratory Infection Stated Complaint: + COVID/SNEEZING/COLD Time Seen by Provider: 02/15/22 09:55 Source: patient and RN notes reviewed History of Present Illness HPI Narrative: Patient is a 76-year-old female who presents to urgent care with complaints of sneezing. Patient states that she is COVID positive and tested today. Patient is unsure of when her symptoms started considering she has had allergy like symptoms for a couple weeks. Patient states the only reason she tested herself was because her sister was here a few days ago and tested positive for COVID. Patient states she has had chills but otherwise denies of any other complications such as fever, nausea, vomiting, chest pain, shortness of breath. Patient does have significant cardiac history with no recent complications. No other acute complaints. No acute distress noted. Patient aware of the plan of care. Some parts of this dictation were generated by voice recognition software and may contain typographical and/or grammatical inaccuracies. Related Data Home Medications Medication Instructions Recorded Confirmed ferrous sulfate 325 mg (65 mg 325 mg PO DAILY 07/18/20 12/19/21 iron) tablet levothyroxine 25 mcg tablet 25 mcg PO QAM 07/18/20 12/19/21 atorvastatin 20 mg tablet 20 mg PO DAILY 12/19/21 12/19/21 lisinopril 10 mg tablet 10 mg PO DAILY 12/19/21 12/19/21 Allergies Allergy/AdvReac Type Severity Reaction Status Date / Time No Known Allergies Allergy Verified 02/15/22 10:00 Review of Systems Review of Systems: CONSTITUTIONAL: Reports of chills EYES: Denies visual changes, redness, or discharge. ENT: Denies rhinorrhea, congestion, sore throat, or otalgia. Reports of sneezing CARDIOVASCULAR: Denies chest pain, palpitations, or edema. RESPIRATORY: Denies cough or dyspnea. GASTROINTESTINAL: Denies abdominal pain, nausea, vomiting, or diarrhea. GENITOURINARY: Denies dysuria or hematuria. SKIN: Denies rash or itching. MUSCULOSKELETAL: Denies back pain, joint pain, or myalgia. NEUROLOGIC: Denies headache, numbness, or weakness. All other systems reviewed are negative, except as documented in HPI. 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 s/p lumpectomy with close but negative margins (closest 0.1 cm from superior margin). Had a negative sentinel lymph node biopsy. Completed a course of adjuvant left breast irradiation b/w 09/04/2020 and 10/02/2020 Cholelithiases Essential (primary) hypertension GERD with esophagitis And hiatal hernia Lymphedema Other hyperlipidemia Seasonal affective disorder Seasonal allergies Surgical History Surgical History H/O breast biopsy H/O tubal ligation Family History Family History Mother Diabetes mellitus Sibling Malignant neoplasm of prostate Sibling Heart disease Carcinoma of colon Other Family history of colonic diverticulitis Family history of glaucoma Family history of type 2 diabetes mellitus Social History Social History Social History: Patient lives with her sister. She has never . No children. She is a full code. No alcohol or drug use. No history of heavy alcohol use or previous drug use. She quit tobacco in after smoking half a pack a day for about 10 years. Used to work for the [employer]. She nominates her sister to be the individual who would make medical decisions for her if she is unable. Smoking packs per day: 0.5 Smoking cigarettes per day: 10.0 Years smoked: 2 Smoking pack-years
[2022-02-15 10:05] VITALS: BP 103/58; PULSE 80; RESP 16; TEMP 37; O2SAT 100
== END 2022-02-15 10:18 | disposition home or self-care (01) ==
PROVIDERS: Emergency Provider Nurse Practitioner Family; PCP Family Medicine
DX: U07.1 COVID-19 (principal); I10 Essential (primary) hypertension; E03.9 Hypothyroidism, unspecified; J45.909 Unspecified asthma, uncomplicated; Z85.3 Personal history of malignant neoplasm of breast; Z87.891 Personal history of nicotine dependence
CPT/HCPCS: 99211; G0463

== ENCOUNTER 2022-03-12 11:00 | Outpatient (RCR) | payer MEDICARE, OTHER, SELFPAY | END 2022-03-12 11:45 | disposition home or self-care (01) | LOC: ANHCPREHAB 11:00 | PROVIDERS: PCP Family Medicine; Visit Provider Nurse Practitioner Adult Health | DX: I50.89 Other heart failure (principal) | CPT/HCPCS: 93798 ==

== ENCOUNTER 2022-03-25 12:30 | Outpatient (RCR) | payer MEDICARE, OTHER, SELFPAY ==
--- NOTE | 2022-01-09 11:54 | PTOPEVAL1 ---
Assessment and note entered by Niecy May, PT, CLT Evaluation Information Assessment Status Evaluation Diagnosis B LE lymphedema Onset June 2021 Subjective Information Carlie reports she is currently going to cardiac rehab 3x/wk and has a trip out of town scheduled. After discussion of PT treatment, she wants to start lymphedema treatment after her trip, which would be at the beginning of February. Reported Pain Level Pain Score Self Report Additional Pain Score Comments reports pain range in legs of 0-10/10; increase at end of day, L leg tight and twisting; also has some back pain; Assessment PT Clinical Summary Carlie has the diagnosis of B LE lymphedema. She has a combination of lymphedema-lipedema. She reports chronic issues with larger legs, with recent hospitalization have increased--R LE DVT, cardiac issues and L LE shingles. With the evaluation, her L LE is 12 cm larger than her R LE, with fluffy-soft tissue, without any fibrosis over legs, dorsum of foot sparring and increased lateral ankle puffiness. She also reported tenderness with palpation over legs. With discussion of the treatment, she wants to delay start of treatment for her legs, due to having cardiac rehab 3x/week and going out of town at the end of January. Skilled PT treatment for lymphedema is indicated for education to pt for self massage, compression garments, manual lymph drainage, reduction with compression reduction kit. Plan of Care Interventions Intermittent Compression,Lymphedema Compression Pump ,Manual Lymph Drainage,Patient/Caregiver Educati PT Services Indicated Yes Treatment Frequency and 0-2x/wk for 11 weeks--she does not want to Duration initiate treatment until February These treatments will address the objective and functional deficits as defined above. The patient will be advanced safely and appropriately in order for the patient to progress towards his/her prior level of function. Additional exercises will be introduced and as well as a comprehensive home exercise program upon discharge, if needed, ?to ensure carryover of functional gains achieved in the clinic. This treatment plan has been reviewed and agreement upon by the patient.
--- NOTE | 2022-02-23 13:59 | PCPTNOTE ---
Called and spoke with Pt due to no-showing. Pt stated to have cancelled this appointment due to being sick with COVID. She stated I should be able to come on Wednesday02/25/22. Apologized for the miscommunication. Informed Pt to call if she is unable to make appointment. Marked Pt as cancelled.
--- NOTE | 2022-03-25 13:35 | PTOPPROG ---
Assessment and note entered by Niecy May, PT Evaluation Information Assessment Status Progress Diagnosis B LE lymphedema Onset June 2021 Subjective Information Carlie reports: legs are better--smaller in size and feels better; is wearing the velcro leg piece without any problems; is working on ordering the garment; Assessment PT Clinical Summary Carlie has received 10 PT sessions for B LE lymphedema. Compared to the initial evaluation: circumferential measurements of LE's have decreased: R by 9.3 cm and L by 57cm; the reduction garment has been used on the L LE and when she has the compression garment, the reduction garment will be on her R LE. She has not yet ordered the thigh high compression garment, is waiting for answer if insurance will cover the garment. The goals were partially achieved. Continue PT treatment. Plan of Care Interventions Intermittent Compression,Lymphedema Compression Pump ,Manual Lymph Drainage,Patient/Caregiver Education, Therapeutic Exercise PT Services Indicated Yes Treatment Frequency and 0-2x/wk x 6 weeks, due to the availability of the Duration therapists These treatments will address the objective and functional deficits as defined above. The patient will be advanced safely and appropriately in order for the patient to progress towards his/her prior level of function. Additional exercises will be introduced and as well as a comprehensive home exercise program upon discharge, if needed, ?to ensure carryover of functional gains achieved in the clinic. This treatment plan has been reviewed and agreement upon by the patient.
--- NOTE | 2022-03-25 13:35 | PCPTNOTE ---
short PT session this date, due to pt was 30 min late, had the wrong time for the reeval appt;
--- NOTE | 2022-03-25 14:21 | PCPTNOTE ---
pt request that an order be sent to dr for the compression garments, medical supplier stated they need a dr order for the garments. I faxed request to
--- NOTE | 2022-04-07 13:08 | PCPTNOTE ---
This treatment is being continued on visit number [id number]. Please see documentation on both accounts to view progress. Completed interventions, outcomes, and problems have been marked as Inactive to facilitate the copying of the Care plan routine for recurring accounts.
== END 2022-04-07 13:01 | disposition home or self-care (01) ==
LOC: ANHPT 12:30
PROVIDERS: PCP Family Medicine; Visit Provider Family Medicine
DX: M79.89 Other specified soft tissue disorders (principal)
CPT/HCPCS: 97016; 97140; 97162

== ENCOUNTER 2022-04-15 10:43 | Outpatient (CLI) | payer MEDICARE, OTHER, SELFPAY ==
[2022-04-15 11:00] LABS: Basophils Percent Auto 0.2 % (0.2-1.2); Eosinophils Absolute Auto 0.1 K/mm3 (0-0.3); Hematocrit 33.6 % (37.0-47.0); Hemoglobin 10.9 g/dL (12.0-15.0); Immature Granulocyte Absolute 0.01 K/mm3 (0.00-0.031); Immature Granulocyte Percent A 0.2 % (0-0.5); Lymphocytes Absolute Auto 1.39 K/mm3 (0.9-3.2); Lymphocytes Percent Auto 21.5 % (18.3-44.2); Mean Corpuscular HGB Conc 32.4 g/dl (32-36); Mean Corpuscular Hemoglobin 31.1 pg (26-34); Mean Platelet Volume 10.1 fl (7.4-10.4); Monocytes Absolute Auto 0.4 K/mm3 (0.1-0.6); Monocytes Percent Auto 6.5 % (2.6-8.5); Neutrophils Absolute Auto 4.5 K/mm3 (1.3-6.7); Neutrophils Percent Auto 69.6 % (45.5-73.1); Platelet Count Result 219 k/mm3 (150-375); Red Cell Distribution Width 12.4 % (11.5-14.5); White Blood Count 6.5 K/mm3 (4.5-10.0)
[2022-04-15 15:08] LABS: Alanine Aminotransferase 18 U/L (6-35); Albumin Level 4.6 g/dL (3.5-5.1); Alkaline Phosphatase 108 U/L (38-126); Anion Gap 9 mmol/L (8-16); Aspartate Amino Transferase 28 U/L (14-36); Bilirubin,Total 0.7 mg/dL (0.2-1.3); Blood Urea Nitrogen 36 mg/dL (7-17); Calcium 9.6 mg/dL (8.4-10.2); Carbon Dioxide 28 mmol/L (22-30); Chloride 104 mmol/L (98-107); Estimated Glomerular Filt Rate 38; Glucose 107 mg/dL (65-110); Sodium 141 mmol/L (137-145)
[2022-04-19 12:44] LABS: CA 15-3 8 U/mL (<32)
== END 2022-04-15 10:44 | disposition home or self-care (01) ==
LOC: ANHLAB 10:45
PROVIDERS: PCP Family Medicine; Visit Provider Internal Medicine Hematology & Oncology
DX: D05.12 Intraductal carcinoma in situ of left breast (principal)
CPT/HCPCS: 36415; 80053; 85025; 86300; 97140

== ENCOUNTER 2022-04-21 12:14 | Outpatient (CLI) | payer MEDICARE, OTHER, SELFPAY ==
--- NOTE | ~2022-04-21 | MM_ITS ---
EXAMINATION: MM diagnostic adele BI w tiera HISTORY: Status post partial mastectomy and radiotherapy for Ductal carcinoma in situ of left breast TECHNIQUE: ML, MLO and CC 3-D tomosynthesis images of both breasts were performed and synthetic 2-D i mages were generated. CAD analysis was submitted and interpreted. COMPARISON: 04/14/2021ilateral diagnostic mammogram To diagnostic left mammogram 04/23/2020ilateral screening mammogram BREAST PARENCHYMAL COMPOSITION: The breasts are heterogeneously dense, which may obscure small masses . FINDINGS: No suspicious mass or architectural distortion, malignant calcification, skin thickening or retraction or significant new or developing density is detected. IMPRESSION: 1. Status post left partial mastectomy for breast cancer. No mammographic evidence of malignancy 2. Routine annual mammographic screening is recommended BI-RADS Category 1: Negative Reviewed, dictated and finalized at location A. WIRER IMPRESSION: 1. Status post left partial mastectomy for breast cancer. No mammographic evide nce of malignancy 2. Routine annual mammographic screening is recommended BI-RADS Category 1: Negative
== END 2022-04-21 12:15 | disposition home or self-care (01) ==
PROVIDERS: PCP Family Medicine; Visit Provider Radiology Radiation Oncology
DX: D05.12 Intraductal carcinoma in situ of left breast (principal)
CPT/HCPCS: 77062; 77066; G0279

== ENCOUNTER 2022-05-11 02:31 | Day surgery (SDC) | payer MEDICARE, OTHER, SELFPAY ==
[2022-05-08 15:51] VITALS: BMI 37.6
[2022-05-11] VITALS (9 sets, daily range): BP systolic 99–120; BP diastolic 49–67; PULSE 45–88; RESP 12–23; TEMP 36.2; O2SAT 97–100; BMI 38.2
[2022-05-11 08:59] LABS: Basophils Percent Auto 0.3 % (0.2-1.2); Eosinophils Absolute Auto 0.1 K/mm3 (0-0.3); Eosinophils Percent Auto 1.8 % (0-4.4); Hematocrit 32.3 % (37.0-47.0); Hemoglobin 10.4 g/dL (12.0-15.0); Immature Granulocyte Absolute 0.02 K/mm3 (0.00-0.031); Immature Granulocyte Percent A 0.3 % (0-0.5); Lymphocytes Absolute Auto 1.37 K/mm3 (0.9-3.2); Lymphocytes Percent Auto 22.3 % (18.3-44.2); Mean Corpuscular HGB Conc 32.2 g/dl (32-36); Mean Corpuscular Hemoglobin 31.2 pg (26-34); Mean Platelet Volume 10.5 fl (7.4-10.4); Monocytes Absolute Auto 0.4 K/mm3 (0.1-0.6); Monocytes Percent Auto 7.2 % (2.6-8.5); Neutrophils Absolute Auto 4.2 K/mm3 (1.3-6.7); Neutrophils Percent Auto 68.1 % (45.5-73.1); Platelet Count Result 184 k/mm3 (150-375); Red Blood Count 3.33 M/mm3 (4.2-5.4); Red Cell Distribution Width 12.7 % (11.5-14.5); White Blood Count 6.1 K/mm3 (4.5-10.0)
[2022-05-11 09:11] LABS: Anion Gap 5 mmol/L (8-16); Blood Urea Nitrogen 35 mg/dL (7-17); Calcium 9.2 mg/dL (8.4-10.2); Carbon Dioxide 30 mmol/L (22-30); Chloride 104 mmol/L (98-107); Estimated CRCL calculation 36 ml/min; Estimated Glomerular Filt Rate 38; Glucose 99 mg/dL (65-110); Potassium 3.7 mmol/L (3.4-5.0); Sodium 139 mmol/L (137-145)
--- NOTE | 2022-05-11 09:50 | WPDMODSED ---
Moderate Sedation Note-Pt Data Patient Data Diagnosis: recently diagnosed cardiomyopathy/ heart failure with reduced ejection fraction Present Complaint: no complaint Procedure to be performed/Plan: left heart catheterization Allergies Allergy/AdvReac Type Severity Reaction Status Date / Time No Known Allergies Allergy Verified 05/11/22 08:49 Home Medications Medication Instructions Recorded Confirmed Type Lactobac. acidophilus-Bifido. 1 tablet PO DAILY #30 tabs 03/31/19 05/11/22 Rx animalis 10 billion cell chewable tablet (Dialyvite Chewable Probiotic) cholecalciferol (vitamin D3) 25 25 mcg PO DAILY #30 caps 03/31/19 05/11/22 Rx mcg (1,000 unit) capsule (Vitamin D3) ferrous sulfate 325 mg (65 mg 325 mg PO DAILY 07/18/20 05/11/22 History iron) tablet levothyroxine 25 mcg tablet 25 mcg PO QAM 07/18/20 05/11/22 History apixaban 5 mg tablet (Eliquis) 5 mg PO Q12HR #60 tabs 10/15/21 05/08/22 Rx carvedilol 6.25 mg tablet (Coreg) 6.25 mg PO Q12HR #60 tabs 10/15/21 05/11/22 Rx empagliflozin 10 mg tablet 10 mg PO DAILY #60 tabs 10/15/21 05/11/22 Rx (Jardiance) furosemide 40 mg tablet 40 mg PO BID #60 tabs 10/15/21 05/11/22 Rx spironolactone 25 mg tablet 25 mg PO QAM #30 tabs 10/15/21 05/11/22 Rx omeprazole 40 mg capsule,delayed 40 mg PO DAILY 1 month #30 caps 11/18/21 05/11/22 Rx release atorvastatin 20 mg tablet 20 mg PO DAILY 12/19/21 05/11/22 History lisinopril 10 mg tablet 10 mg PO DAILY 12/19/21 05/11/22 History anastrozole 1 mg tablet 1 mg PO DAILY 05/08/22 05/11/22 History Current Medications: Active Medications Sodium Chloride (Normal Saline Iv) 500 mls @ 100 mls/hr IV CONT .Q5H LISSY Sedation/Anesthesia: No previous sedation/anesthesia problems (including family history). 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 s/p lumpectomy with close but negative margins (closest 0.1 cm from superior margin). Had a negative sentinel lymph node biopsy. Completed a course of adjuvant left breast irradiation b/w 09/04/2020 and 10/02/2020 Cholelithiases Essential (primary) hypertension GERD with esophagitis And hiatal hernia Lymphedema Other hyperlipidemia Seasonal affective disorder Seasonal allergies Surgical History Surgical History H/O breast biopsy H/O tubal ligation Family History Family History Mother Diabetes mellitus Sibling Malignant neoplasm of prostate Sibling Heart disease Carcinoma of colon Other Family history of colonic diverticulitis Family history of glaucoma Family history of type 2 diabetes mellitus Social History Social History (Updated 04/22/22 @ 09:59 by Kathy Boswell [facility]) Social History: Patient lives with her sister. She has never . No children. She is a full code. No alcohol or drug use. No history of heavy alcohol use or previous drug use. She quit tobacco in after smoking half a pack a day for about 10 years. Used to work for the [employer]. She nominates her sister to be the individual who would make medical decisions for her if she is unable. Smoking packs per day: 1 Smoking cigarettes per day: 20.0 Years smoked: 6 Smoking pack-years: 6.00 Smoking status: Former smoker Tobacco type: cigarettes Second hand tobacco smoke exposure: No Smoking end date: 10/10/84 Alcohol intake: never Alcohol use details: FORMER SOCIAL DRINKER Substance use: never Substance use type: does not use Lack of Transportation: No Lack of Food: Never True Current Housing: I Have Housing Concerned About Future Housing: No Diffic
--- NOTE | 2022-05-11 10:15 | P.PCNCC_ITS ---
Cardiac Cath Procedure Note Date of procedure:: 05/11/22 Performing physician:: Richie Schneider MD Indication:: recently diagnosed dilated cardiomyopathy Brief clinical history:: this is a 76-year-old woman was recently have congestive heart failure with dilated cardiomyopathy with low ejection fraction she is medical therapy in is in a good state of compensation it catheterization has been recommended to ensure that this is not an ischemic process. She has no prior history of coronary artery disease. Procedure Procedure performed:: Left ventriculogram coronary angiogram Angio-Seal to right femoral artery Sedation/Medication given:: fentanyl 25 Versed 2 mg case start time 9:56 a.m. case end time 10:12 a.m. sedation provided by Mahi Cardenas RN, trained observer Access site:: right femoral artery Estimated blood loss:: 20 cc Procedure note:: patient was brought to the cardiac catheterization lab in the postabsorptive state where the right femoral triangle was prepared and draped in the normal fashion. Anesthesia was provided with 1% lidocaine infiltrated locally. Using the modified Seldinger technique femoral artery was punctured and a 5 Israeli vascular sheath was placed. After this left heart catheterization was carried out. I used a 5 Israeli pigtail catheter to measure left-sided hemodynamics and to inject the left ventriculogram in the MARTIN projection. Following this I used a standard 5 Israeli FL4 catheter to engage inject the left coronary artery in multiple projections 5 Israeli JR4 catheter to engage and inject the right coronary artery. The cineangiograms were then reviewed and the case was terminated. An angiogram was performed to the femoral artery through the sheath after which a 6 Israeli Angio-Seal device was used to provide hemostasis. The result was good she left the cardiac catheterization lab in stable condition there were no apparent procedural complications and there were no signs of a groin hematoma when she left the microbiological laboratory technician. Findings:: Hemodynamics: Central aortic pressure is 22 54 left ventricle 122/0 end- diastolic pressure 10 there is no systolic gradient on pullback across the aortic valve. Left ventricle: The LV is mildly dilated. There is moderate global systolic hypokinesia noted with a global ejection fraction of about 40%. The mitral valve appears to be competent. The left main coronary artery is nicely patent left anterior descending is a moderate caliber artery extending down to around the apex the LAD is smooth and angiographically normal throughout its course the circumflex is a moderate caliber vessel giving rise to the marginal branches. The circumflex system in the marginal branches are angiographically unremarkable. The right coronary artery is moderate caliber and dominant to the posterior circulation the right coronary artery is smooth and angiographically free of disease. Conclusion:: 1. Right coronary dominant circulation with no angiographic evidence of coronary disease 2. left ventricular systolic dysfunction current ejection fraction is in the vicinity of 40% by visual estimation. Significant improvement from original ejection fraction of 10-15% at the time of diagnosis Richie Schneider MD [facility]
== END 2022-05-11 13:20 | disposition home or self-care (01) ==
PROVIDERS: PCP Family Medicine; Visit Provider Specialist
PROC: 4A023N7 Measurement of Cardiac Sampling and Pressure, Left Heart, Percutaneous Approach (ICD-10-PCS; CPT 93452; principal; 2022-05-11 10:00)
DX: I42.0 Dilated cardiomyopathy (principal); I11.0 Hypertensive heart disease with heart failure; I50.9 Heart failure, unspecified; E03.9 Hypothyroidism, unspecified; K21.9 Gastro-esophageal reflux disease without esophagitis; E78.49 Other hyperlipidemia; Z85.3 Personal history of malignant neoplasm of breast; Z92.3 Personal history of irradiation; Z79.01 Long term (current) use of anticoagulants; Z79.84 Long term (current) use of oral hypoglycemic drugs; Z79.811 Long term (current) use of aromatase inhibitors; Z87.891 Personal history of nicotine dependence
CPT/HCPCS: 36415; 80048; 85025; 93458; C1760; C1887; C1894; G0269; J1644; J2250; J3010; J7040

== ENCOUNTER 2022-06-04 12:30 | Outpatient (RCR) | payer MEDICARE, OTHER, SELFPAY ==
--- NOTE | 2022-04-07 13:11 | PCPTNOTE ---
This treatment is being continued from previous visit number [id number]. Please see documentation on both accounts to view progress. Completed interventions, outcomes, and problems have been marked as Inactive to facilitate the copying of the Care plan routine for recurring accounts.
--- NOTE | 2022-04-30 15:07 | PTOPPROG ---
Assessment and note entered by Niecy May, PT Evaluation Information Assessment Status Progress Diagnosis B LE lymphedema Onset June 2021 Subjective Information Carlie reports: is doing her leg exercises and self massage; have not yet ordered her garments; is looking at different places to order them from; is frustrated because insurance does not cover them; is wearing the velcro garment all day and sleeping with them on; Assessment PT Clinical Summary Carlie has received a total of 14 PT sessions. Compared to the last reevaluation: her R leg has decreased by 2.1 cm and the L increased by 24.3 cm She has not yet ordered her compression garments. She has been using loaner velcro lower leg garments and foot pieces. Reinforced and discussed self massage, leg exercises, monitor skin, use of compression for legs. Continue PT treatment for lymphedema. Will hold for 2 weeks, for her to obtain her thigh high garments, then return to clinic for education on the garments and assure correct fit and comfort. Plan of Care Interventions Manual Lymph Drainage,Patient/Caregiver Educati PT Services Indicated Yes Treatment Frequency and 0-2x/wk for 4 weeks Duration These treatments will address the objective and functional deficits as defined above. The patient will be advanced safely and appropriately in order for the patient to progress towards his/her prior level of function. Additional exercises will be introduced and as well as a comprehensive home exercise program upon discharge, if needed, ?to ensure carryover of functional gains achieved in the clinic. This treatment plan has been reviewed and agreement upon by the patient.
--- NOTE | 2022-06-04 13:20 | PTOPDC ---
Assessment and note entered by Niecy May, PT Evaluation Information Assessment Status Discharge Diagnosis B LE lymphedema Onset June 2021 Subjective Information Carlie reports: do not have the garments yet, have ordered but not yet received; tried the thigh high and did not like how they fit, so changed to knee high ones; thinks she has some leggings at home that would have some compression to them; no pain in her legs, but some arthritis in her L knee due to weather change; have been doing self massage and leg exercises; is wearing the loaner velcro garment and foot pieces all day long and sometimes sleep in them; Reported Pain Level Pain Score 0: Self Report Additional Pain Score Comments little arthritis in knees due to weather change Assessment PT Clinical Summary Carlie has received 21 PT sessions. Compared to the last reevaluation: circumferential measurement of legs have decreased R by 27.5 cm and L by 36 cm; skin remains without any redness or tenderness; education has been completed for self management of lymphedema. She continues to wear our loaner velcro garments. Her compression garments have not yet arrived. At the last reevaluation, she was still working on getting them. Goals were partially met. D/C PT. Plan of Care PT Services Indicated No
== END 2022-06-05 09:49 | disposition home or self-care (01) ==
LOC: ANHPT 12:30
PROVIDERS: PCP Family Medicine; Visit Provider Family Medicine
DX: M79.89 Other specified soft tissue disorders (principal)
CPT/HCPCS: 97140

== ENCOUNTER 2022-08-25 11:34 | Outpatient (CLI) | payer MEDICARE, OTHER, SELFPAY ==
[2022-08-25 13:06] LABS: Creatinine Urine 14.9 mg/dL; Total Protein Urine Random 9 mg/dL
[2022-08-25 13:08] LABS: Albumin Level 4.4 g/dL (3.5-5.1); Anion Gap 7 mmol/L (8-16); Blood Urea Nitrogen 47 mg/dL (7-17); Calcium 9.4 mg/dL (8.4-10.2); Carbon Dioxide 30 mmol/L (22-30); Chloride 102 mmol/L (98-107); Estimated Glomerular Filt Rate 36; Glucose 98 mg/dL (65-110); Phosphorus 5.1 mg/dL (2.5-4.5); Potassium 4.3 mmol/L (3.4-5.0); Sodium 139 mmol/L (137-145)
[2022-08-25 13:19] LABS: Parathyroid Intact 46.9 pg/mL (7.5-53.5)
[2022-08-25 13:33] LABS: Vitamin D 25 Hydroxy 64.9 ng/mL
== END 2022-08-25 11:35 | disposition home or self-care (01) ==
PROVIDERS: PCP Family Medicine; Referring Provider Internal Medicine Hematology & Oncology; Visit Provider Internal Medicine Nephrology
DX: E55.9 Vitamin D deficiency, unspecified (principal); N25.81 Secondary hyperparathyroidism of renal origin; I12.9 Hypertensive chronic kidney disease with stage 1 through stage 4 chronic kidney disease, or unspecified chronic kidney disease; N18.32 Chronic kidney disease, stage 3b
CPT/HCPCS: 36415; 80069; 82306; 82570; 83970; 84156

== ENCOUNTER 2022-08-26 11:48 | Outpatient (CLI) | payer MEDICARE, OTHER, SELFPAY ==
[2022-08-26 12:03] LABS: Basophils Percent Auto 0.2 % (0.2-1.2); Eosinophils Absolute Auto 0.1 K/mm3 (0-0.3); Eosinophils Percent Auto 2.2 % (0-4.4); Hematocrit 32.5 % (37.0-47.0); Hemoglobin 10.4 g/dL (12.0-15.0); Immature Granulocyte Absolute 0.01 K/mm3 (0.00-0.031); Immature Granulocyte Percent A 0.2 % (0-0.5); Lymphocytes Absolute Auto 1.25 K/mm3 (0.9-3.2); Lymphocytes Percent Auto 19.4 % (18.3-44.2); Mean Corpuscular Hemoglobin 30.9 pg (26-34); Mean Corpuscular Volume 96.4 fl (80-100); Mean Platelet Volume 10.9 fl (7.4-10.4); Monocytes Absolute Auto 0.5 K/mm3 (0.1-0.6); Neutrophils Absolute Auto 4.6 K/mm3 (1.3-6.7); Platelet Count Result 210 k/mm3 (150-375); Red Blood Count 3.37 M/mm3 (4.2-5.4); Red Cell Distribution Width 12.7 % (11.5-14.5); White Blood Count 6.4 K/mm3 (4.5-10.0)
[2022-08-26 14:11] LABS: Alanine Aminotransferase 20 U/L (6-35); Albumin Level 4.5 g/dL (3.5-5.1); Alkaline Phosphatase 94 U/L (38-126); Anion Gap 10 mmol/L (8-16); Aspartate Amino Transferase 27 U/L (14-36); Bilirubin,Total 0.6 mg/dL (0.2-1.3); Blood Urea Nitrogen 49 mg/dL (7-17); Calcium 9.3 mg/dL (8.4-10.2); Carbon Dioxide 28 mmol/L (22-30); Chloride 100 mmol/L (98-107); Estimated Glomerular Filt Rate 33; Glucose 99 mg/dL (65-110); Potassium 4.3 mmol/L (3.4-5.0); Sodium 138 mmol/L (137-145)
== END 2022-08-26 11:49 | disposition home or self-care (01) ==
LOC: ANHLAB 11:50
PROVIDERS: PCP Family Medicine; Visit Provider Internal Medicine Hematology & Oncology
DX: D05.12 Intraductal carcinoma in situ of left breast (principal)
CPT/HCPCS: 36415; 80053; 85025

== ENCOUNTER 2022-12-08 09:44 | Outpatient (CLI) | payer MEDICARE, OTHER, SELFPAY ==
[2022-12-08 10:42] LABS: Albumin Level 4.5 g/dL (3.5-5.1); Anion Gap 8 mmol/L (8-16); Blood Urea Nitrogen 62 mg/dL (7-17); Calcium 9.1 mg/dL (8.4-10.2); Carbon Dioxide 27 mmol/L (22-30); Chloride 102 mmol/L (98-107); Estimated Glomerular Filt Rate 31; Glucose 96 mg/dL (65-110); Phosphorus 5.3 mg/dL (2.5-4.5); Potassium 4.2 mmol/L (3.4-5.0); Sodium 137 mmol/L (137-145)
[2022-12-08 10:44] LABS: Creatinine Urine 109.1 mg/dL; Total Protein Urine Random 6 mg/dL; Ur Ttl Prot Creatinine Ratio 0.05 mg/mg (0-0.20)
== END 2022-12-08 09:45 | disposition home or self-care (01) ==
PROVIDERS: PCP Family Medicine; Referring Provider Nurse Practitioner Adult Health; Visit Provider Internal Medicine Nephrology
DX: I12.9 Hypertensive chronic kidney disease with stage 1 through stage 4 chronic kidney disease, or unspecified chronic kidney disease (principal); N18.32 Chronic kidney disease, stage 3b; G47.30 Sleep apnea, unspecified; I50.9 Heart failure, unspecified; E11.9 Type 2 diabetes mellitus without complications; I48.0 Paroxysmal atrial fibrillation; E78.5 Hyperlipidemia, unspecified; K21.9 Gastro-esophageal reflux disease without esophagitis; R53.1 Weakness; R53.83 Other fatigue; E55.9 Vitamin D deficiency, unspecified; R80.9 Proteinuria, unspecified; Z13.6 Encounter for screening for cardiovascular disorders; Z13.220 Encounter for screening for lipoid disorders; Z13.29 Encounter for screening for other suspected endocrine disorder
CPT/HCPCS: 36415; 80069; 82570; 84156

== ENCOUNTER 2023-02-26 12:15 | Outpatient (CLI) | payer MEDICARE, OTHER, SELFPAY ==
[2023-02-26 12:34] LABS: Basophils Percent Auto 0.2 % (0.2-1.2); Eosinophils Absolute Auto 0.2 K/mm3 (0-0.3); Eosinophils Percent Auto 2.6 % (0-4.4); Hematocrit 29.8 % (37.0-47.0); Hemoglobin 9.8 g/dL (12.0-15.0); Immature Granulocyte Absolute 0.02 K/mm3 (0.00-0.031); Immature Granulocyte Percent A 0.3 % (0-0.5); Lymphocytes Absolute Auto 1.17 K/mm3 (0.9-3.2); Lymphocytes Percent Auto 17.8 % (18.3-44.2); Mean Corpuscular HGB Conc 32.9 g/dl (32-36); Mean Corpuscular Hemoglobin 31.7 pg (26-34); Mean Corpuscular Volume 96.4 fl (80-100); Monocytes Absolute Auto 0.4 K/mm3 (0.1-0.6); Monocytes Percent Auto 6.2 % (2.6-8.5); Neutrophils Absolute Auto 4.8 K/mm3 (1.3-6.7); Neutrophils Percent Auto 72.9 % (45.5-73.1); Platelet Count Result 188 k/mm3 (150-375); Red Blood Count 3.09 M/mm3 (4.2-5.4); Red Cell Distribution Width 12.7 % (11.5-14.5); White Blood Count 6.6 K/mm3 (4.5-10.0)
[2023-02-26 16:46] LABS: Alanine Aminotransferase 17 U/L (6-35); Albumin Level 4.5 g/dL (3.5-5.1); Alkaline Phosphatase 96 U/L (38-126); Anion Gap 11 mmol/L (8-16); Aspartate Amino Transferase 25 U/L (14-36); Bilirubin,Total 0.6 mg/dL (0.2-1.3); Blood Urea Nitrogen 54 mg/dL (7-17); Calcium 9.5 mg/dL (8.4-10.2); Carbon Dioxide 25 mmol/L (22-30); Chloride 103 mmol/L (98-107); Estimated Glomerular Filt Rate 26; Glucose 131 mg/dL (65-110); Potassium 4.7 mmol/L (3.4-5.0); Sodium 139 mmol/L (137-145)
== END 2023-02-26 12:16 | disposition home or self-care (01) ==
LOC: ANHLAB 12:19
PROVIDERS: PCP Family Medicine; Visit Provider Internal Medicine Hematology & Oncology
DX: D05.12 Intraductal carcinoma in situ of left breast (principal)
CPT/HCPCS: 36415; 80053; 85025

== ENCOUNTER 2023-03-02 11:10 | Outpatient (CLI) | payer MEDICARE, OTHER, SELFPAY ==
[2023-03-02 11:40] LABS: Basophils Percent Auto 0.2 % (0.2-1.2); Eosinophils Absolute Auto 0.1 K/mm3 (0-0.3); Eosinophils Percent Auto 2.5 % (0-4.4); Hematocrit 30.5 % (37.0-47.0); Hemoglobin 9.5 g/dL (12.0-15.0); Immature Granulocyte Absolute 0.02 K/mm3 (0.00-0.031); Immature Granulocyte Percent A 0.4 % (0-0.5); Lymphocytes Absolute Auto 1.25 K/mm3 (0.9-3.2); Lymphocytes Percent Auto 22.1 % (18.3-44.2); Mean Corpuscular HGB Conc 31.1 g/dl (32-36); Mean Corpuscular Hemoglobin 30.4 pg (26-34); Mean Corpuscular Volume 97.8 fl (80-100); Mean Platelet Volume 10.6 fl (7.4-10.4); Monocytes Absolute Auto 0.4 K/mm3 (0.1-0.6); Monocytes Percent Auto 7.1 % (2.6-8.5); Neutrophils Absolute Auto 3.8 K/mm3 (1.3-6.7); Neutrophils Percent Auto 67.7 % (45.5-73.1); Platelet Count Result 175 k/mm3 (150-375); Red Blood Count 3.12 M/mm3 (4.2-5.4); Red Cell Distribution Width 12.9 % (11.5-14.5); White Blood Count 5.7 K/mm3 (4.5-10.0)
[2023-03-02 11:58] LABS: Alanine Aminotransferase 17 U/L (6-35); Albumin Level 4.5 g/dL (3.5-5.1); Alkaline Phosphatase 102 U/L (38-126); Anion Gap 12 mmol/L (8-16); Aspartate Amino Transferase 29 U/L (14-36); Bilirubin,Total 0.7 mg/dL (0.2-1.3); Blood Urea Nitrogen 56 mg/dL (7-17); Calcium 9.6 mg/dL (8.4-10.2); Carbon Dioxide 25 mmol/L (22-30); Chloride 104 mmol/L (98-107); Cholesterol 181 mg/dL (0-200); Estimated Glomerular Filt Rate 25; Glucose 97 mg/dL (65-110); HDL Direct 56 mg/dL; Potassium 4.5 mmol/L (3.4-5.0); Sodium 141 mmol/L (137-145); Triglycerides 40 mg/dL (<150)
[2023-03-02 12:10] LABS: Free T4 Free Thyroxine 1.49 ng/mL (0.78-2.19)
[2023-03-02 12:26] LABS: Total Triiodothyronine (T3) 0.91 NG/ML (0.97-1.69)
[2023-03-02 19:42] LABS: LDL Cholesterol Direct 76 mg/dL
== END 2023-03-02 11:11 | disposition home or self-care (01) ==
LOC: ANHLAB 11:13
PROVIDERS: PCP Family Medicine; Visit Provider Nurse Practitioner Adult Health
DX: N18.30 Chronic kidney disease, stage 3 unspecified (principal); I50.9 Heart failure, unspecified; E03.9 Hypothyroidism, unspecified; E83.39 Other disorders of phosphorus metabolism
CPT/HCPCS: 36415; 80053; 80061; 84439; 84443; 84480; 85025

== ENCOUNTER 2023-05-03 14:56 | Outpatient (CLI) | payer MEDICARE, SELFPAY ==
[2023-05-03 16:12] LABS: Albumin Level 4.3 g/dL (3.5-5.1); Anion Gap 8 mmol/L (8-16); Blood Urea Nitrogen 43 mg/dL (7-17); Calcium 9.1 mg/dL (8.4-10.2); Carbon Dioxide 27 mmol/L (22-30); Chloride 103 mmol/L (98-107); Estimated Glomerular Filt Rate 31; Glucose 98 mg/dL (65-110); Magnesium 2.5 mg/dL (1.6-2.3); Phosphorus 3.6 mg/dL (2.5-4.5); Potassium 4.5 mmol/L (3.4-5.0); Sodium 138 mmol/L (137-145)
[2023-05-03 16:14] LABS: Creatinine Urine 46.7 mg/dL; Total Protein Urine Random 10 mg/dL; Ur Ttl Prot Creatinine Ratio 0.21 mg/mg (0-0.20)
[2023-05-03 16:32] LABS: Parathyroid Intact 122.8 pg/mL (7.5-53.5)
[2023-05-03 16:38] LABS: Vitamin D 25 Hydroxy 71.2 ng/mL
== END 2023-05-03 14:57 | disposition home or self-care (01) ==
LOC: ANHLAB 15:00
PROVIDERS: PCP Family Medicine; Visit Provider Internal Medicine Nephrology
DX: E55.9 Vitamin D deficiency, unspecified (principal); I12.9 Hypertensive chronic kidney disease with stage 1 through stage 4 chronic kidney disease, or unspecified chronic kidney disease; N18.32 Chronic kidney disease, stage 3b; N25.81 Secondary hyperparathyroidism of renal origin
CPT/HCPCS: 36415; 80069; 82306; 82570; 83735; 83970; 84156

== ENCOUNTER 2023-06-09 14:00 | Outpatient (CLI) | payer MEDICARE, SELFPAY ==
--- NOTE | ~2023-06-09 | MM_ITS ---
EXAMINATION: MM screening adele BI w tiera HISTORY: Screening TECHNIQUE: Craniocaudal and mediolateral oblique 3-D tomosynthesis images were obtained and synthetic 2-D images were generated. CAD analysis was submitted and interpreted. COMPARISON: 04/21/2022 BREAST PARENCHYMAL COMPOSITION: There are scattered areas of fibroglandular density. FINDINGS: There is no evidence of suspicious mass, calcification, or architectural distortion to sugg est malignancy in either breast. There has been no suspicious interval change. IMPRESSION: 1. No mammographic evidence of malignancy. 2. Recommend routine screening mammography in one year. BI-RADS Category 1: Negative Reviewed, dictated and finalized at location A. OGIC NURSE
== END 2023-06-09 14:01 | disposition home or self-care (01) ==
LOC: ANHIMG 14:02
PROVIDERS: PCP Family Medicine; Visit Provider Internal Medicine Hematology & Oncology
DX: Z12.31 Encounter for screening mammogram for malignant neoplasm of breast (principal)
CPT/HCPCS: 77063; 77067

== ENCOUNTER 2023-08-25 13:51 | Outpatient (CLI) | payer MEDICARE, SELFPAY ==
[2023-08-25 14:45] LABS: Albumin Level 4.5 g/dL (3.5-5.1); Anion Gap 10 mmol/L (4-12); Blood Urea Nitrogen 68 mg/dL (7-17); Calcium 9.1 mg/dL (8.4-10.2); Carbon Dioxide 21 mmol/L (22-30); Chloride 108 mmol/L (98-107); Estimated Glomerular Filt Rate 22; Glucose 94 mg/dL (65-110); Phosphorus 5.2 mg/dL (2.5-4.5); Potassium 4.5 mmol/L (3.4-5.0); Sodium 139 mmol/L (137-145)
[2023-08-25 15:06] LABS: Creatinine Urine 62.5 mg/dL; Total Protein Urine Random 9 mg/dL; Ur Ttl Prot Creatinine Ratio 0.14 mg/mg (0-0.20)
== END 2023-08-25 13:52 | disposition home or self-care (01) ==
LOC: ANHLAB 13:53
PROVIDERS: PCP Family Medicine; Visit Provider Internal Medicine Nephrology
DX: I12.9 Hypertensive chronic kidney disease with stage 1 through stage 4 chronic kidney disease, or unspecified chronic kidney disease (principal); N18.32 Chronic kidney disease, stage 3b
CPT/HCPCS: 36415; 80069; 82570; 84156

== ENCOUNTER 2023-08-26 11:26 | Outpatient (CLI) | payer MEDICARE, SELFPAY ==
[2023-08-26 11:38] LABS: Basophils Percent Auto 0.3 % (0.2-1.2); Eosinophils Absolute Auto 0.2 K/mm3 (0-0.3); Eosinophils Percent Auto 2.7 % (0-4.4); Hematocrit 29.9 % (37.0-47.0); Hemoglobin 9.6 g/dL (12.0-15.0); Immature Granulocyte Absolute 0.02 K/mm3 (0.00-0.031); Immature Granulocyte Percent A 0.3 % (0-0.5); Lymphocytes Absolute Auto 1.31 K/mm3 (0.9-3.2); Lymphocytes Percent Auto 20.8 % (18.3-44.2); Mean Corpuscular HGB Conc 32.1 g/dl (32-36); Mean Corpuscular Hemoglobin 30.8 pg (26-34); Mean Corpuscular Volume 95.8 fl (80-100); Mean Platelet Volume 10.7 fl (7.4-10.4); Monocytes Absolute Auto 0.4 K/mm3 (0.1-0.6); Monocytes Percent Auto 6.8 % (2.6-8.5); Neutrophils Absolute Auto 4.4 K/mm3 (1.3-6.7); Neutrophils Percent Auto 69.1 % (45.5-73.1); Platelet Count Result 173 k/mm3 (150-375); Red Blood Count 3.12 M/mm3 (4.2-5.4); Red Cell Distribution Width 13.2 % (11.5-14.5); White Blood Count 6.3 K/mm3 (4.5-10.0)
[2023-08-26 12:42] LABS: Alanine Aminotransferase 14 U/L (6-35); Albumin Level 4.7 g/dL (3.5-5.1); Alkaline Phosphatase 92 U/L (38-126); Anion Gap 11 mmol/L (4-12); Aspartate Amino Transferase 24 U/L (14-36); Bilirubin,Total 0.6 mg/dL (0.2-1.3); Blood Urea Nitrogen 69 mg/dL (7-17); Carbon Dioxide 20 mmol/L (22-30); Chloride 107 mmol/L (98-107); Estimated Glomerular Filt Rate 22; Glucose 123 mg/dL (65-110); Potassium 4.1 mmol/L (3.4-5.0); Sodium 138 mmol/L (137-145)
== END 2023-08-26 11:27 | disposition home or self-care (01) ==
PROVIDERS: PCP Family Medicine; Visit Provider Internal Medicine Hematology & Oncology
DX: D64.9 Anemia, unspecified (principal)
CPT/HCPCS: 36415; 80053; 85025

== ENCOUNTER 2023-09-15 11:46 | Outpatient (CLI) | payer MEDICARE, SELFPAY ==
[2023-09-15 13:08] LABS: Albumin Level 4.6 g/dL (3.5-5.1); Anion Gap 10 mmol/L (4-12); Blood Urea Nitrogen 65 mg/dL (7-17); Calcium 9.3 mg/dL (8.4-10.2); Carbon Dioxide 23 mmol/L (22-30); Chloride 106 mmol/L (98-107); Estimated Glomerular Filt Rate 24; Glucose 96 mg/dL (65-110); Phosphorus 4.7 mg/dL (2.5-4.5); Potassium 4.6 mmol/L (3.4-5.0); Sodium 139 mmol/L (137-145)
== END 2023-09-15 11:47 | disposition home or self-care (01) ==
PROVIDERS: PCP Family Medicine; Visit Provider Internal Medicine Nephrology
DX: N18.4 Chronic kidney disease, stage 4 (severe) (principal)
CPT/HCPCS: 36415; 80069

== ENCOUNTER 2023-12-20 10:32 | Outpatient (CLI) | payer MEDICARE, SELFPAY ==
[2023-12-20 11:18] LABS: Albumin Level 4.2 g/dL (3.5-5.1); Anion Gap 10 mmol/L (4-12); Blood Urea Nitrogen 39 mg/dL (7-17); Carbon Dioxide 22 mmol/L (22-30); Chloride 108 mmol/L (98-107); Estimated Glomerular Filt Rate 31; Glucose 123 mg/dL (65-110); Phosphorus 3.9 mg/dL (2.5-4.5); Sodium 140 mmol/L (137-145)
[2023-12-20 11:26] LABS: Parathyroid Intact 62.7 pg/mL (14.5-75.2)
[2023-12-20 12:03] LABS: Creatinine Urine 91.3 mg/dL; Total Protein Urine Random 13 mg/dL; Ur Ttl Prot Creatinine Ratio 0.14 mg/mg (0-0.20)
[2023-12-20 12:25] LABS: Vitamin D 25 Hydroxy 60.1 ng/mL
== END 2023-12-20 10:33 | disposition home or self-care (01) ==
LOC: ANHLAB 10:36
PROVIDERS: PCP Family Medicine; Visit Provider Internal Medicine Nephrology
DX: N25.81 Secondary hyperparathyroidism of renal origin (principal); E55.9 Vitamin D deficiency, unspecified; I12.9 Hypertensive chronic kidney disease with stage 1 through stage 4 chronic kidney disease, or unspecified chronic kidney disease; N18.4 Chronic kidney disease, stage 4 (severe)
CPT/HCPCS: 36415; 80069; 82306; 82570; 83970; 84156

== ENCOUNTER 2024-02-16 15:20 | Inpatient (IN) | payer MEDICARE, SELFPAY ==
[2024-02-16] VITALS (18 sets, daily range): BP systolic 103–139; BP diastolic 59–97; PULSE 72–143; RESP 16–25; TEMP 36.6–36.7; O2SAT 95–100
--- NOTE | ~2024-02-16 | XR_ITS ---
EXAMINATION: XR chest 2V DATE: 02/16/2024 15:42 INDICATION: Chest pain. TECHNIQUE: Frontal and lateral views of the chest were obtained. COMPARISON: Chest 2 views 10/07/2021, chest CT 10/07/2021 FINDINGS: There is no pneumonia, pleural effusion, or pneumothorax. Cardiomegaly is noted. IMPRESSION: 1. Cardiomegaly. Reviewed, dictated and finalized at location A. PMENT OPERATOR/LABORER IMPRESSION: 1. Cardiomegaly.
--- NOTE | 2024-02-16 15:21 | ECG_ITS ---
Test Date: 2024-02-16 15:30:03 Measurements Intervals [place] Rate: 123 P: 0 DC: 0 QRS: -31 QRSD: 127 T: 118 QT: 333 QTc: 478 Interpretive Statements ATRIAL FIBRILLATION WITH RAPID VENTRICULAR RESPONSE LEFT AXIS DEVIATION INTRAVENTRICULAR CONDUCTION DELAY DELAYED PRECORDIAL R/S TRANSITION LEFT VENTRICULAR HYPERTROPHY WITH ST-T CHANGE BASELINE ARTIFACT- I, II, AVL, AVF ABNORMAL ECG No previous ECG available for comparison Electronically Signed On 02-16-2024 15:35:22 TIRE TESTER by Jericho Cueva D.O.
[2024-02-16 15:42] LABS: Basophils Percent Auto 0.1 % (0.2-1.2); Eosinophils Absolute Auto 0.1 K/mm3 (0-0.3); Eosinophils Percent Auto 1.9 % (0-4.4); Hematocrit 32.6 % (37.0-47.0); Hemoglobin 10.6 g/dL (12.0-15.0); Immature Granulocyte Absolute 0.04 K/mm3 (0.00-0.031); Immature Granulocyte Percent A 0.6 % (0-0.5); Lymphocytes Absolute Auto 1.77 K/mm3 (0.9-3.2); Lymphocytes Percent Auto 24.4 % (18.3-44.2); Mean Corpuscular HGB Conc 32.5 g/dl (32-36); Mean Corpuscular Hemoglobin 30.7 pg (26-34); Mean Corpuscular Volume 94.5 fl (80-100); Mean Platelet Volume 11.8 fl (7.4-10.4); Monocytes Absolute Auto 0.6 K/mm3 (0.1-0.6); Monocytes Percent Auto 8.3 % (2.6-8.5); Neutrophils Absolute Auto 4.7 K/mm3 (1.3-6.7); Neutrophils Percent Auto 64.7 % (45.5-73.1); Platelet Count Result 217 k/mm3 (150-375); Red Blood Count 3.45 M/mm3 (4.2-5.4); Red Cell Distribution Width 14.1 % (11.5-14.5); White Blood Count 7.3 K/mm3 (4.5-10.0)
[2024-02-16 15:51] LABS: Alanine Aminotransferase 22 U/L (6-35); Albumin Level 4.6 g/dL (3.5-5.1); Alkaline Phosphatase 94 U/L (38-126); Anion Gap 10 mmol/L (4-12); Aspartate Amino Transferase 38 U/L (14-36); Bilirubin,Total 0.6 mg/dL (0.2-1.3); Blood Urea Nitrogen 31 mg/dL (7-17); Calcium 9.3 mg/dL (8.4-10.2); Carbon Dioxide 23 mmol/L (22-30); Chloride 108 mmol/L (98-107); Estimated CRCL calculation 28 ml/min; Estimated Glomerular Filt Rate 28; Glucose 118 mg/dL (65-110); INR 1.1; Lipase 93 U/L (23-300); Prothrombin Time 14.4 Seconds (11.1-14.7); Sodium 141 mmol/L (137-145)
[2024-02-16 15:52] LABS: Partial Thromboplastin Time 30.2 Seconds (22.3-36.8)
[2024-02-16 16:09] LABS: Troponin I 0.049 ng/mL (0.000-0.034)
--- NOTE | 2024-02-16 16:10 | ED.CHESTPAIN ---
HPI - Chest Pain General Chief Complaint: Chest Pain Stated Complaint: CP and fast heartbeat Time Seen by Provider: 02/16/24 15:29 Source: patient and family (sister) Limitations: no limitations History of Present Illness HPI narrative: Patient presents with chest pain and feeling like she has a fast heartbeat that started approximately 1 week ago. At first she had epigastric pain and she thought it was a GI issue. She describes it as a racing heart. Associated with shortness of breath. Denies a cardiac history although her commercial front load operator is Dr Schneider and she states she is on carvedilol, spironalactone, and Jardiance (for her heart, no history of diabetes). Nothing makes it better or worse. She has a history of hypertension, hyperlipidemia (but off of statin medication). No family history of MO before age 65. No personal history of MO/CVA/TIA. Non smoker. Not on anticoagulation, only ASA. She states she was once told she had atrial fibrillation but it resolved. She has a history of anemia for which she was on infusions, presumably iron. Has not appreciated any new lower extremity edema although has chronic lymphedema. Related Data Home Medications Medication Instructions Recorded Confirmed ferrous sulfate 325 mg (65 mg 325 mg PO DAILY 07/18/20 02/16/24 iron) tablet levothyroxine 25 mcg tablet 25 mcg PO QAM 07/18/20 02/16/24 lisinopril 10 mg tablet 10 mg PO DAILY 12/19/21 02/16/24 anastrozole 1 mg tablet 1 mg PO HS 05/08/22 02/16/24 aspirin 81 mg tablet,delayed 81 mg PO DAILY 08/26/22 02/16/24 release (Adult Low Dose Aspirin) atorvastatin 20 mg tablet 20 mg PO DAILY 02/16/24 02/16/24 Allergies Allergy/AdvReac Type Severity Reaction Status Date / Time No Known Allergies Allergy Verified 12/29/23 11:22 [facility] Past Medical History Medical History Adult hypothyroidism Anemia in CKD (chronic kidney disease) Asthma BMI 40.0-44.9, adult Breast cancer mammographically detected clinical stage 0 (Tis) ER/UT positive, 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 s/p lumpectomy with close but negative margins (closest 0.1 cm from superior margin). Had a negative sentinel lymph node biopsy. Completed a course of adjuvant left breast irradiation b/w 09/04/2020 and 10/02/2020 Cardiomegaly CHF (congestive heart failure) Cholelithiases Chronic acquired lymphedema CKD (chronic kidney disease) DVT (deep venous thrombosis) [id number] Dysphagia Essential (primary) hypertension GERD with esophagitis And hiatal hernia Obstructive sleep apnea Other hyperlipidemia Pulmonary hypertension Seasonal affective disorder Seasonal allergies Secondary renal hyperparathyroidism Shingles Vitamin D deficiency Surgical History Surgical History H/O breast biopsy H/O lumpectomy H/O tubal ligation Family History Family History Mother Diabetes mellitus Sibling Malignant neoplasm of prostate Diabetes mellitus Hypertension Carcinoma of colon Heart disease Father Other Family history of colonic diverticulitis Family history of glaucoma Family history of type 2 diabetes mellitus Social History Social History Social History: Patient lives with her sister. She has never . No children. She is a full code. No alcohol or drug use. No history of heavy alcohol use or previous drug use. She quit tobacco in after smoking half a pack a day for about 10 years. Used to work for the [employer]. She nominates her sister to be the individual who would make medical decisions for her if she is unable. Smoking packs per day: 1 Smoking cigarettes per day: 20.0 Years smoked: 10 Smoking pack-years: 10.00 Smoking status: Former smoker Tobacco type: cigarettes Second hand tobacco smoke exposure: No Smoking end date: 04/12/84 Alcohol intake: never Alcohol use details: FORMER SOCIAL DRINKER Substance use: never Substance use type: does not use Do You Feel Safe in your Home?: Yes Lack of Transportation: No Lack of Food: Never True Current Housing: I Have Housing Concerned About Future Housing: No Difficulty Paying Gas/Electric Bills: No Difficulty Paying for Meds: No Currently Unemployed: No Education: High School Diploma/GED Difficulty w/ Childcare or Family Care: No Living arrangements: with family Additional living arrangements comments: SISTER Occupation/Education: retired Additional occupation/education comments: benefits clerk Gender identity (if verbalized by the patient): Female Spiritual care concerns: No Exam Narrative: GENERAL: Well-nourished, and in no acute distress. HEAD: Normocephalic, atraumatic. EYES: Non injected, non icteric ENT: Nares clear, no rhinorrhea or epistaxis. NECK: Supple. CHEST: Speaking in full sentences but with mild tachypnea. No respiratory distress. Lungs clear to auscultation bilaterally. HEART: Irregularly irregular rate and rhythm on the monitor and palpable at radial pulse. . ABDOMEN: Soft, nondistended. EXTREMITIES: Normal range of motion. Bilateral lower extremity lymphedema. SKIN: Warm, dry, no rash. NEURO: No focal deficits. Alert and oriented x3. PSYCH: Normal mood and affect. Course Vital Signs Vital signs: Vital Signs Pulse Rate 142 H 02/16/24 15:25 Respiratory Rate 23 H 02/16/24 15:25 Blood Pressure 137/97 H 02/16/24 15:25 Pulse Oximetry 100 02/16/24 15:25 Oxygen Delivery Room Air 02/16/24 15:25 Temperature 98.1 F 02/16/24 19:48 Pulse Rate 123 H 02/16/24 23:06 Respiratory Rate 25 H 02/16/24 23:00 Blood Pressure 114/59 L 02/16/24 21:30 Pulse Oximetry 97 02/16/24 23:00 Oxygen Delivery Autopap 02/16/24 23:00 MDM - Chest Pain MDM Narrative Medical decision making narrative: Patient presented with shortness of breath, chest pain, and a fast heartbeat. In the ED she is afebrile with VS notable for elevated diastolic blood pressure, rapid heart rate, and tachypnea. Physical exam revealed an irregular and rapid heartbeat at a rate of 142 beats per minute. Based on this, the most likely diagnosis is atrial fibrillation with rapid ventricular response (AFib with RVR). This is supported by age, underlying hypertension/heart failure. An IV was placed and the patient was put on cardiac and pulse oximetry monitors. ECG showed an irregularly irregular narrow-complex tachycardia without associated P-waves, consistent with the diagnosis of Afib with RVR. Patient hemodynamically stable thus early priority in management was to slow the ventricular rate using metoprolol given she is already on carvedilol. IVP 2.5mg over 2 minutes initially ordered. She does rate control with this, frequently assessed and seen at <110bpm. Given she responded to this will orally load with 25 mg metoprolol. HEART SCORE History 2 highly suspicious 1 moderately suspicious 0 slightly suspicious History score [address] depression/elevation not due to LBBB, LVH, or digoxin [address] depression but LBBB, LVH, nonspecific repolarization changes 0 normal ECG score: 1-2 (mild ST depression in lateral leads) Age 2 >/= 65 1 45-64 0 <45 Age score 2 Risk factors (HTN, hypercholesterolemia, DM, obesity with BMI >30, current smoker or cessation </=3mo), positive fam hx with parent or sibling with CVD before age 65, atherosclerotic disease (prior MO, PCI/CABG, CVA/TIA, or peripheral arterial disease) 2 >/= 3 risk factors or history of atherosclerotic dz 1 - 1-2 risk factors 0 no known risk factors Risk factor score 2 (HTN, hyperlipidemia, obesity) Initial Troponin 2 >3 times normal limit 1 1-3 times normal limit 0 less than or equal to normal limit Troponin score 1 Total HEART Score 6 or 7 though I suspect NSTEMI is due to demand ischemia given Afib RVR. BNP is elevated; history of heart failure with no pulmonary edema on chest x-ray. Patient to be admitted for this combination of issues. She is agreeable. Confirms full code status. IMU status. Discussed with EMPLOYEE RELATIONS ADMINISTRATOR Hospitalist Harriet. Lab Data Attestation: I reviewed the patient's lab results. Lab results narrative: Normocytic anemia, stable from previous Creatinine is stable from previous ; consistent with CKD 02/16/24 15:35 02/16/24 15:35 Labs: Lab Results 02/16/24 02/16/24 Range/Units 15:32 15:35 WBC 7.3 (4.5-10.0) K/mm3 RBC 3.45 L (4.2-5.4) M/mm3 Hgb 10.6 L (12.0-15.0) g/dL Hct 32.6 L (37.0-47.0) % MCV 94.5 (80-100) fl MCH 30.7 (26-34) pg MCHC 32.5 (32-36) g/dl RDW 14.1 (11.5-14.5) % Plt Count 217 (150-375) k/mm3 MPV 11.8 H (7.4-10.4) fl Immature Gran % (Auto) 0.6 H (0-0.5) % Neut % (Auto) 64.7 (45.5-73.1) % Lymph % (Auto) 24.4 (18.3-44.2) % [place] % (Auto) 8.3 (2.6-8.5) % Eos % (Auto) 1.9 (0-4.4) % Baso % (Auto) 0.1 L (0.2-1.2) % Lymph # (Auto) 1.77 (0.9-3.2) K/mm3 [place] # (Auto) 0.6 (0.1-0.6) K/mm3 Eos # (Auto) 0.1 (0-0.3) K/mm3 Baso # (Auto) 0.0 (0.0-0.1) K/mm3 Abs Immat Gran (auto) 0.04 H (0.00-0.031) K/mm3 Absolute Neuts (auto) 4.7 (1.3-6.7) K/mm3 Absolute Nucleated RBC 0.000 (0.0-0.012) K/mm3 Nucleated RBC % 0.0 (0.0-0.2) % PT 14.4 (11.1-14.7) Seconds INR 1.1 APTT 30.2 (22.3-36.8) Seconds Sodium 141 (137-145) mmol/L Potassium 4.0 (3.4-5.0) mmol/L Chloride 108 H (98-107) mmol/L Carbon Dioxide 23 (22-30) mmol/L Anion Gap 10 (4-12) mmol/L BUN 31 H (7-17) mg/dL Creatinine 2.10 H (0.7-1.0) mg/dL Estim Creat Clear Calc 28 ml/min Estimated GFR 28 L (59 - ) Glucose 118 H (65-110) mg/dL Calcium 9.3 (8.4-10.2) mg/dL Magnesium 2.4 H (1.6-2.3) mg/dL Total Bilirubin 0.6 (0.2-1.3) mg/dL AST 38 H (14-36) U/L ALT 22 (6-35) U/L Alkaline Phosphatase 94 (38-126) U/L Troponin I 0.049 H* (0.000-0.034) ng/mL NT-Pro-B Natriuret Pep 9010 H (19.9-100) pg/mL Total Protein 8.0 (6.3-8.2) g/dL Albumin 4.6 (3.5-5.1) g/dL Lipase 93 (23-300) U/L TSH 2.120 (0.465-4.680) uIU/mL Imaging Data Radiologist's impression: Impressions Chest X-Ray 02/16/24 15:43 IMPRESSION: 1. Cardiomegaly. ECG Data EKG #1: Attestation: I personally reviewed and interpreted this ECG as follows: ECG completion date: 02/16/24 ECG completion time: 15:30 Prior ECG tracings: available for review (10/07/21 sinus rhythm with multiple frequent aberrant ventricular beats.) Interpretation: Irregularly irregular rhythm atrial fibrillation. Rapid ventricular response at a rate of 123 beats per minute. QRS 127. QT/QTC 333/406. Left axis deviation given QRS is positive in lead 1 and negative in inferior leads 2, 3, and AVF. Patient does have some mild ST depression lateral precordial leads V5 and V6 concerning for ischemia. Pre populated algorithm suggests left ventricular hypertrophy; S wave depth in V1 + tallest R wave height in V5-6 is <35mm but R wave in lead I + S wave in lead III is >25mm. Discharge Plan Discharge Clinical Impression: Non-ST elevation MO (NSTEMI), Cardiomegaly, Normocytic anemia, CKD (chronic kidney disease) Atrial fibrillation Qualifiers: Atrial fibrillation type: paroxysmal Qualified Code(s): I48.0 - Paroxysmal atrial fibrillation Patient Disposition: Still a Patient Condition: Stable
[2024-02-16] MEDS: ASPIRIN 81 MG CHEWABLE TABLET 324 MG PO (16:13)
[2024-02-16] MEDS: METOPROLOL TARTRATE INJ 5 MG/5 ML VIAL 2.5 MG IV PUSH ×3 (16:37→21:35)
[2024-02-16 16:51] LABS: Magnesium 2.4 mg/dL (1.6-2.3)
[2024-02-16 17:01] LABS: NT Pro B Type Natriuretic Pept 9010 pg/mL (19.9-100)
[2024-02-16] MEDS: FUROSEMIDE INJ 40 MG/4 ML VIAL 20 MG IV PUSH (18:04)
[2024-02-16] MEDS: METOPROLOL TARTRATE 25 MG TABLET PO (18:05)
--- NOTE | 2024-02-16 18:38 | ADMGEN ---
This patient, Carlie Bales, was admitted to IMU Room 206-01 on 02/16/28 at 1817. Patient/family oriented to hospital policies and general routines including ID bracelet, bed and alarms, visiting hours, pain management, procedures, bathroom and other care routines, personal items, smoking policy, room service/diet, and visiting hours. Information on how to activate the Rapid Response Team has been discussed. Patient/Family are encouraged to report perceived risks to care and to ask questions if they do not understand what they are told or what they should do.
--- NOTE | 2024-02-16 18:43 | P.HP_ITS ---
H&P: [facility] History of Present Illness Date/Time: 02/16/24 18:43 Chief Complaint: Epigastric Pain, Palpitations Narrative: 78 y/o F presents here with epigastric pain and a racing heart with PMH of hypothyroidism, asthma, breast cancer s/p lumpectomy and radiation in 2020, HTN, GERD, lymphedema, HLD, sleep apnea w/CPAP use, and seasonal affective disorder. The patient presents here from home for further evaluation of epigastric pain, palpitations, and shortness of breath. She reports these symptoms started approximately a week ago. Symptoms have been intermittent but the more she is active the more persistent the symptoms appear to be. The patient reports that symptoms have not worsened, however they have not improved with time. Initially attributed symptoms to GERD. She describes the epigastric pain as achy, radiating into her right mid back, intermittent, aggravated by activity, and alleviated by rest. Previous history of atrial fibrillation but believes it was a short one time episode that occurred while she was at [facility] for an EGD when it was noted. Has not been on medications for this. Patient sees cardiology, Wyatt TREVINO. Initial VS at presentation: 98? F, HR 142, RR 23, 137/97, and 100% on RA. ED workup showed: No leukocytosis, hemoglobin 10.6 (previously 9.8 on 02/14/2024), normal coags, creatinine 2.1 and GFR 28 (previously 1.9 and GFR 31 on 12/20/2023), magnesium 2.4, initial troponin 0.049, BNP 9010, and TSH 2.12. CXR showed cardiomegaly. Initial EKG showed AFib with RVR, rate 123, left axis deviation, intraventricular conduction delay, delayed precordial RS transition, LVH with ST-T change. 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 s/p lumpectomy with close but negative margins (closest 0.1 cm from superior margin). Had a negative sentinel lymph node biopsy. Completed a course of adjuvant left breast irradiation b/w 09/04/2020 and 10/02/2020 Cardiomegaly CHF (congestive heart failure) Cholelithiases Chronic acquired lymphedema CKD (chronic kidney disease) DVT (deep venous thrombosis) RLE, 2021 Dysphagia Essential (primary) hypertension GERD with esophagitis And hiatal hernia Obstructive sleep apnea Other hyperlipidemia Pulmonary hypertension Seasonal affective disorder Seasonal allergies Secondary renal hyperparathyroidism Shingles Vitamin D deficiency Surgical History Surgical History H/O breast biopsy H/O lumpectomy H/O tubal ligation Family History Family History Mother Diabetes mellitus Sibling Malignant neoplasm of prostate Diabetes mellitus Hypertension Carcinoma of colon Heart disease Father Other Family history of colonic diverticulitis Family history of glaucoma Family history of type 2 diabetes mellitus Social History Social History Social History: Patient lives with her sister. She has never . No children. She is a full code. No alcohol or drug use. No history of heavy alcohol use or previous drug use. She quit tobacco in after smoking half a pack a day for about 10 years. Used to work for the [employer]. She nominates her sister to be the individual who would make medical decisions for her if she is unable. Smoking packs per day: 1 Smoking cigarettes per day: 20.0 Years smoked: 10 Smoking pack-years: 10.00 Smoking status: Former smoker Tobacco type: cigarettes Second hand tobacco smoke exposure: No Smoking end date: 04/12/84 Alcohol intake: never Alcohol use details: FORMER SOCIAL DRINKER Substance use: never Substance use type: does not use Do You Feel Safe in your Home?: Yes Lack of Transportation: No Lack of Food: Never True Current Housing: I Have Housing Concerned About Future Housing: No Difficulty Paying Gas/Electric Bills: No Difficulty Paying for Meds: No Currently Unemployed: No Education: High School Diploma/GED Difficulty w/ Childcare or Family Care: No Living arrangements: with family Additional living arrangements comments: SISTER Occupation/Education: retired 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 acidophilus-Bifido. 1 tablet PO DAILY #30 tabs 03/31/19 02/16/24 Rx animalis 10 billion cell chewable tablet (Dialyvite Chewable Probiotic) cholecalciferol (vitamin D3) 25 25 mcg PO DAILY #30 caps 03/31/19 02/16/24 Rx mcg (1,000 unit) capsule (Vitamin D3) ferrous sulfate 325 mg (65 mg 325 mg PO DAILY 07/18/20 02/16/24 History iron) tablet levothyroxine 25 mcg tablet 25 mcg PO QAM 07/18/20 02/16/24 History carvedilol 6.25 mg tablet (Coreg) 6.25 mg PO Q12HR #60 tabs 10/15/21 02/16/24 Rx empagliflozin 10 mg tablet 10 mg PO DAILY #60 tabs 10/15/21 02/16/24 Rx (Jardiance) furosemide 40 mg tablet 40 mg PO BID #60 tabs 10/15/21 02/16/24 Rx spironolactone 25 mg tablet 25 mg PO QAM #30 tabs 10/15/21 02/16/24 Rx lisinopril 10 mg tablet 10 mg PO DAILY 12/19/21 02/16/24 History anastrozole 1 mg tablet 1 mg PO HS 05/08/22 02/16/24 History aspirin 81 mg tablet,delayed 81 mg PO DAILY 08/26/22 02/16/24 History release (Adult Low Dose Aspirin) omeprazole 40 mg capsule,delayed 40 mg PO DAILY 3 months #90 caps 02/14/24 02/16/24 Rx release atorvastatin 20 mg tablet 20 mg PO DAILY 02/16/24 02/16/24 History Allergies Allergy/AdvReac Type Severity Reaction Status Date / Time No Known Allergies Allergy Verified 12/29/23 11:22 Vital Signs Vital Signs - 24 hr 02/16/24 15:25 02/16/24 15:41 02/16/24 16:37 Temperature Pulse Rate 142 H 126 H Respiratory Rate 23 H Blood Pressure 137/97 H Pulse Oximetry 100 100 Oxygen Delivery Room Air Room Air 02/16/24 18:06 02/16/24 17:00 02/16/24 18:05 Temperature Pulse Rate 115 H 113 H 127 H Respiratory Rate 18 20 Blood Pressure 127/80 139/87 Pulse Oximetry 100 95 Oxygen Delivery 02/16/24 18:38 Temperature 98 F Pulse Rate 78 Respiratory Rate 16 Blood Pressure 103/84 Pulse Oximetry 100 Oxygen Delivery Exam Const: General: comfortable and no acute distress Other: , elderly, nontoxic appearance, female HENMT: Face/Nose/Sinus: Normal nares present Mouth: Yes moist mucous membranes Eyes: General: appearance normal, both eyes and all related structures Sclera: sclerae normal Pupils: Equal, round and reactive pupils present EOM: EOMs intact bilaterally Resp: Effort & Inspection: normal respiratory effort Auscultation: clear to auscultation bilaterally Cardio: Rate: tachycardic (120-130) Rhythm: abnormal rhythm Other: No murmur or rub. GI: Other: Abdomen soft, nondistended, nontender. Skin: General skin exam: normal color and no rashes or lesions noted Wounds: no wounds Neuro: Speech: normal speech Motor exam (neuro): 5/5 motor strength present throughout Sensory Exam: normal sensation Other: A&O x4 Extrem: Other: Significant lymphedema to bilateral lower extremities, symmetric. No open wounds. Psych: Mental Status: mental status grossly normal Affect: normal affect Other: Good insight and judgment, pleasant H&P: Results Labs Labs: Short CBC 02/16/24 Range/Units 15:35 WBC 7.3 (4.5-10.0) K/mm3 Hgb 10.6 L (12.0-15.0) g/dL Hct 32.6 L (37.0-47.0) % Plt Count 217 (150-375) k/mm3 BMP 02/16/24 15:35 Sodium 141 Potassium 4.0 Chloride 108 H Carbon Dioxide 23 BUN 31 H Creatinine 2.10 H Glucose 118 H Calcium 9.3 Cardiac Enzymes 02/16/24 Range/Units 15:35 Troponin I 0.049 H* (0.000-0.034) ng/mL Liver Function 02/16/24 Range/Units 15:35 Total Bilirubin 0.6 (0.2-1.3) mg/dL AST 38 H (14-36) U/L ALT 22 (6-35) U/L Alkaline Phosphatase 94 (38-126) U/L Albumin 4.6 (3.5-5.1) g/dL Assessment and Plan Assessment and plan (1) Atrial fibrillation: Qualifiers: Atrial fibrillation type: paroxysmal Qualified Code(s): I48.0 - Paroxysmal atrial fibrillation Code(s): I48.91 - Unspecified atrial fibrillation Status: Acute Assessment and Plan: - previous hx of same in 2021 - EKG, initial: AFib with RVR, left axis deviation, intraventricular conduction delay, delayed precordial RS transition, left ventricular hypertrophy with ST-T change. - given metoprolol 2.5 mg IVP, started on Metoprolol 25 mg b.i.d. PO - TSH WNL, BNP elevated (see below) - CHADSVasc: 5 (age, sex, CHF, HTN) - consider cardiology consultation if rate control cannot be achieved, will need outpatient follow-up. established with Wyatt TREVINO. - telemetry monitoring (2) Elevated troponin: Code(s): R77.8 - Other specified abnormalities of plasma proteins Status: Acute Assessment and Plan: - Troponin: 0.049 -> 0.050 -> 3rd ordered - suspect elevations secondary to demand related to tachycardia, no active chest pain. Continue to trend. - telemetry monitoring (3) CHF (congestive heart failure): Qualifiers: Heart failure chronicity: chronic Heart failure type: combined systolic and diastolic Qualified Code(s): I50.42 - Chronic combined systolic (congestive) and diastolic (congestive) heart failure Code(s): I50.9 - Heart failure, unspecified Status: Chronic Assessment and Plan: - BNP 9010 - most recent echo (09/2021): Severe global hypokinesis with akinesis of the inferior septal wall, visually estimated EF of 15-20% and measured at 22% with diastolic dysfunction present. Global longitudinal strain was significantly abnormal. Moderate pulmonary hypertension. See report for details. - currently on: Spironolactone 25 mg daily, Lasix 40 mg b.i.d. will continue as same. - monitor I&Os and daily weights - trend renal function (4) Chronic kidney disease, stage IV (severe): Code(s): N18.4 - Chronic kidney disease, stage 4 (severe) Status: Chronic Assessment and Plan: - creatinine 2.1 and GFR 28, previously 1.9 and GFR 31 on 12/20/2023 - hx of CKD stage 4, domenic Stacy MD - trend renal function - trend electrolytes, correct as needed (5) Normocytic anemia: Code(s): D64.9 - Anemia, unspecified Status: Chronic Assessment and Plan: - Hgb 10.6. Normal MCV and MCHC. Previously 9.8 on 02/14/2024. - anemia in the setting of CKD - monitor (6) Essential (primary) hypertension: Code(s): I10 - Essential (primary) hypertension Status: Chronic Assessment and Plan: - chronic, currently 103/84 - continue home medications: Lisinopril 10 mg daily - monitor Plan Diet: Heart healthy GI Prophylaxis: Not currently indicated DVT Prophylaxis: Lovenox Lines: Peripheral Code Status: Full code Quality VTE Prophylaxis VTE prophylaxis: pharmacologic ordered Hospitalist MIPS Advance Care Plan I have confirmed that the patient's Advanced Care Plan is present, code status is documented, or surrogate decision maker is listed in patient medical record.: Yes Medication Reconciliation I have utilized all available resources to obtain, update and review the patients current medications (includes all prescriptions, OTC, herbals, cannabis, and nutritional supplements).: Yes
[2024-02-16] MEDS: PANTOPRAZOLE 40 MG TABLET PO (20:38)
[2024-02-16] MEDS: ANASTROZOLE (*CHEMO) 1 MG TABLET PO (20:38)
[2024-02-16] MEDS: METOPROLOL TARTRATE INJ 5 MG/5 ML VIAL IV PUSH ×2 (22:30→23:06)
[2024-02-16] MEDS: SODIUM CHLORIDE 0.9% IV 500 ML 250 ML IV CONT (23:06)
[2024-02-16 23:31] LABS: Troponin I 0.052 ng/mL (0.000-0.034)
[2024-02-17] VITALS (28 sets, daily range): BP systolic 94–156; BP diastolic 54–84; PULSE 55–126; RESP 18–23; TEMP 36.4–36.8; O2SAT 94–100
--- NOTE | 2024-02-17 | ECHO_ITS ---
Patient Info Name: Carlie Bales Age: 78 years : 1945 Gender: Female HR: 66 bpm BP: 94 / 60 mmHg Heart Rhythm: Sinus Rhythm Technical Quality: Fair Exam Date: 02/17/2024 3:00 PM Exam Location: Echo Lab Patient Status: Outpatient Admit Date: 02/16/2024 Staff Ordering Physician: Harriet Shine APRN Pediatrician Managing Partner: Raman Berkowitz RDCS Attending Provider: Parish Espinosa MD Referring Physician: Rl [place]; Exam Type: CA echo doppler color flow Study Info Indications R06.02 - Shortness of breath Complete two-dimensional, color flow and Doppler transthoracic echocardiogram is performed. Summary 1. Left ventricular chamber dimension is moderately enlarged. 2. Left ventricular systolic function is moderately reduced, estimated at 30-35%. 3. The left ventricular diastolic function is grade I diastolic dysfunction. 4. Right ventricular systolic function is normal. 5. Left atrial chamber dimension is severely enlarged. 6. Right atrial chamber dimension is moderately enlarged. 7. There is severe mitral valve regurgitation. 8. There is moderate tricuspid valve regurgitation. Left Ventricle Left ventricular chamber dimension is moderately enlarged. Left ventricular systolic function is moderately reduced, estimated at 30-35%. There is no increased left ventricular wall thickness. The left ventricular diastolic function is grade I diastolic dysfunction. Right Ventricle Right ventricular chamber dimension is normal. Right ventricular systolic function is normal. Left Atria Left atrial chamber dimension is severely enlarged. Right Atria Right atrial chamber dimension is moderately enlarged. Atrial Septum Intact interatrial septum visualized by color flow imaging. Aortic Valve The aortic valve is probable trileaflet. There is trace aortic valve regurgitation. There is moderate aortic valve calcification. Pulmonic Valve The pulmonic valve is not well visualized. There is trace pulmonic regurgitation. Mitral Valve There is severe mitral valve regurgitation. Tricuspid Valve There is moderate tricuspid valve regurgitation. Pericardium/Pleural There is no pericardial effusion. Inferior Vena Cava Inferior vena cava is not well visualized. Aorta The aortic root size at the sinus of Valsalva is normal. Left Ventricular Outflow Tract Name Value Normal LVOT 2D LVOT Diameter 2.0 cm Pulmonic Valve Name Value Normal PV Doppler PV Peak Gradient 2 mmHg PV Regurgitation Doppler DE Peak End Diastolic Velocity 158 cm/s Mitral Valve Name Value Normal MV Doppler MV Decel [place] 909 cm/s2 MV PHT 38 ms MV Area (PHT) 5.8 cm2 4.0-5.0 MV Diastolic Function MV E Peak Velocity 120 cm/s MV A Peak Velocity 66 cm/s MV E/A 1.8 MV Decel Time 132 ms Tricuspid Valve Name Value Normal TV Regurgitation Doppler TR Peak Velocity 381 cm/s TR Peak Gradient 58 mmHg Aorta Name Value Normal Ascending Aorta Ao Root Diameter (MM) 2.1 cm Aortic Valve Name Value Normal AV Regurgitation 2D LVOT Area 3.3 cm2 Ventricles Name Value Normal LV Dimensions 2D/MM IVS Diastolic Thickness (2D) 0.9 cm 0.6-1.0 IVS Diastole Thickness (MM) 1.0 cm 0.6-0.9 LVID Diastole (2D) 6.7 cm 3.8-5.2 LVID Diastole (MM) 7.5 cm 3.8-5.2 LVIW Diastolic Thickness (2D) 0.9 cm 0.6-0.9 LVIW Diastolic Thickness (MM) 1.0 cm 0.6-0.9 LVID Systole (2D) 5.8 cm 2.2-3.5 LVID Systole (MM) 5.5 cm 2.2-3.5 LVOT Diameter 2.0 cm LV Mass (2D Cubed) 253.96 g 67.00-162.00 Relative Wall Thickness (2D) 0.26 LV Mass (MM Cubed) 374.84 g 67.00-162.00 Relative Wall Thickness (MM) 0.28 LV Fractional Shortening/Ejection Fraction 2D/MM LV Fractional Shortening (2D) 14 % 27-45 LV Fractional Shortening (MM) 27 % 27-45 LV EF (MM Teicholz) 51 % 54-74 LV EF (2D Teicholz) 28 % 54-74 Atria Name Value Normal LA Dimensions LA Dimension (MM) 6.6 cm 2.7-3.8 LA Volume (4C A-L) 166 ml RA Dimensions RA Area (4C) 20.3 cm2 <=18.0 Report Signatures
[2024-02-17] MEDS: AMIODARONE 150 MG/D5W 100 ML 150 MG/100 ML BAG 600 MG IV CONT (00:23)
[2024-02-17] MEDS: AMIODARONE 360 MG/D5W 200 ML 360 MG/200 ML BAG 33.33 MG IV CONT ×2 (00:24→00:40)
[2024-02-17 05:43] LABS: Potassium 3.7 mmol/L (3.4-5.0)
[2024-02-17] MEDS: LEVOTHYROXINE SODIUM 25 MCG TABLET PO (06:43)
[2024-02-17 07:49] LABS: Basophils Percent Auto 0.3 % (0.2-1.2); Eosinophils Absolute Auto 0.2 K/mm3 (0-0.3); Eosinophils Percent Auto 2.2 % (0-4.4); Immature Granulocyte Absolute 0.03 K/mm3 (0.00-0.031); Immature Granulocyte Percent A 0.4 % (0-0.5); Lymphocytes Absolute Auto 1.55 K/mm3 (0.9-3.2); Lymphocytes Percent Auto 23.2 % (18.3-44.2); Mean Corpuscular HGB Conc 31.3 g/dl (32-36); Mean Corpuscular Hemoglobin 30.1 pg (26-34); Mean Corpuscular Volume 96.4 fl (80-100); Mean Platelet Volume 12.5 fl (7.4-10.4); Monocytes Absolute Auto 0.6 K/mm3 (0.1-0.6); Monocytes Percent Auto 8.2 % (2.6-8.5); Neutrophils Absolute Auto 4.4 K/mm3 (1.3-6.7); Neutrophils Percent Auto 65.7 % (45.5-73.1); Platelet Count Result 176 k/mm3 (150-375); Red Blood Count 3.32 M/mm3 (4.2-5.4); Red Cell Distribution Width 14.2 % (11.5-14.5); White Blood Count 6.7 K/mm3 (4.5-10.0)
[2024-02-17 08:06] LABS: Alanine Aminotransferase 26 U/L (6-35); Albumin Level 3.9 g/dL (3.5-5.1); Alkaline Phosphatase 79 U/L (38-126); Anion Gap 11 mmol/L (4-12); Aspartate Amino Transferase 48 U/L (14-36); Bilirubin,Total 0.4 mg/dL (0.2-1.3); Blood Urea Nitrogen 35 mg/dL (7-17); Calcium 9.1 mg/dL (8.4-10.2); Carbon Dioxide 22 mmol/L (22-30); Chloride 109 mmol/L (98-107); Estimated CRCL calculation 29 ml/min; Estimated Glomerular Filt Rate 29; Glucose 98 mg/dL (65-110); Potassium 3.8 mmol/L (3.4-5.0); Sodium 142 mmol/L (137-145)
[2024-02-17 08:20] LABS: Troponin I 0.055 ng/mL (0.000-0.034)
[2024-02-17] MEDS: ATORVASTATIN 20 MG TABLET PO (08:53)
[2024-02-17] MEDS: CHOLECALCIFEROL 1,000 UNITS TABLET 1000 UNITS PO (08:53)
[2024-02-17] MEDS: EMPAGLIFLOZIN 10 MG TABLET PO (08:53)
[2024-02-17] MEDS: ASPIRIN 81 MG ENTERIC TABLET PO (08:53)
[2024-02-17] MEDS: ACIDOPHILUS/BULGARICUS CHEWABLE TABLET 1 TABLET PO (09:04)
[2024-02-17] MEDS: FERROUS SULFATE 325 MG TABLET DR PO (09:05)
[2024-02-17] MEDS: lisinopriL 10 MG TABLET PO (09:05)
[2024-02-17] MEDS: SPIRONOLACTONE 25 MG TABLET PO (09:05)
[2024-02-17] MEDS: FUROSEMIDE 40 MG TABLET PO (09:05)
--- NOTE | 2024-02-17 09:39 | PM.IMPN ---
Progress Note: A&P Assessment and Plan (1) Atrial fibrillation: Qualifiers: Atrial fibrillation type: paroxysmal Qualified Code(s): I48.0 - Paroxysmal atrial fibrillation Code(s): I48.91 - Unspecified atrial fibrillation Status: Acute Assessment and Plan: - previous hx of same in 2021 - EKG, initial: AFib with RVR, left axis deviation, intraventricular conduction delay, delayed precordial RS transition, left ventricular hypertrophy with ST-T change. - Cardiology increased Metoprolol 50 mg PO BID and added Eliquis 5 mg PO BID. - TSH WNL, BNP elevated (see below) - CHADSVasc: 5 (age, sex, CHF, HTN) - Will need outpatient follow-up. established with Wyatt TREVINO. - telemetry monitoring (2) Elevated troponin: Code(s): R77.8 - Other specified abnormalities of plasma proteins Status: Acute Assessment and Plan: - Troponin: 0.049 -> 0.050 -> 0.055->0.048 - suspect elevations secondary to demand related to tachycardia, no active chest pain. - telemetry monitoring (3) CHF (congestive heart failure): Qualifiers: Heart failure chronicity: chronic Heart failure type: combined systolic and diastolic Qualified Code(s): I50.42 - Chronic combined systolic (congestive) and diastolic (congestive) heart failure Code(s): I50.9 - Heart failure, unspecified Status: Chronic Assessment and Plan: - BNP 9010 - most recent echo (09/2021): Severe global hypokinesis with akinesis of the inferior septal wall, visually estimated EF of 15-20% and measured at 22% with diastolic dysfunction present. Global longitudinal strain was significantly abnormal. Moderate pulmonary hypertension. See report for details. - currently on: Spironolactone 25 mg daily, Lasix 40 mg b.i.d, Lisinopril 10 mg PO daily, and Jardiance 10 mg PO daily. - monitor I&Os and daily weights - trend renal function - RYANN -Cardiology following. (4) Chronic kidney disease, stage IV (severe): Code(s): N18.4 - Chronic kidney disease, stage 4 (severe) Status: Chronic Assessment and Plan: - creatinine 2.0 and GFR 29 - hx of CKD stage 4, domenic Stacy MD - trend renal function - trend electrolytes, correct as needed (5) Normocytic anemia: Code(s): D64.9 - Anemia, unspecified Status: Chronic Assessment and Plan: - Hgb 10.0 Normal MCV. MCHC 31.3. - anemia in the setting of CKD - monitor (6) Essential (primary) hypertension: Code(s): I10 - Essential (primary) hypertension Status: Chronic Assessment and Plan: - chronic, currently 126/62 - continue home medications: Lisinopril 10 mg daily and Spironolactone 25 mg PO daily. - monitor Plan Diet: Heart healthy GI Prophylaxis: Not currently indicated DVT Prophylaxis: Eliquis Lines: Peripheral Code Status: Full code Subjective Date/time seen: 02/17/24 09:39 Interval history: Patient reported that she had an episode of shortness of breath when lying down for Echo. Patient was set up and placed on oxygen at 2 liters nasal cannula with Sa02 98%. Patient denies chest pain or palpitations. EKG showed SR with occasional ventricular premature complexes, QTc 475. Patient reports occasional back pain that is a 5 and annoying. Patient reports occasional thick phlegm and difficulty clearing at times. Review of Systems Review of Systems: All systems reviewed & are unremarkable except as noted in HPI and below Exam Const: General: no acute distress Resp: Effort & Inspection: normal respiratory effort Auscultation: clear to auscultation bilaterally Cardio: Rhythm: abnormal rhythm irregularly irregular Other: Afib 92. GI: GI Palp: Yes Soft to palpation Other: hypoactive bowel sounds. Neuro: Speech: normal speech Extrem: Other: Lymphedema to bilateral extremities 2+. Psych: Mental Status: mental status grossly normal Affect: normal affect Objective Data Vital Signs Vital Signs: Vital Signs - 24 hr 02/16/24 15:25 02/16/24 15:41 02/16/24 16:37 Temperature Pulse Rate 142 H 126 H Respiratory Rate 23 H Blood Pressure 137/97 H Pulse Oximetry 100 100 Oxygen Delivery Room Air Room Air 02/16/24 18:06 02/16/24 17:00 02/16/24 18:05 Temperature Pulse Rate 115 H 113 H 127 H Respiratory Rate 18 20 Blood Pressure 127/80 139/87 Pulse Oximetry 100 95 Oxygen Delivery 02/16/24 18:38 02/16/24 19:48 02/16/24 20:32 Temperature 98 F 98.1 F Pulse Rate 78 76 76 Respiratory Rate 16 16 16 Blood Pressure 103/84 113/73 Pulse Oximetry 100 100 100 Oxygen Delivery Room Air 02/16/24 21:23 02/16/24 21:30 02/16/24 21:35 Temperature Pulse Rate 143 H 132 H 132 H Respiratory Rate 16 Blood Pressure 114/59 L Pulse Oximetry 98 Oxygen Delivery 02/16/24 22:30 02/16/24 20:00 02/16/24 22:00 Temperature Pulse Rate 130 H 72 132 H Respiratory Rate Blood Pressure Pulse Oximetry Oxygen Delivery 02/16/24 23:06 02/16/24 23:00 02/16/24 23:50 Temperature Pulse Rate 123 H 82 123 H Respiratory Rate 25 H 25 H Blood Pressure Pulse Oximetry 97 97 Oxygen Delivery Autopap Autopap 02/17/24 00:00 02/17/24 00:23 02/17/24 00:24 Temperature 98 F Pulse Rate 120 H 126 H 125 H Respiratory Rate 20 Blood Pressure 94/61 L 96/54 L 96/54 L Pulse Oximetry 99 Oxygen Delivery 02/17/24 00:28 02/17/24 00:00 02/17/24 00:34 Temperature Pulse Rate 124 H 122 H 104 H Respiratory Rate 18 Blood Pressure 114/65 116/61 Pulse Oximetry 99 Oxygen Delivery 02/17/24 00:40 02/17/24 01:40 02/17/24 02:00 Temperature Pulse Rate 108 H 55 L 59 L Respiratory Rate Blood Pressure 116/61 105/58 L Pulse Oximetry Oxygen Delivery 02/17/24 03:25 02/17/24 03:45 02/17/24 04:00 Temperature Pulse Rate 89 89 56 L Respiratory Rate 23 H 23 H Blood Pressure Pulse Oximetry 96 96 Oxygen Delivery Autopap Autopap 02/17/24 06:00 02/17/24 04:00 02/17/24 08:11 Temperature 98.2 F 97.8 F Pulse Rate 66 68 71 Respiratory Rate 20 18 Blood Pressure 94/60 L 126/62 Pulse Oximetry 100 99 Oxygen Delivery Intake/Output Intake/Output: Intake & Output 02/14/24 02/15/24 02/16/24 02/17/24 23:59 23:59 23:59 23:59 Intake Total 355.3 Balance 355.3 Meds/Results Medications: Active Medications Generic Name Dose Route Start Last Admin Trade Name Freq PRN Reason Stop Dose Admin Acetaminophen 650 mg 02/16/24 17:30 Acetaminophen 325 Mg Tablet PO Q4H PRN Mild Pain (1-3) or Fever Anastrozole 1 mg 02/16/24 21:00 02/16/24 20:38 Anastrozole (*Chemo) 1 Mg Tablet PO 1 mg HS LISSY Administration Aspirin 81 mg 02/17/24 09:00 02/17/24 08:53 Aspirin 81 Mg Enteric Tablet PO 81 mg DAILY LISSY Administration Atorvastatin Calcium 20 mg 02/17/24 09:00 02/17/24 08:53 Atorvastatin 20 Mg Tablet PO 20 mg DAILY LISSY Administration Empagliflozin 10 mg 02/17/24 09:00 02/17/24 08:53 Empagliflozin 10 Mg Tablet PO 10 mg DAILY LISSY Administration Enoxaparin Sodium 30 mg 02/17/24 09:00 Enoxaparin 30 Mg/0.3 Ml Syringe SUB-Q DAILY LISSY Ferrous Sulfate 325 mg 02/17/24 09:00 Ferrous Sulfate [address] PO DAILY [facility] Furosemide 40 mg 02/17/24 09:00 Furosemide 40 Mg Tablet PO BID [facility] Lactobacillus Acidophilus 1 tablet 02/17/24 09:00 02/17/24 09:04 Acidophilus/Bulgaricus Chewable Tablet PO 1 tablet DAILY LISSY Administration Levothyroxine Sodium 25 mcg 02/17/24 06:30 02/17/24 06:43 Levothyroxine Sodium 25 Mcg Tablet PO 25 mcg DAILY@0630 LISSY Administration Lisinopril 10 mg 02/17/24 09:00 Lisinopril 10 Mg Tablet PO DAILY [facility] Metoprolol Tartrate 25 mg 02/17/24 09:00 Metoprolol Tartrate 25 Mg Tablet PO Q12HR [facility] Ondansetron HCl 4 mg 02/16/24 17:30 Ondansetron Inj 4 Mg/2 Ml Vial IV PUSH Q4H PRN Nausea Pantoprazole Sodium 40 mg 02/16/24 21:00 02/16/24 20:38 Pantoprazole 40 Mg Tablet PO 40 mg Q12HR LISSY Administration Perflutren Lipid Microsphere 0 ml 02/16/24 19:05 Perflutren Lipid Microspheres 1.5 Ml Vial Diluted To 10 Ml Total Volume IV PUSH 02/19/24 19:05 ONCE PRN adequate visualization Protocol Polyethylene Glycol 17 gm 02/17/24 09:40 Polyethylene Glycol 3350 17 Gm Powd.Pack PO QAM [facility] Spironolactone 25 mg 02/17/24 09:00 Spironolactone 25 Mg Tablet PO QAM [facility] Vitamin D 1,000 units 02/17/24 09:00 02/17/24 08:53 Cholecalciferol 1,000 Units Tablet PO 1,000 units DAILY LISSY Administration Radiology Results: ITS Impressions Chest X-Ray 02/16/24 15:43 IMPRESSION: 1. Cardiomegaly. Labs Labs: Laboratory Results - last 24 hr 02/16/24 02/16/24 02/16/24 15:32 15:35 19:47 WBC 7.3 RBC 3.45 L Hgb 10.6 L Hct 32.6 L MCV 94.5 MCH 30.7 MCHC 32.5 RDW 14.1 Plt Count 217 MPV 11.8 H Immature Gran % (Auto) 0.6 H Neut % (Auto) 64.7 Lymph % (Auto) 24.4 [place] % (Auto) 8.3 Eos % (Auto) 1.9 Baso % (Auto) 0.1 L Lymph # (Auto) 1.77 [place] # (Auto) 0.6 Eos # (Auto) 0.1 Baso # (Auto) 0.0 Abs Immat Gran (auto) 0.04 H Absolute Neuts (auto) 4.7 Absolute Nucleated RBC 0.000 Nucleated RBC % 0.0 PT 14.4 INR 1.1 APTT 30.2 Sodium 141 Potassium 4.0 Chloride 108 H Carbon Dioxide 23 Anion Gap 10 BUN 31 H Creatinine 2.10 H Estim Creat Clear Calc 28 Estimated GFR 28 L Glucose 118 H Calcium 9.3 Magnesium 2.4 H Total Bilirubin 0.6 AST 38 H ALT 22 Alkaline Phosphatase 94 Troponin I 0.049 H* 0.050 H* NT-Pro-B Natriuret Pep 9010 H Total Protein 8.0 Albumin 4.6 Lipase 93 TSH 2.120 02/16/24 02/17/24 02/17/24 22:55 04:31 04:32 WBC 6.7 RBC 3.32 L Hgb 10.0 L Hct 32.0 L MCV 96.4 MCH 30.1 MCHC 31.3 L RDW 14.2 Plt Count 176 MPV 12.5 H Immature Gran % (Auto) 0.4 Neut % (Auto) 65.7 Lymph % (Auto) 23.2 [place] % (Auto) 8.2 Eos % (Auto) 2.2 Baso % (Auto) 0.3 Lymph # (Auto) 1.55 [place] # (Auto) 0.6 Eos # (Auto) 0.2 Baso # (Auto) 0.0 Abs Immat Gran (auto) 0.03 Absolute Neuts (auto) 4.4 Absolute Nucleated RBC 0.000 Nucleated RBC % 0.0 PT INR APTT Sodium 142 Potassium 3.7 Chloride Carbon Dioxide Anion Gap BUN Creatinine Estim Creat Clear Calc Estimated GFR Glucose Calcium Magnesium Total Bilirubin AST ALT Alkaline Phosphatase Troponin I 0.052 H* NT-Pro-B Natriuret Pep Total Protein Albumin Lipase TSH 02/17/24 04:32 WBC RBC Hgb Hct MCV MCH MCHC RDW Plt Count MPV Immature Gran % (Auto) Neut % (Auto) Lymph % (Auto) [place] % (Auto) Eos % (Auto) Baso % (Auto) Lymph # (Auto) [place] # (Auto) Eos # (Auto) Baso # (Auto) Abs Immat Gran (auto) Absolute Neuts (auto) Absolute Nucleated RBC Nucleated RBC % PT INR APTT Sodium Potassium 3.8 Chloride 109 H Carbon Dioxide 22 Anion Gap 11 BUN 35 H Creatinine 2.00 H Estim Creat Clear Calc 29 Estimated GFR 29 L Glucose 98 Calcium 9.1 Magnesium Total Bilirubin 0.4 AST 48 H ALT 26 Alkaline Phosphatase 79 Troponin I 0.055 H* NT-Pro-B Natriuret Pep Total Protein 7.0 Albumin 3.9 Lipase TSH Quality VTE Prophylaxis VTE prophylaxis: pharmacologic ordered
[2024-02-17] MEDS: METOPROLOL TARTRATE 25 MG TABLET PO (10:48)
[2024-02-17] MEDS: PANTOPRAZOLE 40 MG TABLET PO ×2 (10:49→20:12)
[2024-02-17] MEDS: ENOXAPARIN 30 MG/0.3 ML SYRINGE SUB-Q (11:05)
[2024-02-17] MEDS: polyethylene glycoL 3350 17 GM POWD.PACK PO (12:02)
[2024-02-17] MEDS: guaiFENesin 12 HR 600 MG TABCR PO ×2 (12:10→20:12)
--- NOTE | 2024-02-17 12:17 | ECG_ITS ---
Test Date: 2024-02-17 12:31:41 Measurements Intervals [place] Rate: 72 P: 55 [place]: 186 QRS: -10 QRSD: 134 T: 114 QT: 431 QTc: 475 Interpretive Statements SINUS RHYTHM WITH OCCASIONAL VENTRICULAR PREMATURE COMPLEXES POSSIBLE LEFT ATRIAL ENLARGEMENT INTRAVENTRICULAR CONDUCTION DELAY LEFT VENTRICULAR HYPERTROPHY AND ST-T CHANGE BASELINE ARTIFACT- I, II, III, AVR, AVL BORDERLINE ECG Compared to ECG 02/16/2024 15:30:03 ATRIAL FIBRILLATION NO LONGER PRESENT Electronically Signed On 02-17-2024 12:45:18 MILK COLLECTOR by Jericho Cueva D.O.
[2024-02-17 13:00] LABS: Troponin I 0.048 ng/mL (0.000-0.034)
--- NOTE | 2024-02-17 13:09 | PC.NURSE ---
Addendum entered by Lasahun Peck RN 02/17/24 13:32: Reported Troponin and EKG results to Erika Marcos APN. Pt was previously found to be 88% on room air. Subsequently placed on 2L of O2. Original Note: Pt reporting shortness of breath during echocardiogram. Pt was found to be 88% on 2L. Pt states that SOB has been getting worse over last few hours. Echo unable to be completed. Reported to Erika Marcos APN, who came to the bedside to assess pt. Order for troponin and EKG and Mucinex.
--- NOTE | 2024-02-17 14:09 | P.CONCA_ITS ---
Assessment and Plan Assessment and plan (1) CHF (congestive heart failure): Qualifiers: Heart failure type: combined systolic and diastolic Heart failure chronicity: chronic Qualified Code(s): I50.42 - Chronic combined systolic (congestive) and diastolic (congestive) heart failure Code(s): I50.9 - Heart failure, unspecified Status: Chronic (2) Essential (primary) hypertension: Code(s): I10 - Essential (primary) hypertension Status: Chronic (3) Elevated troponin: Code(s): R77.8 - Other specified abnormalities of plasma proteins Status: Acute (4) Atrial fibrillation: Qualifiers: Atrial fibrillation type: paroxysmal Qualified Code(s): I48.0 - Paroxysmal atrial fibrillation Code(s): I48.91 - Unspecified atrial fibrillation Status: Acute Plan 78-year-old woman with atrial fibrillation, hypertension, history of breast cancer status post lumpectomy and radiation, and sleep apnea with CPAP use presented with shortness of breath and palpitations Acute on chronic systolic heart failure (LVEF 35%) -repeat transthoracic echocardiogram -continue lisinopril 10 mg p.o. daily, spironolactone 25 mg, and Jardiance 10 mg p.o. daily -her Coreg has been switched over to metoprolol to allow better blood pressure tolerance and rate control -she is close to euvolemic and can stay on Lasix 40 mg p.o. b.i.d. -heart failure event most likely driven by rapid ventricular rate which is controlled at this time -acute on chronic systolic heart failure and rapid ventricular rate most likely contributed to the troponin elevation Paroxysmal atrial fibrillation with rapid ventricular rate -increase metoprolol to 50 mg b.i.d. -she has converted to sinus rhythm while on amiodarone drip which can be discontinued now -given her elevated chads Vasc score, would start Eliquis 5 mg p.o. b.i.d. Hypertension -blood pressure is at goal of less than 140 on current medications -continue lisinopril 10 mg p.o. daily, spironolactone 25 mg p.o. daily History of Present Illness History of Present Illness Consult date/time: 02/17/24 14:09 Reason For Visit: New Onset AFib, NSTEMI Narrative: 78-year-old woman with atrial fibrillation, hypertension, history of breast cancer status post lumpectomy and radiation, and sleep apnea with CPAP use presented with shortness of breath and palpitations. Her shortness of breath has been ongoing for the past few weeks now. She has noticed a decline in her functional ability to perform physical activity at home secondary to shortness of breath. She does have associated epigastric and mid back pain. She also has associated palpitations. 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 s/p lumpectomy with close but negative margins (closest 0.1 cm from superior margin). Had a negative sentinel lymph node biopsy. Completed a course of adjuvant left breast irradiation b/w 09/04/2020 and 10/02/2020 Cardiomegaly CHF (congestive heart failure) Cholelithiases Chronic acquired lymphedema CKD (chronic kidney disease) DVT (deep venous thrombosis) RLE, 2021 Dysphagia Essential (primary) hypertension GERD with esophagitis And hiatal hernia Obstructive sleep apnea Other hyperlipidemia Pulmonary hypertension Seasonal affective disorder Seasonal allergies Secondary renal hyperparathyroidism Shingles Vitamin D deficiency Surgical History Surgical History H/O breast biopsy H/O lumpectomy H/O tubal ligation Family History Family History Mother Diabetes mellitus Sibling Malignant neoplasm of prostate Diabetes mellitus Hypertension Carcinoma of colon Heart disease Father Other Family history of colonic diverticulitis Family history of glaucoma Family history of type 2 diabetes mellitus Social History Social History Social History: Patient lives with her sister. She has never . No children. She is a full code. No alcohol or drug use. No history of heavy alcohol use or previous drug use. She quit tobacco in after smoking half a pack a day for about 10 years. Used to work for the girl [employer]. She nominates her sister to be the individual who would make medical decisions for her if she is unable. Smoking packs per day: 1 Smoking cigarettes per day: 20.0 Years smoked: 10 Smoking pack-years: 10.00 Smoking status: Former smoker Tobacco type: cigarettes Second hand tobacco smoke exposure: No Smoking end date: 04/12/84 Alcohol intake: never Alcohol use details: FORMER SOCIAL DRINKER Substance use: never Substance use type: does not use Do You Feel Safe in your Home?: Yes Lack of Transportation: No Lack of Food: Never True Current Housing: I Have Housing Concerned About Future Housing: No Difficulty Paying Gas/Electric Bills: No Difficulty Paying for Meds: No Currently Unemployed: No Education: High School Diploma/GED Difficulty w/ Childcare or Family Care: No Living arrangements: with family Additional living arrangements comments: SISTER Occupation/Education: retired Additional occupation/education comments: merchandise clerk Gender identity (if verbalized by the patient): Female Spiritual care concerns: No Meds Home Medications and Allergies Home Medications Medication Instructions Recorded Confirmed Type Lactobac. acidophilus-Bifido. 1 tablet PO DAILY #30 tabs 03/31/19 02/16/24 Rx animalis 10 billion cell chewable tablet (Dialyvite Chewable Probiotic) cholecalciferol (vitamin D3) 25 25 mcg PO DAILY #30 caps 03/31/19 02/16/24 Rx mcg (1,000 unit) capsule (Vitamin D3) ferrous sulfate 325 mg (65 mg 325 mg PO DAILY 07/18/20 02/16/24 History iron) tablet levothyroxine 25 mcg tablet 25 mcg PO QAM 07/18/20 02/16/24 History carvedilol 6.25 mg tablet (Coreg) 6.25 mg PO Q12HR #60 tabs 10/15/21 02/16/24 Rx empagliflozin 10 mg tablet 10 mg PO DAILY #60 tabs 10/15/21 02/16/24 Rx (Jardiance) furosemide 40 mg tablet 40 mg PO BID #60 tabs 10/15/21 02/16/24 Rx spironolactone 25 mg tablet 25 mg PO QAM #30 tabs 10/15/21 02/16/24 Rx lisinopril 10 mg tablet 10 mg PO DAILY 12/19/21 02/16/24 History anastrozole 1 mg tablet 1 mg PO HS 05/08/22 02/16/24 History aspirin 81 mg tablet,delayed 81 mg PO DAILY 08/26/22 02/16/24 History release (Adult Low Dose Aspirin) omeprazole 40 mg capsule,delayed 40 mg PO DAILY 3 months #90 caps 02/14/24 02/16/24 Rx release atorvastatin 20 mg tablet 20 mg PO DAILY 02/16/24 02/16/24 History Allergies Allergy/AdvReac Type Severity Reaction Status Date / Time No Known Allergies Allergy Verified 12/29/23 11:22 Vital Signs Vital Signs - 24 hr 02/16/24 15:25 02/16/24 15:41 02/16/24 16:37 Temperature Pulse Rate 142 H 126 H Respiratory Rate 23 H Blood Pressure 137/97 H Pulse Oximetry 100 100 Oxygen Delivery Room Air Room Air 02/16/24 18:06 02/16/24 17:00 02/16/24 18:05 Temperature Pulse Rate 115 H 113 H 127 H Respiratory Rate 18 20 Blood Pressure 127/80 139/87 Pulse Oximetry 100 95 Oxygen Delivery 02/16/24 18:38 02/16/24 19:48 02/16/24 20:32 Temperature 36.6 C 36.7 C Pulse Rate 78 76 76 Respiratory Rate 16 16 16 Blood Pressure 103/84 113/73 Pulse Oximetry 100 100 100 Oxygen Delivery Room Air 02/16/24 21:23 02/16/24 21:30 02/16/24 21:35 Temperature Pulse Rate 143 H 132 H 132 H Respiratory Rate 16 Blood Pressure 114/59 L Pulse Oximetry 98 Oxygen Delivery 02/16/24 22:30 02/16/24 20:00 02/16/24 22:00 Temperature Pulse Rate 130 H 72 132 H Respiratory Rate Blood Pressure Pulse Oximetry Oxygen Delivery 02/16/24 23:06 02/16/24 23:00 02/16/24 23:50 Temperature Pulse Rate 123 H 82 123 H Respiratory Rate 25 H 25 H Blood Pressure Pulse Oximetry 97 97 Oxygen Delivery Autopap Autopap 02/17/24 00:00 02/17/24 00:23 02/17/24 00:24 Temperature 36.6 C Pulse Rate 120 H 126 H 125 H Respiratory Rate 20 Blood Pressure 94/61 L 96/54 L 96/54 L Pulse Oximetry 99 Oxygen Delivery 02/17/24 00:28 02/17/24 00:00 02/17/24 00:34 Temperature Pulse Rate 124 H 122 H 104 H Respiratory Rate 18 Blood Pressure 114/65 116/61 Pulse Oximetry 99 Oxygen Delivery 02/17/24 00:40 02/17/24 01:40 02/17/24 02:00 Temperature Pulse Rate 108 H 55 L 59 L Respiratory Rate Blood Pressure 116/61 105/58 L Pulse Oximetry Oxygen Delivery 02/17/24 03:25 02/17/24 03:45 02/17/24 04:00 Temperature Pulse Rate 89 89 56 L Respiratory Rate 23 H 23 H Blood Pressure Pulse Oximetry 96 96 Oxygen Delivery Autopap Autopap 02/17/24 06:00 02/17/24 04:00 02/17/24 08:11 Temperature 36.8 C 36.6 C Pulse Rate 66 68 71 Respiratory Rate 20 18 Blood Pressure 94/60 L 126/62 Pulse Oximetry 100 99 Oxygen Delivery 02/17/24 11:51 02/17/24 08:00 02/17/24 08:00 Temperature 36.4 C L Pulse Rate 81 76 Respiratory Rate 20 Blood Pressure 156/82 H Pulse Oximetry 94 Oxygen Delivery Autopap Exam Const: General: comfortable HENMT: Mouth: Yes moist mucous membranes Eyes: EOM: EOMs intact bilaterally Neck: Neck: no JVD Resp: Effort & Inspection: normal respiratory effort Auscultation: clear to auscultation bilaterally Cardio: Rate: tachycardic Rhythm: abnormal rhythm GI: GI Palp: Yes Soft to palpation Neuro: Speech: normal speech Psych: Affect: normal affect Results Labs and Meds 02/17/24 04:31 02/17/24 04:32 Lab results: Cardiac Enzymes 02/16/24 02/16/24 02/16/24 Range/Units 15:35 19:47 22:55 AST 38 H (14-36) U/L Troponin I 0.049 H* 0.050 H* 0.052 H* (0.000-0.034) ng/mL 02/17/24 02/17/24 Range/Units 04:32 12:26 AST 48 H (14-36) U/L Troponin I 0.055 H* 0.048 H* (0.000-0.034) ng/mL Coagulation 11/06/24 Range/Units 15:35 PT 14.4 (11.1-14.7) Seconds APTT 30.2 (22.3-36.8) Seconds CBC 02/16/24 02/17/24 Range/Units 15:35 04:31 WBC 7.3 6.7 (4.5-10.0) K/mm3 RBC 3.45 L 3.32 L (4.2-5.4) M/mm3 Hgb 10.6 L 10.0 L (12.0-15.0) g/dL Hct 32.6 L 32.0 L (37.0-47.0) % Plt Count 217 176 (150-375) k/mm3 Lymph # (Auto) 1.77 1.55 (0.9-3.2) K/mm3 [place] # (Auto) 0.6 0.6 (0.1-0.6) K/mm3 Eos # (Auto) 0.1 0.2 (0-0.3) K/mm3 Baso # (Auto) 0.0 0.0 (0.0-0.1) K/mm3 Comprehensive Metabolic Panel 02/16/24 02/17/24 02/17/24 Range/Units 15:35 04:32 04:32 Sodium 141 142 (137-145) mmol/L Potassium 4.0 3.7 3.8 (3.4-5.0) mmol/L Chloride 108 H 109 H (98-107) mmol/L Carbon Dioxide 23 22 (22-30) mmol/L BUN 31 H 35 H (7-17) mg/dL Creatinine 2.10 H 2.00 H (0.7-1.0) mg/dL Glucose 118 H 98 (65-110) mg/dL Calcium 9.3 9.1 (8.4-10.2) mg/dL AST 38 H 48 H (14-36) U/L ALT 22 26 (6-35) U/L Alkaline Phosphatase 94 79 (38-126) U/L Total Protein 8.0 7.0 (6.3-8.2) g/dL Albumin 4.6 3.9 (3.5-5.1) g/dL Intake and Output 02/16/24 02/17/24 02/17/24 23:59 07:59 15:59 Intake Total 355.3 480 Balance 355.3 480 Intake: IV 133.3 Amiodarone 150 mg/D5w 100 ml 100 150 mg In 100 ml @ 15 MG/MIN 600 mls/hr IV CONT .Q10M ONE Rx #:[id number] Amiodarone 360 mg/D5w 200 ml 33.3 360 mg In 200 ml @ 1 MG/MIN 33. 333 mls/hr IV CONT .Q6H ONE Rx# :[id number] Oral 222 480 Other: # Unmeasured Voids 2 Patient Weight 02/17/24 23:59 Weight 119.1 kg
[2024-02-17] MEDS: FUROSEMIDE INJ 40 MG/4 ML VIAL IV PUSH (18:42)
[2024-02-17] MEDS: ANASTROZOLE (*CHEMO) 1 MG TABLET PO (20:12)
[2024-02-17] MEDS: APIXABAN 5 MG TABLET PO (20:12)
[2024-02-17] MEDS: METOPROLOL TARTRATE 50 MG TAB PO (20:13)
[2024-02-18] VITALS (18 sets, daily range): BP systolic 108–141; BP diastolic 41–80; PULSE 61–80; RESP 16–24; TEMP 36.4–36.9; O2SAT 96–100
[2024-02-18] MEDS: LEVOTHYROXINE SODIUM 25 MCG TABLET PO (05:56)
[2024-02-18] MEDS: PANTOPRAZOLE 40 MG TABLET PO ×2 (08:23→20:33)
[2024-02-18] MEDS: ASPIRIN 81 MG ENTERIC TABLET PO (08:23)
[2024-02-18] MEDS: APIXABAN 5 MG TABLET PO ×2 (08:23→20:33)
[2024-02-18] MEDS: CHOLECALCIFEROL 1,000 UNITS TABLET 1000 UNITS PO (08:23)
[2024-02-18] MEDS: METOPROLOL TARTRATE 50 MG TAB PO (08:23)
[2024-02-18] MEDS: ATORVASTATIN 20 MG TABLET PO (08:23)
[2024-02-18] MEDS: FERROUS SULFATE 325 MG TABLET DR PO (08:24)
[2024-02-18] MEDS: EMPAGLIFLOZIN 10 MG TABLET PO (08:24)
[2024-02-18] MEDS: lisinopriL 10 MG TABLET PO (08:24)
[2024-02-18] MEDS: FUROSEMIDE INJ 40 MG/4 ML VIAL IV PUSH ×2 (08:24→16:40)
[2024-02-18] MEDS: SPIRONOLACTONE 25 MG TABLET PO (08:24)
[2024-02-18] MEDS: ACIDOPHILUS/BULGARICUS CHEWABLE TABLET 1 TABLET PO (08:24)
[2024-02-18] MEDS: guaiFENesin 12 HR 600 MG TABCR PO ×2 (08:24→20:33)
--- NOTE | 2024-02-18 11:11 | PM.PNCARD ---
Progress Note: A&P Assessment and Plan (1) CHF (congestive heart failure): Qualifiers: Heart failure chronicity: chronic Heart failure type: combined systolic and diastolic Qualified Code(s): I50.42 - Chronic combined systolic (congestive) and diastolic (congestive) heart failure Code(s): I50.9 - Heart failure, unspecified Status: Chronic (2) Essential (primary) hypertension: Code(s): I10 - Essential (primary) hypertension Status: Chronic (3) Elevated troponin: Code(s): R77.8 - Other specified abnormalities of plasma proteins Status: Acute (4) Atrial fibrillation: Qualifiers: Atrial fibrillation type: paroxysmal Qualified Code(s): I48.0 - Paroxysmal atrial fibrillation Code(s): I48.91 - Unspecified atrial fibrillation Status: Acute Plan 78-year-old woman with atrial fibrillation, hypertension, history of breast cancer status post lumpectomy and radiation, and sleep apnea with CPAP use presented with shortness of breath and palpitations Acute on chronic systolic heart failure (LVEF 35%) -repeat transthoracic echocardiogram -continue lisinopril 10 mg p.o. daily, spironolactone 25 mg, and Jardiance 10 mg p.o. daily -her Coreg has been switched over to metoprolol to allow better blood pressure tolerance and rate control. Will shift to ToprolXL in light of her cardiomyopathy -she had some shortness of breath last night and rec'd an additional dose of IV furosemide. Her lungs are clear this morning and she is breathing comfortably on room air. Will shift back to p.o. furosemide -heart failure event most likely driven by rapid ventricular rate which is controlled at this time -acute on chronic systolic heart failure and rapid ventricular rate most likely contributed to the troponin elevation Paroxysmal atrial fibrillation with rapid ventricular rate -Continue ToprolXL 100mg daily -she has converted to sinus rhythm -given her elevated chads Vasc score, would start Eliquis 5 mg p.o. b.i.d. Hypertension -blood pressure is at goal of less than 140 on current medications -continue lisinopril 10 mg p.o. daily, spironolactone 25 mg p.o. daily Subjective Date/time seen: 02/18/24 11:11 Interval history: Cardiology follow up for CHF, atrial fibrillation Date of service 02/18/2024: She had some shortness of breath last night and received an extra dose of IV furosemide. Today she denies any shortness of breath. Remains in sinus rhythm. Review of Systems Review of Systems: All systems reviewed & are unremarkable except as noted in HPI and below Exam Const: General: comfortable and no acute distress Orientation/consciousness: patient oriented x3 HENMT: Mouth: Yes moist mucous membranes Eyes: EOM: EOMs intact bilaterally Neck: Neck: no JVD Resp: Effort & Inspection: normal respiratory effort Auscultation: clear to auscultation bilaterally Cardio: Rate: regular rate Rhythm: regular rhythm and other (frequent PVC's) Neuro: Speech: normal speech Extrem: General: edema (chronic bilateral lymphedema lower extremities) Psych: Affect: normal affect Objective Data Vital Signs Vital Signs: Vital Signs - 24 hr 02/17/24 11:51 02/17/24 15:27 02/17/24 12:00 Temperature 36.4 C L 36.8 C Pulse Rate 81 70 78 Respiratory Rate 20 18 Blood Pressure 156/82 H 144/84 H Pulse Oximetry 94 100 Oxygen Delivery Oxygen Flow Rate 02/17/24 14:00 02/17/24 16:00 02/17/24 18:00 Temperature Pulse Rate 73 70 70 Respiratory Rate Blood Pressure Pulse Oximetry Oxygen Delivery Oxygen Flow Rate 02/17/24 19:50 02/17/24 20:00 02/17/24 20:13 Temperature 36.6 C Pulse Rate 70 72 79 Respiratory Rate 18 18 Blood Pressure 121/68 Pulse Oximetry 100 100 Oxygen Delivery Room Air Oxygen Flow Rate 02/17/24 20:00 02/17/24 21:58 02/17/24 23:58 Temperature Pulse Rate 71 59 L 73 Respiratory Rate 18 Blood Pressure Pulse Oximetry 100 Oxygen Delivery Room Air Oxygen Flow Rate 02/18/24 00:00 02/18/24 00:00 02/18/24 02:00 Temperature 36.6 C Pulse Rate 76 73 80 Respiratory Rate 20 Blood Pressure 132/65 Pulse Oximetry 100 Oxygen Delivery Oxygen Flow Rate 02/18/24 04:00 02/18/24 04:00 02/18/24 04:00 Temperature 36.6 C Pulse Rate 80 72 69 Respiratory Rate 20 20 Blood Pressure 141/61 H Pulse Oximetry 100 100 Oxygen Delivery Room Air Oxygen Flow Rate 02/17/24 23:10 02/17/24 23:15 02/18/24 03:25 Temperature Pulse Rate 73 70 Respiratory Rate 20 17 Blood Pressure Pulse Oximetry 100 100 100 Oxygen Delivery Nasal Cannula Autopap Autopap Oxygen Flow Rate 1 02/18/24 06:00 02/18/24 07:17 02/18/24 07:41 Temperature 36.8 C Pulse Rate 71 73 Respiratory Rate 16 Blood Pressure 139/80 Pulse Oximetry 98 Oxygen Delivery Room Air Oxygen Flow Rate 02/18/24 08:23 02/18/24 08:00 02/18/24 10:00 Temperature Pulse Rate 65 76 69 Respiratory Rate Blood Pressure Pulse Oximetry Oxygen Delivery Oxygen Flow Rate Intake/Output Intake/Output: Intake & Output 02/15/24 02/16/24 02/17/24 02/18/24 23:59 23:59 23:59 23:59 Intake Total 1355.3 640 Output Total 19990 Balance -644.7 -2560 Meds/Results Medications: Active Medications Generic Name Dose Route Start Last Admin Trade Name Freq PRN Reason Stop Dose Admin Acetaminophen 650 mg 02/16/24 17:30 Acetaminophen 325 Mg Tablet PO Q4H PRN Mild Pain (1-3) or Fever Anastrozole 1 mg 02/16/24 21:00 02/17/24 20:12 Anastrozole (*Chemo) 1 Mg Tablet PO 1 mg HS LISSY Administration Apixaban 5 mg 02/17/24 21:00 02/18/24 08:23 Apixaban 5 Mg Tablet PO 5 mg Q12HR LISSY Administration Aspirin 81 mg 02/17/24 09:00 02/18/24 08:23 Aspirin 81 Mg Enteric Tablet PO 81 mg DAILY LISSY Administration Atorvastatin Calcium 20 mg 02/17/24 09:00 02/18/24 08:23 Atorvastatin 20 Mg Tablet PO 20 mg DAILY LISSY Administration Empagliflozin 10 mg 02/17/24 09:00 02/18/24 08:24 Empagliflozin 10 Mg Tablet PO 10 mg DAILY LISSY Administration Ferrous Sulfate 325 mg 02/17/24 09:00 02/18/24 08:24 Ferrous Sulfate [address] PO 325 mg DAILY LISSY Administration Furosemide 40 mg 02/18/24 09:00 02/18/24 08:24 Furosemide Inj 40 Mg/4 Ml Vial IV PUSH 40 mg BID LISSY Administration Guaifenesin 600 mg 02/17/24 12:05 02/18/24 08:24 Guaifenesin 12 Hr 600 Mg Tabcr PO 02/22/24 12:04 600 mg Q12HR [facility] Administration Lactobacillus Acidophilus 1 tablet 02/17/24 09:00 02/18/24 08:24 Acidophilus/Bulgaricus Chewable Tablet PO 1 tablet DAILY [facility] Administration Levothyroxine Sodium 25 mcg 02/17/24 06:30 02/18/24 05:56 Levothyroxine Sodium 25 Mcg Tablet PO 25 mcg DAILY@0630 [facility] Administration Lisinopril 10 mg 02/17/24 09:00 02/18/24 08:24 Lisinopril 10 Mg Tablet PO 10 mg DAILY LISSY Administration Metoprolol Succinate 100 mg 02/19/24 09:00 Metoprolol Succinate Ext Rel 100 Mg Tabcr PO QAM [facility] Ondansetron HCl 4 mg 02/16/24 17:30 Ondansetron Inj 4 Mg/2 Ml Vial IV PUSH Q4H PRN Nausea Pantoprazole Sodium 40 mg 02/16/24 21:00 02/18/24 08:23 Pantoprazole 40 Mg Tablet PO 40 mg Q12HR [facility] Administration Perflutren Lipid Microsphere 0 ml 02/16/24 19:05 Perflutren Lipid Microspheres 1.5 Ml Vial Diluted To 10 Ml Total Volume IV PUSH 02/19/24 19:05 ONCE PRN adequate visualization Protocol Polyethylene Glycol 17 gm 02/17/24 09:40 02/18/24 08:24 Polyethylene Glycol 3350 17 Gm Powd.Pack [facility] Spironolactone 25 mg 02/17/24 09:00 02/18/24 08:24 Spironolactone 25 Mg Tablet PO 25 mg QAM [facility] Administration Vitamin D 1,000 units 02/17/24 09:00 02/18/24 08:23 Cholecalciferol 1,000 Units Tablet PO 1,000 units DAILY [facility] Administration Radiology Results: ITS Impressions Chest X-Ray 02/16/24 15:43 IMPRESSION: 1. Cardiomegaly. Labs Labs: Laboratory Results - last 24 hr 02/17/24 12:26 Troponin I 0.048 H* Quality VTE Prophylaxis VTE prophylaxis: pharmacologic ordered
--- NOTE | 2024-02-18 16:15 | P.PNIM_ITS ---
Progress Note: A&P Assessment and Plan (1) Atrial fibrillation: Qualifiers: Atrial fibrillation type: paroxysmal Qualified Code(s): I48.0 - Paroxysmal atrial fibrillation Code(s): I48.91 - Unspecified atrial fibrillation Status: Acute Assessment and Plan: - previous hx of same in 2021 - EKG, initial: AFib with RVR, left axis deviation, intraventricular conduction delay, delayed precordial RS transition, left ventricular hypertrophy with ST-T change. - Currently in SR. - Currently on Metoprolol 100 mg XR per cardiologisy. - Started on Eliquis 5 mg PO BID with high Chads Vasc score. - TSH WNL, - CHADSVasc: 5 (age, sex, CHF, HTN) - Continue telemetry monitoring. (2) Elevated troponin: Code(s): R77.8 - Other specified abnormalities of plasma proteins Status: Acute Assessment and Plan: - Troponin: 0.049 -> 0.050 -> 0.055->0.048 - Likely related to demand ischemia secondary to tachycardia. - no active chest pain or acute EKG changes. - Continue telemetry monitoring. - Continue to trend. (3) CHF (congestive heart failure): Qualifiers: Heart failure type: combined systolic and diastolic Heart failure chronicity: chronic Qualified Code(s): I50.42 - Chronic combined systolic (congestive) and diastolic (congestive) heart failure Code(s): I50.9 - Heart failure, unspecified Status: Chronic Assessment and Plan: - BNP 9010 - Last echo (09/2021): Severe global hypokinesis with akinesis of the inferior septal wall, visually estimated EF of 15-20% and measured at 22% with diastolic dysfunction present. Global longitudinal strain was significantly abnormal. Moderate pulmonary hypertension. - Repeat ECHO 02/17/24 showing LVEF 30-35%. - currently Spironolactone 25 mg daily and Lasix IV 40 mg b.i.d, Lisinopril 10 mg PO daily, and Jardiance 10 mg PO daily. - Continue to monitor I&Os and daily weights - trend renal function. -Cardiology following. (4) Chronic kidney disease, stage IV (severe): Code(s): N18.4 - Chronic kidney disease, stage 4 (severe) Status: Chronic Assessment and Plan: - creatinine stable baseline at 2.0 - hx of CKD stage 4, domenic Stacy MD - Continue to trend renal function - Continue to monitor closely with IV diuresis. (5) Normocytic anemia: Code(s): D64.9 - Anemia, unspecified Status: Chronic Assessment and Plan: - Possibly related to CKD. - Appears baseline. - Last Hgb 10.0 - monitor closely. (6) Essential (primary) hypertension: Code(s): I10 - Essential (primary) hypertension Status: Chronic Assessment and Plan: - BP well controlled. - Continue to monitor closely with diuresis. - continue home medications: Lisinopril 10 mg daily and Spironolactone 25 mg PO daily. Plan Diet: Heart healthy GI Prophylaxis: Not currently indicated DVT Prophylaxis: Eliquis Lines: Peripheral Code Status: Full code Time Spent With Patient Time with patient: 25 - 35 minutes Subjective Date/time seen: 02/18/24 10:45 Patient calm on bedrest and states she feels alright and has no SOB or chest pain. States she feels alright. Interval history: Patient presented with shortness of breath and palpitations. Her shortness of breath has been ongoing for the past few weeks now. She noticed a decline in her functional ability to perform physical activity at home secondary to shortness of breath. She also reported associated epigastric and mid back pain that she also associated with palpitations. Patient is being followed up by the Learning Disabilities Specialist and she's currently in SR after medication changes. She has also been started on Eliquis due to her high Chads Vasc score. Review of Systems Review of Systems: All systems reviewed & are unremarkable except as noted in HPI and below Exam Narrative: General: Well appearing, and in no acute distress on RA. HEENT: Atraumatic, PERRL, EOM, moist mucosa. Neck: Supple. Lungs: Clear bilaterally. Heart: Irregularly irregular, no murmurs. Abdomen: Soft, non-tender, obese, non-distended, +ve bowel sounds. Extremities: Trace edema janelle. LE. Skin: Warm and dry with no lesions. Neuro: Well oriented. No focal neuro deficits noted. Psych: Pleasant and co-operative. Objective Data Vital Signs Vital Signs: Vital Signs - 24 hr 02/17/24 18:00 02/17/24 19:50 02/17/24 20:00 Temperature 97.9 F Pulse Rate 70 70 72 Respiratory Rate 18 18 Blood Pressure 121/68 Pulse Oximetry 100 100 Oxygen Delivery Room Air Oxygen Flow Rate 02/17/24 20:13 02/17/24 20:00 02/17/24 21:58 Temperature Pulse Rate 79 71 59 L Respiratory Rate Blood Pressure Pulse Oximetry Oxygen Delivery Oxygen Flow Rate 02/17/24 23:58 02/18/24 00:00 02/18/24 00:00 Temperature 98 F Pulse Rate 73 76 73 Respiratory Rate 18 20 Blood Pressure 132/65 Pulse Oximetry 100 100 Oxygen Delivery Room Air Oxygen Flow Rate 02/18/24 02:00 02/18/24 04:00 02/18/24 04:00 Temperature 97.9 F Pulse Rate 80 80 72 Respiratory Rate 20 20 Blood Pressure 141/61 H Pulse Oximetry 100 100 Oxygen Delivery Room Air Oxygen Flow Rate 02/18/24 04:00 02/17/24 23:10 02/17/24 23:15 Temperature Pulse Rate 69 73 Respiratory Rate 20 Blood Pressure Pulse Oximetry 100 100 Oxygen Delivery Nasal Cannula Autopap Oxygen Flow Rate 1 02/18/24 03:25 02/18/24 06:00 02/18/24 07:17 Temperature Pulse Rate 70 71 Respiratory Rate 17 Blood Pressure Pulse Oximetry 100 Oxygen Delivery Autopap Room Air Oxygen Flow Rate 02/18/24 07:41 02/18/24 08:23 02/18/24 08:00 Temperature 98.3 F Pulse Rate 73 65 76 Respiratory Rate 16 Blood Pressure 139/80 Pulse Oximetry 98 Oxygen Delivery Oxygen Flow Rate 02/18/24 10:00 02/18/24 11:31 02/18/24 11:56 Temperature 98.5 F Pulse Rate 69 80 Respiratory Rate 16 Blood Pressure 137/67 Pulse Oximetry 96 Oxygen Delivery Room Air Oxygen Flow Rate 02/18/24 12:00 02/18/24 14:00 02/18/24 15:21 Temperature Pulse Rate 65 61 Respiratory Rate Blood Pressure Pulse Oximetry Oxygen Delivery Room Air Oxygen Flow Rate Intake/Output Intake/Output: Intake & Output 02/15/24 02/16/24 02/17/24 02/18/24 23:59 23:59 23:59 23:59 Intake Total 1355.3 880 Output Total 1999 9585 [facility]644.7 -3030 Meds/Results Medications: Active Medications Generic Name Dose Route Start Last Admin Trade Name Freq PRN Reason Stop Dose Admin Acetaminophen 650 mg 02/16/24 17:30 Acetaminophen 325 Mg Tablet PO Q4H PRN Mild Pain (1-3) or Fever Anastrozole 1 mg 02/16/24 21:00 02/17/24 20:12 Anastrozole (*Chemo) 1 Mg Tablet PO 1 mg HS LISSY Administration Apixaban 5 mg 02/17/24 21:00 02/18/24 08:23 Apixaban 5 Mg Tablet PO 5 mg Q12HR LISSY Administration Aspirin 81 mg 02/17/24 09:00 02/18/24 08:23 Aspirin 81 Mg Enteric Tablet PO 81 mg DAILY LISSY Administration Atorvastatin Calcium 20 mg 02/17/24 09:00 02/18/24 08:23 Atorvastatin 20 Mg Tablet PO 20 mg DAILY LISSY Administration Empagliflozin 10 mg 02/17/24 09:00 02/18/24 08:24 Empagliflozin 10 Mg Tablet PO 10 mg DAILY LISSY Administration Ferrous Sulfate 325 mg 02/17/24 09:00 02/18/24 08:24 Ferrous Sulfate [address] PO 325 mg DAILY LISSY Administration Furosemide 40 mg 02/18/24 09:00 02/18/24 08:24 Furosemide Inj 40 Mg/4 Ml Vial IV PUSH 40 mg BID LISSY Administration Guaifenesin 600 mg 02/17/24 12:05 02/18/24 08:24 Guaifenesin 12 Hr 600 Mg Tabcr PO 02/22/24 12:04 600 mg Q12HR LISSY Administration Lactobacillus Acidophilus 1 tablet 02/17/24 09:00 02/18/24 08:24 Acidophilus/Bulgaricus Chewable Tablet PO 1 tablet DAILY LISSY Administration Levothyroxine Sodium 25 mcg 02/17/24 06:30 02/18/24 05:56 Levothyroxine Sodium 25 Mcg Tablet PO 25 mcg DAILY@0630 LISSY Administration Lisinopril 10 mg 02/17/24 09:00 02/18/24 08:24 Lisinopril 10 Mg Tablet PO 10 mg DAILY LISSY Administration Metoprolol Succinate 100 mg 02/19/24 09:00 Metoprolol Succinate Ext Rel 100 Mg Tabcr PO QAM LISSY Ondansetron HCl 4 mg 02/16/24 17:30 Ondansetron Inj 4 Mg/2 Ml Vial IV PUSH Q4H PRN Nausea Pantoprazole Sodium 40 mg 02/16/24 21:00 02/18/24 08:23 Pantoprazole 40 Mg Tablet PO 40 mg Q12HR LISSY Administration Perflutren Lipid Microsphere 0 ml 02/16/24 19:05 Perflutren Lipid Microspheres 1.5 Ml Vial Diluted To 10 Ml Total Volume IV PUSH 02/19/24 19:05 ONCE PRN adequate visualization Protocol Polyethylene Glycol 17 gm 02/17/24 09:40 02/18/24 08:24 Polyethylene Glycol 3350 17 Gm Powd.Pack PO Not Given QAM [facility]IS[facility] Spironolactone 25 mg 02/17/24 09:00 02/18/24 08:24 Spironolactone 25 Mg Tablet PO 25 mg QAM LISSY Administration Vitamin D 1,000 units 02/17/24 09:00 02/18/24 08:23 Cholecalciferol 1,000 Units Tablet PO 1,000 units DAILY LISSY Administration Radiology Results: ITS Impressions Chest X-Ray 02/16/24 15:43 IMPRESSION: 1. Cardiomegaly. Quality VTE Prophylaxis VTE prophylaxis: pharmacologic ordered Hospitalist [facility] Advance Care Plan I have confirmed that the patient's Advanced Care Plan is present, code status is documented, or surrogate decision maker is listed in patient medical record.: Yes Medication Reconciliation I have utilized all available resources to obtain, update and review the patients current medications (includes all prescriptions, OTC, herbals, cannabis, and nutritional supplements).: Yes
[2024-02-18] MEDS: ANASTROZOLE (*CHEMO) 1 MG TABLET PO (20:33)
[2024-02-19] VITALS (14 sets, daily range): BP systolic 111–140; BP diastolic 43–69; PULSE 59–74; RESP 18–22; TEMP 36.5–36.7; O2SAT 97–100
[2024-02-19 05:03] LABS: Potassium 3.6 mmol/L (3.4-5.0)
[2024-02-19] MEDS: LEVOTHYROXINE SODIUM 25 MCG TABLET PO (06:43)
[2024-02-19] MEDS: PANTOPRAZOLE 40 MG TABLET PO (09:04)
[2024-02-19] MEDS: CHOLECALCIFEROL 1,000 UNITS TABLET 1000 UNITS PO (09:04)
[2024-02-19] MEDS: ACIDOPHILUS/BULGARICUS CHEWABLE TABLET 1 TABLET PO (09:05)
[2024-02-19] MEDS: EMPAGLIFLOZIN 10 MG TABLET PO (09:05)
[2024-02-19] MEDS: APIXABAN 5 MG TABLET PO (09:05)
[2024-02-19] MEDS: METOPROLOL SUCCINATE EXT REL 100 MG TABCR PO (09:05)
[2024-02-19] MEDS: SPIRONOLACTONE 25 MG TABLET PO (09:05)
[2024-02-19] MEDS: ATORVASTATIN 20 MG TABLET PO (09:05)
[2024-02-19] MEDS: ASPIRIN 81 MG ENTERIC TABLET PO (09:06)
[2024-02-19] MEDS: FERROUS SULFATE 325 MG TABLET DR PO (09:06)
[2024-02-19] MEDS: lisinopriL 10 MG TABLET PO (09:06)
[2024-02-19] MEDS: FUROSEMIDE INJ 40 MG/4 ML VIAL IV PUSH (09:07)
[2024-02-19] MEDS: polyethylene glycoL 3350 17 GM POWD.PACK PO (09:08)
--- NOTE | 2024-02-19 16:15 | P.DS_ITS ---
DS: Admitting Diagnosis Discharge Date 02/19/2024 Admitting Diagnosis Shortness of Breath DS: Discharge Diagnosis Discharge Diagnosis (1) Atrial fibrillation: Qualifiers: Atrial fibrillation type: paroxysmal Qualified Code(s): I48.0 - Paroxysmal atrial fibrillation Code(s): I48.91 - Unspecified atrial fibrillation Status: Acute Assessment and Plan: - EKG, initial: AFib with RVR, Left ventricular hypertrophy with ST-T wave changes. - Started on Metoprolol for rate control and Coreg discontinued. - Started on Eliquis for anticoagulation with patient's high Chads Vasc Score. - Repeat EKG day 2: SR with Occasional Ventricular Premature Complexes, ATRIAL FIBRILLATION NO LONGER PRESENT. - Maintained SR on tele throughout her hospital stay thereafter. - TSH WNL, - CHADSVasc: 5 (age, sex, CHF, HTN) - No chest pain or SOB prior to discharge. (2) Elevated troponin: Code(s): R77.8 - Other specified abnormalities of plasma proteins Status: Acute Assessment and Plan: - Troponin: 0.049 -> 0.050 -> 0.055->0.048 - Likely related to demand ischemia secondary to A-Fib RVR. - no active chest pain or ischemic EKG changes. - No further work-up needed. (3) CHF (congestive heart failure): Qualifiers: Heart failure chronicity: chronic Heart failure type: combined systolic and diastolic Qualified Code(s): I50.42 - Chronic combined systolic (congestive) and diastolic (congestive) heart failure Code(s): I50.9 - Heart failure, unspecified Status: Chronic Assessment and Plan: - BNP 9010 - Last echo (09/2021): Severe global hypokinesis with akinesis of the inferior septal wall, visually estimated EF of 15-20% and measured at 22% with diastolic dysfunction present. Global longitudinal strain was significantly abnormal. Moderate pulmonary hypertension. - Repeat ECHO 02/17/24 showing LVEF 30-35%, with Severe Mitral Valve Regurgitation and Moderate Tricuspid Valve Regurgitation. - Patient diuresed with IV lasix 40 mg BID, and good urine output noted. - Restarted on Spironolactone 25 mg daily and Lasix IV 40 mg PO b.i.d, Lisinopril 10 mg PO daily, Jardiance 10 mg PO daily before discharge. -Cardiology assisted in stabilizing patient. (4) Chronic kidney disease, stage IV (severe): Code(s): N18.4 - Chronic kidney disease, stage 4 (severe) Status: Chronic Assessment and Plan: - creatinine remained stable at baseline at 2.0 during her hospital stay. - hx of CKD stage 4 and domenic Stacy MD - Continue to f/u with assistant restaurant general manager outpatient. (5) Normocytic anemia: Code(s): D64.9 - Anemia, unspecified Status: Chronic Assessment and Plan: - Possibly related to CKD. - Hgb remained baseline inpatient. (6) Essential (primary) hypertension: Code(s): I10 - Essential (primary) hypertension Status: Chronic Assessment and Plan: - BP well controlled inpatient and home medications resumed prior to discharge. - Coreg was discontinued and patient started on Metoprolol XL 100 mg. - Resume home medications: Lisinopril 10 mg daily and Spironolactone 25 mg PO daily. Plan Discharge Home on Self Care. DS: Summary Hospital Course Reason for hospitalization: Shortness of Breath Hospital Course: Patient presented to the ER with reports of worsening SOB within the last couple of days before her presentation. Patient reported being unable to perform her regular tasks at home due to the SOB. Patient has a Hx of Paroxysmal A-Fib and was noted to be in A-Fib RVR on EKG. She was also noted to be in acute on chronic HFrER, with a BNP of 9010, likely due to the A-Fib RVR. Patient was admitted for stabilization of her symptoms. She was initially placed on Amiodarone drip and converted to SR. Cardiology was consulted to assist in stabilizing the patient. Patient's Coreg was discontinued and she was started on Metoprolol ER for better BP and heart rate control. Patient was also started on Eliquis for anticoagulation due to her high Chads Vasc score. She was diuresed with IV lasix and had good urine output, patient being placed back on her previous oral lasix regimen prior to discharge. Her renal function remained stable inpatient, with all her other chronic conditions remaining stable inpatient. Patient was cleared for discharge by the automotive tire testing supervisor who will continue to f/u with her outpatient. Patient did not have any cardiopulmonary symptoms noted or reported prior to discharge. Her SOB resolved prior to discharge, including during activity, which she tolerated well on RA without SOB. Patient medically stable for discharge with no acute distress noted or reported prior to discharge. Status at Discharge Functional status at discharge: independent ambulation Overall status at discharge: patient is progressing back to baseline Time Spent with Patient Time attestation: Total time spent providing and/or coordinating discharge services: Time spent: Greater than 30 minutes Exam Narrative: General: Well appearing, and in no acute distress on RA. HEENT: Atraumatic, PERRL, EOM, moist mucosa. Neck: Supple. Lungs: Clear bilaterally. Heart: Irregularly irregular, no murmurs. Abdomen: Soft, non-tender, obese, non-distended, +ve bowel sounds. Extremities: Trace edema janelle. LE. Skin: Warm and dry with no lesions. Neuro: Well oriented. No focal neuro deficits noted. Psych: Pleasant and co-operative. DS: Data Data Completed and Pending Labs on day of discharge: Labs from last 24 hours 02/19/24 04:35 Potassium 3.6 Discharge Plan Discharge Attending physician on discharge: Florentin Mg Consulting providers: Jt Negrete; Ruben Grullon Discharging Clinician: Antoinette Welch Anticipated Discharge Date/Time: 02/19/24 16:21 Patient Disposition: Home, Self-Care Activity: as tolerated Diet: heart healthy Patient Instructions: Antibiotic Form, Heart Failure (DC) Stand Alone Forms: General Discharge Information Follow-up/Referrals: Jt Negrete MD [Physician] - 2 Weeks Felix Adame MD [Primary Care Provider] - 1 Week Discharge Medications: New metoprolol succinate [Toprol XL] 100 mg Tablet Extended Release 24 Hr 100 mg PO QAM Qty: 30 0RF Eliquis 5 mg Tablet 5 mg PO Q12HR Qty: 60 0RF Continued aspirin [Adult Low Dose Aspirin] 81 mg tablet,delayed release (DR/EC) 81 mg PO DAILY lisinopril 10 mg Tablet 10 mg PO DAILY anastrozole 1 mg tablet 1 mg PO HS levothyroxine 25 mcg tablet 25 mcg PO QAM Rx Instructions: Take 1 tablet by mouth once daily ferrous sulfate 325 mg (65 mg iron) Tablet 325 mg PO DAILY Jardiance 10 mg Tablet 10 mg PO DAILY Qty: 60 2RF furosemide 40 mg Tablet 40 mg PO BID Qty: 60 2RF spironolactone 25 mg Tablet 25 mg PO QAM Qty: 30 2RF atorvastatin 20 mg tablet 20 mg PO DAILY Dialyvite Chewable Probiotic 10 billion cell tablet,chewable 1 tablet PO DAILY Qty: 30 0RF cholecalciferol (vitamin D3) [Vitamin D3] 25 mcg (1,000 unit) capsule 25 mcg PO DAILY Qty: 30 0RF omeprazole 40 mg capsule,delayed release(DR/EC) 40 mg PO DAILY 90 Days Qty: 90 3RF Discontinued carvedilol [Coreg] 6.25 mg Tablet 6.25 mg PO Q12HR Qty: 60 2RF Date of admission: 02/17/24 16:14 Primary Care Provider: Felix Adame Admitting Provider: Parish Espinosa Attending physician on admission: Parish Espinosa Condition: Stable Quality VTE Prophylaxis VTE prophylaxis: pharmacologic ordered Hospitalist MIPS Heart Failure (Exclusion) Patient has history of Heart Transplant or Left Ventricular Assistive Device?: No IF YES, STOP HERE Heart Failure (Qualifier) Patient has current or prior documentation of LVEF less than or equal to 40%, or mod/servere depressed LVSF?: Yes IF NO, STOP HERE If Yes, Heart Failure (Qualifier) Patient was prescribed or already taking an Angiotensin-Converting Enzyme (ZHEN) Inhibitor, or Antiotensin Receptor Cirilo (ARB): Yes Patient was prescribed or already taking bisoprolol, carvedilol, or sustained release metoprolol succinate: Yes
== END 2024-02-19 16:15 | disposition home or self-care (01) | DRG 308 ==
LOC: ANHED 15:49 → ANHIMU 17:46
PROVIDERS: Nurse Practitioner Family; Student in an Organized Health Care Education/Training Program; Admitting Provider General Practice; Emergency Provider Student in an Organized Health Care Education/Training Program; PCP Family Medicine; Visit Provider Nurse Practitioner Adult Health
DX: I48.0 Paroxysmal atrial fibrillation (principal); I50.43 Acute on chronic combined systolic (congestive) and diastolic (congestive) heart failure; I13.0 Hypertensive heart and chronic kidney disease with heart failure and stage 1 through stage 4 chronic kidney disease, or unspecified chronic kidney disease; N18.4 Chronic kidney disease, stage 4 (severe); D63.1 Anemia in chronic kidney disease; E78.5 Hyperlipidemia, unspecified; E03.9 Hypothyroidism, unspecified; E55.9 Vitamin D deficiency, unspecified; G47.33 Obstructive sleep apnea (adult) (pediatric); I27.20 Pulmonary hypertension, unspecified; J45.909 Unspecified asthma, uncomplicated; K21.9 Gastro-esophageal reflux disease without esophagitis; Z79.82 Long term (current) use of aspirin; Z79.84 Long term (current) use of oral hypoglycemic drugs; Z87.891 Personal history of nicotine dependence; Z85.3 Personal history of malignant neoplasm of breast; Z92.3 Personal history of irradiation; Z99.89 Dependence on other enabling machines and devices; Z86.718 Personal history of other venous thrombosis and embolism
CPT/HCPCS: 36415; 71046; 80053; 83690; 83735; 83880; 84132; 84443; 84484; 85025; 85610; 85730; 93005; 93306; 96365; 96372; 96375; 96376; 99285; A9270; G0378; J0282; J1650; J1940; J7040; Q5106

== ENCOUNTER 2024-03-08 13:07 | Outpatient (CLI) | payer MEDICARE, SELFPAY ==
[2024-03-08 13:25] LABS: Basophils Percent Auto 0.5 % (0.2-1.2); Eosinophils Absolute Auto 0.1 K/mm3 (0-0.3); Eosinophils Percent Auto 1.8 % (0-4.4); Hematocrit 33.3 % (37.0-47.0); Hemoglobin 10.6 g/dL (12.0-15.0); Immature Granulocyte Absolute 0.02 K/mm3 (0.00-0.031); Immature Granulocyte Percent A 0.3 % (0-0.5); Lymphocytes Percent Auto 23.9 % (18.3-44.2); Mean Corpuscular HGB Conc 31.8 g/dl (32-36); Mean Corpuscular Hemoglobin 30.5 pg (26-34); Mean Corpuscular Volume 95.7 fl (80-100); Mean Platelet Volume 11.7 fl (7.4-10.4); Monocytes Absolute Auto 0.4 K/mm3 (0.1-0.6); Monocytes Percent Auto 6.4 % (2.6-8.5); Neutrophils Absolute Auto 4.2 K/mm3 (1.3-6.7); Neutrophils Percent Auto 67.1 % (45.5-73.1); Platelet Count Result 190 k/mm3 (150-375); Red Blood Count 3.48 M/mm3 (4.2-5.4); Red Cell Distribution Width 13.3 % (11.5-14.5); White Blood Count 6.3 K/mm3 (4.5-10.0)
[2024-03-08 16:16] LABS: Anion Gap 7 mmol/L (4-12); Blood Urea Nitrogen 61 mg/dL (7-17); Calcium 9.2 mg/dL (8.4-10.2); Carbon Dioxide 24 mmol/L (22-30); Chloride 107 mmol/L (98-107); Estimated Glomerular Filt Rate 24; Glucose 88 mg/dL (65-110); Potassium 4.4 mmol/L (3.4-5.0); Sodium 138 mmol/L (137-145)
[2024-03-08 16:35] LABS: Iron 86 ug/dL (37-170)
[2024-03-08 16:45] LABS: Percent Iron Saturation 30 % (20-50)
== END 2024-03-08 13:08 | disposition home or self-care (01) ==
LOC: ANHLAB 13:08
PROVIDERS: PCP Family Medicine; Visit Provider Internal Medicine Hematology & Oncology
DX: D64.9 Anemia, unspecified (principal)
CPT/HCPCS: 36415; 80048; 82728; 83540; 83550; 85025

== ENCOUNTER 2024-04-14 13:50 | Outpatient (CLI) | payer MEDICARE, SELFPAY ==
[2024-04-14 16:24] LABS: Total Triiodothyronine (T3) 0.83 NG/ML (0.97-1.69)
[2024-04-14 16:46] LABS: Free T4 Free Thyroxine 1.54 ng/dL (0.78-2.19)
== END 2024-04-14 13:51 | disposition home or self-care (01) ==
LOC: ANHLAB 13:51
PROVIDERS: PCP Family Medicine; Visit Provider Family Medicine
DX: E03.9 Hypothyroidism, unspecified (principal)
CPT/HCPCS: 36415; 84439; 84443; 84480; 85025

== ENCOUNTER 2024-04-20 13:32 | Outpatient (CLI) | payer MEDICARE, SELFPAY ==
[2024-04-20 14:20] LABS: Albumin Level 4.3 g/dL (3.5-5.1); Anion Gap 11 mmol/L (4-12); Blood Urea Nitrogen 61 mg/dL (7-17); Carbon Dioxide 21 mmol/L (22-30); Chloride 102 mmol/L (98-107); Estimated Glomerular Filt Rate 25; Glucose 88 mg/dL (65-110); Phosphorus 3.9 mg/dL (2.5-4.5); Sodium 134 mmol/L (137-145)
[2024-04-20 15:22] LABS: Creatinine Urine 43.7 mg/dL; Total Protein Urine Random 13 mg/dL
== END 2024-04-20 13:33 | disposition home or self-care (01) ==
PROVIDERS: PCP Family Medicine; Visit Provider Internal Medicine Nephrology
DX: I12.9 Hypertensive chronic kidney disease with stage 1 through stage 4 chronic kidney disease, or unspecified chronic kidney disease (principal); N18.32 Chronic kidney disease, stage 3b
CPT/HCPCS: 36415; 80069; 82570; 84156

== ENCOUNTER 2024-05-30 09:23 | Outpatient (CLI) | payer MEDICARE, SELFPAY ==
--- OUTSIDE RECORDS SUMMARY | 2024-05-30 09:33 | XMS_ITS | Clinical Summary ---
Author Organization [facility] [address] [place] [address] Address [address] [place] [address] Care Team Providers Care Health Equipment Servicer Name Role Phone Felix Adame MD Primary Care Provider [phone] Allergies No known active allergies Medications levothyroxine (SYNTHROID, LEVOTHROID) 25 mcg tablet 11/03/19 17 Active omeprazole (PriLOSEC) 40 mg capsule 10/08/19 17 Active anastrozole (ARIMIDEX) 1 mg tablet Take 1 tablet (1 mg total) by mouth daily 09/23/19 22 Active B complex 16-myfis-B-bio t-zinc (Dialyvite) [id number] nv-fb-xvg-mg tablet Take by mouth Active cholecalcifero l (VITAMIN D-3) 25 mcg (1,000 unit) tablet Take 1 tablet (1,000 Units total) by mouth daily Active ferrous sulfate 325 mg (65 mg of elemental iron) tabletIndicati ons:Iron Deficiency Anemia Take 1 tablet (325 mg total) by mouth daily with breakfast Active lisinopriL (PRINIVIL,ZEST RIL) 10 mg tablet Take 1 tablet (10 mg total) by mouth daily 06/04/19 23 Active Jardiance 10 mg tablet Take 1 tablet (10 mg total) by mouth daily 30 tablet 2 04/21/19 24 Active metoprolol XL (TOPROL-XL) 100 mg 24 hr tablet Take 1 tablet (100 mg total) by mouth every morning 03/20/20 24 Active apixaban (ELIQUIS) 5 mg tablet Take 1 tablet (5 mg total) by mouth 2 (two) times a day Active atorvastatin (LIPITOR) 20 mg tablet Take 1 tablet (20 mg total) by mouth daily 03/03/20 24 Active spironolactone (ALDACTONE) 25 mg tablet Take 1 tablet by mouth once daily 90 tablet 05/29/19 25 Active furosemide (LASIX) 40 mg tablet Take 1 tablet by mouth twice daily 180 tablet 05/29/19 25 Active furosemide (LASIX) 40 mg tablet Take 1 tablet by mouth twice daily 180 tablet 02/28/20 24 025 Discontinued spironolactone (ALDACTONE) 25 mg tablet Take 1 tablet by mouth once daily 90 tablet 02/28/20 24 025 Discontinued Active Problems Problem Noted Date Diagnosed Date Dilated cardiomyopathy (CMS/HCC) 10/31/2021 DVT (deep venous thrombosis) (CMS/[facility]) Arthritis of both knees 10/06/2016 BMI 45.0-49.9, adult 10/06/2016 Morbid obesity due to excess calories 10/06/2016 Encounters Date Type Department Care Team Description 04/25/2024 2:30 PM CARTOONIST SPECIAL EFFECTS Office Visit [facility] Medical Group Cardiology [address] [facility] [address] [place] [phone] Richie Schneider MD Dilated cardiomyopathy (CMS/HCC) ([facility]) (Primary Dx) 04/18/2024 Telephone [facility] Medical Group Cardiology [address] [facility] [address] [place] [address] Malaika Wallace MA Reschedule from Last 3 Months Medical History Medical History Date Comments Hypertension Thyroid disease Anemia Family History Medical History Relation Name Comments Hypertension Neg Hx Social History Tobacco Use Types Packs/Day Years Used Date Smoking Tobacco: Former Tobacco Cessation:Counseling Given: Not Answered Alcohol Use Standard Drinks/Week Comments No 0 (1 standard drink = 0.6 oz pur e alcohol) Comments Unknown Sex and Gender Information Value Date Recorded Sex Assigned at Not on file Legal Sex Female 9:46 AM CDT Gender Identity Not on file Sexual Orientation Not on file Obstetrics History Last Filed Vital Signs Vital Sign Reading Time Taken Comments Blood Pressure 136/80 04/25/2024 2:37 PM CARTOONIST SPECIAL EFFECTS Pulse 57 04/25/2024 2:37 PM CARTOONIST SPECIAL EFFECTS Temperature - - Respiratory Rate - - Oxygen Saturation 96% 04/25/2024 2:37 PM CARTOONIST SPECIAL EFFECTS Inhaled Oxygen Concentration - - Weight 114 kg (251 lb 4.8 oz) 04/25/2024 2:37 PM CARTOONIST SPECIAL EFFECTS Height 170.2 cm (5' 7 ) 04/25/2024 2:37 PM CARTOONIST SPECIAL EFFECTS Body Mass Index 39.36 04/25/2024 2:37 PM CARTOONIST SPECIAL EFFECTS Plan of Treatment Health Maintenance Due Date Last Done Comments Depression Screening 1945 Fall Risk Assessment 1945 Hepatitis C Screening 1945 Osteoporosis Screening-Bone Density Scan 1945 DTaP/Tdap/Td Vaccine (1 - Tdap) 11/29/1958 Hepatitis B Screening 11/29/1965 Pneumococcal vaccine 65+ (1 of 2 - PCV) 11/29/1966 Zoster Vaccine (1 of 2) 11/29/1966 Well Visit 65+ 11/29/2012 Covid-19 Vaccine (5 - 2023-2 5 season) 2023 09/23/2021, 02/24/2021, 07/05/2020, Additional history exists Influenza Vaccine (#1) 2023 Insurance MEDICARE MEDICARE [facility] MEDICARE SUPPLEMENT Care Teams Health Equipment Servicer Relationship Specialty Start Date End Date Felix Adame MD PCP - General Family Medicine 04/08/23
--- OUTSIDE RECORDS SUMMARY | 2024-05-30 09:33 | XMS_ITS | Clinical Summary ---
Author Organization [facility] Address [address] [place] [phone] Phone Care Team Providers Care School Inspector Name Role Phone Felix Adame MD Primary Care Provider Allergies No known active allergies Medications Medication Sig Dispensed Refills Start Date End Date Status albuterol HFA (PROVENTIL HFA) 108 (90 Base) MCG/ACT inhaler INHALE 2 PUFFS BY MOUTH EVERY 4 TO 6 HOURS FOR DYSPNEA 09/16/2021 Active anastrozole (ARIMIDEX) 1 MG chemo tablet Take 1 mg by mouth 1 (one) time each day 09/22/2021 Active Eliquis 5 MG tablet 11/13/2021 Activ e B Zbwzcnt-P-Ym-Folic Acid (Dialyvite/Zinc) tablet Take by mouth Active carvedilol (COREG) 6.25 MG tablet 11/13/2021 Active Jardiance 10 MG tablet Take 1 tablet by mouth 1 (one) time each day 10/15/2021 Active furosemide (LASIX) 40 MG tablet 11/13/2021 Active Euthyrox 25 MCG tablet Take 25 mcg by mouth 1 (one) time each day 10/06/2021 Active lisinopril (PRINIVIL) 5 MG tablet TAKE 1 TABLET BY MOUTH ONCE DAILY IN THE MORNING 11/09/2021 Active omeprazole (PriLOSEC) [address] capsule TAKE 1 CAPSULE BY MOUTH TWICE DAILY FOR 8 WEEKS 11/12/2021 Active spironolactone (ALDACTONE) 25 MG tablet TAKE 1 TABLET BY MOUTH ONCE DAILY IN THE MORNING 11/09/2021 Active Active Problems Problem Noted Date Diagnosed Date Deep venous thrombosis 10/31/2021 Dilated cardiomyopathy 10/31/2021 Chronic anemia 04/21/2021 Chronic idiopathic constipation 08/06/2020 Esophageal dysmotility 08/06/2020 Gastroesophageal reflux disease 08/06/2020 Hiatal hernia 08/06/2020 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/2020 Bilateral arthritis of knees 10/06/2016 Body mass index 40+ - severely obese 10/06/2016 Morbid obesity 10/06/2016 Family History Medical History Relation Comments Diabetes mellitus Mother Relation Status Comments Mother Social History Tobacco Use Types Packs/Day Years Used Date Smoking Tobacco: Former Cigarettes 0.5 7 Smokeless Tobacco: Never Alcohol Use Standard Drinks/Week Comments Not Currently 0 (1 standard drink = 0.6 oz pur e alcohol) Sex and Gender Information Value Date Recorded Sex Assigned at Not on file Gender Identity Not on file Sexual Orientation Not on file Last Filed Vital Signs Vital Sign Reading Time Taken Comments Blood Pressure 108/64 11/20/2021 9:28 AM CDT Pulse - - Temperature 36.1 C (97 F) 11/20/2021 9:28 AM CDT Respiratory Rate 18 11/20/2021 9:28 AM CDT Oxygen Saturation - - Inhaled Oxygen Concentration - - Weight 112 kg (248 lb) 11/20/2021 9:28 AM CDT Height 167.6 cm (5' 6 ) 11/20/2021 9:28 AM CDT Body Mass Index 40.03 11/20/2021 9:28 AM CDT Plan of Treatment Health Maintenance Due Date Last Done Comments Pneumococcal PPSV23/PCV13 65 + Years / Low and Medium Risk (1 of 4 - PCV) 11/29/2012 COVID-19 Vaccine ( season) 2023 02/24/2021, 07/05/2020, 06/14/2020 Influenza Vaccine (#1) 2023 Care Teams School Inspector Relationship Specialty Start Date End Date Felix Adame MD [address] [place] [address] PCP - General Internal Medicine 10/28/21
--- OUTSIDE RECORDS SUMMARY | 2024-05-30 09:33 | XMS_ITS | Encounter Summary ---
Author Organization [facility] Healthcare Address [address] [place] [address] Care Team Providers Care Fence Machine Operator Name Role Phone Pedro Castro MD Primary Care Provider [phone] Felix Adame MD Primary Care Provider [phone] Encounter Details Date Type Department Care Team (Late st Contact Info) Description 03/24/2021 Telephone [facility] Transplant Heart [address] [address] [address] [phone] [place] [address] Jaye Cummins Social History Tobacco Use Types Packs/Day Years Used Date Smoking Tobacco: Former Alcohol Use Standard Drinks/Week Comments No 0 (1 standard drink = 0.6 oz pur e alcohol) Comments Unknown Sex and Gender Information Value Date Recorded Sex Assigned at Not on file Legal Sex Female 9:46 AM CDT Gender Identity Not on file Sexual Orientation Not on file documented as of this encounter Plan of Treatment Not on file documented as of this encounter Visit Diagnoses Not on filedocumented in this encounter Care Teams Fence Machine Operator Relationship Specialty Start Date End Date Pedro Castro MD [address] [place] [address] PCP - General Family Practice 08/03/18 10/30/21 Felix Adame MD [address] [place] [address] PCP - General Family Medicine 04/08/23 documented as of this encounter
--- OUTSIDE RECORDS SUMMARY | 2024-05-30 09:33 | XMS_ITS | Referral Summary ---
Author Organization [address] Address [address] [place] [phone] Care Team Providers Care Mammal Keeper Name Role Phone Felix Adame MD Primary Care Provider Encounters Date Type Department Care Team Description 04/25/2024 2:30 PM TOOL ROOM LATHE OPERATOR Office Visit [facility] Medical Group Cardiology [address] [place] [phone] Richie Schneider MD Dilated cardiomyopathy (CMS/HCC) (HCC) (Primary Dx) 04/18/2024 Telephone [facility] Medical [facility] Cardiology [address] [place] [address] Malaika Wallace MA Reschedule from Last 3 Months Allergies No known active allergies Medications levothyroxine (SYNTHROID, LEVOTHROID) 25 mcg tablet 11/03/19 17 Active omeprazole (PriLOSEC) 40 mg capsule 10/08/19 17 Active anastrozole (ARIMIDEX) 1 mg tablet Take 1 tablet (1 mg total) by mouth daily 09/23/19 22 Active B complex 98-zxkhr-U-bio t-zinc (Dialyvite) [id number] tt-kp-tfj-mg tablet Take by mouth Active cholecalcifero l [...] Problem Noted Date Diagnosed Date Dilated cardiomyopathy ([facility]) 10/31/2021 DVT (deep venous thrombosis) ([facility]) Arthritis of both knees 10/06/2016 BMI 45.0-49.9, adult 10/06/2016 Morbid obesity due to excess calories 10/06/2016 Social History Tobacco Use Types Packs/Day Years [...] Comments Blood Pressure 136/80 04/25/2024 2:37 PM TOOL ROOM LATHE OPERATOR Pulse 57 04/25/2024 2:37 PM TOOL ROOM LATHE OPERATOR Temperature - - Respiratory Rate - - Oxygen Saturation 96% 04/25/2024 2:37 PM TOOL ROOM LATHE OPERATOR Inhaled Oxygen Concentration - - Weight 114 kg (251 lb 4.8 oz) 04/25/2024 2:37 PM TOOL ROOM LATHE OPERATOR Height 170.2 cm (5' 7 ) 04/25/2024 2:37 PM TOOL ROOM LATHE OPERATOR Body Mass Index 39.36 04/25/2024 2:37 PM TOOL ROOM LATHE OPERATOR Plan of Treatment Not on file Insurance MEDICARE MEDICARE [facility] MEDICARE SUPPLEMENT Care Teams Mammal Keeper Relationship Specialty Start Date End Date Felix Adame MD PCP - General Family Medicine 04/08/23
--- OUTSIDE RECORDS SUMMARY | 2024-05-30 09:33 | XMS_ITS | Encounter Summary ---
Author Organization [employer] Address [address] [place] [address] Care Team Providers Care Fourdrinier Machine Operator Name Role Phone Felix Adame MD Primary Care Provider [phone] Encounter Details Date Type Department Care Team (Late st Contact Info) Description 07/16/2020 Chart Note [facility] Radiation Therapy [address] [place] [address] [place] [address] [place] [address] Social History Tobacco Use Types Packs/Day Years Used Date Smoking Tobacco: Former Cigarettes Comments:quit over 40 years ago only smoked for about 5 years Alcohol Use Standard Drinks/Week Comments Not Currently 0 (1 standard drink = 0.6 oz pure alcohol) maybe once in a while not very often Feeling Safe Answer Date Recorded Within the last year, have y ou been afraid of your partner or ex-partner? No 06/17/2020 Within the last year, have y ou been humiliated or emotionally abused in other ways by your partner or ex-partner? No Within the last year, have y ou been kicked, hit, slapped, or otherwise physically hurt by your partner or ex-partner? No 06/17/2020 Within the last year, have y ou been raped or forced to have any kind of sexual activity by your partner or ex-partner? No 06/17/2020 Social Connections Answer Date Recorded In a typical week, how many times do you talk on the phone with family, friends, or neighbors? More than three times a week 06/17/2020 Frequency of Social Gatherin gs with Friends and Family Not on file 06/17/2020 How often do you attend chur ch or zoroastrianism services? Never 06/17/2020 Do you belong to any clubs o r organizations such as amish groups, unions, fraternal or athletic groups, or school groups? No 06/17/2020 How often do you attend meet ings of the clubs or organizations you belong to? Never 06/17/2020 Are you , , di vorced, , never , or living with a partner? Never 06/17/2020 Financial Resource Strain Answer Date R ecorded How hard is it for you to pa y for the very basics like food, housing, medical care, and heating? Not very hard 06/17/2020 Food Insecurity Answer Date Recorded Within the past 12 months, y ou worried that your food would run out before you got the money to buy more. Never true 06/18/19 21 Within the past 12 months, t he food you bought just didn't last and you didn't have money to get more. Never true 06/17/2020 Transportation Needs Answer Date Record ed In the past 12 months, has l ack of transportation kept you from medical appointments or from getting medications? No 11/2020 In the past 12 months, has l ack of transportation kept you from meetings, work, or from getting things needed for daily living? No 06/17/2020 Comments No Sex and Gender Information Value Date Recorded Sex Assigned at Not on file Legal Sex Female 1:29 PM SPLICER MACHINE OPERATOR Gender Identity Not on file Sexual Orientation Not on file COVID-19 Exposure Response Date Recorded In the last month, have you been in contact with someone who was confirmed or suspected to have Coronavirus / COVID-19? No / Unsure 07/19/2020 9:13 AM CDT documented as of this encounter Plan of Treatment Upcoming Encounters Date Type Department Care Team (Late st Contact Info) Description 06/09/2024 9:00 AM SPLICER MACHINE OPERATOR Office Visit [facility] Oncology and Hematology - [place] [address] [place] [address] Leonel Fay MD [address] [facility] [address] [place] [address] documented as of this encounter Visit Diagnoses Not on filedocumented in this encounter Care Teams Fourdrinier Machine Operator Relationship Specialty Start Date End Date Felix Adame MD [address] [place] [address] PCP - General Family Practice 06/17/20 documented as of this encounter
--- OUTSIDE RECORDS SUMMARY | 2024-05-30 09:33 | XMS_ITS | Encounter Summary ---
Author Organization [facility] Address [address] [place] [address] Care Team Providers Care Electroencephalographic Technician Name Role Phone Felix Adame MD Primary Care Provider [phone] Encounter Details Date Type Department Care Team (Late st Contact Info) Description 05/29/2024 Orders Only [facility] Oncology and Hematology - Ham [address] [facility] [address] [place] [address] Leonel Fay MD [address] [facility] [address] [place] [address] Chronic anemia Social History Tobacco Use Types Packs/Day Years [...] often do you attend chur ch or jehovah's witness services? Never 06/17/2020 Do you belong to any clubs o r organizations such as orthodox groups, unions, fraternal or athletic groups, or [...] on file Legal Sex Female 1:29 PM FRUIT HARVEST WORKER Gender Identity Not on file Sexual Orientation Not on file documented as of this encounter Plan of Treatment Upcoming Encounters Date Type Department Care Team (Late st Contact Info) Description 06/09/2024 9:00 AM FRUIT HARVEST WORKER Office Visit [facility] Oncology and Hematology - Ham [address] [facility] [address] [place] [address] [place] [address] [place] [address] [address] [place] [address] documented as of this encounter Visit Diagnoses Diagnosis Chronic anemia Anemia, unspecified documented in this encounter Care Teams Electroencephalographic Technician Relationship Specialty Start Date End Date Felix Adame MD [address] [place], [place] [id number] PCP - General Family Practice 06/17/20 documented as of this encounter
--- OUTSIDE RECORDS SUMMARY | 2024-05-30 09:33 | XMS_ITS | Clinical Summary ---
Author Organization [facility] Address [address] [address] Phone Care Team Providers Care Boiler Operator Name Role Phone Felix Adame MD Primary Care Provider [phone] Allergies No known active allergies Medications fluticasone (FLONASE) 50 MCG/ACT Suspension daily as needed. 04/28/2018 Active levothyroxine (SYNTHROID) 25 MCG Tablet daily. 11/02/2016 Active lisinopril-hydro CHLOROthiazide (PRINZIDE, ZESTORETIC) 10-12.5 MG Tablet every morning. 06/24/2017 Active lovastatin (MEVACOR) 20 MG Tablet daily. 06/24/2017 Active DHEA 25 MG Tablet Take by mouth daily. Active hydrOXYzine (ATARAX) 25 MG Tablet Take 25 mg by mouth every 6 hours as needed. Active VITAMIN D PO Take by mouth daily. Active LECITHIN PO Take by mouth daily. Active ALPHA LIPOIC ACID PO Take by mouth daily. Active Ascorbic Acid (VITAMIN C PO) Take by mouth daily. Active Multiple Vitamins-Mineral s (PRESERVISION AREDS PO) Take by mouth daily. Active famotidine (PEPCID) 40 MG TabletIndication s:Gastroesophage al reflux disease, unspecified whether esophagitis present Take 1 Tablet by mouth every evening. 90 Tablet 1 03/26/2021 Active omeprazole (PriLOSEC) 40 MG CAPSULE DELAYED RELEASEIndicatio ns:Gastroesophag eal reflux disease, unspecified whether esophagitis present Take 1 Capsule by mouth daily. Take 30 minutes before a meal with protein 90 Capsule 1 03/26/2021 Active Active Problems Problem Noted Date Diagnosed Date Gastroesophageal reflux disease 08/06/2020 Chronic idiopathic constipation 08/06/2020 Hiatal hernia 08/06/2020 Esophageal dyskinesia 08/06/2020 Immunizations Immunization Administration Dates Next Due Covid-19, Mrna, Lnp-s, Pf, 3 0 Mcg/0.3 Ml Dose ([facility]) 02/24/2021,07/05/2020,06/14/2020 Family History Medical History Relation Name Comments Heart Disease Father Diabetes Mother Hypertension Mother Colon Cancer Sister Diabetes Sister Relation Name Status Comments Father Mother Sister Social History Tobacco Use Types Packs/Day Years Used Date Smoking Tobacco: Former Cigarettes 0.5 1 0 04/12/1983 - 04/12/1984 Smokeless Tobacco: Never Tobacco Cessation:Counseling Given: No Alcohol Use Standard Drinks/Week Comments Not Currently 0 (1 standard drink = 0.6 oz pur e alcohol) AUDIT-C Answer Date Recorded Frequency of Alcohol Consumption Never 08/23/2018 Average Number of Drinks Not on file 019 Frequency of Binge Drinking Not on file 08/10 Sexually Active Control Partners Comments Not Currently Comments No Sex and Gender Information Value Date Recorded Sex Assigned at Not on file Legal Sex Female 5:38 PM CDT Gender Identity Not on file Sexual Orientation Not on file Last Filed Vital Signs Vital Sign Reading Time Taken Comments Blood Pressure 118/66 04/15/2021 2:00 PM UNIVERSAL WORKER ASSISTED LIVING Pulse 66 04/15/2021 2:00 PM UNIVERSAL WORKER ASSISTED LIVING Temperature 36.6 C (97.8 F) 04/15/2021 11:08 AM UNIVERSAL WORKER ASSISTED LIVING Respiratory Rate 16 04/15/2021 2:00 PM UNIVERSAL WORKER ASSISTED LIVING Oxygen Saturation 100% 04/15/2021 2:00 PM UNIVERSAL WORKER ASSISTED LIVING Inhaled Oxygen Concentration - - Weight 123.8 kg (273 lb) 04/15/2021 11:08 AM UNIVERSAL WORKER ASSISTED LIVING Height 170.2 cm (5' 7 ) 04/15/2021 11:08 AM UNIVERSAL WORKER ASSISTED LIVING Body Mass Index 42.76 04/15/2021 11:08 AM UNIVERSAL WORKER ASSISTED LIVING Plan of Treatment Health Maintenance Due Date Last Done Comments DEXA Bone Density 1945 Hepatitis C Virus (HCV) Screening 1945 TdaP Immunization 1945 Pneumococcal Immunization (5 0+ years) (1 of 1 - PCV) 11/29/1997 Zoster Immunization (1 of 2) 11/29/1997 Respiratory Syncytial Virus (RSV) Immunization (Adult) (1 - 1-dose 75+ series) 11/29/2022 Influenza Immunization (#1) 2023 SARS-COV-2 Immunization (4 - season) 2023 02/24/2021, 07/05/2020, 06/14/2020 Colonoscopy High Risk Discontinued 10/03/2014 Colonoscopy Discontinued 10/03/2014 Colorectal Cancer Screening Discontinued Cologuard Discontinued Hepatitis B Immunization Aged Out No longer eligible based on patient's age to complete this topic Immunochemical Fecal Occult Blood Discontinued Meningococcal Immunization (ACWY) Aged Out No longer eligible based on patient's age to complete this topic Rotavirus Immunization Aged Out No lo nger eligible based on patient's age to complete this topic Procedures Procedure Name Priority Date/Time Associated Diagnosis Comments COLONOSCOPY Routine 10/03/2014 from Last 3 Months or Most Recently Relevant to Health Maintenance Results * COLONOSCOPY (10/03/2014) Flaco Hollingsworth DO PROCEDURE/MINOR SURGICAL ORDERA BLES Final Result from Last 3 Months or Most Recently Relevant to Health Maintenance Insurance MEDICARE Care Teams Boiler Operator Relationship Specialty Start Date End Date Felix Adame MD [address] [place] [id number] PCP - General Family Medicine 03/26/21
--- OUTSIDE RECORDS SUMMARY | 2024-05-30 09:33 | XMS_ITS | Clinical Summary ---
Author Organization [facility] Address [address] [place] [address] Care Team Providers Care Svp Digital Sales Name Role Phone Felix Adame MD Primary Care Provider [phone] Allergies No known active allergies Medications fluticasone propionate (FLONASE) 50 mcg/spray Rogers, Suspension nasal inhaler 04/28/2018 Activ e hydrOXYzine HCL (ATARAX) 25 mg tablet Take 25 mg by mouth. Active levothyroxine 25 mcg tablet TAKE 1 TABLET BY MOUTH ONCE DAILY 04/10/2020 Active lisinopril-hydr oCHLOROthiazide (ZESTORETIC) 10-12.5 mg tablet 06/14/2020 Active lovastatin (MEVACOR) 20 mg tablet TAKE 1 TABLET BY MOUTH ONCE DAILY WITH EVENING MEAL 05/20/2020 Active meloxicam (MOBIC) 7.5 mg tablet TAKE ONE TABLET BY MOUTH TWICE DAILY WITH MEALS 08/30/2017 Active omeprazole (PriLOSEC) 40 mg Capsule, Delayed Release(E.C.) Take 40 mg by mouth daily. TAKE BEFORE A MEAL 04/04/2020 Active Prasterone, DHEA, 25 mg Tablet Take by mouth. Active lecithin, soy, bulk, Powder Take by mouth. Active ergocalciferol, vitamin D2, (VITAMIN D ORAL) Take by mouth. Active famotidine (PEPCID) 40 mg tablet Take 40 mg by mouth. 08/06/2020 Active pantoprazole (PROTONIX) 40 mg Tablet, Delayed Release (E.C.) Take 40 mg by mouth. 08/06/2020 Active HYDROcodone-heydi taminophen (NORCO) 5-325 mg tablet 07/25/2020 Active ibuprofen (MOTRIN) 600 mg tablet 07/25/2020 Active albuterol sulfate 90 mcg/Actuation inhaler INHALE 2 PUFFS BY MOUTH EVERY 4 TO 6 HOURS FOR DYSPNEA 05/29/2021 Active clarithromycin (BIAXIN) 500 mg tablet TAKE 1 TABLET BY MOUTH TWICE DAILY FOR 7 DAYS 08/01/2021 Active Jardiance 10 mg tablet Take 10 mg by mouth daily. 10/15/2021 Active furosemide (LASIX) 40 mg tablet Take 40 mg by mouth 2 times daily. 10/15/2021 Active lisinopriL (PRINIVIL) 5 mg tablet Take 5 mg by mouth daily in the morning. 10/15/2021 Active predniSONE (DELTASONE) 20 mg tablet TAKE 1 TABLET BY MOUTH ONCE DAILY FOR THE NEXT 3 DAYS 08/01/2021 Active spironolactone (ALDACTONE) 25 mg tablet Take 25 mg by mouth daily in the morning. 10/15/2021 Active anastrozole (ARIMIDEX) 1 mg tablet Take 1 tablet by mouth once daily 90 Tablet 3 01/03/2024 Active atorvastatin (LIPITOR) 20 mg tablet Take 20 mg by mouth daily. 03/03/2024 Active metoprolol succinate (TOPROL XL) 100 mg Extended Release 24 hour tablet Take 100 mg by mouth daily. 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 Oncology and Hematology - Ham [address] [place] [address] Leonel Fay MD Chronic anemia 05/15/[address] [facility] Oncology and Hematology - Ham [address] [place] [address] Leonel Fay MD Chronic anemia 05/09/2024 External Device Data STL ABSTRACTION Provider, Abstract 05/03/2024 External Device Data STL ABSTRACTION Provider, Abstract 05/03/2024 External Device Data STL ABSTRACTION Provider, Abstract 05/01/[address] [facility] Oncology and Hematology - Ham [address] [place] [address] Leonel Fay MD Chronic anemia 04/21/2024 Orders Only [facility] Oncology and Hematology - Ham [address] [place] [address] Leonel Fay MD 04/17/2024 Orders Only [facility] Oncology and Hematology - Ham [address] [place] [phone] Leonel Fay MD Chronic anemia 04/03/2024 Orders Only [facility] Oncology and Hematology - Ham [address] [place] [address] Leonel Fay MD Chronic anemia 03/20/2024 Orders Only [facility] Oncology and Hematology - Ham [address] Leonel Fay MD Chronic anemia 03/16/2024 Orders Only [facility] Oncology and Hematology - Ham [address] Leonel Fay MD 03/15/2024 10:00 AM HOUSEKEEPER AND LAUNDRY ASSISTANT Office Visit [facility] Oncology and Hematology - Ham [address] Leonel Fay MD Chronic anemia (Primary Dx) 03/14/2024 Orders Only [facility] Oncology and Hematology - Hma [address] [place] [phone] Leonel Fay MD 03/13/2024 Orders Only [facility] Oncology and Hematology - Ham [address] [place] [address] Leonel Fay MD 03/06/2024 Orders Only [facility] Oncology and Hematology - Ham [address] [place] [phone] Leonel Fay MD Chronic anemia from Last 3 Months Family History Medical History Relation Name Comments Prostate Cancer Brother 1 Healthy Father Diabetes Mother Heart Failure Sister 2 Relation Name Status Comments Brother 1 Brother 2 Father Mother Sister 1 Sister 2 Sister 3 Alive Sister 4 Alive Sister 5 Alive Sister 6 Alive Social History Tobacco Use Types Packs/Day Years Used Date Smoking Tobacco: Former Cigarettes Tobacco Cessation:Counseling Given: Not Answered Comments:quit over 40 years ago only smoked [...] often do you attend chur ch or muslim services? Never 06/17/2020 Do you belong to any clubs o r organizations such as baptism groups, unions, fraternal or athletic groups, or [...] on file Legal Sex Female 1:29 PM HOUSEKEEPER AND LAUNDRY ASSISTANT Gender Identity Not on file Sexual Orientation Not on file Last Filed Vital Signs Vital Sign Reading Time Taken Comments Blood Pressure 112/55 03/15/2024 10:10 AM HOUSEKEEPER AND LAUNDRY ASSISTANT Pulse 55 03/15/2024 10:10 AM HOUSEKEEPER AND LAUNDRY ASSISTANT Temperature 36.4 C (97.5 F) 03/15/2024 10:10 AM HOUSEKEEPER AND LAUNDRY ASSISTANT Respiratory Rate 16 03/15/2024 10:10 AM HOUSEKEEPER AND LAUNDRY ASSISTANT Oxygen Saturation 93% 03/15/2024 10:10 AM HOUSEKEEPER AND LAUNDRY ASSISTANT Inhaled Oxygen Concentration - - Weight 113.9 kg (251 lb) 03/15/2024 10:10 AM HOUSEKEEPER AND LAUNDRY ASSISTANT Height 170.2 cm (5' 7 ) 01/21/2022 10:10 AM CDT Body Mass Index 39.31 01/21/2022 10:10 AM CDT Plan of Treatment Upcoming Encounters Date Type Department Care Team (Late st Contact Info) Description 06/09/2024 9:00 AM HOUSEKEEPER AND LAUNDRY ASSISTANT Office Visit [facility] Oncology and Hematology - Ham [address] [facility] [address] [place] [address] Leonel Fay MD [address] [facility] [address] [place] [address] Health Maintenance Due Date Last Done Comments DTAP/TDAP/TD VACCINES (1 - Tdap) 11/29/1966 Traditional Medicare (ACO) A nnual Wellness Visit 11/29/1966 PNEUMOCOCCAL VACCINE 65+ YEA RS (1 of 1 - PCV) 11/29/1997 ZOSTER VACCINE (1 of 2) 11/29/1997 RSV VACCINE (60+ or ) (1 - 1-dose 75+ series) 11/29/2022 INFLUENZA VACCINE (#1) 2023 COVID-19 Vaccine (2023-2 5 season) 2023 02/24/2021, 07/05/2020, 06/14/2020 COLORECTAL SCREENING Discontinued 02/14/2020, 10/03/2014, 10/03/2014, Additional history exists Colorectal Cancer Screening Discontinued OSTEOPOROSIS SCREENING Completed 01/14/2022, 2014 FIT-DNA Q 3 years Discontinued FIT/FOBT Q 1 year Discontinued Flex Sig/CT Colonography Q 5 years Discontinued Procedures Procedure Name Priority Date/Time Associated Diagnosis Comments CBC WITH DIFFERENTIAL Routine 05/12/2024 9:34 AM HOUSEKEEPER AND LAUNDRY ASSISTANT CBC WITH DIFFERENTIAL Routine 04/14/2024 11:37 AM HOUSEKEEPER AND LAUNDRY ASSISTANT BASIC METABOLIC PANEL Routine 03/15/2024 10:10 AM HOUSEKEEPER AND LAUNDRY ASSISTANT CBC WITH DIFFERENTIAL Routine 03/15/2024 10:09 AM HOUSEKEEPER AND LAUNDRY ASSISTANT IRON LEVEL Routine 03/08/2024 3:04 PM HOUSEKEEPER AND LAUNDRY ASSISTANT CBC WITH DIFFERENTIAL Routine 03/08/2024 9:32 AM HOUSEKEEPER AND LAUNDRY ASSISTANT from Last 3 Months Results * CBC WITH DIFFERENTIAL (05/12/2024 9:34 AM HOUSEKEEPER AND LAUNDRY ASSISTANT) Only the most recent of4 resultswithin the time period is included. Blood us Leonel Fay MD HEMATOLOGY ORDERABLES Final Res ult * BASIC METABOLIC PANEL (03/15/2024 10:10 AM HOUSEKEEPER AND LAUNDRY ASSISTANT) Blood us Leonel Fay MD CHEMISTRY ORDERABLES Final Resu lt * IRON LEVEL (03/08/2024 3:04 PM HOUSEKEEPER AND LAUNDRY ASSISTANT) Blood us Leonel Fay MD CHEMISTRY ORDERABLES Final Resu lt from Last 3 Months Insurance MEDICARE PART A AND B [facility] Member Subscriber Plan / Payer (Ef fective 2020-Present) Name:Carlie Bales Relation to Subscriber:Self Name:Carlie Bales Payer ID:Not on file Group ID:Not on file Type:Supplemental Address: [address] SU[place] Care Teams Svp Digital Sales Relationship Specialty Start Date End Date Felix Adame MD [address] [place] [address] PCP - General Family Practice 06/17/20
[2024-05-30 09:52] LABS: Basophils Percent Auto 0.1 % (0.2-1.2); Eosinophils Absolute Auto 0.2 K/mm3 (0-0.3); Eosinophils Percent Auto 2.1 % (0-4.4); Hematocrit 34.3 % (37.0-47.0); Hemoglobin 10.5 g/dL (12.0-15.0); Immature Granulocyte Absolute 0.02 K/mm3 (0.00-0.031); Immature Granulocyte Percent A 0.3 % (0-0.5); Lymphocytes Absolute Auto 2.22 K/mm3 (0.9-3.2); Lymphocytes Percent Auto 31.5 % (18.3-44.2); Mean Corpuscular HGB Conc 30.6 g/dl (32-36); Mean Corpuscular Hemoglobin 29.7 pg (26-34); Mean Corpuscular Volume 97.2 fl (80-100); Mean Platelet Volume 11.6 fl (7.4-10.4); Monocytes Absolute Auto 0.6 K/mm3 (0.1-0.6); Monocytes Percent Auto 7.8 % (2.6-8.5); Neutrophils Absolute Auto 4.1 K/mm3 (1.3-6.7); Neutrophils Percent Auto 58.2 % (45.5-73.1); Platelet Count Result 169 k/mm3 (150-375); Red Blood Count 3.53 M/mm3 (4.2-5.4); Red Cell Distribution Width 13.6 % (11.5-14.5); White Blood Count 7.1 K/mm3 (4.5-10.0)
[2024-05-30 10:02] LABS: Alanine Aminotransferase 12 U/L (6-35); Albumin Level 4.2 g/dL (3.5-5.1); Alkaline Phosphatase 80 U/L (38-126); Anion Gap 11 mmol/L (4-12); Aspartate Amino Transferase 21 U/L (14-36); Bilirubin,Total 0.8 mg/dL (0.2-1.3); Blood Urea Nitrogen 39 mg/dL (7-17); Calcium 9.2 mg/dL (8.4-10.2); Carbon Dioxide 27 mmol/L (22-30); Chloride 103 mmol/L (98-107); Cholesterol 184 mg/dL (0-200); Estimated Glomerular Filt Rate 28; Glucose 100 mg/dL (65-110); HDL Direct 54 mg/dL; Potassium 3.9 mmol/L (3.4-5.0); Sodium 141 mmol/L (137-145); Triglycerides 63 mg/dL (<150)
[2024-05-30 10:13] LABS: LDL Cholesterol Direct 87 mg/dL
[2024-05-30 10:15] LABS: Hemoglobin A1C 5.7 % (<5.7)
[2024-05-30 10:23] LABS: Creatinine Urine 149.4 mg/dL
[2024-05-30 10:27] LABS: MALB Creatinine Ratio 8.4 mg/g (0-30); Microalbumin Urine Random 12.5 mg/L (0-16.7)
[2024-05-30 10:33] LABS: Total Triiodothyronine (T3) 0.94 NG/ML (0.97-1.69)
[2024-05-30 10:46] LABS: Free T4 Free Thyroxine 1.15 ng/dL (0.78-2.19)
== END 2024-05-30 09:24 | disposition home or self-care (01) ==
PROVIDERS: PCP Family Medicine; Visit Provider Registered Nurse
DX: E03.9 Hypothyroidism, unspecified (principal); E11.9 Type 2 diabetes mellitus without complications; N18.4 Chronic kidney disease, stage 4 (severe)
CPT/HCPCS: 36415; 80053; 80061; 82043; 83036; 84439; 84443; 84480; 85025

== ENCOUNTER 2024-06-22 08:03 | Outpatient (CLI) | payer MEDICARE, SELFPAY ==
--- NOTE | ~2024-06-22 | MM_ITS ---
EXAMINATION: MM screening [facility] BI w tiera HISTORY: Screening mammogram TECHNIQUE: Craniocaudal and mediolateral oblique 3-D tomosynthesis images were obtained and synthetic 2-D images were generated. CAD analysis was submitted and interpreted. COMPARISON: 06/09/2023, 04/21/2022, 04/14/2021 BREAST PARENCHYMAL COMPOSITION:Not Dense. There are scattered areas of fibroglandular density. FINDINGS: No suspicious mass, calcification, or architectural distortion are identified in either adam ast to suggest malignancy. There has been no suspicious interval change. IMPRESSION: No mammographic evidence of malignancy. Recommend routine screening mammography in one year. BI-RADS Category 1: Negative Reviewed, dictated and finalized at location .
--- OUTSIDE RECORDS SUMMARY | 2024-06-22 08:16 | XMS_ITS | Clinical Summary ---
Author Organization [facility] Address [address] [place] [address] Phone Care Team Providers Care Architectural Design Professor Name Role Phone Felix Adame MD Primary Care Provider [phone] Allergies No known active allergies Medications Medication [...] 5 MG tablet 11/13/2021 Activ e B Zwmgavo-D-Hm-Folic Acid (Dialyvite/Zinc) tablet Take by mouth Active [...] 06/14/2020 Influenza Vaccine (#1) 2023 Care Teams Architectural Design Professor Relationship Specialty Start Date End Date Felix Adame MD [address] [place] [address] PCP - General Internal Medicine 10/28/21
--- OUTSIDE RECORDS SUMMARY | 2024-06-22 08:16 | XMS_ITS | Encounter Summary ---
Author Organization [facility] Address [address] [place] [address] Care Team Providers Care Medicaid Billing Specialist Name Role Phone Pedro Castro MD Primary Care Provider [phone] Felix Adame MD Primary Care Provider [phone] Encounter Details Date Type Department Care Team (Late st Contact Info) Description 03/24/[address] [facility] Transplant Heart [address] [address] [phone] [place] [address] Jaye Cummins Social History Tobacco Use Types [...] on filedocumented in this encounter Care Teams Medicaid Billing Specialist Relationship Specialty Start Date End Date Pedro Castro MD [address] [place] [address] PCP - General Family Practice 08/03/18 10/30/21 Felix Adame MD [address] [place] [address] PCP - General Family Medicine 04/08/23 documented as of this encounter
--- OUTSIDE RECORDS SUMMARY | 2024-06-22 08:16 | XMS_ITS | Referral Summary ---
Author Organization [address] Address [address] [place] [address] Care Team Providers Care Leather Leveler Name Role Phone Felix Aadme MD Primary Care Provider [phone] Encounters Date Type Department Care Team Description 04/25/2024 2:30 PM BARBER SHOP MANAGER Office Visit [facility] Medical [facility] Cardiology [address] [place] [address] Richie Schneider MD Dilated cardiomyopathy (HCC) (Primary Dx) 04/18/2024 Telephone [facility] Medical [facility] Cardiology [address] [place] [address] Malaika Wallace MA Reschedule from Last 3 Months Allergies No known active allergies Medications levothyroxine (SYNTHROID, LEVOTHROID) 25 mcg tablet 11/03/19 17 Active omeprazole (PriLOSEC) 40 mg capsule 10/08/19 17 Active anastrozole (ARIMIDEX) 1 mg tablet Take 1 tablet (1 mg total) by mouth daily 09/23/19 22 Active B complex 62-hjzev-C-bio t-zinc (Dialyvite) 3-299-948-50 vq-xi-wqx-mg tablet Take by mouth Active cholecalcifero l [...] Problem Noted Date Diagnosed Date Dilated cardiomyopathy 10/31/2021 DVT (deep venous thrombosis) 10/31/2021 Arthritis of both knees 10/06/2016 BMI 45.0-49.9, [...] Comments Blood Pressure 136/80 04/25/2024 2:37 PM BARBER SHOP MANAGER Pulse 57 04/25/2024 2:37 PM BARBER SHOP MANAGER Temperature - - Respiratory Rate - - Oxygen Saturation 96% 04/25/2024 2:37 PM BARBER SHOP MANAGER Inhaled Oxygen Concentration - - Weight 114 kg (251 lb 4.8 oz) 04/25/2024 2:37 PM BARBER SHOP MANAGER Height 170.2 cm (5' 7 ) 04/25/2024 2:37 PM BARBER SHOP MANAGER Body Mass Index 39.36 04/25/2024 2:37 PM BARBER SHOP MANAGER Plan of Treatment Not on file Insurance [facility] MEDICARE SUPPLEMENT Member Subscriber Plan / Payer (Ef fective 2023-Present) Name:Carlie Bales Whit Relation to Subscriber:Self Name:Carlie Bales Payer ID:[id number] Group ID:[id number] Type:COMMERCIAL Address: [facility] [id number] [place] [id number] Care Teams Leather Leveler Relationship Specialty Start Date End Date Felix Adame MD PCP - General Family Medicine 12/28/23
--- OUTSIDE RECORDS SUMMARY | 2024-06-22 08:16 | XMS_ITS | Encounter Summary ---
Author Organization [employer] Address [address] [place] [address] Care Team Providers Care Senior Bioinformatics Scientist Name Role Phone Felix Adame MD Primary Care Provider [phone] Encounter Details Date Type Department Care Team (Late st Contact Info) Description 07/16/2020 Chart Note [facility] Radiation Therapy [address] [place] [address] [place] [address] [place] [address] Social History Tobacco Use Types [...] often do you attend chur ch or jew services? Never 06/17/2020 Do you belong to any clubs o r organizations such as scientologist groups, unions, fraternal or athletic groups, or [...] on file Legal Sex Female 1:29 PM WHEEL MILL OPERATOR Gender Identity Not on file Sexual [...] Care Team (Late st Contact Info) Description 09/01/2024 9:30 AM CDT Office Visit [facility] Oncology and Hematology - Ham [address] [facility] [address] [place] [address] Leonel Fay MD [address] [facility] [address] [place] [address] documented as of this encounter Visit Diagnoses Not on filedocumented in this encounter Care Teams Senior Bioinformatics Scientist Relationship Specialty Start Date End Date Felix Adame MD [address] [place] [address] PCP - General Family Practice 06/17/20 documented as of this encounter
--- OUTSIDE RECORDS SUMMARY | 2024-06-22 08:16 | XMS_ITS | Clinical Summary ---
Author Organization [facility] [address] [place] [address] Address [address] [place] [address] Care Team Providers Care Knuckle Strap Sewer Name Role Phone Felix Adame MD Primary Care Provider [phone] Allergies No known active allergies Medications levothyroxine (SYNTHROID, LEVOTHROID) 25 mcg tablet 11/03/19 17 Active omeprazole (PriLOSEC) 40 mg capsule 10/08/19 17 Active anastrozole (ARIMIDEX) 1 mg tablet Take 1 tablet (1 mg total) by mouth daily 09/23/19 22 Active B complex 99-tamph-J-bio t-zinc (Dialyvite) 2-704-705-50 wb-jl-tzn-mg tablet Take by mouth Active cholecalcifero l [...] Department Care Team Description 04/25/2024 2:30 PM CLINICAL SERVICES ASSISTANT Office Visit [facility] Cardiology [address] [place] [address] Richie Schneider MD Dilated cardiomyopathy (HCC) (Primary Dx) 04/18/2024 Telephone [facility] Medical [facility] Cardiology [address] [place] [address] Malaika Wallace MA Reschedule from Last [...] Comments Blood Pressure 136/80 04/25/2024 2:37 PM CLINICAL SERVICES ASSISTANT Pulse 57 04/25/2024 2:37 PM CLINICAL SERVICES ASSISTANT Temperature - - Respiratory Rate - - Oxygen Saturation 96% 04/25/2024 2:37 PM CLINICAL SERVICES ASSISTANT Inhaled Oxygen Concentration - - Weight 114 kg (251 lb 4.8 oz) 04/25/2024 2:37 PM CLINICAL SERVICES ASSISTANT Height 170.2 cm (5' 7 ) 04/25/2024 2:37 PM CLINICAL SERVICES ASSISTANT Body Mass Index 39.36 04/25/2024 2:37 PM CLINICAL SERVICES ASSISTANT Plan of Treatment Health Maintenance Due Date Last Done Comments Depression Screening 1945 Fall Risk Assessment 1945 Hepatitis C Screening 1945 Osteoporosis Screening-Bone Density Scan 1945 DTaP/Tdap/Td Vaccine (1 - Tdap) 11/29/1958 Hepatitis B Screening 11/29/1965 Pneumococcal vaccine 65+ (1 of 2 - PCV) 11/29/1966 Zoster Vaccine (1 of 2) 11/29/1966 Well Visit 65+ 11/29/2012 Covid-19 Vaccine (5 2023-2 5 season) 2023 09/23/2021, 02/24/2021, 07/05/2020, Additional history exists Influenza Vaccine (#1) 2023 Insurance MEDICARE MEDICARE [facility] MEDICARE SUPPLEMENT Care Teams Knuckle Strap Sewer Relationship Specialty Start Date End Date Felix Adame MD PCP - General Family Medicine 04/08/23
--- OUTSIDE RECORDS SUMMARY | 2024-06-22 08:17 | XMS_ITS | Clinical Summary ---
Author Organization [facility] [address] Address [address] [place] [address] Care Team Providers Care Drying Can Worker Name Role Phone Felix Adame MD Primary Care Provider [phone] Allergies No known active allergies Medications fluticasone propionate (FLONASE) 50 mcg/spray [place], Suspension nasal inhaler 9 Active hydrOXYzine HCL (ATARAX) 25 mg tablet Take 25 mg by mouth. Active levothyroxine 25 mcg tablet TAKE 1 TABLET BY MOUTH ONCE DAILY 0 Active lisinopril-hydr oCHLOROthiazide (ZESTORETIC) 10-12.5 mg tablet 1 Active lovastatin (MEVACOR) 20 mg tablet TAKE 1 TABLET BY MOUTH ONCE DAILY WITH EVENING MEAL 1 Active meloxicam (MOBIC) 7.5 mg tablet TAKE ONE TABLET BY MOUTH TWICE DAILY WITH MEALS 8 Active omeprazole (PriLOSEC) 40 mg Capsule, Delayed Release(E.C.) Take 40 mg by mouth daily. TAKE BEFORE A MEAL 0 Active Prasterone, DHEA, 25 mg Tablet Take by mouth. Active lecithin, soy, bulk, Powder Take by mouth. Active ergocalciferol, vitamin D2, (VITAMIN D ORAL) Take by mouth. Active famotidine (PEPCID) 40 mg tablet Take 40 mg by mouth. 1 Active pantoprazole (PROTONIX) 40 mg Tablet, Delayed Release (E.C.) Take 40 mg by mouth. 1 Active HYDROcodone-heydi taminophen (NORCO) 5-325 mg tablet 1 Active ibuprofen (MOTRIN) 600 mg tablet 1 Active albuterol sulfate 90 mcg/Actuation inhaler INHALE 2 PUFFS BY MOUTH EVERY 4 TO 6 HOURS FOR DYSPNEA 2 Active clarithromycin (BIAXIN) 500 mg tablet TAKE 1 TABLET BY MOUTH TWICE DAILY FOR 7 DAYS 2 Active Jardiance 10 mg tablet Take 10 mg by mouth daily. 2 Active furosemide (LASIX) 40 mg tablet Take 40 mg by mouth 2 times daily. 2 Active lisinopriL (PRINIVIL) 5 mg tablet Take 5 mg by mouth daily in the morning. 2 Active predniSONE (DELTASONE) 20 mg tablet TAKE 1 TABLET BY MOUTH ONCE DAILY FOR THE NEXT 3 DAYS 2 Active spironolactone (ALDACTONE) 25 mg tablet Take 25 mg by mouth daily in the morning. 2 Active atorvastatin (LIPITOR) 20 mg tablet Take 20 mg by mouth daily. 4 Active metoprolol succinate (TOPROL XL) 100 mg Extended Release 24 hour tablet Take 100 mg by mouth daily. 4 Active anastrozole (ARIMIDEX) 1 mg tablet Take 1 Tablet (1 mg) by mouth daily. 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 Encounters Date Type Department Care Team Description 06/17/2024 External Device Data STL ABSTRACTION Provider, Abstract 06/16/2024 External Device Data STL ABSTRACTION Provider, Abstract 06/15/2024 Orders Only [facility] - [address] [place] [phone] Leonel Fay MD 06/15/2024 Abstract [facility] - [place] [address] [place] [address] Leonel Fay MD 06/14/2024 External Device Data STL ABSTRACTION Provider, Abstract 06/12/2024 Orders Only [facility] - [facility] [address] [place] [address] Leonel Fay MD Chronic anemia 06/09/2024 9:00 AM DIRECTOR OF CORPORATE SALES Office Visit [facility] - [facility] [address] [place] [phone] Leonel Fay MD Chronic anemia (Primary Dx) 05/31/2024 External Device Data STL ABSTRACTION Provider, Abstract 05/29/2024 Orders Only [facility] - [facility] [address] [place] [address] Leonel Fay MD Chronic anemia 05/15/2024 Orders Only [facility] - [facility] [address] [place] [address] Leonel Fay MD Chronic anemia 05/09/2024 External Device Data STL ABSTRACTION Provider, Abstract 05/03/2024 External Device Data STL ABSTRACTION Provider, Abstract 05/03/2024 External Device Data STL ABSTRACTION Provider, Abstract 05/01/2024 Orders Only [facility] - [facility] [address] [place] [address] Leonel Fay MD Chronic anemia 04/21/2024 Orders Only [facility] - [facility] [address] [place] [id number] Leonel Fay MD 04/17/2024 Orders Only [facility] - [facility] [address] [place] [phone] Leonel Fay MD Chronic anemia 04/03/2024 Orders Only [facility] - [facility] [address] [place] [address] Leonel Fay MD Chronic anemia from Last [...] often do you attend chur ch or nondenominational services? Never 06/17/2020 Do you belong to any clubs o r organizations such as samaritan groups, unions, fraternal or athletic groups, or [...] on file Legal Sex Female 1:29 PM DIRECTOR OF CORPORATE SALES Gender Identity Not on file Sexual Orientation Not on file Last Filed Vital Signs Vital Sign Reading Time Taken Comments Blood Pressure 124/63 06/09/2024 9:02 AM DIRECTOR OF CORPORATE SALES Pulse 41 06/09/2024 9:02 AM DIRECTOR OF CORPORATE SALES Temperature 35.9 C (96.6 F) 06/09/2024 9:02 AM DIRECTOR OF CORPORATE SALES Respiratory Rate 15 06/09/2024 9:02 AM DIRECTOR OF CORPORATE SALES Oxygen Saturation 97% 06/09/2024 9:02 AM DIRECTOR OF CORPORATE SALES Inhaled Oxygen Concentration - - Weight 115.6 kg (254 lb 12.8 oz) 06/09/2024 9:02 AM DIRECTOR OF CORPORATE SALES Height 170.2 cm (5' 7 ) 01/21/2022 10:1 0 AM CDT Body Mass Index 39.91 01/21/2022 10:10 AM CDT Plan of Treatment Upcoming Encounters Date Type Department Care Team (Late st Contact Info) Description 09/01/2024 9:30 AM CDT Office Visit [facility] On[facility] H[facility]ology - [facility] [address] [facility] [address] [place] [address] Leonel Fay MD [address] [facility] [address] [place] [address] Health Maintenance Due Date Last Done Comments DTAP/TDAP/TD VACCINES (1 - Tdap) 11/29/1966 Traditional Medicare (ACO) A nnual Wellness Visit 11/29/1964 PNEUMOCOCCAL VACCINE 50+ YEA RS (1 of 1 - PCV) [...] Procedure Name Priority Date/Time Associated Diagnosis Comments BASIC METABOLIC PANEL Routine 06/07/2024 3:22 PM DIRECTOR OF CORPORATE SALES CBC WITH DIFFERENTIAL Routine 05/12/2024 9:34 AM DIRECTOR OF CORPORATE SALES CBC WITH DIFFERENTIAL Routine 04/14/2024 11:37 AM DIRECTOR OF CORPORATE SALES from Last 3 Months Results * BASIC METABOLIC PANEL (06/07/2024 3:22 PM DIRECTOR OF CORPORATE SALES) Blood Leonel Fay MD CHEMISTRY ORDERABLES Final Resu lt * CBC WITH DIFFERENTIAL (05/12/2024 9:34 AM DIRECTOR OF CORPORATE SALES) Only the most recent of2 resultswithin the time period is included. Blood us Leonel Fay MD HEMATOLOGY ORDERABLES Final Res ult from Last 3 Months Insurance MEDICARE PART A AND B [employer] [place] SUPP SUPP Care Teams Drying Can Worker Relationship Specialty Start Date End Date Felix Adame MD [address] [place] [address] PCP - General Family Practice 06/17/20
--- OUTSIDE RECORDS SUMMARY | 2024-06-22 08:17 | XMS_ITS | Clinical Summary ---
Author Organization [facility] Address [address] [address] Phone Care Team Providers Care Studio Couch Frame Builder Name Role Phone Felix Adame MD Primary Care Provider [phone] Allergies No known active allergies Medications fluticasone [...] Lnp-s, Pf, 3 0 Mcg/0.3 Ml Dose (SyndicatePlus) 02/24/2021,07/05/2020,06/14/2020 Family History Medical History Relation Name [...] Comments Blood Pressure 118/66 04/15/2021 2:00 PM FLOWER PICKER Pulse 66 04/15/2021 2:00 PM FLOWER PICKER Temperature 36.6 C (97.8 F) 04/15/2021 11:08 AM FLOWER PICKER Respiratory Rate 16 04/15/2021 2:00 PM FLOWER PICKER Oxygen Saturation 100% 04/15/2021 2:00 PM FLOWER PICKER Inhaled Oxygen Concentration - - Weight 123.8 kg (273 lb) 04/15/2021 11:08 AM FLOWER PICKER Height 170.2 cm (5' 7 ) 04/15/2021 11:08 AM FLOWER PICKER Body Mass Index 42.76 04/15/2021 11:08 AM FLOWER PICKER Plan of Treatment Health Maintenance Due Date [...] to Health Maintenance Insurance MEDICARE Care Teams Studio Couch Frame Builder Relationship Specialty Start Date End Date Felix Adame MD [address] [place] [address] PCP - General Family Medicine 03/26/21
== END 2024-06-22 08:04 | disposition home or self-care (01) ==
PROVIDERS: PCP Family Medicine; Visit Provider Internal Medicine Hematology & Oncology
DX: Z12.31 Encounter for screening mammogram for malignant neoplasm of breast (principal)
CPT/HCPCS: 77063; 77067

== ENCOUNTER 2024-12-18 13:46 | Outpatient (CLI) | payer MEDICARE, SELFPAY ==
--- OUTSIDE RECORDS SUMMARY | 2024-12-18 13:50 | XMS_ITS | Clinical Summary ---
Author Organization [facility] [address] Address [address] [place] [address] Care Team Providers Care Cnc Lathe Machine Operator Name Role Phone Felix Adame MD Primary Care Provider [phone] Allergies No known active allergies Medications fluticasone propionate (FLONASE) 50 mcg/spray [place], Suspension nasal inhaler 04/28/2018 Activ e hydrOXYzine [...] mouth daily in the morning. 10/15/2021 Active atorvastatin (LIPITOR) 20 mg tablet Take 20 mg by mouth daily. 03/03/2024 Active metoprolol succinate (TOPROL XL) 100 mg Extended Release 24 hour tablet Take 100 mg by mouth daily. 02/19/2024 Active anastrozole (ARIMIDEX) 1 mg tablet Take 1 Tablet (1 mg) by mouth daily. 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 Encounters Date Type Department Care Team Description 12/12/2024 External Device Data STL ABSTRACTION Provider, Abstract 12/11/2024 Orders Only [facility] Oncology and Hematology [facility] [address] [place] [address] Leonel Fay MD Chronic anemia 11/29/2024 External Device Data STL ABSTRACTION Provider, Abstract 11/27/2024 Orders Only [facility] Oncology and Hematology [address] [place] [address] Leonel Fay MD Chronic anemia 11/15/2024 External Device Data STL ABSTRACTION Provider, Abstract 11/14/2024 External Device Data STL ABSTRACTION Provider, Abstract 11/14/2024 External Device Data STL ABSTRACTION Provider, Abstract 11/13/2024 Orders Only [facility] Oncology and Hematology - [place] [address] [place] [phone] Leonel Fay MD Chronic anemia 11/07/2024 Orders Only [facility] Oncology and Hematology - [place] [address] [place] [address] Leonel Fay MD 11/02/2024 Orders Only [facility] Oncology and Hematology - Ham [address] [place] [phone] Leonel Fay MD Chronic anemia (Primary Dx) 11/02/2024 Orders Only [facility] Oncology and Hematology - [facility] [address] Leonel Fay MD Chronic anemia (Primary Dx) 10/25/2024 External Device Data STL ABSTRACTION Provider, Abstract 10/24/2024 External Device Data STL ABSTRACTION Provider, Abstract 10/16/2024 Orders Only [facility] Oncology and Hematology - [place] [address] Leonel Fay MD Chronic anemia 10/03/2024 External Device Data STL ABSTRACTION Provider, Abstract 10/02/2024 Orders Only [facility] Oncology and Hematology - Ham [address] [place] [phone] Leonel Fay MD Chronic anemia 09/26/2024 External Device Data STL ABSTRACTION Provider, Abstract 09/18/2024 Orders Only [facility] Oncology and Hematology - [place] [address] [place] [address] Leonel Fay MD Chronic anemia from Last [...] often do you attend chur ch or buddhism services? Never 06/17/2020 Do you belong to any clubs o r organizations such as jewish groups, unions, fraternal or athletic groups, or [...] on file Legal Sex Female 1:29 PM SKEIN YARN DYER HELPER Gender Identity Not on file Sexual Orientation Not on file Last Filed Vital Signs Vital Sign Reading Time Taken Comments Blood Pressure 112/62 09/01/2024 9:32 AM CDT Pulse 66 09/01/2024 9:32 AM CDT Temperature 35.8 C (96.4 F) 09/01/2024 9:32 AM CDT Respiratory Rate 15 09/01/2024 9:32 AM CDT Oxygen Saturation 92% 09/01/2024 9:32 AM CDT Inhaled Oxygen Concentration - - Weight 111.8 kg (246 lb 6.4 oz) 09/01/2024 9:32 AM CDT Height 170.2 cm (5' 7) 01/21/2022 10:1 0 AM CDT Body Mass Index 38.59 01/21/2022 10:10 AM CDT Plan of Treatment Upcoming Encounters Date Type Department Care Team (Late st Contact Info) Description 01/04/2025 9:45 AM CDT Office Visit [facility] Oncology and Hematology - Ham [address] [facility] [address] [place] [address] Leonel Fay MD [address] [facility] [address] [place] [address] Health Maintenance Due Date Last Done Comments DTAP/TDAP/TD VACCINES (1 - Tdap) 11/29/1964 PNEUMOCOCCAL VACCINE 50+ YEA RS (1 of 1 - PCV) 11/29/1997 ZOSTER VACCINE (1 of 2) 11/29/1997 RSV VACCINE (60+ or ) (1 - 1-dose 75+ series) 11/29/2022 INFLUENZA VACCINE (#1) 2024 COVID-19 Vaccine (4 - 2024-2 6 season) 2024 02/24/2021, 07/05/2020, 06/14/2020 OSTEOPOROSIS SCREENING 01/14/2027 01/14/2022, 2014 COLORECTAL SCREENING Discontinued 02/14/2020, 10/03/2014, 10/03/2014, Additional history exists Colorectal Cancer Screening Discontinued FIT-DNA Q 3 years Discontinued FIT/FOBT Q 1 year Discontinued Flex Sig/CT Colonography Q 5 years Discontinued Procedures Procedure Name Priority Date/Time Associated Diagnosis Comments CBC WITH DIFFERENTIAL Routine 11/03/2024 1:10 PM CDT from Last 3 Months Results * CBC WITH DIFFERENTIAL (11/03/2024 1:10 PM CDT) Blood us Leonel Fay MD HEMATOLOGY ORDERABLES Final Res ult from Last 3 Months Insurance MEDICARE PART A AND [facility] SUPP Care Teams Cnc Lathe Machine Operator Relationship Specialty Start Date End Date Felix Adaem MD [address] [place], [place] [id number] PCP - General Family Practice 06/17/20
--- OUTSIDE RECORDS SUMMARY | 2024-12-18 13:50 | XMS_ITS | Clinical Summary ---
Author Organization [facility] Address [address] [place] [address] Care Team Providers Care Manufacturing Area Manager Name Role Phone Felix Adame MD Primary Care Provider [phone] Allergies No known active allergies Medications levothyroxine (SYNTHROID, LEVOTHROID) 25 mcg tablet 7 Active omeprazole (PriLOSEC) 40 mg capsule 7 Active anastrozole (ARIMIDEX) 1 mg tablet Take 1 tablet (1 mg total) by mouth daily 2 Active B complex 54-qdckl-L-biot -zinc (Dialyvite) [id number] sk-pl-rwr-mg tablet Take by mouth Active cholecalciferol (VITAMIN D-3) 25 mcg (1,000 unit) tablet Take 1 tablet (1,000 Units total) by mouth daily Active ferrous sulfate 325 mg (65 mg of elemental iron) tabletIndicatio ns:Iron Deficiency Anemia Take 1 tablet (325 mg total) by mouth daily with breakfast Active lisinopriL (PRINIVIL,ZESTR [place]) 10 mg tablet Take 1 tablet (10 mg total) by mouth daily 3 Active Jardiance 10 mg tablet Take 1 tablet (10 mg total) by mouth daily 30 tablet 2 4 Active metoprolol XL (TOPROL-XL) 25 mg extended release tablet Take 1 tablet (25 mg total) by mouth daily Active atorvastatin (LIPITOR) 10 mg tablet Take 1 tablet (10 mg total) by mouth daily 90 tablet 3 5 Active spironolactone (ALDACTONE) 25 mg tablet Take 1 tablet by mouth once daily 90 tablet 3 5 Active furosemide (LASIX) 40 mg tablet Take 1 tablet by mouth twice daily 180 tablet 5 Active rivaroxaban (XARELTO) 20 mg tablet Take 1 tablet (20 mg total) by mouth daily with dinner 30 tablet 3 5 Active apixaban (ELIQUIS) 5 mg tablet Take 1 tablet (5 mg total) by mouth 2 (two) times a day 60 tablet 4 5 11/25/19 25 Discontinu ed(Alterna te therapy) apixaban (ELIQUIS) 5 mg tablet Take 1 tablet (5 mg total) by mouth 2 (two) times a day 180 tablet 2 5 11/25/19 25 Discontinu ed(Alterna te therapy) Active Problems Problem Noted Date Diagnosed Date Dilated cardiomyopathy 10/31/2021 DVT (deep venous thrombosis) 10/31/2021 Arthritis of both knees 10/06/2016 BMI 45.0-49.9, adult 10/06/2016 Morbid obesity due to excess calories 10/06/2016 Encounters Date Type Department Care Team Description 11/22/2024 Telephone [facility] Cardiology [address] [facility] [address] [place] [address] Richie Schneider MD medication cost from Last 3 Months Medical History Medical History Date Comments Hypertension Thyroid disease Anemia Family History Medical History Relation Name Comments Hypertension Neg Hx Social History Tobacco Use Types Packs/Day Years Used Date Smoking Tobacco: Former Smokeless Tobacco: Never Tobacco Cessation:Counseling Given: Not Answered Alcohol Use [...] Sign Reading Time Taken Comments Blood Pressure 128/72 08/17/2024 9:20 AM CDT Pulse 60 08/17/2024 9:20 AM CDT Temperature - - Respiratory Rate - - Oxygen Saturation 99% 08/17/2024 9:20 AM CDT Inhaled Oxygen Concentration - - Weight 113.9 kg (251 lb) 08/17/2024 9:20 AM CDT Height 170.2 cm (5' 7) 08/17/2024 9:20 AM CDT Body Mass Index 39.31 08/17/2024 9:20 AM CDT Plan of Treatment Health Maintenance [...] 07/05/2020, Additional history exists Influenza Vaccine (#1) 2024 Insurance MEDICARE MEDICARE [facility] MEDICARE SUPPLEMENT Care Teams Manufacturing Area Manager Relationship Specialty Start Date End Date Felix Adame MD PCP - General Family Medicine 04/08/23
--- OUTSIDE RECORDS SUMMARY | 2024-12-18 13:50 | XMS_ITS | Clinical Summary ---
Author Organization [facility] Address [address] [address] Phone Care Team Providers Care Manager Monitoring Name Role Phone Felix Adame MD Primary Care Provider [phone] Allergies No known active allergies Medications fluticasone [...] Lnp-s, Pf, 3 0 Mcg/0.3 Ml Dose ([employer]) 02/24/2021,07/05/2020,06/14/2020 Family History Medical History Relation Name [...] Comments Blood Pressure 118/66 04/15/2021 2:00 PM AUTOMOTIVE DESIGN DRAFTER Pulse 66 04/15/2021 2:00 PM AUTOMOTIVE DESIGN DRAFTER Temperature 36.6 C (97.8 F) 04/15/2021 11:08 AM AUTOMOTIVE DESIGN DRAFTER Respiratory Rate 16 04/15/2021 2:00 PM AUTOMOTIVE DESIGN DRAFTER Oxygen Saturation 100% 04/15/2021 2:00 PM AUTOMOTIVE DESIGN DRAFTER Inhaled Oxygen Concentration - - Weight 123.8 kg (273 lb) 04/15/2021 11:08 AM AUTOMOTIVE DESIGN DRAFTER Height 170.2 cm (5' 7) 04/15/2021 11:08 AM AUTOMOTIVE DESIGN DRAFTER Body Mass Index 42.76 04/15/2021 11:08 AM AUTOMOTIVE DESIGN DRAFTER Plan of Treatment Health Maintenance Due Date Last Done Comments Hepatitis C Virus (HCV) Screening 1945 TdaP Immunization 1945 Pneumococcal Immunization (5 0+ years) (1 of 1 - PCV) 11/29/1997 Zoster Immunization (1 of 2) 11/29/1997 Respiratory Syncytial Virus (RSV) Immunization (Adult) (1 - 1-dose 75+ series) 11/29/2022 Influenza Immunization (#1) 2024 SARS-COV-2 Immunization ( season) 2024 02/24/2021, 07/05/2020, 06/14/2020 Colonoscopy Discontinued 10/03/2014 Colorectal Cancer Screening Discontinued Cologuard Discontinued Hepatitis B Immunization Aged Out No longer eligible based on patient's age to complete this topic Human Papillomavirus (HPV) Immunization Aged Out No longer eligible based [...] to Health Maintenance Insurance MEDICARE Care Teams Manager Monitoring Relationship Specialty Start Date End Date Felix Adame MD [address] [place] [address] PCP - General Family Medicine 03/26/21
--- OUTSIDE RECORDS SUMMARY | 2024-12-18 13:50 | XMS_ITS | Encounter Summary ---
Author Organization [facility] Healthcare Address [address] [place] [address] Care Team Providers Care Tuckpointer Cleaner Caulker Name Role Phone Pedro Castro MD Primary Care Provider [phone] Felix Adame MD Primary Care Provider [phone] Encounter Details Date Type Department Care Team (Late st Contact Info) Description 03/24/2021 Telephone [facility] Transplant Heart [address] [address] [address]25[address] [place] [address] Jaye Cummins Social History Tobacco Use Types [...] on filedocumented in this encounter Care Teams Tuckpointer Cleaner Caulker Relationship Specialty Start Date End Date Pedro Castro MD [address] [place] [address] PCP - General Family Practice 08/03/18 10/30/21 Felix Adame MD [address] [place] [address] PCP - General Family Medicine 04/08/23 documented as of this encounter
--- OUTSIDE RECORDS SUMMARY | 2024-12-18 13:50 | XMS_ITS | Clinical Summary ---
Author Organization [facility] Address [address] [place] [phone] Phone Care Team Providers Care Beck Operator Name Role Phone Felix Adame MD Primary Care Provider [phone] Allergies No known active allergies Medications albuterol HFA (PROVENTIL HFA) 108 (90 Base) MCG/ACT inhaler INHALE 2 PUFFS BY MOUTH EVERY 4 TO 6 HOURS FOR DYSPNEA 09/16/2021 Active anastrozole (ARIMIDEX) 1 MG chemo tablet Take 1 mg by mouth 1 (one) time each day 09/22/2021 Active Eliquis 5 MG tablet 11/13/2021 Active B Gpfbbdk-V-Vl-Fo lic Acid (Dialyvite/Zinc ) tablet Take by mouth Active carvedilol (COREG) [...] at Not on file Legal Sex Female 8:44 AM MDT Gender Identity Not on file Sexual Orientation [...] 9:28 AM CDT Height 167.6 cm (5' 6) 11/20/2021 9:28 AM CDT Body Mass Index 40.03 11/20/2021 9:28 AM CDT Plan of Treatment Health Maintenance Due Date Last Done Comments Pneumococcal PPSV23/PCV13 65 + Years / Low and Medium Risk (1 of 2 - PCV) 11/29/1997 COVID-19 Vaccine (2024- season) 2024 02/24/2021, 07/05/2020, 06/14/2020 Influenza Vaccine (#1) 2024 Insurance MEDICARE [employer] [place] MEDICARE SUPPLEMENT Care Teams Beck Operator Relationship Specialty Start Date End Date Felix Adame MD [address] [place] [phone] PCP - General Internal Medicine 10/28/21
--- OUTSIDE RECORDS SUMMARY | 2024-12-18 13:50 | XMS_ITS | Encounter Summary ---
Author Organization [facility] Address [address] [place] [address] Care Team Providers Care Bunch Breaker Machine Operator Name Role Phone Felix Adame MD Primary Care Provider [phone] Encounter Details Date Type Department Care Team (Late st Contact Info) Description 07/16/2020 Chart Note [facility] Radiation Therapy [address] [place] [address] [place] [address] [place] [address] Social History Tobacco Use Types [...] often do you attend chur ch or islam services? 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 Gender Identity Not on file Sexual Orientation [...] Description 01/04/2025 9:45 AM CDT Office Visit [facility] Oncology and Hematology - [place] [address] [place] [address] Leonel Fay MD [address] [place] [address] documented as of this encounter Visit Diagnoses Not on filedocumented in this encounter Care Teams Bunch Breaker Machine Operator Relationship Specialty Start Date End Date Felix Adame MD [address] [place] [address] PCP - General Family Practice 06/17/20 documented as of this encounter
[2024-12-18 14:39] LABS: Albumin Level 4.5 g/dL (3.5-5.1); Anion Gap 10 mmol/L (4-12); Blood Urea Nitrogen 63 mg/dL (7-17); Calcium 9.5 mg/dL (8.4-10.2); Carbon Dioxide 23 mmol/L (22-30); Chloride 105 mmol/L (98-107); Estimated Glomerular Filt Rate 17; Glucose 87 mg/dL (65-110); Potassium 5.2 mmol/L (3.4-5.0); Sodium 138 mmol/L (137-145)
[2024-12-18 14:41] LABS: Total Protein Urine Random 8 mg/dL; Ur Ttl Prot Creatinine Ratio 0.15 mg/mg (0-0.20)
[2024-12-18 14:51] LABS: Parathyroid Intact 113.2 pg/mL (14.5-75.2)
== END 2024-12-18 13:47 | disposition home or self-care (01) ==
PROVIDERS: PCP Family Medicine; Visit Provider Internal Medicine Nephrology
DX: I12.9 Hypertensive chronic kidney disease with stage 1 through stage 4 chronic kidney disease, or unspecified chronic kidney disease (principal); N18.4 Chronic kidney disease, stage 4 (severe); N25.81 Secondary hyperparathyroidism of renal origin; E55.9 Vitamin D deficiency, unspecified
CPT/HCPCS: 36415; 80069; 82306; 82570; 83970; 84156

== ENCOUNTER 2025-01-19 10:23 | Outpatient (CLI) | payer MEDICARE, SELFPAY ==
--- NOTE | ~2025-01-19 | CT_ITS ---
EXAMINATION: CT sinus wo con COMPARISON: None HISTORY: chronic sinusitis, unspecified locaiton TECHNIQUE: Axial images were obtained without IV contrast. Sagittal, coronal reconstruction images were obtained from the axial views. CT scan performed using dose optimization techniques including the following automated exposure control; adjustment of mA and/or kV; use of iterative reconstruction technique. Automatic exposure control was used to reduce radiation dose. Permanent radiation dose record is archived to PACS. FINDINGS: The nasal bones are intact. Anterior maxillary sinus crisostomo and zygomatic arches intact. Temporomandibular joints intact. Orbital floors and medial orbits are intact. Visualized brain parenchyma, optic globes and soft tissues unremarkable Frontal sinuses are diminutive. Minimal mucosal thickening in the ethmoidal air cells. Maxillary sinus is unremarkable. Ostiomeatal complexes patent. Nasal septum deviated slightly to the right. Mild thickening of the turbinates but no significant narrowing of the nasal cavities. Moderate mucosal thickening in the left sphenoid sinus. No osseous destruction or wall thickening identified. IMPRESSION: Sinusitis detailed above Reviewed, dictated and finalized at location P. IMPRESSION: Sinusitis detailed above
== END 2025-01-19 10:24 | disposition home or self-care (01) ==
PROVIDERS: PCP Family Medicine; Visit Provider Otolaryngology
DX: J32.9 Chronic sinusitis, unspecified (principal)
CPT/HCPCS: 36415; 70486; 80053; 80061; 82306; 82607; 83036; 84439; 84443; 85027

== ENCOUNTER 2025-01-19 11:04 | Outpatient (CLI) | payer MEDICARE, SELFPAY ==
[2025-01-19 11:35] LABS: Hematocrit 34.9 % (37.0-47.0); Hemoglobin 10.9 g/dL (12.0-15.0); Mean Corpuscular HGB Conc 31.2 g/dl (32-36); Mean Corpuscular Hemoglobin 30.0 pg (26-34); Mean Corpuscular Volume 96.1 fl (80-100); Platelet Count Result 179 k/mm3 (150-375); Red Blood Count 3.63 M/mm3 (4.2-5.4); White Blood Count 6.9 K/mm3 (4.5-10.0)
[2025-01-19 11:47] LABS: Hemoglobin A1C 5.3 % (<5.7)
[2025-01-19 11:56] LABS: Alanine Aminotransferase 14 U/L (6-35); Albumin Level 4.5 g/dL (3.5-5.1); Alkaline Phosphatase 87 U/L (38-126); Anion Gap 9 mmol/L (4-12); Aspartate Amino Transferase 35 U/L (14-36); Bilirubin,Total 0.7 mg/dL (0.2-1.3); Blood Urea Nitrogen 54 mg/dL (7-17); Calcium 9.5 mg/dL (8.4-10.2); Carbon Dioxide 25 mmol/L (22-30); Chloride 106 mmol/L (98-107); Cholesterol 194 mg/dL (0-200); Estimated Glomerular Filt Rate 20; Glucose 96 mg/dL (65-110); HDL Direct 56 mg/dL; Potassium 5.0 mmol/L (3.4-5.0); Sodium 140 mmol/L (137-145); Total Protein 8.2 g/dL (6.3-8.2); Triglycerides 59 mg/dL (<150)
[2025-01-19 12:13] LABS: Free T4 Free Thyroxine 1.36 ng/dL (0.78-2.19)
[2025-01-19 12:31] LABS: Thyroid Stimulating Hormone 2.340 uIU/mL (0.465-4.680)
[2025-01-19 12:50] LABS: Vitamin B12 942.0 pg/mL (239-931)
== END 2025-01-19 11:05 | disposition home or self-care (01) ==
LOC: ANHLAB 11:06
PROVIDERS: PCP Family Medicine; Visit Provider Nurse Practitioner Family
DX: D64.9 Anemia, unspecified (principal); N18.4 Chronic kidney disease, stage 4 (severe); E78.5 Hyperlipidemia, unspecified; E11.9 Type 2 diabetes mellitus without complications; E03.9 Hypothyroidism, unspecified; Z13.21 Encounter for screening for nutritional disorder
CPT/HCPCS: 36415; 80053; 80061; 82306; 82607; 83036; 84439; 84443; 85027